=== PATIENT | male | born 1985 | race Caucasian/White ===

== ENCOUNTER 2021-06-19 08:03 | Emergency (ER) | payer OTHER, SELFPAY ==
--- NOTE | ~2021-06-19 | CT_ITS ---
EXAMINATION: CT abdomen pelvis w con EXAM DATE: 06/19/2021 09:27 INDICATION: Diffuse abdominal pain, rigid abdomen nausea vomiting for 3 days. TECHNIQUE: Spiral CT of the abdomen and pelvis was performed following intravenous injection of 100 m L Omnipaque 350. Axial, coronal and sagittal images of the abdomen and pelvis were reviewed. The do se-length product (DLP) for this examination was 386.71 mGy-cm. The exposure was tailored according to patient size (auto mA exposure control), and iterative reconstruction (ASIR) was used as additiona l dose reduction technique. There is no prior study for comparison. FINDINGS: The liver, spleen, adrenal glands and pancreas are unremarkable. Gallbladder is unremarkab le. No biliary obstruction. Punctate bilateral nephrolithiasis. Portal and splenic veins are patent. Kidneys enhance symmetrically. There is no hydronephrosis. The prostate is unremarkable. Calcifi ed vasa deferentia which is often seen with diabetes. The bladder is unremarkable. There is no retr operitoneal or pelvic lymphadenopathy. The appendix is normal. The stomach and small bowel are unremarkable. There is moderate amount of c olonic stool. No free intraperitoneal gas. The heart is normal in size. There are no pericardial or pleural effusions. The lung bases are unremarkable. There are no osteoblastic or osteolytic les ions identified. IMPRESSION: 1. No acute intra-abdominal findings. 2. Calcified vasa deferentia. Diabetic? Consider correlating with fasting glucose, hemoglobin A1c if no known diagnosis. 3. Punctate bilateral nephrolithiasis. Reviewed, dictated and finalized at location B. IMPRESSION: 1. No acute intra-abdominal findings. 2. Calcified vasa deferentia. Diabetic? Consider correlating with fasting gluc ose, hemoglobin A1c if no known diagnosis. 3. Punctate bilateral nephrolithiasis.
[2021-06-19 08:03] VITALS: BP 185/108; PULSE 99; RESP 16; TEMP 36.4; O2SAT 99
[2021-06-19] MEDS: ONDANSETRON INJ 4 MG/2 ML VIAL IV PUSH (08:11)
[2021-06-19 08:25] LABS: Glucose Point of Care 233 mg/dl (65-105)
--- NOTE | 2021-06-19 08:29 | ED.GENADULT ---
HPI - General Adult General Chief complaint: Nausea/Vomiting/Diarrhea Stated complaint: VOMITTING Source: patient Mode of arrival: ambulatory Limitations: no limitations History of Present Illness HPI narrative: Mr. Ramirez is a 36M with a PMH of tobacco abuse, DMI that presented to the ED with abdominal pain, nausea, and vomiting. He woke up 2 days ago with diffuse abdominal pain nausea and vomiting. He has had several episodes of non-bloody vomit today and diffuse abdominal pain. He denies diarrhea, melena, CP, SOB fevers and chills. Related Data Home Medications Medication Instructions Recorded Confirmed insulin glargine [Lantus U-100 40 unit SUBCUT DAILY 06/19/21 06/19/21 Insulin] insulin lispro [Admelog U-100 See Protocol SUBCUT PRN 06/19/21 06/19/21 Insulin lispro] insulin syringe-needle U-100 [BD 06/19/21 06/19/21 Insulin Syringe Ultra-Fine] Allergies Allergy/AdvReac Type Severity Reaction Status Date / Time No Known Allergies Allergy Verified 06/19/21 08:29 Review of Systems Constitutional: Constitutional: Reports no additional constitutional complaints Eyes: Eyes: Reports no additional eye complaints ENT: Reports system reviewed and no additional complaints, except as documented Cardiovascular: Cardiovascular: Reports no additional cardiovascular complaints Respiratory: Respiratory: Reports no additional respiratory complaints Gastrointestinal: Gastrointestinal: Reports as per HPI Genitourinary: Genitourinary: Reports no additional male genitourinary complaints Musculoskeletal: Musculoskeletal: Reports no additional musculoskeletal complaints Integumentary/Breasts: Skin/Breast: Reports system reviewed and no additional complaints, except as docu Neurologic: Reports system reviewed and no additional complaints, except as documented Psychiatric: Psychiatric: Reports no additional psychiatric complaints Endocrine: Endocrine: Reports no additional endocrine complaints Hematologic/Lymphatic: Hematologic/Lymphatic: Reports no additional hematologic/lymphatic complaints Allergic/Immunologic: Allergic/Immunologic: Reports no additional allergic/immunologic complaints [facility] Social History Social History Substance use type: marijuana and other Exam Const: General: alert Orientation/consciousness: patient oriented x3 Limitations: No altered mental status Other: In mild to moderate distress holding his abdoman HENMT: Head: normal to inspection Other: atraumatic Eyes: Conjunctivae: conjunctivae normal Pupils: Equal, round and reactive pupils present Neck: Neck: normal visual inspection Chest: Chest palpation & inspection: normal inspection of the chest Resp: Effort & Inspection: normal respiratory effort Auscultation: clear to auscultation bilaterally Cardio: Rate: regular rate Rhythm: regular rhythm GI: GI Palp: Yes Guarding due to palpation present (GI) and Yes Rebound tenderness present Other: Diffusely tender abdomen, unable to deeply palpate given pain : General: Yes no CVA tenderness Skin: General skin exam: normal color Rashes: no rashes Neuro: General: patient oriented x3 and moves all extremities Extrem: General: normal to inspection Psych: Appearance: grossly normal Mental Status: mental status grossly normal Course Course Emergency Course: Isaac was evaluated. He was given fluids, morphine and zofran. Labs and CT ordered. He felt a little better with the morphing but really felt better after the GI cocktail but continued to feel week. He did not take his insulin and is worried that he will not be able to get to his home insulin so he would like it given here. Medical Decision Making Lab Data Labs: Lab Results 06/19/21 Range/Units 08:17 POC Capillary Glucose 233 H (65-105) mg/dl Discharge Plan Discharge Clinical Impression: Gastritis Patient Disposition: Home, Se
[2021-06-19] MEDS: LACTATED RINGERS 1,000 ML 999 ML IV CONT (08:30)
[2021-06-19 08:43] LABS: Basophils Absolute Auto 0.02 K/mm3 (0.00-0.10); Basophils Percent Auto 0.2 % (0.0-1.0); Eosinophils Absolute Auto 0.02 K/mm3 (0.02-0.50); Eosinophils Percent Auto 0.2 % (1.0-6.0); Hematocrit 49.2 % (40.0-54.0); Hemoglobin 17.6 g/dL (14.0-18.0); Immature Granulocyte Absolute 0.03 K/mm3 (0.00-0.00); Immature Granulocyte Percent A 0.3 % (0.0-0.0); Lymphocytes Absolute Auto 1.17 K/mm3 (1.10-4.50); Lymphocytes Percent Auto 12.3 % (18.0-42.0); Mean Corpuscular HGB Conc 35.8 g/dL (32.0-36.0); Mean Corpuscular Hemoglobin 31.7 pg (27.0-31.0); Mean Corpuscular Volume 88.5 fL (78.0-102.0); Mean Platelet Volume 11.8 fl (8.7-11.0); Monocytes Absolute Auto 0.65 K/mm3 (0.10-0.90); Monocytes Percent Auto 6.8 % (2.0-11.0); Neutrophils Absolute Auto 7.6 K/mm3 (1.7-7.2); Neutrophils Percent Auto 80.2 % (50.0-70.0); Platelet Count Result 185 K/mm3 (150-420); Red Blood Count 5.56 M/mm3 (4.70-6.10); Red Cell Distribution Width 12.4 % (11.6-14.4); White Blood Count 9.5 K/mm3 (4.8-10.8)
[2021-06-19 08:55] LABS: INR 1.1; Prothrombin Time 11.2 Seconds (9.50-12.10)
[2021-06-19] MEDS: MORPHINE SULFATE (*CRX) 4 MG/ML INJ IV PUSH (08:56)
[2021-06-19 09:00] LABS: Alanine Aminotransferase 18 U/L (16-63); Albumin Level 4.6 g/dL (3.4-5.0); Alkaline Phosphatase 76 U/L (46-116); Anion Gap 16 mmol/L (8-16); Aspartate Amino Transferase 10 U/L (15-37); Bilirubin,Total 1.2 mg/dL (0.00-1.00); Blood Urea Nitrogen 31 mg/dL (7-18); Calcium 9.6 mg/dL (8.5-10.1); Carbon Dioxide 26 mmol/L (21-32); Chloride 97 mmol/L (98-108); Estimated CRCL calculation 118 ml/min; Estimated Glomerular Filt Rate > 60; Glucose 242 mg/dL (70-99); Lipase 14 U/L (73-393); Osmolality Calculated 302 mOsm/kg (285-295); Sodium 139 mmol/L (136-145); Total Protein 7.6 g/dL (6.4-8.2)
[2021-06-19 09:02] LABS: Ethanol < 3 mg/dL (0-6)
[2021-06-19 09:09] LABS: CRP < 0.5 mg/dL (0.0-0.9)
[2021-06-19] MEDS: MAG HYDROX/ALUMINUM HYD/SIMETH 30 ML, PHENobarb/HYOSCY/ATROPINE/SCOP 32.4 MG, LIDOCAINE... PO (10:23)
[2021-06-19 11:13] VITALS: BP 160/97; PULSE 86; RESP 15; O2SAT 97
[2021-06-19] MEDS: INSULIN GLARGINE (*BKC) 100 UNITS/ML 40 UNITS SUB-Q (11:13)
== END 2021-06-19 11:15 | disposition home or self-care (01) ==
PROVIDERS: Emergency Provider Family Medicine
DX: K29.70 Gastritis, unspecified, without bleeding (principal)
CPT/HCPCS: 36415; 74177; 80053; 80307; 82948; 83605; 83690; 85025; 85610; 86140; 96361; 96374; 96375; 99283; 99284; A9270; J1815; J2270; J2405; J7120; Q9967

== ENCOUNTER 2022-04-12 13:29 | Emergency (ER) | payer OTHER, SELFPAY ==
[2022-04-12 13:40] VITALS: BP 169/83; PULSE 92; RESP 20; TEMP 36.3; O2SAT 98
--- NOTE | 2022-04-12 13:48 | ED.NAVMDI ---
HPI - Nausea/Vomiting/Diarrhea General Chief complaint: Nausea/Vomiting/Diarrhea Stated complaint: vomiting, abd pain, diarrhea, headache Time Seen by Provider: 04/12/22 13:48 Source: patient History of Present Illness HPI Narrative: 37-year-old male, smoker, marijuana user with diabetes mellitus presented to the ER with a 12 hour history of -- nausea with multiple episodes of vomiting -- diffuse abdominal pain. No radiation of the pain. No exacerbating or relieving factors. No fever. -- Multiple episodes of diarrhea. No blood or mucus. -- Headache which is generalized. Started insidiously. Patient had alcohol with cinnamon yesterday. no hematemesis/melena MD elicited complaint: nausea, vomiting, diarrhea and abdominal pain Pertinent past history: anorexia Onset (ago): hour(s) ( Started 12 hours ago) Description of vomiting: bilious Description of diarrhea: watery Associated nausea: Yes Associated abdominal pain: Yes Location of pain: diffuse Radiation: does not radiate Pain consistency: intermittent Severity: moderate Quality: cramping Exacerbating factors: none Relieving factors: none Related Data Home Medications Medication Instructions Recorded Confirmed insulin glargine [Lantus U-100 42 unit SUBCUT DAILY 06/19/21 04/12/22 Insulin] insulin lispro [Admelog U-100 See Protocol SUBCUT PRN 06/19/21 04/12/22 Insulin lispro] insulin syringe-needle U-100 [BD 06/19/21 04/12/22 Insulin Syringe Ultra-Fine] Allergies Allergy/AdvReac Type Severity Reaction Status Date / Time No Known Allergies Allergy Verified 06/19/21 08:29 Review of Systems Review of Systems: All systems reviewed & are unremarkable except as noted in HPI and below Constitutional: Constitutional: Reports as per HPI and Reports no additional constitutional complaints Eyes: Eyes: Reports as per HPI and Reports no additional eye complaints ENT: Reports system reviewed and no additional complaints, except as documented Cardiovascular: Cardiovascular: Reports as per HPI and Reports no additional cardiovascular complaints Respiratory: Respiratory: Reports as per HPI and Reports no additional respiratory complaints Gastrointestinal: Gastrointestinal: Reports as per HPI, Reports no additional gastrointestinal complaints, Reports abdominal pain, Reports change in bowel habits, Reports change in stool character, Reports diarrhea, Reports loose stools, Reports nausea and Reports vomiting Genitourinary: Genitourinary: Reports no additional male genitourinary complaints and Reports as per HPI Musculoskeletal: Musculoskeletal: Reports no additional musculoskeletal complaints and Reports as per HPI Integumentary/Breasts: Skin/Breast: Reports system reviewed and no additional complaints, except as docu and Reports as per HPI Neurologic: Reports system reviewed and no additional complaints, except as documented and Reports as per HPI Psychiatric: Psychiatric: Reports no additional psychiatric complaints and Reports as per HPI Endocrine: Endocrine: Reports no additional endocrine complaints and Reports as per HPI Hematologic/Lymphatic: Hematologic/Lymphatic: Reports no additional hematologic/lymphatic complaints and Reports as per HPI Allergic/Immunologic: Allergic/Immunologic: Reports no additional allergic/immunologic complaints and Reports as per HPI PMFSH Past Medical History Medical History (Updated 04/12/22 @ 15:23 by Roberth Alva MD) Gastritis Social History Social History (Updated 04/12/22 @ 14:07 by Roberth Alva MD) Social History: smoker, uses marijuana Substance use type: marijuana and other Exam Const: General: cooperative, healthy appearing, comfortable and no acute distress HENMT: Head: normal to inspection Ears: hearing grossly normal bilaterally General nose exam: Normal external nose present Face and sinus: normal facial exam Mouth: Yes Normal oral and palatal mucosa present Throat: sales research analyst
[2022-04-12] MEDS: LACTATED RINGERS 1,000 ML 999 ML IV CONT ×2 (14:08→15:24)
[2022-04-12] MEDS: PANTOPRAZOLE SODIUM IV 40 MG VIAL IV PUSH (14:09)
[2022-04-12] MEDS: PROCHLORPERAZINE EDISYLATE 10 MG/2 ML VIAL IV PUSH (14:10)
[2022-04-12 14:50] LABS: Basophils Absolute Auto 0.03 K/mm3 (0.00-0.10); Basophils Percent Auto 0.3 % (0.0-1.0); Eosinophils Absolute Auto 0.02 K/mm3 (0.02-0.50); Eosinophils Percent Auto 0.2 % (1.0-6.0); Hematocrit 43.3 % (40.0-54.0); Hemoglobin 15.4 g/dL (14.0-18.0); Immature Granulocyte Absolute 0.04 K/mm3 (0.00-0.00); Immature Granulocyte Percent A 0.4 % (0.0-0.0); Lymphocytes Absolute Auto 0.79 K/mm3 (1.10-4.50); Lymphocytes Percent Auto 7.3 % (18.0-42.0); Mean Corpuscular HGB Conc 35.6 g/dL (32.0-36.0); Mean Corpuscular Volume 89.8 fL (78.0-102.0); Mean Platelet Volume 11.7 fl (8.7-11.0); Monocytes Absolute Auto 0.44 K/mm3 (0.10-0.90); Monocytes Percent Auto 4.1 % (2.0-11.0); Neutrophils Absolute Auto 9.5 K/mm3 (1.7-7.2); Neutrophils Percent Auto 87.7 % (50.0-70.0); Platelet Count Result 151 K/mm3 (150-420); Red Blood Count 4.82 M/mm3 (4.70-6.10); White Blood Count 10.8 K/mm3 (4.8-10.8)
[2022-04-12 15:06] LABS: Lactic Acid Reflex 1.7 mmol/L (0.4-2.0)
[2022-04-12 15:08] LABS: Alanine Aminotransferase 24 U/L (16-63); Albumin Level 4.1 g/dL (3.4-5.0); Alkaline Phosphatase 62 U/L (46-116); Anion Gap 8 mmol/L (8-16); Aspartate Amino Transferase 16 U/L (15-37); Bilirubin,Total 0.7 mg/dL (0.00-1.00); Blood Urea Nitrogen 18 mg/dL (7-18); Calcium 8.9 mg/dL (8.5-10.1); Carbon Dioxide 29 mmol/L (21-32); Chloride 103 mmol/L (98-108); Estimated CRCL calculation 103 ml/min; Estimated Glomerular Filt Rate > 60; Glucose 116 mg/dL (70-99); Lipase 125 U/L (73-393); Osmolality Calculated 292 mOsm/kg (285-295); Sodium 140 mmol/L (136-145); Total Protein 6.9 g/dL (6.4-8.2); Troponin I 6.3 ng/L (0.00-60.4)
[2022-04-12 16:08] VITALS: BP 164/76; PULSE 94; RESP 20; TEMP 36.9; O2SAT 97
== END 2022-04-12 16:18 | disposition home or self-care (01) ==
PROVIDERS: Emergency Provider Internal Medicine Critical Care Medicine
DX: K52.9 Noninfective gastroenteritis and colitis, unspecified (principal); K29.20 Alcoholic gastritis without bleeding; E11.9 Type 2 diabetes mellitus without complications; F12.90 Cannabis use, unspecified, uncomplicated
CPT/HCPCS: 36415; 80053; 83605; 83690; 84484; 85025; 96361; 96374; 96375; 99284; C9113; J0780; J7120

== ENCOUNTER 2022-06-21 08:23 | Emergency (ER) | payer OTHER, SELFPAY ==
[2022-06-21 08:30] VITALS: BP 179/90; PULSE 74; RESP 18; TEMP 36.2; O2SAT 100
--- NOTE | 2022-06-21 08:32 | ED.UPPEXIN ---
HPI - Extremity Injury (Upper) General Stated Complaint: can not stop vomiting Time Seen by Provider: 06/21/22 08:32 Source: patient and RN notes reviewed Mode of arrival: ambulatory Limitations: no limitations History of Present Illness Onset (ago): day(s) Related Data Home Medications Medication Instructions Recorded Confirmed insulin glargine 100 unit/mL 42 unit subcut DAILY 06/19/21 04/12/22 subcutaneous solution (Lantus U-100 Insulin) insulin lispro 100 unit/mL See Protocol subcut PRN 06/19/21 04/12/22 subcutaneous solution (Admelog U-100 Insulin lispro) insulin syringe-needle U-100 1 mL 06/19/21 04/12/22 31 gauge x 5/16 (BD Insulin Syringe Ultra-Fine) Allergies Allergy/AdvReac Type Severity Reaction Status Date / Time No Known Allergies Allergy Verified 06/19/21 08:29 [facility] Past Medical History Medical History (Updated 04/13/22 @ 00:00 by Georges Mcfadden) Gastritis Social History Social History (Updated 04/12/22 @ 14:07 by Roberth Alva MD) Social History: smoker, uses marijuana Substance use type: marijuana and other Discharge Plan Discharge Prescriptions: No Action Lantus U-100 Insulin 100 unit/mL solution 42 unit SUBCUT DAILY (DME) insulin syringe-needle U-100 [BD Insulin Syringe Ultra-Fine] 1 mL 31 gauge x 5/16 syringe MISCELLANEOUS insulin lispro [Admelog U-100 Insulin lispro] 100 unit/mL solution See Protocol subcut PRN Protocol: Insulin Corrective Low-Dose Condition: glucose < 70 mg/dl Dose/Route: Follow Hypoglycemia Order Condition: glucose 70-200 mg/dl Dose/Route: No additional insulin Condition: glucose 201-250 mg/dl Dose/Route: 2 units sub-Q Condition: glucose 251-300 mg/dl Dose/Route: 3 units sub-Q Condition: glucose 301-350 mg/dl Dose/Route: 4 units sub-Q Condition: glucose 351-400 mg/dl Dose/Route: 5 units sub-Q Condition: glucose > 400 mg/dl Dose/Route: Call Protocol Text: *No Correction Dose at Bedtime* pantoprazole [Protonix] 40 mg tablet,delayed release (DR/EC) 40 mg PO HS Qty: 14 0RF pantoprazole [Protonix] [address] for susp in packet 40 mg PO DAILY Qty: 15 0RF ondansetron 4 mg tablet,disintegrating 4 mg PO Q6H PRN (Reason: nausea and vomiting) Qty: 10 0RF Follow-up/Referrals: UNKNOWN,DOCTOR [Primary Care Provider] -
--- NOTE | 2022-06-21 08:45 | ED.NAVMDI ---
HPI - Nausea/Vomiting/Diarrhea General Chief complaint: Nausea/Vomiting/Diarrhea Stated complaint: can not stop vomiting Time Seen by Provider: 06/21/22 08:32 Source: patient and RN notes reviewed Mode of arrival: ambulatory Limitations: no limitations History of Present Illness MD elicited complaint: nausea, vomiting and diarrhea Onset (ago): day(s) (3) Description of vomiting: bilious Description of diarrhea: lose Associated nausea: Yes Associated abdominal pain: Yes Location of pain: diffuse Pain consistency: intermittent ( feels sore from vomiting) Severity: moderate Exacerbating factors: eating Relieving factors: none Associated symptoms: myalgias Related Data Home Medications Medication Instructions Recorded Confirmed insulin glargine 100 unit/mL 40 unit subcut DAILY 06/19/21 06/21/22 subcutaneous solution (Lantus U-100 Insulin) insulin lispro 100 unit/mL See Protocol subcut PRN 06/19/21 06/21/22 subcutaneous solution (Admelog U-100 Insulin lispro) insulin syringe-needle U-100 1 mL 06/19/21 04/12/22 31 gauge x 5/16 (BD Insulin Syringe Ultra-Fine) lorazepam 0.5 mg tablet 0.5 mg PO DAILY 06/21/22 06/21/22 metoclopramide HCl 10 mg tablet 10 mg PO DAILY 06/21/22 06/21/22 olanzapine 5 mg tablet 5 mg PO DAILY 06/21/22 06/21/22 Allergies Allergy/AdvReac Type Severity Reaction Status Date / Time No Known Allergies Allergy Verified 06/21/22 08:46 Review of Systems Review of Systems: All systems reviewed & are unremarkable except as noted in HPI and below Constitutional: Constitutional: Reports chills and Reports weakness ENT: Denies sore throat Respiratory: Respiratory: Denies cough Genitourinary: Genitourinary: Denies dysuria PMFSH Past Medical History Medical History (Updated 06/21/22 @ 10:30 by Juan Ramon Ling MD) Bipolar 1 disorder Diabetes mellitus Gastritis Social History Social History Social History: smoker, uses marijuana Substance use type: marijuana and other Exam Const: General: no acute distress, alert and ill appearing acutely Nutritional Appearance: well nourished Orientation/consciousness: patient oriented x3 Limitations: no limitations HENMT: Head: normal to inspection Ears: external ears normal Eyes: Conjunctivae: conjunctivae normal Pupils: Equal, round and reactive pupils present EOM: EOMs intact bilaterally Neck: Neck: normal visual inspection Resp: Effort & Inspection: normal respiratory effort Auscultation: clear to auscultation bilaterally Cardio: Rate: regular rate Rhythm: regular rhythm GI: GI Palp: Yes Soft to palpation, Yes Tenderness to palpation present (GI) ( moderate diffusely), Yes Guarding due to palpation present (GI) and No Rebound tenderness present Auscultation: normal bowel sounds Back/Spine/Pelvis: Cervical Spine: cervical ROM normal Thoracic/Lumbar Spine: thoraco-lumbar ROM normal Skin: General skin exam: normal color Rashes: no rashes Neuro: General: patient oriented x3, moves all extremities, no focal motor deficits and CN's II-XI intact bilaterally Speech: normal speech Gait exam (Neuro): Normal gait present Extrem: General: normal to inspection Psych: Mental Status: mental status grossly normal Affect: normal affect Attitude: cooperative Course Vital Signs Vital signs: Vital Signs Temperature 36.2 C L 06/21/22 08:30 Pulse Rate 74 06/21/22 08:30 Respiratory Rate 18 06/21/22 08:30 Blood Pressure 179/90 H 06/21/22 08:30 Pulse Oximetry 100 06/21/22 08:30 Oxygen Delivery Room Air 06/21/22 08:30 Temperature 36.9 C 06/21/22 10:20 Pulse Rate 65 06/21/22 10:20 Respiratory Rate 16 06/21/22 10:20 Blood Pressure 152/84 H 06/21/22 10:20 Pulse Oximetry 99 06/21/22 10:20 Oxygen Delivery Room Air 06/21/22 10:20 MDM - Nausea/Vomiting/Diarrhea Lab Data Result diagrams: 06/21/22 09:00 06/21/22 09:
[2022-06-21 09:07] LABS: Basophils Absolute Auto 0.01 K/mm3 (0.00-0.10); Basophils Percent Auto 0.1 % (0.0-1.0); Eosinophils Absolute Auto 0.02 K/mm3 (0.02-0.50); Eosinophils Percent Auto 0.2 % (1.0-6.0); Hematocrit 48.4 % (40.0-54.0); Hemoglobin 17.6 g/dL (14.0-18.0); Immature Granulocyte Absolute 0.03 K/mm3 (0.00-0.00); Immature Granulocyte Percent A 0.3 % (0.0-0.0); Lymphocytes Absolute Auto 1.25 K/mm3 (1.10-4.50); Lymphocytes Percent Auto 11.5 % (18.0-42.0); Mean Corpuscular HGB Conc 36.4 g/dL (32.0-36.0); Mean Corpuscular Hemoglobin 31.8 pg (27.0-31.0); Mean Corpuscular Volume 87.4 fL (78.0-102.0); Mean Platelet Volume 12.2 fl (8.7-11.0); Monocytes Absolute Auto 0.81 K/mm3 (0.10-0.90); Monocytes Percent Auto 7.5 % (2.0-11.0); Neutrophils Absolute Auto 8.7 K/mm3 (1.7-7.2); Neutrophils Percent Auto 80.4 % (50.0-70.0); Platelet Count Result 185 K/mm3 (150-420); Red Blood Count 5.54 M/mm3 (4.70-6.10); White Blood Count 10.9 K/mm3 (4.8-10.8)
[2022-06-21 09:19] LABS: Influenza A QL RT-PCR Negative (Negative); Influenza B QL RT-PCR Negative (Negative); SARS-CoV-2 RNA PCR Positive (Negative)
[2022-06-21] MEDS: SODIUM CHLORIDE 0.9% IV 1,000 ML 999 ML IV CONT (09:20)
[2022-06-21 09:22] LABS: Alanine Aminotransferase 25 U/L (16-63); Albumin Level 4.5 g/dL (3.4-5.0); Alkaline Phosphatase 81 U/L (46-116); Anion Gap 14 mmol/L (8-16); Aspartate Amino Transferase 18 U/L (15-37); Bilirubin,Total 1.3 mg/dL (0.00-1.00); Blood Urea Nitrogen 29 mg/dL (7-18); Calcium 9.3 mg/dL (8.5-10.1); Carbon Dioxide 28 mmol/L (21-32); Chloride 96 mmol/L (98-108); Estimated CRCL calculation 104 ml/min; Estimated Glomerular Filt Rate > 60; Glucose 259 mg/dL (70-99); Magnesium 1.9 mg/dL (1.8-2.4); Osmolality Calculated 300 mOsm/kg (285-295); Potassium 3.8 mmol/L (3.5-5.1); Sodium 138 mmol/L (136-145)
[2022-06-21 09:23] LABS: CRP < 0.2 mg/dL (0.0-0.9)
[2022-06-21 09:25] LABS: Lactic Acid Reflex 1.7 mmol/L (0.4-2.0)
[2022-06-21] MEDS: ONDANSETRON INJ 4 MG/2 ML VIAL IV PUSH (10:17)
[2022-06-21 10:20] VITALS: BP 152/84; PULSE 65; RESP 16; TEMP 36.9; O2SAT 99
== END 2022-06-21 10:44 | disposition home or self-care (01) ==
PROVIDERS: Emergency Provider Emergency Medicine
DX: U07.1 COVID-19 (principal)
CPT/HCPCS: 80053; 83605; 83735; 85025; 86140; 87502; 96361; 96365; 96375; 99284; C9803; J0131; J2405; J7030; U0003; U0005

== ENCOUNTER 2022-08-22 14:06 | Emergency (ER) | payer OTHER, SELFPAY ==
[2022-08-22 14:10] VITALS: BP 180/86; PULSE 91; RESP 18; TEMP 36.6; O2SAT 96
[2022-08-22 14:19] LABS: Glucose Point of Care 257 mg/dl (65-105)
--- NOTE | 2022-08-22 14:27 | ECG_ITS ---
Measurements Intervals [place] Rate: 79 P: 62 CT: 110 QRS: 65 QRSD: 94 T: 54 QT: 378 QTc: 433 Interpretive Statements SINUS RHYTHM WITH SHORT CT INTERVAL BORDERLINE ECG NO PREVIOUS ECG AVAILABLE FOR COMPARISON Electronically Signed On 08-22-2022 16:48:47 CDT by Randy Haas D.O.
--- NOTE | 2022-08-22 14:29 | ED.GENADULT ---
HPI - General Adult General Chief complaint: Nausea/Vomiting/Diarrhea Stated complaint: vomiting, abd pain, bcak pain Time Seen by Provider: 08/22/22 14:15 History of Present Illness HPI narrative: Isaac is a 37M with a PMH of DMI, gastroparesis, Bipolar 1 and gastritis that presented to the ED with abdominal pain nausea and vomiting. He woke up yesterday with diffuse abdominal pain, nausea and started vomiting. He has had countless episodes of non-bloody vomiting and 6 episodes of non-bloody vomiting. He has not been able to keep anything down. He denies drinking any alcohol recently and has not smoked MJ for 2 days but smoked regularly before this. He denies CP, SOB but is a little light headed. Related Data Home Medications Medication Instructions Recorded Confirmed insulin glargine 100 unit/mL 40 unit subcut DAILY 06/19/21 08/22/22 subcutaneous solution (Lantus U-100 Insulin) insulin syringe-needle U-100 1 mL 06/19/21 08/22/22 31 gauge x 5/16 (BD Insulin Syringe Ultra-Fine) lorazepam 0.5 mg tablet 0.5 mg PO DAILY 06/21/22 08/22/22 metoclopramide HCl 10 mg tablet 10 mg PO DAILY 06/21/22 08/22/22 olanzapine 5 mg tablet 5 mg PO DAILY 06/21/22 08/22/22 Allergies Allergy/AdvReac Type Severity Reaction Status Date / Time No Known Allergies Allergy Verified 06/21/22 08:46 Review of Systems Review of Systems: All systems reviewed & are unremarkable except as noted in HPI and below [facility] Past Medical History Medical History (Updated 08/22/22 @ 15:35 by Bill Sorensen DO) Bipolar 1 disorder Diabetes mellitus Gastritis Social History Social History Social History: smoker, uses marijuana Substance use type: marijuana and other Exam Const: General: alert and ill appearing acutely HENMT: Head: normal to inspection Ears: external ears normal General nose exam: Normal external nose present Eyes: Conjunctivae: conjunctivae normal Pupils: Equal, round and reactive pupils present EOM: EOMs intact bilaterally Neck: Neck: normal visual inspection Chest: Chest palpation & inspection: normal inspection of the chest Resp: Effort & Inspection: normal respiratory effort Auscultation: clear to auscultation bilaterally Cardio: Rate: regular rate Rhythm: regular rhythm Heart sounds: no murmurs GI: Other: Diffusely TTP, No rebound tenderness or guarding. BS normal : Other: +CVA tenderness bilaterally Skin: General skin exam: normal color Rashes: no rashes Neuro: General: patient oriented x3 and moves all extremities Extrem: General: normal to inspection Psych: Mental Status: mental status grossly normal Course Course Emergency Course: Ordered labs, fluids, UA, zofran and morphine EKG showed NSR with a rate of 79, normal axis and no ST elevation or depression Labs were largely unremarkable After fluids he was feeling much better. We discussed return precautions and he was discharged. Vital Signs Vital signs: Vital Signs Temperature 97.9 F 08/22/22 14:10 Pulse Rate 91 08/22/22 14:10 Respiratory Rate 18 08/22/22 14:10 Blood Pressure 180/86 H 08/22/22 14:10 Pulse Oximetry 96 08/22/22 14:10 Oxygen Delivery Room Air 08/22/22 14:10 Temperature 97.8 F 08/22/22 16:30 Pulse Rate 86 08/22/22 16:30 Respiratory Rate 20 08/22/22 16:30 Blood Pressure 188/93 H 08/22/22 16:30 Pulse Oximetry 98 08/22/22 16:30 Oxygen Delivery Room Air 08/22/22 16:30 Medical Decision Making Vital Signs Vital Signs: Vital Signs Temperature 97.9 F 08/22/22 14:10 Pulse Rate 91 08/22/22 14:10 Respiratory Rate 18 08/22/22 14:10 Blood Pressure 180/86 H 08/22/22 14:10 Pulse Oximetry 96 08/22/22 14:10 Oxygen Delivery Room Air 08/22/22 14:10 Temperature 97.8 F 08/22/22 16:30 Pulse Rate 86 08/22/22 16:30 Respiratory Rate 20 08/22/22 16:30 Blood Pressure 188/93
[2022-08-22] MEDS: SODIUM CHLORIDE 0.9% IV 1,000 ML 999 ML IV CONT (14:51)
[2022-08-22] MEDS: MORPHINE SULFATE (*CRX) 4 MG/ML INJ IV PUSH (14:52)
[2022-08-22] MEDS: ONDANSETRON INJ 4 MG/2 ML VIAL IV PUSH (14:52)
[2022-08-22 14:56] LABS: Basophils Absolute Auto 0.01 K/mm3 (0.00-0.10); Basophils Percent Auto 0.1 % (0.0-1.0); Hematocrit 46.5 % (40.0-54.0); Hemoglobin 16.4 g/dL (14.0-18.0); Immature Granulocyte Absolute 0.03 K/mm3 (0.00-0.00); Immature Granulocyte Percent A 0.3 % (0.0-0.0); Lymphocytes Percent Auto 12.1 % (18.0-42.0); Mean Corpuscular HGB Conc 35.3 g/dL (32.0-36.0); Mean Corpuscular Hemoglobin 31.2 pg (27.0-31.0); Mean Corpuscular Volume 88.6 fL (78.0-102.0); Mean Platelet Volume 12.1 fl (8.7-11.0); Monocytes Absolute Auto 0.51 K/mm3 (0.10-0.90); Monocytes Percent Auto 5.6 % (2.0-11.0); Neutrophils Absolute Auto 7.5 K/mm3 (1.7-7.2); Neutrophils Percent Auto 81.9 % (50.0-70.0); Platelet Count Result 167 K/mm3 (150-420); Red Blood Count 5.25 M/mm3 (4.70-6.10); Red Cell Distribution Width 12.3 % (11.6-14.4); White Blood Count 9.1 K/mm3 (4.8-10.8)
[2022-08-22 15:11] LABS: INR 1.1; Prothrombin Time 11.8 Seconds (9.50-12.10)
[2022-08-22 15:15] LABS: Alanine Aminotransferase 23 U/L (16-63); Albumin Level 4.8 g/dL (3.4-5.0); Alkaline Phosphatase 69 U/L (46-116); Anion Gap 11 mmol/L (8-16); Aspartate Amino Transferase 13 U/L (15-37); Bilirubin,Total 1.2 mg/dL (0.00-1.00); Blood Urea Nitrogen 30 mg/dL (7-18); Calcium 9.2 mg/dL (8.5-10.1); Carbon Dioxide 28 mmol/L (21-32); Chloride 100 mmol/L (98-108); Estimated CRCL calculation 94 ml/min; Estimated Glomerular Filt Rate > 60; Glucose 265 mg/dL (70-99); Lipase 30 U/L (73-393); Magnesium 1.9 mg/dL (1.8-2.4); Osmolality Calculated 303 mOsm/kg (285-295); Potassium 4.1 mmol/L (3.5-5.1); Sodium 139 mmol/L (136-145)
[2022-08-22 15:18] LABS: CRP < 0.2 mg/dL (0.0-0.9); Ethanol < 3 mg/dL (0-6)
[2022-08-22 15:31] LABS: Troponin I 7.7 ng/L (0.00-60.4)
[2022-08-22 16:24] LABS: Appearance Urine Clear (Clear); Bilirubin Urine Negative (Negative); Blood Urine 2+ (Negative); Glucose Urine UA 3+ (Negative); Ketones Urine 3+ (Negative); Leukocyte Esterase Ur Negative (Negative); Nitrate Urine Negative (Negative); Protein Urine 2+ (Negative); Specific Grav Ur >= 1.030 (1.010-1.020); Urobilinogen Urine 0.2 mg/dL (0.2-1.0)
[2022-08-22 16:30] VITALS: BP 188/93; PULSE 86; RESP 20; TEMP 36.6; O2SAT 98
[2022-08-22 16:36] LABS: Add Urine Microscopic? YES; Bacteria Urine None seen /hpf; Color Urine Light Yellow (Yellow); WBC Urine None seen /hpf (0-3)
[2022-08-22 16:37] LABS: Amphetamine Screen Urine Negative (Negative); Barbiturate Screen Urine Negative (Negative); Benzodiazepines Screen Urine Negative (Negative); Cannabinoid Screen Urine Positive (Negative); Cocaine Screen Urine Negative (Negative); Methadone Screen Urine Negative (Negative); Opiate Screen Urine Positive (Negative); Phencyclidine Screen Urine Negative (Negative)
== END 2022-08-22 16:40 | disposition home or self-care (01) ==
PROVIDERS: Emergency Provider Family Medicine; PCP Family Medicine
DX: K52.9 Noninfective gastroenteritis and colitis, unspecified (principal); E11.43 Type 2 diabetes mellitus with diabetic autonomic (poly)neuropathy; K31.84 Gastroparesis
CPT/HCPCS: 36415; 36600; 80053; 80307; 81001; 82948; 83605; 83690; 83735; 84484; 85025; 85610; 86140; 93005; 96361; 96374; 96375; 99284; J2270; J2405; J7030

== ENCOUNTER 2022-11-25 14:17 | Observation (INO) | payer OTHER, SELFPAY ==
[2022-11-25 14:20] VITALS: BP 175/90; BP 176/83; PULSE 102; PULSE 112; RESP 16; TEMP 36.3; O2SAT 97
--- NOTE | 2022-11-25 14:30 | ED.NAVMDI ---
HPI - Nausea/Vomiting/Diarrhea General Chief complaint: Nausea/Vomiting/Diarrhea Stated complaint: vomiting since thursday Time Seen by Provider: 11/25/22 14:27 Source: patient and RN notes reviewed Mode of arrival: ambulatory Limitations: no limitations History of Present Illness HPI Narrative: patient states that on he drank a lot of alcohol including beer, hard liquor and moonshine. Then Thursday morning woke up having vomiting. He has a history of type 1 diabetes and has frequent episodes alcoholic gastritis. He also has a history of diabetic gastroparesis. He says now his vomit is just bile. He denies any diarrhea. He is having difficulty keeping anything down at this time. MD elicited complaint: vomiting Pertinent past history: alcohol abuse Onset (ago): day(s) (2) Description of vomiting: bilious Associated abdominal pain: Yes (sore from vomiting) Location of pain: epigastric Severity: mild Exacerbating factors: vomiting Relieving factors: none Context: alcohol abuse Associated symptoms: fatigue and other (low back pain) Related Data Home Medications Medication Instructions Recorded Confirmed insulin glargine 100 unit/mL 40 unit subcut DAILY 06/19/21 11/25/22 subcutaneous solution (Lantus U-100 Insulin) insulin syringe-needle U-100 1 mL 06/19/21 08/22/22 31 gauge x 5/16 (BD Insulin Syringe Ultra-Fine) metoclopramide HCl 10 mg tablet 10 mg PO DAILY 06/21/22 11/25/22 olanzapine 5 mg tablet 5 mg PO DAILY 06/21/22 11/25/22 omeprazole 20 mg capsule,delayed 20 mg PO BID 11/25/22 11/25/22 release Allergies Allergy/AdvReac Type Severity Reaction Status Date / Time No Known Allergies Allergy Verified 11/25/22 14:36 Review of Systems Review of Systems: All systems reviewed & are unremarkable except as noted in HPI and below Constitutional: Constitutional: Reports fever(s) ( 100.6) Respiratory: Respiratory: Denies cough and Denies dyspnea Gastrointestinal: Gastrointestinal: Denies constipation and Denies diarrhea Genitourinary: Genitourinary: Denies dysuria PMFSH Past Medical History Medical History Bipolar 1 disorder Diabetes mellitus Gastritis Social History Social History Social History: smoker, uses marijuana Substance use type: marijuana and other Exam Const: General: no acute distress, alert and ill appearing acutely Nutritional Appearance: well nourished Orientation/consciousness: patient oriented x3 Limitations: no limitations HENMT: Head: normal to inspection Ears: external ears normal Face and sinus: normal facial exam Mouth: Yes dry mucous membranes Eyes: Conjunctivae: conjunctivae normal Cornea: corneas normal Pupils: Equal, round and reactive pupils present EOM: EOMs intact bilaterally Neck: Neck: normal visual inspection Resp: Effort & Inspection: normal respiratory effort Auscultation: clear to auscultation bilaterally Cardio: Rate: tachycardic Rhythm: regular rhythm Heart sounds: no murmurs GI: GI Palp: Yes Soft to palpation, No Tenderness to palpation present (GI) and No Guarding due to palpation present (GI) Auscultation: normal bowel sounds Back/Spine/Pelvis: Back: no CVA tenderness Cervical Spine: cervical ROM normal Thoracic/Lumbar Spine: thoraco-lumbar ROM normal Skin: General skin exam: normal color Rashes: no rashes Neuro: General: patient oriented x3, moves all extremities, no focal motor deficits and CN's II-XI intact bilaterally Speech: normal speech Gait exam (Neuro): Normal gait present Extrem: General: normal to inspection and no clubbing, cyanosis or edema Psych: Mental Status: mental status grossly normal Affect: normal affect Attitude: cooperative Course Course Emergency Course: patient is given 1 L LR, 10 units regular insulin subQ. I discussed the case with Wilmar Alexander APN who agreed with ob
[2022-11-25 14:31] LABS: Glucose Point of Care 215 mg/dl (65-105)
[2022-11-25 14:50] LABS: Base Excess ABG -9.8 mmol/L (0-2); Oxygen Content ABG 22.8 %vol (16.0-22.0); Oxygen Saturation ABG 97.4 % (95-97); Oxyhemoglobin 95.6 % (94-100); PCO2 ABG 30.8 mmHg (35-45); PO2 ABG 104.4 mmHg (80-90); Total Hemoglobin 16.9 g/dL (12.0-18.0); pH ABG 7.31 (7.35-7.45)
[2022-11-25 14:54] LABS: Device ROOM AIR; Modified Allen's Test Pass; Site Drawn LEFT RADIAL
[2022-11-25 14:57] LABS: Basophils Absolute Auto 0.01 K/mm3 (0.00-0.10); Basophils Percent Auto 0.1 % (0.0-1.0); Eosinophils Absolute Auto 0.01 K/mm3 (0.02-0.50); Eosinophils Percent Auto 0.1 % (1.0-6.0); Hematocrit 45.1 % (40.0-54.0); Hemoglobin 16.1 g/dL (14.0-18.0); Immature Granulocyte Absolute 0.03 K/mm3 (0.00-0.00); Immature Granulocyte Percent A 0.3 % (0.0-0.0); Lymphocytes Absolute Auto 1.17 K/mm3 (1.10-4.50); Lymphocytes Percent Auto 13.2 % (18.0-42.0); Mean Corpuscular HGB Conc 35.7 g/dL (32.0-36.0); Mean Corpuscular Hemoglobin 31.9 pg (27.0-31.0); Mean Corpuscular Volume 89.5 fL (78.0-102.0); Mean Platelet Volume 11.1 fl (8.7-11.0); Monocytes Absolute Auto 0.66 K/mm3 (0.10-0.90); Monocytes Percent Auto 7.5 % (2.0-11.0); Neutrophils Percent Auto 78.8 % (50.0-70.0); Platelet Count Result 230 K/mm3 (150-420); Red Blood Count 5.04 M/mm3 (4.70-6.10); Red Cell Distribution Width 12.3 % (11.6-14.4); White Blood Count 8.9 K/mm3 (4.8-10.8)
[2022-11-25 15:13] LABS: Alanine Aminotransferase 28 U/L (16-63); Albumin Level 4.3 g/dL (3.4-5.0); Alkaline Phosphatase 70 U/L (46-116); Anion Gap 19 mmol/L (8-16); Aspartate Amino Transferase 11 U/L (15-37); Bilirubin,Total 1.6 mg/dL (0.00-1.00); Blood Urea Nitrogen 27 mg/dL (7-18); Calcium 8.6 mg/dL (8.5-10.1); Carbon Dioxide 17 mmol/L (21-32); Chloride 91 mmol/L (98-108); Estimated CRCL calculation 100 ml/min; Estimated Glomerular Filt Rate > 60; Glucose 263 mg/dL (70-99); Magnesium 1.5 mg/dL (1.8-2.4); Osmolality Calculated 278 mOsm/kg (285-295); Sodium 127 mmol/L (136-145); Total Protein 7.4 g/dL (6.4-8.2)
[2022-11-25 15:21] LABS: Lactic Acid Reflex 2.3 mmol/L (0.4-2.0)
[2022-11-25 15:22] LABS: CRP < 0.5 mg/dL (0.0-0.9)
[2022-11-25 15:34] LABS: Influenza A QL RT-PCR Negative (Negative); Influenza B QL RT-PCR Negative (Negative); SARS-CoV-2 RNA PCR Negative (Negative)
[2022-11-25] MEDS: LACTATED RINGERS 1,000 ML 999 ML IV CONT (15:49)
[2022-11-25 16:01] VITALS: BP 162/79; PULSE 89; RESP 16; TEMP 36.6; O2SAT 97
[2022-11-25 16:14] LABS: Appearance Urine Clear (Clear); Bilirubin Urine Negative (Negative); Color Urine Light Yellow (Yellow); Glucose Urine UA 2+ (Negative); Ketones Urine 3+ (Negative); Leukocyte Esterase Ur Negative LEU/UL (Negative); Nitrate Urine Negative (Negative); Protein Urine Negative (Negative); Specific Grav Ur >= 1.030 (1.010-1.020); Urobilinogen Urine 0.2 mg/dL (0.2-1.0); pH Urine 5.5 (5.0-8.0)
[2022-11-25 16:25] LABS: Amphetamine Screen Urine Negative (Negative); Barbiturate Screen Urine Negative (Negative); Benzodiazepines Screen Urine Negative (Negative); Cannabinoid Screen Urine Positive (Negative); Cocaine Screen Urine Negative (Negative); Methadone Screen Urine Negative (Negative); Opiate Screen Urine Negative (Negative); Phencyclidine Screen Urine Negative (Negative)
[2022-11-25 16:35] LABS: Add Urine Microscopic? YES; Bacteria Urine Trace /hpf; Blood Urine Trace-lysed (Negative); RBC Urine 0-2 /hpf (0-2); Squamous Epithelial Cell Urine Rare /hpf (Few); WBC Urine 0-3 /hpf (0-3)
[2022-11-25 16:36] LABS: Ethanol < 3 mg/dL (0-6)
[2022-11-25 17:00] VITALS: BP 159/88; PULSE 87; RESP 18; TEMP 36.3; O2SAT 98
[2022-11-25] MEDS: INSULIN HUMAN REGULAR (*BKC) 100 UNITS/ML 10 UNITS SUB-Q (17:05)
[2022-11-25 17:53] LABS: Reflex Lactic Acid Yes or No Add Lactic
[2022-11-25] MEDS: PANTOPRAZOLE SODIUM IV 40 MG VIAL IV PUSH (18:01)
[2022-11-25] MEDS: METOCLOPRAMIDE HCL INJ 10 MG/2 ML VIAL IV PUSH (18:02)
[2022-11-25] MEDS: SODIUM CHLORIDE 0.9% IV 1,000 ML 999 ML IV CONT (18:02)
[2022-11-25 18:09] VITALS: BMI 23.1
[2022-11-25] MEDS: MAGNESIUM SULF 2 GM/WATER 50ML 2 GM/50 ML BAG IVPB (18:19)
[2022-11-25 18:27] LABS: Lactic Acid 2.3 mmol/L (0.4-2.0)
--- NOTE | 2022-11-25 18:29 | ADMGEN ---
This patient, Isaac Ramirez, was admitted to 2nd Floor Room 205-2. Patient/family oriented to hospital policies and general routines including ID bracelet, bed and alarms, visiting hours, pain management, procedures, bathroom and other care routines, personal items, smoking policy, room service/diet, and visiting hours. Pt is aware he is on cc diet Information on how to activate the Rapid Response Team has been discussed. Patient/Family are encouraged to report perceived risks to care and to ask questions if they do not understand what they are told or what they should do.
[2022-11-25 18:36] LABS: Glucose Point of Care 184 mg/dl (65-105)
[2022-11-25] MEDS: SODIUM CHLORIDE 0.9% IV 1,000 ML 150 ML IV CONT (19:13)
[2022-11-25] MEDS: traZODone HCL 50 MG TABLET PO (20:42)
[2022-11-25 21:51] LABS: Glucose Point of Care 232 mg/dl (65-105)
[2022-11-25 22:39] LABS: Alanine Aminotransferase 20 U/L (16-63); Albumin Level 3.6 g/dL (3.4-5.0); Alkaline Phosphatase 56 U/L (46-116); Anion Gap 7 mmol/L (8-16); Aspartate Amino Transferase < 10 U/L (15-37); Bilirubin,Total 1.2 mg/dL (0.00-1.00); Blood Urea Nitrogen 21 mg/dL (7-18); Calcium 7.7 mg/dL (8.5-10.1); Carbon Dioxide 24 mmol/L (21-32); Chloride 97 mmol/L (98-108); Estimated CRCL calculation 104 ml/min; Estimated Glomerular Filt Rate > 60; Glucose 269 mg/dL (70-99); Osmolality Calculated 278 mOsm/kg (285-295); Potassium 3.8 mmol/L (3.5-5.1); Sodium 128 mmol/L (136-145); Total Protein 6.1 g/dL (6.4-8.2)
[2022-11-26] VITALS: BP 137/80; PULSE 89; RESP 16; TEMP 36.6; O2SAT 97
[2022-11-26 00:22] LABS: Glucose Point of Care 297 mg/dl (65-105)
[2022-11-26 05:22] LABS: Hematocrit 36.8 % (40.0-54.0); Hemoglobin 13.6 g/dL (14.0-18.0); Mean Corpuscular Hemoglobin 32.6 pg (27.0-31.0); Mean Corpuscular Volume 88.2 fL (78.0-102.0); Mean Platelet Volume 11.1 fl (8.7-11.0); Platelet Count Result 178 K/mm3 (150-420); Red Blood Count 4.17 M/mm3 (4.70-6.10); Red Cell Distribution Width 12.3 % (11.6-14.4); White Blood Count 6.4 K/mm3 (4.8-10.8)
[2022-11-26 05:52] LABS: Alanine Aminotransferase 17 U/L (16-63); Albumin Level 3.2 g/dL (3.4-5.0); Alkaline Phosphatase 52 U/L (46-116); Anion Gap 9 mmol/L (8-16); Aspartate Amino Transferase < 10 U/L (15-37); Bilirubin,Total 1.3 mg/dL (0.00-1.00); Blood Urea Nitrogen 19 mg/dL (7-18); Calcium 7.4 mg/dL (8.5-10.1); Carbon Dioxide 23 mmol/L (21-32); Chloride 99 mmol/L (98-108); Estimated CRCL calculation 138 ml/min; Estimated Glomerular Filt Rate > 60; Glucose 156 mg/dL (70-99); Magnesium 1.6 mg/dL (1.8-2.4); Osmolality Calculated 277 mOsm/kg (285-295); Potassium 3.6 mmol/L (3.5-5.1); Sodium 131 mmol/L (136-145); Total Protein 5.5 g/dL (6.4-8.2)
[2022-11-26] MEDS: INSULIN GLARGINE (*BKC) 100 UNITS/ML 40 UNITS SUB-Q (07:52)
[2022-11-26 07:54] LABS: Glucose Point of Care 153 mg/dl (65-105)
[2022-11-26 08:00] VITALS: BP 136/86; PULSE 90; RESP 20; TEMP 36.9; O2SAT 95
--- NOTE | 2022-11-26 08:37 | PM.SD2 ---
Same Day Admit/Disch: HPI History of Present Illness Chief complaint: DKA MILD Narrative: Isaac Ramirez is a 37 year old male Chief complaint: Nausea/Vomiting/Diarrhea Stated complaint: vomiting since thursday Time Seen by Provider: 11/25/22 14:27 Source: patient and RN notes reviewed Mode of arrival: ambulatory Limitations: no limitations History of Present Illness HPI Narrative: ?patient states that on he drank a lot of alcohol including beer, hard liquor and moonshine.? Then Thursday morning woke up having vomiting.? He has a history of type 1 diabetes and has frequent episodes alcoholic gastritis.? He also has a history of diabetic gastroparesis.? He says now his vomit is just bile.? He denies any diarrhea.? He is having difficulty keeping anything down at this time. MD elicited complaint: vomiting Pertinent past history: alcohol abuse Onset (ago): day(s) (2) Description of vomiting: bilious Associated abdominal pain: Yes (sore from vomiting) Location of pain: epigastric Severity: mild Exacerbating factors: vomiting Relieving factors: none Context: alcohol abuse Associated symptoms: fatigue and other (low back pain) [facility] Past Medical History Medical History (Updated 11/26/22 @ 08:41 by Mandie Vo NP) Bipolar 1 disorder Bipolar 1 disorder Diabetes mellitus Gastritis Nausea and vomiting in adult Social History Social History Social History: smoker, uses marijuana Smoking status: Current every day smoker Tobacco type: cigarettes Second hand tobacco smoke exposure: Yes Alcohol intake: current Drinks per week: 5 Substance use type: marijuana Lack of Transportation: No Lack of Food: Never True Current Housing: I Have Housing Concerned About Future Housing: No Difficulty Paying Gas/Electric Bills: Decline to Answer Difficulty Paying for Meds: Decline to Answer Currently Unemployed: Decline to Answer Education: High School Diploma/GED Difficulty w/ Childcare or Family Care: No Spiritual care concerns: No Comments At time as signature, I have reviewed and agree with nursing past medical, social, surgical and family history. Please see nursing chart for further information. There is no relevant family history pertinent to the presenting complaint. Same Day Admit/Disch: Med Pre-admit Medications Home Medications Medication Instructions Recorded Confirmed Type insulin glargine 100 unit/mL 40 unit subcut DAILY 06/19/21 11/25/22 History subcutaneous solution (Lantus U-100 Insulin) insulin syringe-needle U-100 1 mL 06/19/21 08/22/22 History 31 gauge x 5/16 (BD Insulin Syringe Ultra-Fine) metoclopramide HCl 10 mg tablet 10 mg PO DAILY 06/21/22 11/25/22 History olanzapine 5 mg tablet 5 mg PO DAILY 06/21/22 11/25/22 History omeprazole 20 mg capsule,delayed 20 mg PO BID 11/25/22 11/25/22 History release ondansetron 4 mg disintegrating 4 mg PO Q8H PRN nausea and 11/26/22 Rx tablet vomiting #20 tabs Exam Narrative: GENERAL:Well-appearing, well-nourished, and in no acute distress. HEAD:Normocephalic, atraumatic. EYES: PERRLA and EOMI. ENT: Nares clear, no rhinorrhea or epistaxis. Mucous membranes moist. NECK: Supple. CHEST: Clear to auscultation. No respiratory distress. HEART: Regular rate and rhythm. No murmur heard. Normal peripheral pulses. ABDOMEN: Soft, nontender, nondistended, normal active bowel sounds. EXTREMITIES: Normal range of motion. No edema. SKIN: Warm, dry, no rash. NEURO: No focal deficits. Alert and oriented x3. DS: Data Data Completed and Pending Labs on day of discharge: Labs from last 24 hours 11/26/22 11/26/22 11/26/22 07:48 05:01 05:01 WBC 6.4 RBC 4.17 L Hgb 13.6 L Hct 36.8 L MCV 88.2 MCH 32.6 H MCHC 37.0 H RDW 12.3 Plt Count 178 MPV 11.1 H Immature Gran % (Auto) Neut % (Auto) Lymph % (Auto) [place] %
[2022-11-26] MEDS: MAGNESIUM OXIDE 400 MG TABLET PO (08:48)
[2022-11-26] MEDS: PANTOPRAZOLE SODIUM IV 40 MG VIAL IV PUSH (08:49)
[2022-11-26] MEDS: METOCLOPRAMIDE HCL 10 MG TABLET PO (08:49)
[2022-11-26] MEDS: OLANZapine 5 MG TABLET PO (08:49)
--- NOTE | 2022-11-26 09:55 | PC.NURSE ---
saline lock removed from RAC, tolerated well, reviewed signs and symptoms to watch for regarding infection, reviewed discharge packet, no questions or concerns, very knowledgeable regarding diabetes, alert and oriented x4, ambulatory with personal items to discharge to home, agreable to plan of care
--- NOTE | 2022-11-27 11:42 | PC.NURSE ---
Pt states he received and understood his discharge instructions. Pt also states you guys did great .
== END 2022-11-26 09:55 | disposition home or self-care (01) ==
LOC: CHSED 17:13 → CHS2ND 17:41
PROVIDERS: Nurse Practitioner; Admitting Provider Internal Medicine; Emergency Provider Emergency Medicine; PCP Family Medicine; Visit Provider Internal Medicine
DX: E10.43 Type 1 diabetes mellitus with diabetic autonomic (poly)neuropathy (principal); K31.84 Gastroparesis; K29.20 Alcoholic gastritis without bleeding; E87.1 Hypo-osmolality and hyponatremia; F31.9 Bipolar disorder, unspecified; F12.90 Cannabis use, unspecified, uncomplicated; F17.210 Nicotine dependence, cigarettes, uncomplicated; Z79.4 Long term (current) use of insulin; Z20.822 Contact with and (suspected) exposure to COVID-19; Z79.899 Other long term (current) drug therapy
CPT/HCPCS: 36415; 36600; 80053; 80307; 81001; 82805; 82948; 83605; 83735; 85025; 85027; 86140; 87636; 96360; 96361; 96365; 96374; 99285; A9270; C9113; G0378; G0379; J1815; J2765; J3475; J7030; J7120

== ENCOUNTER 2023-02-01 10:56 | Emergency (ER) | payer OTHER, SELFPAY ==
[2023-02-01 10:56] VITALS: BP 183/107; PULSE 110; RESP 16; TEMP 36.6; O2SAT 97
--- NOTE | 2023-02-01 11:02 | ED.NAVMDI ---
HPI - Nausea/Vomiting/Diarrhea General Chief complaint: Nausea/Vomiting/Diarrhea Stated complaint: vomiting Time Seen by Provider: 02/01/23 11:02 Source: patient and RN notes reviewed Mode of arrival: ambulatory Limitations: no limitations History of Present Illness MD elicited complaint: nausea and vomiting Onset (ago): day(s) (4) Description of vomiting: food contents and bilious Associated nausea: Yes Associated abdominal pain: No Location of pain: diffuse Quality: cramping Exacerbating factors: eating Relieving factors: none Associated symptoms: myalgias Related Data Home Medications Medication Instructions Recorded Confirmed insulin glargine 100 unit/mL 40 unit subcut DAILY 06/19/21 02/01/23 subcutaneous solution (Lantus U-100 Insulin) insulin syringe-needle U-100 1 mL 06/19/21 08/22/22 31 gauge x 5/16 (BD Insulin Syringe Ultra-Fine) omeprazole 20 mg capsule,delayed 20 mg PO BID 11/25/22 02/01/23 release olanzapine 10 mg tablet 10 mg PO DAILY 02/01/23 02/01/23 Allergies Allergy/AdvReac Type Severity Reaction Status Date / Time No Known Allergies Allergy Verified 02/01/23 11:05 Review of Systems Review of Systems: All systems reviewed & are unremarkable except as noted in HPI and below Constitutional: Constitutional: Denies chills and Denies fever(s) PMFSH Past Medical History Medical History Bipolar 1 disorder Bipolar 1 disorder Diabetes mellitus Gastritis Nausea and vomiting in adult Social History Social History Social History: smoker, uses marijuana Smoking status: Current every day smoker Tobacco type: cigarettes Second hand tobacco smoke exposure: Yes Alcohol intake: current Drinks per week: 5 Substance use type: marijuana Lack of Transportation: No Lack of Food: Never True Current Housing: I Have Housing Concerned About Future Housing: No Difficulty Paying Gas/Electric Bills: Decline to Answer Difficulty Paying for Meds: Decline to Answer Currently Unemployed: Decline to Answer Education: High School Diploma/GED Difficulty w/ Childcare or Family Care: No Spiritual care concerns: No Exam Const: General: no acute distress, alert and ill appearing acutely Nutritional Appearance: well nourished Orientation/consciousness: patient oriented x3 HENMT: Head: normal to inspection Ears: external ears normal Face/Nose/Sinus: Normal external nose present Face and sinus: normal facial exam Mouth: Yes moist mucous membranes Eyes: Conjunctivae: conjunctivae normal Cornea: corneas normal Pupils: Equal, round and reactive pupils present EOM: EOMs intact bilaterally Neck: Neck: normal visual inspection Resp: Effort & Inspection: normal respiratory effort Auscultation: clear to auscultation bilaterally Cardio: Rate: tachycardic Rhythm: regular rhythm GI: GI Palp: Yes Soft to palpation, Yes Tenderness to palpation present (GI) ( Moderate generalized), No Guarding due to palpation present (GI) and No Rebound tenderness present Auscultation: normal bowel sounds Back/Spine/Pelvis: Cervical Spine: cervical ROM normal Thoracic/Lumbar Spine: thoraco-lumbar ROM normal Skin: General skin exam: normal color Rashes: no rashes Neuro: General: patient oriented x3, moves all extremities, no focal motor deficits and CN's II-XI intact bilaterally Speech: normal speech Gait exam (Neuro): Normal gait present Extrem: General: normal to inspection and no clubbing, cyanosis or edema Psych: Mental Status: mental status grossly normal Affect: normal affect Attitude: cooperative Course Vital Signs Vital signs: Vital Signs Temperature 36.6 C 02/01/23 10:56 Pulse Rate 110 H 02/01/23 10:56 Respiratory Rate 16 02/01/23 10:56 Blood Pressure 183/107 H 02/01/23 10:56 Pulse Oximetry 97 02/01/23 10:56 Oxygen Delivery Room Air 02/01/23
[2023-02-01 11:06] LABS: Glucose Point of Care 240 mg/dl (65-105)
[2023-02-01 11:07] VITALS: BP 183/107; PULSE 110; RESP 16; TEMP 36.6; O2SAT 97
[2023-02-01] MEDS: LACTATED RINGERS 1,000 ML 999 ML IV CONT ×2 (11:24→13:19)
[2023-02-01 12:02] LABS: Basophils Absolute Auto 0.01 K/mm3 (0.00-0.10); Basophils Percent Auto 0.1 % (0.0-1.0); Eosinophils Absolute Auto 0.01 K/mm3 (0.02-0.50); Eosinophils Percent Auto 0.1 % (1.0-6.0); Hematocrit 48.2 % (40.0-54.0); Hemoglobin 17.4 g/dL (14.0-18.0); Immature Granulocyte Absolute 0.06 K/mm3 (0.00-0.00); Immature Granulocyte Percent A 0.6 % (0.0-0.0); Lymphocytes Percent Auto 12.1 % (18.0-42.0); Mean Corpuscular HGB Conc 36.1 g/dL (32.0-36.0); Mean Corpuscular Hemoglobin 31.4 pg (27.0-31.0); Mean Corpuscular Volume 86.8 fL (78.0-102.0); Mean Platelet Volume 11.7 fl (8.7-11.0); Monocytes Absolute Auto 0.85 K/mm3 (0.10-0.90); Monocytes Percent Auto 7.9 % (2.0-11.0); Neutrophils Absolute Auto 8.5 K/mm3 (1.7-7.2); Neutrophils Percent Auto 79.2 % (50.0-70.0); Platelet Count Result 207 K/mm3 (150-420); Red Blood Count 5.55 M/mm3 (4.70-6.10); Red Cell Distribution Width 11.5 % (11.6-14.4); White Blood Count 10.7 K/mm3 (4.8-10.8)
[2023-02-01 12:16] LABS: Alanine Aminotransferase 29 U/L (16-63); Albumin Level 4.4 g/dL (3.4-5.0); Alkaline Phosphatase 86 U/L (46-116); Anion Gap 18 mmol/L (8-16); Aspartate Amino Transferase 15 U/L (15-37); Bilirubin,Total 1.8 mg/dL (0.00-1.00); Blood Urea Nitrogen 40 mg/dL (7-18); Calcium 9.1 mg/dL (8.5-10.1); Carbon Dioxide 21 mmol/L (21-32); Chloride 96 mmol/L (98-108); Estimated CRCL calculation 103 ml/min; Estimated Glomerular Filt Rate > 60; Glucose 273 mg/dL (70-99); Osmolality Calculated 299 mOsm/kg (285-295); Potassium 3.9 mmol/L (3.5-5.1); Sodium 135 mmol/L (136-145); Total Protein 7.7 g/dL (6.4-8.2)
[2023-02-01 12:18] LABS: CRP < 0.5 mg/dL (0.0-0.9)
[2023-02-01 12:19] LABS: Lactic Acid Reflex 1.9 mmol/L (0.4-2.0)
[2023-02-01 12:37] LABS: Base Excess ABG -7.6 mmol/L (0-2); HCO3 ABG 16.6 mmol/L (23-29); Oxygen Content ABG 23.8 %vol (16.0-22.0); Oxygen Saturation ABG 96.5 % (95-97); Oxyhemoglobin 94.9 % (94-100); PCO2 ABG 31.3 mmHg (35-45); PO2 ABG 87.7 mmHg (80-90); Total Hemoglobin 17.8 g/dL (12.0-18.0); pH ABG 7.34 (7.35-7.45)
[2023-02-01 12:41] LABS: Device ROOM AIR; Modified Allen's Test Pass; Site Drawn LEFT RADIAL
[2023-02-01 12:49] LABS: Appearance Urine Clear (Clear); Bilirubin Urine 1+ (Negative); Blood Urine Trace-Intact (Negative); Color Urine Light Yellow (Yellow); Glucose Urine UA 2+ (Negative); Ketones Urine 3+ (Negative); Leukocyte Esterase Ur Negative LEU/UL (Negative); Nitrate Urine Negative (Negative); Protein Urine 1+ (Negative); Specific Grav Ur >= 1.030 (1.010-1.020); Urobilinogen Urine 0.2 mg/dL (0.2-1.0)
[2023-02-01 13:00] LABS: Add Urine Microscopic? YES
[2023-02-01 13:01] LABS: Mucus Urine Few /lpf; RBC Urine Noted /hpf (0-2)
[2023-02-01 13:09] VITALS: BP 167/96; PULSE 109; RESP 16; O2SAT 98
[2023-02-01] MEDS: KETOROLAC 30 MG/ML VIAL (*BKC) IM (13:19)
[2023-02-01 14:14] VITALS: BP 152/88; PULSE 71; RESP 16; TEMP 36.7; O2SAT 99
--- NOTE | 2023-02-07 13:39 | PC.NURSE ---
FINAL BLOOD CULTURE: no growth after 5 days, No further action needed.
== END 2023-02-01 14:29 | disposition home or self-care (01) ==
PROVIDERS: Emergency Provider Emergency Medicine; PCP Family Medicine
DX: K52.9 Noninfective gastroenteritis and colitis, unspecified (principal); E11.9 Type 2 diabetes mellitus without complications; Z79.4 Long term (current) use of insulin
CPT/HCPCS: 36415; 36600; 80053; 81001; 82805; 82948; 83605; 83735; 85025; 86140; 87040; 96360; 96361; 96372; 99284; J1885; J7120

== ENCOUNTER 2023-02-18 13:58 | Emergency (ER) | payer OTHER, SELFPAY ==
[2023-02-18] VITALS (17 sets, daily range): BP systolic 136–193; BP diastolic 82–96; PULSE 76–103; RESP 9–16; TEMP 37; O2SAT 97–100
--- NOTE | 2023-02-18 14:08 | ED.NAVMDI ---
HPI - Nausea/Vomiting/Diarrhea General Chief complaint: Nausea/Vomiting/Diarrhea Stated complaint: vomiting Time Seen by Provider: 02/18/23 14:07 Source: patient Mode of arrival: ambulatory Limitations: no limitations History of Present Illness HPI Narrative: 37-year-old male, Smoker, marijuana user with a history of bipolar 1 diabetes mellitus, gastritis, gastroparesis presents to the ER with a 1 day history of -- multiple episodes of vomiting since yesterday. Today he has had 20 episodes of vomiting. Vomitus is clear. No blood noted. He denied abdominal pain or diarrhea. -- Low back pain which is chronic. His blood sugar was noted to be around 150. MD elicited complaint: nausea and vomiting Onset (ago): day(s) ( Symptoms started yesterday.) Description of vomiting: watery Associated nausea: Yes Associated abdominal pain: No Location of pain: none Exacerbating factors: none Relieving factors: none Related Data Home Medications Medication Instructions Recorded Confirmed insulin glargine 100 unit/mL 40 unit subcut DAILY 06/19/21 02/18/23 subcutaneous solution (Lantus U-100 Insulin) insulin syringe-needle U-100 1 mL 06/19/21 02/18/23 31 gauge x 5/16 (BD Insulin Syringe Ultra-Fine) omeprazole 20 mg capsule,delayed 20 mg PO BID 11/25/22 02/18/23 release olanzapine 10 mg tablet 10 mg PO DAILY 02/01/23 02/18/23 metoclopramide HCl 10 mg tablet 10 mg PO HS 02/18/23 02/18/23 Allergies Allergy/AdvReac Type Severity Reaction Status Date / Time No Known Allergies Allergy Verified 02/18/23 14:21 [facility] Past Medical History Medical History Bipolar 1 disorder Bipolar 1 disorder Diabetes mellitus Gastritis Nausea and vomiting in adult Social History Social History Social History: smoker, uses marijuana Smoking status: Current every day smoker Tobacco type: cigarettes Second hand tobacco smoke exposure: Yes Alcohol intake: current Drinks per week: 5 Substance use type: marijuana Lack of Transportation: No Lack of Food: Never True Current Housing: I Have Housing Concerned About Future Housing: No Difficulty Paying Gas/Electric Bills: Decline to Answer Difficulty Paying for Meds: Decline to Answer Currently Unemployed: Decline to Answer Education: High School Diploma/GED Difficulty w/ Childcare or Family Care: No Spiritual care concerns: No Exam Narrative: initial blood pressure was noted to be 193/96. Const: General: cooperative and no acute distress Nutritional Appearance: average body habitus Limitations: no limitations HENMT: Head: normal to inspection, normocephalic and atraumatic Ears: hearing grossly normal bilaterally and external ears normal Face/Nose/Sinus: Normal external nose present and Normal nares present Face and sinus: normal facial exam Mouth: Yes Normal oral and palatal mucosa present, Yes lip normal, Yes tongue normal and Yes moist mucous membranes Throat: posterior oropharynx normal Eyes: General: appearance normal, both eyes and all related structures Alignment and Position: alignment normal Conjunctivae: conjunctivae normal Sclera: sclerae normal Cornea: corneas normal Pupils: Equal, round and reactive pupils present Neck: Neck: normal visual inspection, full ROM, no lymphadenopathy and no meningeal signs Chest: Chest palpation & inspection: normal inspection of the chest Resp: Effort & Inspection: normal respiratory effort Auscultation: clear to auscultation bilaterally Cardio: Rate: regular rate Rhythm: regular rhythm Heart sounds: S1 normal heart sound present and S2 normal heart sound present GI: Inspection: normal to inspection Auscultation: normal bowel sounds Other: No tenderness/ rigidity /rebound. : General: Yes no CVA tenderness Back/Spine/Pelvis: Back: no CVA tenderness Skin: General skin
[2023-02-18 14:09] LABS: Glucose Point of Care 161 mg/dl (65-105)
[2023-02-18] MEDS: LACTATED RINGERS 1,000 ML 999 ML IV CONT (14:32)
[2023-02-18] MEDS: ONDANSETRON INJ 4 MG/2 ML VIAL IV PUSH (14:33)
[2023-02-18 14:38] LABS: Hematocrit 43.3 % (40.0-54.0); Hemoglobin 15.5 g/dL (14.0-18.0); Immature Granulocyte Absolute 0.01 K/mm3 (0.00-0.00); Immature Granulocyte Percent A 0.2 % (0.0-0.0); Lymphocytes Absolute Auto 0.75 K/mm3 (1.10-4.50); Lymphocytes Percent Auto 12.3 % (18.0-42.0); Mean Corpuscular HGB Conc 35.8 g/dL (32.0-36.0); Mean Corpuscular Hemoglobin 31.4 pg (27.0-31.0); Mean Corpuscular Volume 87.8 fL (78.0-102.0); Monocytes Absolute Auto 0.27 K/mm3 (0.10-0.90); Monocytes Percent Auto 4.4 % (2.0-11.0); Neutrophils Absolute Auto 5.1 K/mm3 (1.7-7.2); Neutrophils Percent Auto 83.1 % (50.0-70.0); Platelet Count Result 168 K/mm3 (150-420); Red Blood Count 4.93 M/mm3 (4.70-6.10); Red Cell Distribution Width 11.9 % (11.6-14.4); White Blood Count 6.1 K/mm3 (4.8-10.8)
[2023-02-18 15:09] LABS: Alanine Aminotransferase 30 U/L (16-63); Albumin Level 4.1 g/dL (3.4-5.0); Alkaline Phosphatase 70 U/L (46-116); Anion Gap 12 mmol/L (8-16); Aspartate Amino Transferase 16 U/L (15-37); Bilirubin,Total 1.1 mg/dL (0.00-1.00); Blood Urea Nitrogen 23 mg/dL (7-18); Calcium 9.1 mg/dL (8.5-10.1); Carbon Dioxide 28 mmol/L (21-32); Chloride 100 mmol/L (98-108); Estimated CRCL calculation 129 ml/min; Estimated Glomerular Filt Rate > 60; Glucose 192 mg/dL (70-99); Magnesium 1.6 mg/dL (1.8-2.4); Osmolality Calculated 298 mOsm/kg (285-295); Potassium 3.9 mmol/L (3.5-5.1); Sodium 140 mmol/L (136-145); Total Protein 7.3 g/dL (6.4-8.2); Troponin I 6.5 ng/L (0.00-60.4)
[2023-02-18] MEDS: MAGNESIUM SULF 2 GM/WATER 50ML 2 GM/50 ML BAG IVPB (15:18)
--- NOTE | 2023-02-18 15:21 | PC.NURSE ---
PT IS RESTING ON STRETCHER WITHOUT DISTRESS, HOWEVER WHEN STAFF ENTERS HE BEGINS TO MOAN AND CRY. PT HAS IV MEDICATIONS INFUSING WITHOUT DIFFICULTY, NAD NOTED. WILL CONTINUE TO MONITOR.
--- NOTE | 2023-02-18 15:55 | PC.NURSE ---
NO EMESIS NOTED THROUGHOUT ED VISIT. PT DECLINES ERP OFFER FOR SUPPOSITORY ANTI-NAUSEA MEDICATION.
== END 2023-02-18 16:05 | disposition home or self-care (01) ==
PROVIDERS: Emergency Provider Internal Medicine Critical Care Medicine; PCP Family Medicine
DX: R11.2 Nausea with vomiting, unspecified (principal); E11.65 Type 2 diabetes mellitus with hyperglycemia; F31.9 Bipolar disorder, unspecified; E11.43 Type 2 diabetes mellitus with diabetic autonomic (poly)neuropathy; K31.84 Gastroparesis; Z79.4 Long term (current) use of insulin; F12.90 Cannabis use, unspecified, uncomplicated; F17.210 Nicotine dependence, cigarettes, uncomplicated
CPT/HCPCS: 36415; 80053; 82948; 83605; 83735; 84484; 85025; 85610; 96361; 96365; 96375; 99284; J2405; J3475; J7120

== ENCOUNTER 2023-03-08 13:33 | Emergency (ER) | payer OTHER, SELFPAY ==
[2023-03-08] VITALS (10 sets, daily range): BP systolic 138–185; BP diastolic 74–109; PULSE 111; RESP 17; TEMP 36.4–36.9; O2SAT 95–100
[2023-03-08 13:40] LABS: Glucose Point of Care 118 mg/dl (65-105)
--- NOTE | 2023-03-08 13:44 | ED.GENADULT ---
HPI - General Adult General Chief complaint: Nausea/Vomiting/Diarrhea Stated complaint: nausea Time Seen by Provider: 03/08/23 13:35 History of Present Illness HPI narrative: Isaac is a 37M with a PMH of bipolar 1 disorder, DMI, gastritis, and regular tobacco and cannabis use that presented with abdominal pain and vomiting. He drank 5-6 beers last night and smoked tobacco and MJ. He woke up at 0400 this morning with abdominal pain, severe nausea and 6 episodes of non-bloody vomiting. There is no diarrhea, CP or dyspnea. Related Data Home Medications Medication Instructions Recorded Confirmed insulin glargine 100 unit/mL 40 unit subcut DAILY 06/19/21 03/08/23 subcutaneous solution (Lantus U-100 Insulin) insulin syringe-needle U-100 1 mL 06/19/21 03/08/23 31 gauge x 5/16 (BD Insulin Syringe Ultra-Fine) omeprazole 20 mg capsule,delayed 20 mg PO BID 11/25/22 03/08/23 release olanzapine 10 mg tablet 10 mg PO DAILY 02/01/23 03/08/23 metoclopramide HCl 10 mg tablet 10 mg PO HS 02/18/23 03/08/23 Allergies Allergy/AdvReac Type Severity Reaction Status Date / Time No Known Allergies Allergy Verified 03/08/23 13:43 Review of Systems Review of Systems: All systems reviewed & are unremarkable except as noted in HPI and below PMFSH Past Medical History Medical History Bipolar 1 disorder Bipolar 1 disorder Diabetes mellitus Gastritis Nausea and vomiting in adult Social History Social History Social History: smoker, uses marijuana Smoking status: Current every day smoker Tobacco type: cigarettes Second hand tobacco smoke exposure: Yes Alcohol intake: current Drinks per week: 5 Substance use type: marijuana Lack of Transportation: No Lack of Food: Never True Current Housing: I Have Housing Concerned About Future Housing: No Difficulty Paying Gas/Electric Bills: Decline to Answer Difficulty Paying for Meds: Decline to Answer Currently Unemployed: Decline to Answer Education: High School Diploma/GED Difficulty w/ Childcare or Family Care: No Spiritual care concerns: No Exam Const: General: healthy appearing and no acute distress Nutritional Appearance: well nourished Orientation/consciousness: patient oriented x3 HENMT: Head: normal to inspection Ears: external ears normal Eyes: Conjunctivae: conjunctivae normal Pupils: Equal, round and reactive pupils present EOM: EOMs intact bilaterally Neck: Neck: normal visual inspection Chest: Chest palpation & inspection: normal inspection of the chest Resp: Effort & Inspection: normal respiratory effort Auscultation: clear to auscultation bilaterally Cardio: Rate: regular rate Rhythm: regular rhythm GI: Inspection: non-distended GI Palp: Yes Soft to palpation, Yes Tenderness to palpation present (GI) (diffusely mildly TTP), No Guarding due to palpation present (GI), No Rigid due to palpation and No Rebound tenderness present : General: Yes no CVA tenderness Skin: General skin exam: normal color Neuro: General: patient oriented x3 and moves all extremities Extrem: General: normal to inspection Psych: Mental Status: mental status grossly normal Course Course Emergency Course: Ordered fluids, zofran, labs and EKG EKG showed NSR with a rate of 87, normal axis, no ST elevation/depression, no ectopy, borderline QTC at 435 There was little relief with just zofran so Haldol and ativan were given. Mg was low so it was replaced and another liter given. After this he was able to tolerate PO without difficulty. We discussed the importance of quitting cannabis and etoh Vital Signs Vital signs: Vital Signs Blood Pressure 185/92 H 03/08/23 13:47 Pulse Oximetry 96 03/08/23 13:47 Temperature 97.6 F 03/08/23 13:52 Pulse Rate 111 H 03/08/23 13:52 Respiratory Rate 17 03/08/23 1
[2023-03-08] MEDS: SODIUM CHLORIDE 0.9% IV 1,000 ML 999 ML IV CONT ×2 (13:48→15:39)
[2023-03-08] MEDS: ONDANSETRON INJ 4 MG/2 ML VIAL IV PUSH (13:49)
--- NOTE | 2023-03-08 14:11 | ECG_ITS ---
Measurements Intervals [place] Rate: 87 P: 66 SD: 126 QRS: 63 QRSD: 93 T: 27 QT: 390 QTc: 472 Interpretive Statements SINUS RHYTHM NONSPECIFIC T-WAVE ABNORMALITY COMPARED TO ECG 08/22/2022 14:41:15 NO SIGNIFICANT CHANGE Electronically Signed On 03-09-2023 10:47:51 CDT by Janes Medina M.D.
[2023-03-08] MEDS: LORazepam INJ (*CRX) 2 MG/ML VIAL 1 MG IV PUSH (14:53)
[2023-03-08] MEDS: HALOPERIDOL LACTATE 5 MG/ML VIAL IV PUSH (14:54)
[2023-03-08 14:58] LABS: Hematocrit 40.5 % (40.0-54.0); Hemoglobin 13.8 g/dL (14.0-18.0); Immature Granulocyte Absolute 0.02 K/mm3 (0.00-0.00); Immature Granulocyte Percent A 0.3 % (0.0-0.0); Lymphocytes Absolute Auto 0.86 K/mm3 (1.10-4.50); Lymphocytes Percent Auto 11.2 % (18.0-42.0); Mean Corpuscular HGB Conc 34.1 g/dL (32.0-36.0); Mean Corpuscular Hemoglobin 30.2 pg (27.0-31.0); Mean Corpuscular Volume 88.6 fL (78.0-102.0); Mean Platelet Volume 11.5 fl (8.7-11.0); Monocytes Absolute Auto 0.29 K/mm3 (0.10-0.90); Monocytes Percent Auto 3.8 % (2.0-11.0); Neutrophils Absolute Auto 6.5 K/mm3 (1.7-7.2); Neutrophils Percent Auto 84.7 % (50.0-70.0); Platelet Count Result 149 K/mm3 (150-420); Red Blood Count 4.57 M/mm3 (4.70-6.10); Red Cell Distribution Width 12.6 % (11.6-14.4); White Blood Count 7.7 K/mm3 (4.8-10.8)
[2023-03-08 15:11] LABS: Lactic Acid Reflex 0.7 mmol/L (0.4-2.0)
[2023-03-08 15:18] LABS: Alanine Aminotransferase 23 U/L (16-63); Albumin Level 3.8 g/dL (3.4-5.0); Alkaline Phosphatase 61 U/L (46-116); Anion Gap 10 mmol/L (8-16); Aspartate Amino Transferase 19 U/L (15-37); Bilirubin,Total 0.5 mg/dL (0.00-1.00); Blood Urea Nitrogen 14 mg/dL (7-18); Calcium 8.2 mg/dL (8.5-10.1); Carbon Dioxide 28 mmol/L (21-32); Chloride 105 mmol/L (98-108); Estimated Glomerular Filt Rate > 60; Glucose 112 mg/dL (70-99); Lipase 13 U/L (16-77); Magnesium 1.3 mg/dL (1.8-2.4); Osmolality Calculated 297 mOsm/kg (285-295); Potassium 3.6 mmol/L (3.5-5.1); Sodium 143 mmol/L (136-145); Total Protein 6.6 g/dL (6.4-8.2)
[2023-03-08 15:22] LABS: CRP < 0.5 mg/dL (0.0-0.9); Ethanol < 3 mg/dL (0-6)
[2023-03-08] MEDS: MAGNESIUM SULF 4 GM/WATER100ML 4 GM/100 ML BAG IVPB (15:39)
[2023-03-08 15:54] LABS: Influenza A QL RT-PCR Negative (Negative); Influenza B QL RT-PCR Negative (Negative); RSV RNA, RT-PCR Negative (Negative); SARS-CoV-2 RNA PCR Negative (Negative)
== END 2023-03-08 17:25 | disposition home or self-care (01) ==
PROVIDERS: Emergency Provider Family Medicine; PCP Family Medicine
DX: R11.2 Nausea with vomiting, unspecified (principal); F12.90 Cannabis use, unspecified, uncomplicated; E10.9 Type 1 diabetes mellitus without complications; F17.210 Nicotine dependence, cigarettes, uncomplicated; Z79.4 Long term (current) use of insulin; Z20.822 Contact with and (suspected) exposure to COVID-19
CPT/HCPCS: 36415; 80053; 80307; 82948; 83605; 83690; 83735; 85025; 86140; 87637; 93005; 96361; 96365; 96375; 99284; J1630; J2060; J2405; J3475; J7030

== ENCOUNTER 2023-03-13 12:25 | Emergency (ER) | payer OTHER, SELFPAY ==
[2023-03-13] VITALS (16 sets, daily range): BP systolic 131–180; BP diastolic 75–96; PULSE 80–110; RESP 16–18; TEMP 36.4–36.6; O2SAT 96–99
--- NOTE | 2023-03-13 12:47 | ED.GENADULT ---
HPI - General Adult General Chief complaint: Nausea/Vomiting/Diarrhea Stated complaint: vomiting Time Seen by Provider: 03/13/23 12:30 History of Present Illness HPI narrative: The patient is a 37-year-old male with history of insulin-dependent diabetes, DKA, marijuana hyperemesis syndrome, alcoholic gastritis, and bipolar affective disorder. He does smoke cigarettes and uses marijuana most recently yesterday. He has not used alcohol today or yesterday. He was seen here 03/08/2023, 5 days ago, for hyperemesis associated with marijuana use. He was treated with intravenous hydration. His magnesium was supplemented. He was discharged home on Zofran and Reglan. The patient had been doing well yesterday. Today, at 4:00 a.m., the patient had recurrent emesis, with 7 bouts of emesis since that time, feels weak and tired and dehydrated. No diarrhea. Normal bowel movement yesterday but none today. Still nauseated. Has mild diffuse abdominal pain and low back pain. Decreased oral intake due to emesis. Not feeling well. No other complaints. Related Data Home Medications Medication Instructions Recorded Confirmed insulin glargine 100 unit/mL 40 unit subcut DAILY 06/19/21 03/13/23 subcutaneous solution (Lantus U-100 Insulin) insulin syringe-needle U-100 1 mL 06/19/21 03/13/23 31 gauge x 5/16 (BD Insulin Syringe Ultra-Fine) omeprazole 20 mg capsule,delayed 20 mg PO BID 11/25/22 03/13/23 release olanzapine 10 mg tablet 10 mg PO DAILY 02/01/23 03/13/23 metoclopramide HCl 10 mg tablet 10 mg PO HS 02/18/23 03/13/23 Allergies Allergy/AdvReac Type Severity Reaction Status Date / Time No Known Allergies Allergy Verified 03/13/23 12:30 Review of Systems Review of Systems: All systems reviewed & are unremarkable except as noted in HPI and below Constitutional: Constitutional: Reports as per HPI, Reports no additional constitutional complaints, Denies chills, Denies excessive sweating, Reports fatigue, Denies fever(s), Denies headache(s) and Reports weakness ( Generalized) Eyes: Eyes: Reports as per HPI, Reports no additional eye complaints, Denies change in vision and Denies photophobia ENT: Reports system reviewed and no additional complaints, except as documented, Reports as per HPI, Denies dysphagia, Denies vertigo, Denies dizziness, Denies headache(s), Denies lip swelling, Denies nasal congestion, Denies sore throat, Denies throat swelling and Denies tongue swelling Cardiovascular: Cardiovascular: Reports as per HPI, Reports no additional cardiovascular complaints, Denies chest pain, Denies syncope and Denies dyspnea Respiratory: Respiratory: Reports as per HPI, Reports no additional respiratory complaints, Denies chest congestion, Denies cough, Denies dyspnea and Denies wheezing Gastrointestinal: Gastrointestinal: Reports as per HPI, Reports no additional gastrointestinal complaints, Reports abdominal pain, Denies constipation, Denies dysphagia, Denies diarrhea, Reports nausea and Reports vomiting Genitourinary: Genitourinary: Reports as per HPI, Denies hematuria, Denies oliguria, Denies dysuria, Denies urinary frequency, Denies urinary incontinence and Denies urinary urgency Musculoskeletal: Musculoskeletal: Reports no additional musculoskeletal complaints, Reports back pain, Denies myalgias, Denies arthralgias, Denies joint swelling and Denies numbness Integumentary/Breasts: Skin/Breast: Reports system reviewed and no additional complaints, except as docu, Denies pruritus, Denies erythema, Denies rash and Denies skin ulcer Neurologic: Reports system reviewed and no additional complaints, except as documented, Reports as per HPI, Denies confusion, Denies vertigo, Denies dizziness, Denies syncope, Denies headache(s), Denies focal weakness, Denies numbness and Reports weakness ( generalized) Psychiatric: Psychiatric: Reports as per HPI, Denies anxiety, Denies confusion, Denies depression, Denies homicidal ideation
[2023-03-13 13:02] LABS: Hematocrit 42.3 % (40.0-54.0); Hemoglobin 14.9 g/dL (14.0-18.0); Immature Granulocyte Absolute 0.02 K/mm3 (0.00-0.00); Immature Granulocyte Percent A 0.3 % (0.0-0.0); Lymphocytes Absolute Auto 1.06 K/mm3 (1.10-4.50); Lymphocytes Percent Auto 17.1 % (18.0-42.0); Mean Corpuscular HGB Conc 35.2 g/dL (32.0-36.0); Mean Corpuscular Hemoglobin 31.1 pg (27.0-31.0); Mean Corpuscular Volume 88.3 fL (78.0-102.0); Mean Platelet Volume 11.1 fl (8.7-11.0); Monocytes Absolute Auto 0.39 K/mm3 (0.10-0.90); Monocytes Percent Auto 6.3 % (2.0-11.0); Neutrophils Absolute Auto 4.7 K/mm3 (1.7-7.2); Neutrophils Percent Auto 76.3 % (50.0-70.0); Platelet Count Result 163 K/mm3 (150-420); Red Blood Count 4.79 M/mm3 (4.70-6.10); Red Cell Distribution Width 12.7 % (11.6-14.4); White Blood Count 6.2 K/mm3 (4.8-10.8)
[2023-03-13 13:04] LABS: Glucose Point of Care 174 mg/dl (65-105)
[2023-03-13 13:17] LABS: Alanine Aminotransferase 20 U/L (16-63); Alkaline Phosphatase 61 U/L (46-116); Amylase 65 U/L (25-115); Anion Gap 7 mmol/L (8-16); Aspartate Amino Transferase 10 U/L (15-37); Bilirubin,Total 0.5 mg/dL (0.00-1.00); Blood Urea Nitrogen 20 mg/dL (7-18); Carbon Dioxide 31 mmol/L (21-32); Chloride 104 mmol/L (98-108); Estimated Glomerular Filt Rate > 60; Glucose 179 mg/dL (70-99); Osmolality Calculated 300 mOsm/kg (285-295); Potassium 3.7 mmol/L (3.5-5.1); Sodium 142 mmol/L (136-145); Total Protein 7.1 g/dL (6.4-8.2)
[2023-03-13 13:19] LABS: Ethanol < 3 mg/dL (0-6)
[2023-03-13 13:19] LABS: Lipase 26 U/L (16-77); Magnesium 1.5 mg/dL (1.8-2.4)
[2023-03-13] MEDS: SODIUM CHLORIDE 0.9% IV 1,000 ML 999 ML IV CONT ×2 (13:20)
[2023-03-13] MEDS: METOCLOPRAMIDE HCL INJ 10 MG/2 ML VIAL IV PUSH (13:20)
[2023-03-13] MEDS: ONDANSETRON INJ 4 MG/2 ML VIAL IV PUSH (13:20)
[2023-03-13 13:30] LABS: Acetone Negative (Negative)
[2023-03-13 14:13] LABS: Appearance Urine Clear (Clear); Bilirubin Urine Negative (Negative); Blood Urine Negative (Negative); Color Urine Yellow (Yellow); Glucose Urine UA 2+ (Negative); Ketones Urine Negative (Negative); Leukocyte Esterase Ur Negative LEU/UL (Negative); Nitrate Urine Negative (Negative); Protein Urine Negative (Negative); Specific Grav Ur 1.015 (1.010-1.020); Urobilinogen Urine 0.2 mg/dL (0.2-1.0)
[2023-03-13 14:23] LABS: Amphetamine Screen Urine Negative (Negative); Barbiturate Screen Urine Negative (Negative); Benzodiazepines Screen Urine Negative (Negative); Cannabinoid Screen Urine Positive (Negative); Cocaine Screen Urine Negative (Negative); Methadone Screen Urine Negative (Negative); Opiate Screen Urine Negative (Negative); Phencyclidine Screen Urine Negative (Negative)
[2023-03-13 14:35] LABS: Add Urine Microscopic? YES; Bacteria Urine 2+ /hpf; RBC Urine None seen /hpf (0-2); WBC Urine None seen /hpf (0-3)
[2023-03-13] MEDS: MAGNESIUM SULF 4 GM/WATER100ML 4 GM/100 ML BAG IVPB (15:13)
--- NOTE | 2023-03-13 15:16 | PC.NURSE ---
PT HAS BEEN RESTING ON STRETCHER IN EXAM ROOM WITHOUT DISTRESS. PT WAS ABLE TO USE BEDSIDE URINAL WITHOUT DIFFICULTY. NO EMESIS NOTED THUS FAR IN ED VISIT. NAD NOTED. LIGHTS ARE OFF AND WARM BLANKETS HAVE BEEN PROVIDED. NAD NOTED. REPORT TO DIONNA LAW.
== END 2023-03-13 15:48 | disposition home or self-care (01) ==
PROVIDERS: Emergency Provider Emergency Medicine; PCP Family Medicine
DX: R11.2 Nausea with vomiting, unspecified (principal); F12.920 Cannabis use, unspecified with intoxication, uncomplicated; E83.42 Hypomagnesemia; E11.9 Type 2 diabetes mellitus without complications; F17.210 Nicotine dependence, cigarettes, uncomplicated; Z79.4 Long term (current) use of insulin
CPT/HCPCS: 36415; 80053; 80307; 81001; 82010; 82150; 82948; 83690; 83735; 85025; 96361; 96365; 96375; 99284; J2405; J2765; J3475; J7030

== ENCOUNTER 2023-03-27 12:55 | Emergency (ER) | payer OTHER, SELFPAY ==
[2023-03-27 12:55] VITALS: BP 175/98; PULSE 124; RESP 20; O2SAT 97
[2023-03-27 13:01] LABS: Glucose Point of Care 214 mg/dl (65-105)
[2023-03-27 13:07] VITALS: TEMP 35.3
--- NOTE | 2023-03-27 13:08 | ED.NAVMDI ---
HPI - Nausea/Vomiting/Diarrhea General Chief complaint: Nausea/Vomiting/Diarrhea Stated complaint: vomiting Time Seen by Provider: 03/27/23 13:00 History of Present Illness HPI Narrative: This is a 37-year-old male with past history of diabetes history of cannabis hyperemesis who presents emergency department with nonbloody vomiting for the past several hours. He believes he is thrown up 7 times and has felt general malaise with sharp abdominal pain. He denies fevers or chills. He states he ate spicy chicken yesterday but denies any known sick contacts or recent travel. He also states he does not regularly check his blood glucose. Related Data Home Medications Medication Instructions Recorded Confirmed insulin glargine 100 unit/mL 40 unit subcut DAILY 06/19/21 03/27/23 subcutaneous solution (Lantus U-100 Insulin) insulin syringe-needle U-100 1 mL 06/19/21 03/27/23 31 gauge x 5/16 (BD Insulin Syringe Ultra-Fine) omeprazole 20 mg capsule,delayed 20 mg PO BID 11/25/22 03/27/23 release olanzapine 10 mg tablet 10 mg PO DAILY 02/01/23 03/27/23 metoclopramide HCl 10 mg tablet 10 mg PO HS 02/18/23 03/27/23 Allergies Allergy/AdvReac Type Severity Reaction Status Date / Time No Known Allergies Allergy Verified 03/27/23 13:13 Review of Systems Review of Systems: CONSTITUTIONAL: Denies fever, chills, or sweats. CARDIOVASCULAR: Denies chest pain, palpitations, or edema. RESPIRATORY: Denies cough or dyspnea. GASTROINTESTINAL: Diffuse abdominal pain, nausea and vomiting. Able to pass gas. Denies or diarrhea. GENITOURINARY: Denies dysuria or hematuria. SKIN: Denies rash or itching. MUSCULOSKELETAL: Denies back pain, joint pain, or myalgia. NEUROLOGIC: Denies headache, numbness, dizziness, or weakness. PSYCHIATRIC: Denies anxiety or depression. [facility] Past Medical History Medical History Bipolar 1 disorder Bipolar 1 disorder Diabetes mellitus Gastritis Nausea and vomiting in adult Social History Social History Social History: smoker, uses marijuana Smoking status: Current every day smoker Tobacco type: cigarettes Second hand tobacco smoke exposure: Yes Alcohol intake: current Drinks per week: 5 Substance use type: marijuana Lack of Transportation: No Lack of Food: Never True Current Housing: I Have Housing Concerned About Future Housing: No Difficulty Paying Gas/Electric Bills: Decline to Answer Difficulty Paying for Meds: Decline to Answer Currently Unemployed: Decline to Answer Education: High School Diploma/GED Difficulty w/ Childcare or Family Care: No Spiritual care concerns: No Exam Narrative: GENERAL: Well-developed, well-nourished, appears uncomfortable HEAD: Normocephalic, atraumatic. EYES: PERRLA and EOMI. ENT: Nares clear, no rhinorrhea or epistaxis. Mucous membranes moist. Oropharynx without tonsillar hypertrophy exudate or other lesions. CHEST: Clear to auscultation. No respiratory distress. No wheezes rales or rhonchi HEART: Tachycardic with regular rhythm. No murmur heard. Normal peripheral pulses. ABDOMEN: Soft, diffuse mild tenderness to palpation without rebound or guarding, nondistended, normal active bowel sounds. EXTREMITIES: Normal range of motion. No edema. SKIN: Warm, dry, no rash. NEURO: No focal deficits. Alert and oriented x3. PSYCH: Normal mood and affect. Course Course Emergency Course: 14:33 -CBC unremarkable. Chemistries demonstrate hyperglycemia of 223 and hypomagnesemia of 1.5 but are otherwise unremarkable, including a low anion gap of 10. I do not suspect DKA. The patient states he has continued to use marijuana with the last dose 2 days ago. I suspect a repeat episode of cannabinoid hyperemesis. He continues to vomit despite IV Reglan. Will add Zofran and Diphenhydramine. 16:30 - Heart rate improved wi
[2023-03-27 13:12] VITALS: PULSE 105; RESP 14; O2SAT 96
[2023-03-27] MEDS: METOCLOPRAMIDE HCL INJ 10 MG/2 ML VIAL IV PUSH (13:29)
[2023-03-27] MEDS: SODIUM CHLORIDE 0.9% IV 2,000 ML 999 ML IV CONT (13:33)
[2023-03-27 13:34] LABS: Basophils Absolute Auto 0.01 K/mm3 (0.00-0.10); Basophils Percent Auto 0.1 % (0.0-1.0); Eosinophils Absolute Auto 0.01 K/mm3 (0.02-0.50); Eosinophils Percent Auto 0.1 % (1.0-6.0); Hematocrit 44.3 % (40.0-54.0); Hemoglobin 15.8 g/dL (14.0-18.0); Immature Granulocyte Absolute 0.01 K/mm3 (0.00-0.00); Immature Granulocyte Percent A 0.1 % (0.0-0.0); Lymphocytes Absolute Auto 1.09 K/mm3 (1.10-4.50); Lymphocytes Percent Auto 14.2 % (18.0-42.0); Mean Corpuscular HGB Conc 35.7 g/dL (32.0-36.0); Mean Corpuscular Hemoglobin 31.3 pg (27.0-31.0); Mean Corpuscular Volume 87.9 fL (78.0-102.0); Mean Platelet Volume 11.9 fl (8.7-11.0); Monocytes Absolute Auto 0.44 K/mm3 (0.10-0.90); Monocytes Percent Auto 5.7 % (2.0-11.0); Neutrophils Absolute Auto 6.1 K/mm3 (1.7-7.2); Neutrophils Percent Auto 79.8 % (50.0-70.0); Platelet Count Result 163 K/mm3 (150-420); Red Blood Count 5.04 M/mm3 (4.70-6.10); Red Cell Distribution Width 12.7 % (11.6-14.4); White Blood Count 7.7 K/mm3 (4.8-10.8)
[2023-03-27 13:48] LABS: Alanine Aminotransferase 23 U/L (16-63); Albumin Level 4.2 g/dL (3.4-5.0); Alkaline Phosphatase 65 U/L (46-116); Anion Gap 10 mmol/L (8-16); Aspartate Amino Transferase 19 U/L (15-37); Bilirubin,Total 0.7 mg/dL (0.00-1.00); Blood Urea Nitrogen 22 mg/dL (7-18); Calcium 8.8 mg/dL (8.5-10.1); Carbon Dioxide 28 mmol/L (21-32); Chloride 100 mmol/L (98-108); Estimated CRCL calculation 138 ml/min; Estimated Glomerular Filt Rate > 60; Glucose 223 mg/dL (70-99); Osmolality Calculated 296 mOsm/kg (285-295); Potassium 3.9 mmol/L (3.5-5.1); Sodium 138 mmol/L (136-145); Total Protein 7.2 g/dL (6.4-8.2)
[2023-03-27 13:49] LABS: Magnesium 1.5 mg/dL (1.8-2.4)
[2023-03-27 14:23] VITALS: BP 162/93; PULSE 83; RESP 10; TEMP 36; O2SAT 97
[2023-03-27] MEDS: ONDANSETRON HCL ODT 4 MG TABLET PO (14:40)
[2023-03-27] MEDS: diphenhydrAMINE HCl INJ 50 MG/ML VIAL IV PUSH (14:49)
[2023-03-27 15:21] VITALS: BP 121/77; PULSE 85; RESP 16; O2SAT 99
[2023-03-27 16:54] VITALS: BP 141/88; PULSE 109; RESP 17; TEMP 36.9; O2SAT 98
== END 2023-03-27 16:55 | disposition home or self-care (01) ==
PROVIDERS: Emergency Provider Preventive Medicine Aerospace Medicine; PCP Family Medicine
DX: R11.2 Nausea with vomiting, unspecified (principal); F12.90 Cannabis use, unspecified, uncomplicated; E11.9 Type 2 diabetes mellitus without complications; F17.210 Nicotine dependence, cigarettes, uncomplicated; Z79.4 Long term (current) use of insulin
CPT/HCPCS: 36415; 80053; 82948; 83735; 85025; 96361; 96374; 96375; 99284; A9270; J1200; J2765; J7030

== ENCOUNTER 2023-03-28 10:00 | Observation (INO) | payer OTHER, SELFPAY ==
[2023-03-28] VITALS (25 sets, daily range): BP systolic 138–194; BP diastolic 73–96; PULSE 70–111; RESP 16–18; TEMP 35.8–37; O2SAT 96–100; BMI 24.8
--- NOTE | ~2023-03-28 | CT_ITS ---
EXAMINATION: CT abdomen pelvis wo con DATE: 03/28/2023 14:23 INDICATION: Nausea and vomiting. TECHNIQUE: Computed tomography (CT) of the abdomen and pelvis was performed without intravenous contr ast. Automated exposure control and iterative reconstruction technique were employed. The dose-length product was 367.01 mGy-cm. COMPARISON: CT abdomen and pelvis 06/19/2021 FINDINGS: The visualized portions of the lung bases demonstrate a calcified right lung nodule, consis tent with old granulomatous disease. The heart size is normal. No pericardial effusion. There is wall thickening of the distal esophagus. The liver, gallbladder, spleen, pancreas, adrenal glands, and ki dneys are normal. There is no urolithiasis. There are no dilated loops of bowel. The appendix is norm al. There are no pathologically enlarged lymph nodes. There is no free intraperitoneal fluid. There i s mild chronic anterior wedging of multiple lower thoracic vertebral bodies. IMPRESSION: 1. Wall thickening of the distal esophagus, consistent with esophagitis. Reviewed, dictated and finalized at location A.
[2023-03-28 10:20] LABS: Glucose Point of Care 227 mg/dl (65-105)
--- NOTE | 2023-03-28 10:25 | ED.GENADULT ---
HPI - General Adult General Chief complaint: Nausea/Vomiting/Diarrhea Stated complaint: abdominal pain/ vomiting Time Seen by Provider: 03/28/23 10:17 History of Present Illness HPI narrative: This is a 37-year-old male with multiple ER visits for abdominal pain and daily marijuana use presenting with nausea vomiting abdominal pain. Patient says that the pain started 2 days ago after he had a spicy chip at work. The patient describes his pain as a stabbing/ achy pain that is all over his abdomen. His 10 out 10 intensity constant. He has had this several times per month for a long time. Her no alleviating or exacerbating symptoms. He denies fever chills, diarrhea chest pain or difficulty breathing urinary symptoms. Patient was seen in our emergency department yesterday for the same complaint. Related Data Home Medications Medication Instructions Recorded Confirmed insulin glargine 100 unit/mL 40 unit subcut DAILY 06/19/21 03/28/23 subcutaneous solution (Lantus U-100 Insulin) insulin syringe-needle U-100 1 mL 06/19/21 03/27/23 31 gauge x 5/16 (BD Insulin Syringe Ultra-Fine) omeprazole 20 mg capsule,delayed 20 mg PO BID 11/25/22 03/28/23 release olanzapine 10 mg tablet 10 mg PO DAILY 02/01/23 03/28/23 Allergies Allergy/AdvReac Type Severity Reaction Status Date / Time No Known Allergies Allergy Verified 03/28/23 10:16 [facility] Past Medical History Medical History Bipolar 1 disorder Bipolar 1 disorder Diabetes mellitus Gastritis Nausea and vomiting in adult Social History Social History Social History: smoker, uses marijuana Smoking status: Current every day smoker Tobacco type: cigarettes Second hand tobacco smoke exposure: Yes Alcohol intake: current Drinks per week: 5 Substance use type: marijuana Lack of Transportation: No Lack of Food: Never True Current Housing: I Have Housing Concerned About Future Housing: No Difficulty Paying Gas/Electric Bills: Decline to Answer Difficulty Paying for Meds: Decline to Answer Currently Unemployed: Decline to Answer Education: High School Diploma/GED Difficulty w/ Childcare or Family Care: No Spiritual care concerns: No Exam Narrative: APPEARANCE: No apparent distress. patient is tearful and retching loudly into a pitcher that he brought from home Head: atraumatic. EYES: EOMI, NOSE: Atraumatic NECK: Trachea midline RESPIRATORY: No increased rate of breathing clear to auscultation CARDIOVASCULAR: RRR, ABDOMINAL: Non-distended, mild tenderness palpation in the epigastric area. Soft no guarding rebound MUSCULOSKELETAl: No obvious deformities NEURO: Alert. Moving 4/4 extremities SKIN:: Warm, dry. Normal color PSYCHIATRIC: Normal affect Course Vital Signs Vital signs: Vital Signs Temperature 96.5 F L 03/28/23 10:05 Pulse Rate 103 H 03/28/23 10:05 Respiratory Rate 18 03/28/23 10:05 Blood Pressure 179/87 H 03/28/23 10:05 Pulse Oximetry 99 03/28/23 10:05 Oxygen Delivery Room Air 03/28/23 10:05 Temperature 97.7 F 03/28/23 10:55 Pulse Rate 75 03/28/23 11:35 Respiratory Rate 16 03/28/23 11:35 Blood Pressure 154/79 H 03/28/23 11:30 Pulse Oximetry 99 03/28/23 11:35 Oxygen Delivery Room Air 03/28/23 10:21 Medical Decision Making MDM Narrative Medical decision making narrative: -Presentation: 37-year-old male with daily marijuana use presenting ED with acute on chronic nausea and vomiting. -DDX includes but is not limited to: cannabinoid hyperemesis, DKA, gastritis, gastroparesis -Co-morbidities complicating care: daily marijuana use, bipolar disorder, diabetes -Social determinants of health: patient works at [employer] and lives with his niece -External Chart Review: previous ER visits -Hx from independent Sources: none -Discussion of Manag
[2023-03-28 10:37] LABS: Basophils Absolute Auto 0.01 K/mm3 (0.00-0.10); Basophils Percent Auto 0.1 % (0.0-1.0); Hematocrit 43.3 % (40.0-54.0); Hemoglobin 15.7 g/dL (14.0-18.0); Immature Granulocyte Absolute 0.04 K/mm3 (0.00-0.00); Immature Granulocyte Percent A 0.4 % (0.0-0.0); Lymphocytes Absolute Auto 0.97 K/mm3 (1.10-4.50); Lymphocytes Percent Auto 9.4 % (18.0-42.0); Mean Corpuscular HGB Conc 36.3 g/dL (32.0-36.0); Mean Corpuscular Hemoglobin 31.5 pg (27.0-31.0); Mean Corpuscular Volume 86.9 fL (78.0-102.0); Mean Platelet Volume 11.4 fl (8.7-11.0); Monocytes Absolute Auto 0.54 K/mm3 (0.10-0.90); Monocytes Percent Auto 5.2 % (2.0-11.0); Neutrophils Absolute Auto 8.8 K/mm3 (1.7-7.2); Neutrophils Percent Auto 84.9 % (50.0-70.0); Platelet Count Result 177 K/mm3 (150-420); Red Blood Count 4.98 M/mm3 (4.70-6.10); Red Cell Distribution Width 12.6 % (11.6-14.4); White Blood Count 10.3 K/mm3 (4.8-10.8)
[2023-03-28] MEDS: SODIUM CHLORIDE 0.9% IV 2,000 ML 999 ML IV CONT (10:50)
[2023-03-28 10:51] LABS: Alanine Aminotransferase 24 U/L (16-63); Albumin Level 4.7 g/dL (3.4-5.0); Alkaline Phosphatase 74 U/L (46-116); Anion Gap 20 mmol/L (8-16); Aspartate Amino Transferase 17 U/L (15-37); Bilirubin,Total 1.3 mg/dL (0.00-1.00); Blood Urea Nitrogen 24 mg/dL (7-18); Calcium 9.1 mg/dL (8.5-10.1); Carbon Dioxide 20 mmol/L (21-32); Chloride 95 mmol/L (98-108); Estimated CRCL calculation 117 ml/min; Estimated Glomerular Filt Rate > 60; Glucose 269 mg/dL (70-99); Lipase 12 U/L (16-77); Osmolality Calculated 293 mOsm/kg (285-295); Sodium 135 mmol/L (136-145); Total Protein 7.7 g/dL (6.4-8.2)
[2023-03-28] MEDS: ONDANSETRON INJ 4 MG/2 ML VIAL IV PUSH (10:51)
[2023-03-28] MEDS: HALOPERIDOL LACTATE 5 MG/ML VIAL IV PUSH (10:53)
[2023-03-28] MEDS: FAMOTIDINE 20 MG/2 ML VIAL IV PUSH (10:54)
[2023-03-28 11:59] LABS: Appearance Urine Clear (Clear); Bilirubin Urine Negative (Negative); Blood Urine Trace-Intact (Negative); Color Urine Light Yellow (Yellow); Glucose Urine UA 2+ (Negative); Ketones Urine 3+ (Negative); Leukocyte Esterase Ur Negative LEU/UL (Negative); Nitrate Urine Negative (Negative); Protein Urine 1+ (Negative); Specific Grav Ur >= 1.030 (1.010-1.020); Urobilinogen Urine 0.2 mg/dL (0.2-1.0)
[2023-03-28 12:02] LABS: Add Urine Microscopic? YES; Bacteria Urine Trace /hpf; Mucus Urine Few /lpf; RBC Urine 0-2 /hpf (0-2); Squamous Epithelial Cell Urine Rare /hpf (Few); WBC Urine None seen /hpf (0-3)
[2023-03-28] MEDS: SODIUM CHLORIDE 0.9% IV 1,000 ML 999 ML IV CONT (12:43)
[2023-03-28] MEDS: diphenhydrAMINE HCl INJ 50 MG/ML VIAL 25 MG IV PUSH (12:44)
[2023-03-28] MEDS: PROCHLORPERAZINE EDISYLATE 10 MG/2 ML VIAL IV PUSH (12:45)
[2023-03-28 13:41] LABS: Anion Gap 15 mmol/L (8-16); Blood Urea Nitrogen 21 mg/dL (7-18); Calcium 7.9 mg/dL (8.5-10.1); Carbon Dioxide 20 mmol/L (21-32); Chloride 102 mmol/L (98-108); Estimated CRCL calculation 142 ml/min; Estimated Glomerular Filt Rate > 60; Glucose 200 mg/dL (70-99); Osmolality Calculated 293 mOsm/kg (285-295); Potassium 4.1 mmol/L (3.5-5.1); Sodium 137 mmol/L (136-145)
[2023-03-28] MEDS: METOCLOPRAMIDE HCL INJ 10 MG/2 ML VIAL IV PUSH (14:26)
--- NOTE | 2023-03-28 16:00 | ADMGEN ---
This patient, Isaac Ramirez, was admitted to 2nd Floor Room 210-2. Patient/family oriented to hospital policies and general routines including ID bracelet, bed and alarms, visiting hours, pain management, procedures, bathroom and other care routines, personal items, smoking policy, room service/diet, and visiting hours. Information on how to activate the Rapid Response Team has been discussed. Patient/Family are encouraged to report perceived risks to care and to ask questions if they do not understand what they are told or what they should do.
[2023-03-28 17:14] LABS: Glucose Point of Care 189 mg/dl (65-105)
--- NOTE | 2023-03-28 17:52 | PC.NURSE ---
Jung Alexander, RADAR TECHNICIAN/Hospitalist, notified of patient having 1000ml p.o.with no nausea, emisis, pain. New order to d/c IV fluids.
[2023-03-28] MEDS: PANTOPRAZOLE SODIUM IV 40 MG VIAL IV PUSH (20:22)
[2023-03-28 20:26] LABS: Glucose Point of Care 192 mg/dl (65-105)
[2023-03-29 05:46] LABS: Hematocrit 40.5 % (40.0-54.0); Hemoglobin 14.6 g/dL (14.0-18.0); Mean Corpuscular Hemoglobin 31.5 pg (27.0-31.0); Mean Corpuscular Volume 87.5 fL (78.0-102.0); Mean Platelet Volume 11.7 fl (8.7-11.0); Platelet Count Result 165 K/mm3 (150-420); Red Blood Count 4.63 M/mm3 (4.70-6.10); Red Cell Distribution Width 12.5 % (11.6-14.4); White Blood Count 7.9 K/mm3 (4.8-10.8)
[2023-03-29 06:04] LABS: Alanine Aminotransferase 21 U/L (16-63); Albumin Level 3.8 g/dL (3.4-5.0); Alkaline Phosphatase 60 U/L (46-116); Anion Gap 8 mmol/L (8-16); Aspartate Amino Transferase 14 U/L (15-37); Bilirubin,Total 1.2 mg/dL (0.00-1.00); Blood Urea Nitrogen 19 mg/dL (7-18); Calcium 8.1 mg/dL (8.5-10.1); Carbon Dioxide 27 mmol/L (21-32); Chloride 102 mmol/L (98-108); Estimated CRCL calculation 124 ml/min; Estimated Glomerular Filt Rate > 60; Glucose 147 mg/dL (70-99); Osmolality Calculated 289 mOsm/kg (285-295); Potassium 3.6 mmol/L (3.5-5.1); Sodium 137 mmol/L (136-145); Total Protein 6.3 g/dL (6.4-8.2)
--- NOTE | 2023-03-29 07:55 | PM.SD2 ---
Same Day Admit/Disch: HPI History of Present Illness Chief complaint: abdominal pain/ vomiting Narrative: Isaac Ramirez is a 37 year old male that presented to emergency department with complaints abdominal pain nausea and vomiting. Patient has a past medical history of diabetes bipolar gastritis , chronicnausea and vomiting . patient does use marijuana has been to our emergency department multiple times for the treatment of CHS. Once again patient has been educated on CHS. He has been prescribed by his primary care physician multiple medications to prevent nausea and vomiting such as Reglan and Zofran along with omeprazole. Today he will discharge home with Flovent HFA due to gastritis. Patient is a diuretic will avoid p.o. steroid use. Patient does not have any relevant abnormal labs. His nausea vomiting and abdominal pain has resolved today he is able to tolerate his meals and has agreed to discharge. The patient denies SOB, CP, palpitation, extremity numbness, lightheadedness, dizziness, constipation, diarrhea, chills, or fever. [facility] Past Medical History Medical History (Updated 03/29/23 @ 08:09 by LEÓN Livingston) Bipolar 1 disorder Bipolar 1 disorder Diabetes mellitus Gastritis Nausea and vomiting in adult Family History Family History Other Unknown family medical history Social History Social History Social History: smoker, uses marijuana Smoking status: Heavy tobacco smoker Tobacco type: cigarettes Second hand tobacco smoke exposure: Yes Alcohol intake: current Drinks per week: 5 Substance use: current Substance use type: marijuana Lack of Transportation: No Lack of Food: Never True Current Housing: I Do Not Have Housing Concerned About Future Housing: No Difficulty Paying Gas/Electric Bills: No Difficulty Paying for Meds: No Currently Unemployed: No Education: Decline to Answer Difficulty w/ Childcare or Family Care: No Spiritual care concerns: No Same Day Admit/Disch: Med Pre-admit Medications Home Medications Medication Instructions Recorded Confirmed Type insulin glargine 100 unit/mL 40 unit subcut DAILY 06/19/21 03/28/23 History subcutaneous solution (Lantus U-100 Insulin) insulin syringe-needle U-100 1 mL 06/19/21 03/27/23 History 31 gauge x 5/16 (BD Insulin Syringe Ultra-Fine) omeprazole 20 mg capsule,delayed 20 mg PO BID 11/25/22 03/28/23 History release olanzapine 10 mg tablet 10 mg PO DAILY 02/01/23 03/28/23 History metoclopramide HCl 10 mg tablet 10 mg PO Q6H PRN nausea and 03/27/23 03/28/23 Rx (Reglan) vomiting #7 tabs ondansetron 8 mg disintegrating 8 mg PO Q8H PRN nausea and 03/27/23 03/28/23 Rx tablet vomiting #10 tabs capsaicin 0.033 % topical cream 1 applic topical Q6H PRN Nausea 03/29/23 Rx (Zostrix) And Vomiting 10 days #56.6 grams fluticasone propionate 220 2 puff inhalation Q12HRT 10 days 03/29/23 Rx mcg/actuation HFA aerosol inhaler #12 grams (Flovent HFA) Exam Narrative: GENERAL: This is a well-nourished, well-developed patient, in no apparent distress. HEAD: normocephalic, atraumatic. EYES: PERRL. Sclera clear/white. Vision is grossly intact. EARS: External ears normal, auditory canals clear and without drainage, TMs normal without perforation. Hearing grossly intact. NOSE: External nose normal with no obvious nasal discharge, nares without redness, no rhinorrhea. THROAT: Mucous membranes moist, posterior pharynx clear. NECK: Neck supple, non-tender without lymphadenopathy, masses or thyromegaly. CARDIOVASCULAR: Regular rate and rhythm without murmurs, gallops, or rubs. RESPIRATORY: Clear to auscultation. Breath sounds equal bilaterally. No wheezes, rales, or rhonchi. GASTROINTESTINAL: Abdomen soft, non-tender, nondistended. Bowel sounds are active. No hepato-splenomegaly, o
[2023-03-29 08:00] VITALS: BP 134/70; PULSE 92; RESP 17; TEMP 36.6; O2SAT 97
[2023-03-29] MEDS: OLANZapine 5 MG TABLET 10 MG PO (08:46)
[2023-03-29] MEDS: METOCLOPRAMIDE HCL INJ 10 MG/2 ML VIAL IV PUSH (08:46)
[2023-03-29] MEDS: PANTOPRAZOLE SODIUM IV 40 MG VIAL IV PUSH (08:46)
[2023-03-29] MEDS: INSULIN GLARGINE (*BKC) 1,000 UNITS/10 ML VIAL 20 UNITS SUB-Q (08:50)
--- NOTE | 2023-03-29 09:35 | PC.NURSE ---
Discharge packet reviewed with patient. All questions answered. Pt ambulated self downstairs to front lobby.
--- NOTE | 2023-03-30 11:52 | PC.NURSE ---
Pt states he received and understood the discharge instructions. Pt also states everything was good .
== END 2023-03-29 09:35 | disposition home or self-care (01) ==
LOC: CHSED 10:36 → CHS2ND 15:19
PROVIDERS: Nurse Practitioner; Admitting Provider Internal Medicine; Emergency Provider Emergency Medicine; PCP Family Medicine; Visit Provider Internal Medicine
DX: R11.2 Nausea with vomiting, unspecified (principal); F12.90 Cannabis use, unspecified, uncomplicated; K20.90 Esophagitis, unspecified without bleeding; F31.9 Bipolar disorder, unspecified; E11.9 Type 2 diabetes mellitus without complications; F17.210 Nicotine dependence, cigarettes, uncomplicated
CPT/HCPCS: 36415; 74176; 80048; 80053; 81001; 82948; 83690; 85025; 85027; 96361; 96374; 96375; 99285; A9270; C9113; G0378; G0379; J0780; J1200; J1630; J1815; J2405; J2765; J7030

== ENCOUNTER 2023-04-08 13:28 | Emergency (ER) | payer OTHER, SELFPAY ==
[2023-04-08 13:32] VITALS: BP 168/91; PULSE 86; RESP 20; TEMP 36.6; O2SAT 97
--- NOTE | 2023-04-08 14:00 | ED.NAVMDI ---
HPI - Nausea/Vomiting/Diarrhea General Chief complaint: Nausea/Vomiting/Diarrhea Stated complaint: nausea Source: patient Mode of arrival: ambulatory Limitations: no limitations History of Present Illness HPI Narrative: 37-year-old male smoker with a history of diabetes mellitus, bipolar, gastritis, chronic nausea and vomiting, chronic marijuana use presents to the ER with -- nausea with multiple episodes of vomiting. He has had 5 episodes of vomiting. -- Feels dehydrated and complains of body ache. MD elicited complaint: nausea and vomiting Pertinent past history: anorexia Onset (ago): day(s) ( Since yesterday) Description of vomiting: food contents Associated nausea: Yes Associated abdominal pain: No Exacerbating factors: none Relieving factors: none Associated symptoms: denies other symptoms Related Data Home Medications Medication Instructions Recorded Confirmed insulin glargine 100 unit/mL 40 unit subcut DAILY 06/19/21 04/08/23 subcutaneous solution (Lantus U-100 Insulin) insulin syringe-needle U-100 1 mL 06/19/21 04/08/23 31 gauge x 5/16 (BD Insulin Syringe Ultra-Fine) omeprazole 20 mg capsule,delayed 20 mg PO BID 11/25/22 04/08/23 release olanzapine 10 mg tablet 10 mg PO DAILY 02/01/23 04/08/23 Allergies Allergy/AdvReac Type Severity Reaction Status Date / Time No Known Allergies Allergy Verified 04/08/23 13:47 Review of Systems Review of Systems: All systems reviewed & are unremarkable except as noted in HPI and below Constitutional: Constitutional: Reports as per HPI and Reports no additional constitutional complaints Eyes: Eyes: Reports as per HPI and Reports no additional eye complaints ENT: Reports system reviewed and no additional complaints, except as documented and Reports as per HPI Cardiovascular: Cardiovascular: Reports as per HPI and Reports no additional cardiovascular complaints Respiratory: Respiratory: Reports as per HPI and Reports no additional respiratory complaints Gastrointestinal: Gastrointestinal: Reports as per HPI and Reports no additional gastrointestinal complaints Genitourinary: Genitourinary: Reports no additional male genitourinary complaints Musculoskeletal: Musculoskeletal: Reports no additional musculoskeletal complaints Integumentary/Breasts: Skin/Breast: Reports system reviewed and no additional complaints, except as docu and Reports as per HPI Neurologic: Reports system reviewed and no additional complaints, except as documented and Reports as per HPI Psychiatric: Psychiatric: Reports no additional psychiatric complaints and Reports as per HPI Endocrine: Endocrine: Reports no additional endocrine complaints and Reports as per HPI Hematologic/Lymphatic: Hematologic/Lymphatic: Reports no additional hematologic/lymphatic complaints and Reports as per HPI Allergic/Immunologic: Allergic/Immunologic: Reports no additional allergic/immunologic complaints and Reports as per HPI [facility] Past Medical History Medical History Bipolar 1 disorder Bipolar 1 disorder Diabetes mellitus Gastritis Nausea and vomiting in adult Family History Family History Other Unknown family medical history Social History Social History Social History: smoker, uses marijuana Smoking status: Heavy tobacco smoker Tobacco type: cigarettes Second hand tobacco smoke exposure: Yes Alcohol intake: current Drinks per week: 5 Substance use: current Substance use type: marijuana Lack of Transportation: No Lack of Food: Never True Current Housing: I Do Not Have Housing Concerned About Future Housing: No Difficulty Paying Gas/Electric Bills: No Difficulty Paying for Meds: No Currently Unemployed: No Education: Decline to Answer Difficulty w/ Childcare or Family Care: No Sp
[2023-04-08] MEDS: LACTATED RINGERS 1,000 ML 999 ML IV CONT (14:24)
[2023-04-08] MEDS: ONDANSETRON INJ 4 MG/2 ML VIAL IV PUSH (14:25)
[2023-04-08 14:26] LABS: Hematocrit 42.9 % (40.0-54.0); Hemoglobin 15.2 g/dL (14.0-18.0); Immature Granulocyte Absolute 0.01 K/mm3 (0.00-0.00); Immature Granulocyte Percent A 0.2 % (0.0-0.0); Lymphocytes Absolute Auto 0.64 K/mm3 (1.10-4.50); Lymphocytes Percent Auto 11.1 % (18.0-42.0); Mean Corpuscular HGB Conc 35.4 g/dL (32.0-36.0); Mean Corpuscular Hemoglobin 31.1 pg (27.0-31.0); Mean Corpuscular Volume 87.9 fL (78.0-102.0); Mean Platelet Volume 11.9 fl (8.7-11.0); Monocytes Absolute Auto 0.45 K/mm3 (0.10-0.90); Monocytes Percent Auto 7.8 % (2.0-11.0); Neutrophils Absolute Auto 4.6 K/mm3 (1.7-7.2); Neutrophils Percent Auto 80.9 % (50.0-70.0); Platelet Count Result 150 K/mm3 (150-420); Red Blood Count 4.88 M/mm3 (4.70-6.10); Red Cell Distribution Width 12.8 % (11.6-14.4); White Blood Count 5.7 K/mm3 (4.8-10.8)
[2023-04-08 14:46] LABS: Alanine Aminotransferase 20 U/L (16-63); Albumin Level 3.9 g/dL (3.4-5.0); Alkaline Phosphatase 61 U/L (46-116); Anion Gap 8 mmol/L (8-16); Aspartate Amino Transferase 13 U/L (15-37); Bilirubin,Total 0.5 mg/dL (0.00-1.00); Blood Urea Nitrogen 21 mg/dL (7-18); Calcium 8.8 mg/dL (8.5-10.1); Carbon Dioxide 30 mmol/L (21-32); Chloride 102 mmol/L (98-108); Estimated CRCL calculation 150 ml/min; Estimated Glomerular Filt Rate > 60; Glucose 207 mg/dL (70-99); Lipase 13 U/L (16-77); Osmolality Calculated 299 mOsm/kg (285-295); Potassium 3.7 mmol/L (3.5-5.1); Sodium 140 mmol/L (136-145); Total Protein 6.7 g/dL (6.4-8.2)
[2023-04-08 15:03] LABS: Troponin I 4.8 ng/L (0.00-60.4)
[2023-04-08] MEDS: PROCHLORPERAZINE EDISYLATE 10 MG/2 ML VIAL IV PUSH (16:07)
[2023-04-08 17:00] VITALS: BP 170/88; PULSE 88; RESP 20; TEMP 36.9; O2SAT 98
== END 2023-04-08 17:12 | disposition home or self-care (01) ==
PROVIDERS: Emergency Provider Internal Medicine Critical Care Medicine; PCP Family Medicine
DX: R11.10 Vomiting, unspecified (principal); F12.90 Cannabis use, unspecified, uncomplicated; E11.9 Type 2 diabetes mellitus without complications; F17.210 Nicotine dependence, cigarettes, uncomplicated; Z79.4 Long term (current) use of insulin
CPT/HCPCS: 36415; 80053; 83690; 84484; 85025; 96361; 96374; 96375; 99284; J0780; J2405; J7120

== ENCOUNTER 2023-06-10 13:50 | Emergency (ER) | payer MEDICARE, MEDICAID, SELFPAY ==
[2023-06-10] VITALS (22 sets, daily range): BP systolic 147–195; BP diastolic 79–106; PULSE 89–131; RESP 9–20; TEMP 36.1; O2SAT 96–100
--- NOTE | 2023-06-10 13:59 | ED.NAVMDI ---
HPI - Nausea/Vomiting/Diarrhea General Chief complaint: Nausea/Vomiting/Diarrhea Stated complaint: vomiting since thursday Time Seen by Provider: 06/10/23 13:59 Source: patient Mode of arrival: ambulatory Limitations: no limitations History of Present Illness HPI Narrative: 38-year-old male with a history of marijuana use, hypertension, diabetes mellitus, bipolar, gastritis, cyclic vomiting syndrome presents to the ER with a 1 day history of -- nausea with multiple episodes of vomiting and diarrhea. -- No fever. No abdominal pain. MD elicited complaint: nausea, vomiting and diarrhea Pertinent past history: anorexia Onset (ago): day(s) ( symptoms started yesterday morning) Description of vomiting: watery Description of diarrhea: watery Associated nausea: Yes Associated abdominal pain: No Exacerbating factors: none Relieving factors: none Associated symptoms: denies other symptoms Related Data Home Medications Medication Instructions Recorded Confirmed insulin glargine 100 unit/mL 40 unit subcut DAILY 06/19/21 06/10/23 subcutaneous solution (Lantus U-100 Insulin) insulin syringe-needle U-100 1 mL 06/19/21 06/10/23 31 gauge x 5/16 (BD Insulin Syringe Ultra-Fine) olanzapine 10 mg tablet 10 mg PO DAILY 02/01/23 06/10/23 Allergies Allergy/AdvReac Type Severity Reaction Status Date / Time No Known Allergies Allergy Verified 06/10/23 14:10 Review of Systems Review of Systems: All systems reviewed & are unremarkable except as noted in HPI and below Constitutional: Constitutional: Reports as per HPI and Reports no additional constitutional complaints Eyes: Eyes: Reports as per HPI and Reports no additional eye complaints ENT: Reports system reviewed and no additional complaints, except as documented and Reports as per HPI Cardiovascular: Cardiovascular: Reports as per HPI and Reports no additional cardiovascular complaints Respiratory: Respiratory: Reports as per HPI and Reports no additional respiratory complaints Gastrointestinal: Gastrointestinal: Reports as per HPI, Reports no additional gastrointestinal complaints, Reports diarrhea, Reports nausea and Reports vomiting Genitourinary: Genitourinary: Reports no additional male genitourinary complaints and Reports as per HPI Musculoskeletal: Musculoskeletal: Reports no additional musculoskeletal complaints and Reports as per HPI Integumentary/Breasts: Skin/Breast: Reports system reviewed and no additional complaints, except as docu and Reports as per HPI Neurologic: Reports system reviewed and no additional complaints, except as documented and Reports as per HPI Psychiatric: Psychiatric: Reports no additional psychiatric complaints and Reports as per HPI Endocrine: Endocrine: Reports no additional endocrine complaints and Reports as per HPI Hematologic/Lymphatic: Hematologic/Lymphatic: Reports no additional hematologic/lymphatic complaints and Reports as per HPI Allergic/Immunologic: Allergic/Immunologic: Reports no additional allergic/immunologic complaints and Reports as per HPI [facility] Past Medical History Medical History Bipolar 1 disorder Bipolar 1 disorder Diabetes mellitus Gastritis Nausea and vomiting in adult Family History Family History Other Unknown family medical history Social History Social History Social History: smoker, uses marijuana Smoking status: Heavy tobacco smoker Tobacco type: cigarettes Second hand tobacco smoke exposure: Yes Alcohol intake: current Drinks per week: 5 Substance use: current Substance use type: marijuana Lack of Transportation: No Lack of Food: Never True Current Housing: I Do Not Have Housing Concerned About Future Housing: No Difficulty Paying Gas/Electric Bills: No Difficulty Paying for Meds: No Cur
[2023-06-10 14:21] LABS: Basophils Absolute Auto 0.01 K/mm3 (0.00-0.10); Basophils Percent Auto 0.1 % (0.0-1.0); Hematocrit 45.6 % (40.0-54.0); Hemoglobin 16.3 g/dL (14.0-18.0); Immature Granulocyte Absolute 0.03 K/mm3 (0.00-0.00); Immature Granulocyte Percent A 0.3 % (0.0-0.0); Lymphocytes Absolute Auto 1.21 K/mm3 (1.10-4.50); Lymphocytes Percent Auto 12.4 % (18.0-42.0); Mean Corpuscular HGB Conc 35.7 g/dL (32.0-36.0); Mean Corpuscular Hemoglobin 30.9 pg (27.0-31.0); Mean Corpuscular Volume 86.4 fL (78.0-102.0); Monocytes Absolute Auto 0.64 K/mm3 (0.10-0.90); Monocytes Percent Auto 6.5 % (2.0-11.0); Neutrophils Absolute Auto 7.9 K/mm3 (1.7-7.2); Neutrophils Percent Auto 80.7 % (50.0-70.0); Platelet Count Result 188 K/mm3 (150-420); Red Blood Count 5.28 M/mm3 (4.70-6.10); Red Cell Distribution Width 12.6 % (11.6-14.4); White Blood Count 9.8 K/mm3 (4.8-10.8)
[2023-06-10] MEDS: LACTATED RINGERS 1,000 ML 999 ML IV CONT (14:29)
[2023-06-10] MEDS: PROCHLORPERAZINE EDISYLATE 10 MG/2 ML VIAL IV PUSH (14:31)
[2023-06-10 14:39] LABS: Alanine Aminotransferase 23 U/L (16-63); Albumin Level 4.7 g/dL (3.4-5.0); Alkaline Phosphatase 80 U/L (46-116); Anion Gap 16 mmol/L (8-16); Aspartate Amino Transferase 11 U/L (15-37); Bilirubin,Total 1.1 mg/dL (0.00-1.00); Blood Urea Nitrogen 29 mg/dL (7-18); Calcium 9.5 mg/dL (8.5-10.1); Carbon Dioxide 26 mmol/L (21-32); Chloride 98 mmol/L (98-108); Estimated Glomerular Filt Rate > 60; Glucose 258 mg/dL (70-99); Osmolality Calculated 304 mOsm/kg (285-295); Potassium 3.8 mmol/L (3.5-5.1); Sodium 140 mmol/L (136-145); Troponin I 7.6 ng/L (0.00-60.4)
[2023-06-10 14:42] LABS: Lactic Acid Reflex 1.4 mmol/L (0.4-2.0)
[2023-06-10] MEDS: LACTATED RINGERS 1,000 ML 500 ML IV CONT (15:38)
--- NOTE | 2023-06-10 15:52 | PC.NURSE ---
NO EMESIS NOTED THUS FAR IN ED VISIT. PT IS REQUESTING SOMETHING TO DRINK, ERP DECLINES AT THIS TIME. PT IS AWARE. IVF IS INFUSING ORDERED WITHOUT DIFFICULTY. SEVERAL WARM BLANKETS HAVE BEEN PROVIDED TO PT, LIGHTS HAVE BEEN OFF PER PT REQUEST. WILL CONTINUE TO MONITOR.
--- NOTE | 2023-06-10 16:52 | PC.NURSE ---
PT IS RESTING ON STRETCHER WITHOUT DISTRESS. IVF INFUSING WITHOUT DIFFICULTY. PT HAS NO COMPLAINTS, UNLESS WAKEN. PT THEN REPORTS HE IS NAUSEATED, WANTS SOMETHING TO DRINK, HIS BACK HURTS. ERP IS AWARE. WILL CONTINUE TO MONITOR. NO EMESIS NOTED THUS FAR IN ED VISIT.
== END 2023-06-10 18:05 | disposition home or self-care (01) ==
PROVIDERS: Emergency Provider Internal Medicine Critical Care Medicine; PCP Family Medicine
DX: E86.0 Dehydration (principal); R11.15 Cyclical vomiting syndrome unrelated to migraine; I10 Essential (primary) hypertension; E11.9 Type 2 diabetes mellitus without complications; F17.210 Nicotine dependence, cigarettes, uncomplicated; Z79.4 Long term (current) use of insulin
CPT/HCPCS: 36415; 80053; 83605; 84484; 85025; 96361; 96374; 99284; J0780; J7120

== ENCOUNTER 2023-06-11 16:10 | Emergency (ER) | payer MEDICARE, MEDICAID, SELFPAY ==
--- NOTE | ~2023-06-11 | CT_ITS ---
EXAMINATION: CT abdomen pelvis wo con DATE: 06/11/2023 16:55 INDICATION: VOMITING X 2 HOURS TECHNIQUE: Computed tomography (CT) of the abdomen and pelvis was performed without intravenous contr ast. Automated exposure control and iterative reconstruction technique were employed. The dose-length product was 350.93 mGy-cm. COMPARISON: 03/28/2023. FINDINGS: Lower thorax: Moderate coronary artery calcification. Mild bilateral gynecomastia. Liver: Calcified right lower lobe granuloma/hamartoma. Biliary/Gallbladder: Gallbladder is normal. No bile duct dilation. Pancreas: No mass or duct dilation. Spleen: Normal. Adrenals:No mass. Kidneys: No mass, stone, or hydronephrosis. GI tract: Mild distal esophageal wall thickening. No small or large bowel dilation. Normal appendix. Mesentery/Peritoneum: No ascites, mass, or free air. Minimal mesenteric stranding in the upper abdome n, a nonspecific finding, and stable Retroperitoneum: No mass. Pelvis: Moderate bladder wall thickening in a partially distended urinary bladder. Calcified vas defe rens as can be seen with diabetes. Soft Tissues: Soft tissues and body wall unremarkable. Bones: No acute osseous finding. IMPRESSION: Mild esophagitis. Cystitis versus incomplete urinary bladder distention. No other acute abdominopelvi c process detected. Reviewed, dictated and finalized at location [facility]. IMPRESSION: Mild esophagitis. Cystitis versus incomplete urinary bladder distention. No oth er acute abdominopelvic process detected.
[2023-06-11 16:27] VITALS: BP 165/58; PULSE 45; RESP 14; TEMP 37.1; O2SAT 99
[2023-06-11 16:37] LABS: Glucose Point of Care 93 mg/dl (65-105)
--- NOTE | 2023-06-11 16:38 | PC.NURSE ---
glucose level checked -> 93
--- NOTE | 2023-06-11 16:42 | ED.GENADULT ---
HPI - General Adult General Chief complaint: Nausea/Vomiting/Diarrhea Stated complaint: nausea; vomiting Time Seen by Provider: 06/11/23 16:18 Source: patient Mode of arrival: ambulatory Limitations: no limitations History of Present Illness HPI narrative: Patient presents to the emergency room with nausea of vomiting and abdominal pain. Patient has been to another emergency room already today with blood work only done. Patient has recurrent similar symptoms from time to time and has been in the emergency room at multiple facilities over the past few weeks. He does have type 1 diabetes. Onset (ago): day(s) (3) Location: abdomen Radiation: back Severity: moderate Quality: sharp Pain Consistency: constant Relieving factors: none Exacerbating factors: none Associated symptoms: loss of appetite, malaise and nausea/vomiting Treatments prior to arrival: none Related Data Home Medications Medication Instructions Recorded Confirmed insulin glargine 100 unit/mL 40 unit subcut DAILY 06/19/21 06/11/23 subcutaneous solution (Lantus U-100 Insulin) insulin syringe-needle U-100 1 mL 06/19/21 06/10/23 31 gauge x 5/16 (BD Insulin Syringe Ultra-Fine) olanzapine 10 mg tablet 10 mg PO DAILY 02/01/23 06/11/23 Allergies Allergy/AdvReac Type Severity Reaction Status Date / Time No Known Allergies Allergy Verified 06/11/23 16:20 Review of Systems Review of Systems: All systems reviewed & are unremarkable except as noted in HPI and below Constitutional: Constitutional: Reports as per HPI, Reports no additional constitutional complaints, Reports chills, Reports fatigue and Reports weakness Cardiovascular: Cardiovascular: Reports as per HPI, Reports no additional cardiovascular complaints, Denies chest pain, Denies rapid heart rate and Denies radiating jaw, neck or arm pain Respiratory: Respiratory: Reports as per HPI, Reports no additional respiratory complaints, Denies chest congestion, Denies cough and Denies dyspnea Gastrointestinal: Gastrointestinal: Reports as per HPI, Reports no additional gastrointestinal complaints, Reports abdominal pain, Reports bloating, Reports heartburn, Reports nausea and Reports vomiting Musculoskeletal: Musculoskeletal: Reports no additional musculoskeletal complaints, Reports as per HPI, Reports back pain and Denies myalgias Integumentary/Breasts: Skin/Breast: Reports system reviewed and no additional complaints, except as docu and Reports as per HPI Neurologic: Reports system reviewed and no additional complaints, except as documented and Reports as per HPI Psychiatric: Psychiatric: Reports no additional psychiatric complaints, Reports as per HPI, Reports anxiety and Denies depression Endocrine: Endocrine: Reports no additional endocrine complaints and Reports as per HPI PMFSH Past Medical History Medical History Bipolar 1 disorder Bipolar 1 disorder Diabetes mellitus Gastritis Nausea and vomiting in adult Family History Family History Other Unknown family medical history Social History Social History Social History: smoker, uses marijuana Smoking status: Heavy tobacco smoker Tobacco type: cigarettes Second hand tobacco smoke exposure: Yes Alcohol intake: current Drinks per week: 5 Substance use: current Substance use type: marijuana Lack of Transportation: No Lack of Food: Never True Current Housing: I Do Not Have Housing Concerned About Future Housing: No Difficulty Paying Gas/Electric Bills: No Difficulty Paying for Meds: No Currently Unemployed: No Education: Decline to Answer Difficulty w/ Childcare or Family Care: No Spiritual care concerns: No Exam Const: General: healthy appearing and ill appearing Nutritional Appearance: well nourished Orientation/consciousn
[2023-06-11] MEDS: ONDANSETRON HCL ODT 4 MG TABLET PO (16:59)
[2023-06-11 17:11] LABS: Eosinophils Absolute Auto 0.01 K/mm3 (0.02-0.50); Eosinophils Percent Auto 0.1 % (1.0-6.0); Hematocrit 44.4 % (40.0-54.0); Hemoglobin 15.9 g/dL (14.0-18.0); Immature Granulocyte Absolute 0.02 K/mm3 (0.00-0.00); Immature Granulocyte Percent A 0.3 % (0.0-0.0); Lymphocytes Absolute Auto 1.38 K/mm3 (1.10-4.50); Mean Corpuscular HGB Conc 35.8 g/dL (32.0-36.0); Mean Corpuscular Hemoglobin 30.9 pg (27.0-31.0); Mean Corpuscular Volume 86.4 fL (78.0-102.0); Mean Platelet Volume 11.4 fl (8.7-11.0); Monocytes Absolute Auto 0.74 K/mm3 (0.10-0.90); Monocytes Percent Auto 9.7 % (2.0-11.0); Neutrophils Absolute Auto 5.5 K/mm3 (1.7-7.2); Neutrophils Percent Auto 71.9 % (50.0-70.0); Platelet Count Result 196 K/mm3 (150-420); Red Blood Count 5.14 M/mm3 (4.70-6.10); Red Cell Distribution Width 12.3 % (11.6-14.4); White Blood Count 7.7 K/mm3 (4.8-10.8)
[2023-06-11 17:12] LABS: Appearance Urine Clear (Clear); Bilirubin Urine Negative (Negative); Blood Urine Negative (Negative); Color Urine Yellow (Yellow); Glucose Urine UA Trace (Negative); Ketones Urine 3+ (Negative); Leukocyte Esterase Ur Negative (Negative); Nitrate Urine Negative (Negative); Protein Urine Negative (Negative); pH Urine 6.5 (5.0-8.0)
[2023-06-11 17:16] LABS: Add Urine Microscopic? NO
[2023-06-11 17:26] LABS: Acetone Small (Negative); Alanine Aminotransferase 23 U/L (16-63); Albumin Level 4.2 g/dL (3.4-5.0); Alkaline Phosphatase 72 U/L (46-116); Anion Gap 8 mmol/L (8-16); Aspartate Amino Transferase 14 U/L (15-37); Blood Urea Nitrogen 19 mg/dL (7-18); Carbon Dioxide 32 mmol/L (21-32); Chloride 100 mmol/L (98-108); Estimated Glomerular Filt Rate > 60; Glucose 104 mg/dL (70-99); Osmolality Calculated 292 mOsm/kg (285-295); Potassium 3.9 mmol/L (3.5-5.1); Sodium 140 mmol/L (136-145); Total Protein 7.3 g/dL (6.4-8.2)
[2023-06-11 18:26] VITALS: BP 169/90; PULSE 99; RESP 16; TEMP 36.4; O2SAT 99
== END 2023-06-11 18:27 | disposition home or self-care (01) ==
PROVIDERS: Emergency Provider Emergency Medicine; PCP Family Medicine
DX: K20.90 Esophagitis, unspecified without bleeding (principal); E10.9 Type 1 diabetes mellitus without complications; F17.210 Nicotine dependence, cigarettes, uncomplicated; Z79.4 Long term (current) use of insulin
CPT/HCPCS: 36415; 74176; 80053; 81003; 82010; 82948; 85025; 99284; A9270

== ENCOUNTER 2023-07-26 15:18 | Emergency (ER) | payer MEDICARE, MEDICAID, SELFPAY ==
[2023-07-26 15:18] VITALS: BP 170/86; PULSE 101; RESP 20; TEMP 37; O2SAT 96
--- NOTE | 2023-07-26 15:35 | ED.GENADULT ---
HPI - General Adult General Chief complaint: Unspecified Stated complaint: vomiting Time Seen by Provider: 07/26/23 15:26 Source: patient Mode of arrival: ambulatory Limitations: no limitations History of Present Illness HPI narrative: patient is a 28-year-old male with nausea and vomiting and some loose stools over the past 3-4 days. Patient has known sickle vomiting syndrome secondary to THC use. He claims he used marijuana specifically right when the nausea and vomiting started and correlates the the use and the symptoms together. patient was in another emergency room for IV fluids and workup in the past 24 hours too. Onset (ago): day(s) (3-4) Location: abdomen Radiation: abdomen Severity: mild Severity scale (1-10): 1 Quality: burning Pain Consistency: constant Relieving factors: none Exacerbating factors: other ( marijuana makes this occur) Associated symptoms: malaise and nausea/vomiting Treatments prior to arrival: none Related Data Home Medications Medication Instructions Recorded Confirmed insulin glargine 100 unit/mL 40 unit subcut DAILY 06/19/21 06/11/23 subcutaneous solution (Lantus U-100 Insulin) insulin syringe-needle U-100 1 mL 06/19/21 06/10/23 31 gauge x 5/16 (BD Insulin Syringe Ultra-Fine) olanzapine 10 mg tablet 10 mg PO DAILY 02/01/23 06/11/23 Allergies Allergy/AdvReac Type Severity Reaction Status Date / Time No Known Allergies Allergy Verified 06/11/23 16:20 Review of Systems Review of Systems: All systems reviewed & are unremarkable except as noted in HPI and below Constitutional: Constitutional: Reports no additional constitutional complaints Eyes: Eyes: Reports no additional eye complaints ENT: Reports system reviewed and no additional complaints, except as documented Cardiovascular: Cardiovascular: Reports no additional cardiovascular complaints Respiratory: Respiratory: Reports no additional respiratory complaints Gastrointestinal: Gastrointestinal: Reports no additional gastrointestinal complaints Genitourinary: Genitourinary: Reports no additional male genitourinary complaints Musculoskeletal: Musculoskeletal: Reports no additional musculoskeletal complaints Integumentary/Breasts: Skin/Breast: Reports system reviewed and no additional complaints, except as docu Neurologic: Reports system reviewed and no additional complaints, except as documented Psychiatric: Psychiatric: Reports no additional psychiatric complaints Endocrine: Endocrine: Reports no additional endocrine complaints Hematologic/Lymphatic: Hematologic/Lymphatic: Reports no additional hematologic/lymphatic complaints Allergic/Immunologic: Allergic/Immunologic: Reports no additional allergic/immunologic complaints PMFSH Past Medical History Medical History Bipolar 1 disorder Bipolar 1 disorder Diabetes mellitus Gastritis Nausea and vomiting in adult Family History Family History Other Unknown family medical history Social History Social History Social History: smoker, uses marijuana Smoking status: Heavy tobacco smoker Tobacco type: cigarettes Second hand tobacco smoke exposure: Yes Alcohol intake: current Drinks per week: 5 Substance use: current Substance use type: marijuana Lack of Transportation: No Lack of Food: Never True Current Housing: I Do Not Have Housing Concerned About Future Housing: No Difficulty Paying Gas/Electric Bills: No Difficulty Paying for Meds: No Currently Unemployed: No Education: Decline to Answer Difficulty w/ Childcare or Family Care: No Spiritual care concerns: No Exam Const: General: cooperative, healthy appearing, comfortable and in distress ( Associated with nausea and vomiting) Chest: Chest palpation & inspection: normal inspection of the
[2023-07-26 16:02] LABS: Basophils Absolute Auto 0.01 K/mm3 (0.00-0.10); Basophils Percent Auto 0.1 % (0.0-1.0); Hematocrit 43.4 % (40.0-54.0); Hemoglobin 15.7 g/dL (14.0-18.0); Immature Granulocyte Absolute 0.01 K/mm3 (0.00-0.00); Immature Granulocyte Percent A 0.1 % (0.0-0.0); Lymphocytes Absolute Auto 1.28 K/mm3 (1.10-4.50); Lymphocytes Percent Auto 17.5 % (18.0-42.0); Mean Corpuscular HGB Conc 36.2 g/dL (32.0-36.0); Mean Corpuscular Hemoglobin 31.1 pg (27.0-31.0); Mean Corpuscular Volume 85.9 fL (78.0-102.0); Mean Platelet Volume 11.5 fl (8.7-11.0); Monocytes Absolute Auto 0.52 K/mm3 (0.10-0.90); Monocytes Percent Auto 7.1 % (2.0-11.0); Neutrophils Absolute Auto 5.5 K/mm3 (1.7-7.2); Neutrophils Percent Auto 75.2 % (50.0-70.0); Platelet Count Result 185 K/mm3 (150-420); Red Blood Count 5.05 M/mm3 (4.70-6.10); White Blood Count 7.3 K/mm3 (4.8-10.8)
[2023-07-26 16:18] LABS: Alanine Aminotransferase 17 U/L (16-63); Albumin Level 3.9 g/dL (3.4-5.0); Alkaline Phosphatase 67 U/L (46-116); Anion Gap 7 mmol/L (8-16); Aspartate Amino Transferase 11 U/L (15-37); Bilirubin,Total 1.2 mg/dL (0.00-1.00); Blood Urea Nitrogen 24 mg/dL (7-18); Calcium 8.6 mg/dL (8.5-10.1); Carbon Dioxide 31 mmol/L (21-32); Chloride 99 mmol/L (98-108); Estimated Glomerular Filt Rate > 60; Glucose 130 mg/dL (70-99); Lipase 9 U/L (16-77); Magnesium 1.8 mg/dL (1.8-2.4); Osmolality Calculated 290 mOsm/kg (285-295); Potassium 3.7 mmol/L (3.5-5.1); Sodium 137 mmol/L (136-145); Total Protein 6.7 g/dL (6.4-8.2)
--- NOTE | 2023-07-26 16:30 | PC.NURSE ---
PATIENT ARM BENT, WATCHING tv ON CELL PHONE PLAYING. NO N/V SINCE ARRIVAL.
[2023-07-26 16:31] VITALS: BP 130/65; PULSE 90; RESP 20; TEMP 37.1; O2SAT 96
[2023-07-26 16:35] LABS: Glucose Point of Care 112 mg/dl (65-105)
[2023-07-26 16:42] LABS: Acetone Negative (Negative)
[2023-07-26 16:50] VITALS: BP 128/80; PULSE 80; RESP 18; TEMP 36.8; O2SAT 98
--- NOTE | 2023-07-31 00:23 | PC.NURSE ---
IV was time done was 07/26/2023 by Yesi Alexander at 1515, she added to this account at 1537
--- NOTE | 2023-07-31 00:24 | PC.NURSE ---
07/26/2023 1525 Normal Saline 1Liter was started, 1652 completed fluids
--- NOTE | 2023-07-31 00:26 | PC.NURSE ---
1452 Zofran 4mg IV push done on 07/26/2023
== END 2023-07-26 16:56 | disposition home or self-care (01) ==
PROVIDERS: Emergency Provider Emergency Medicine
DX: R11.15 Cyclical vomiting syndrome unrelated to migraine (principal); F12.90 Cannabis use, unspecified, uncomplicated; E11.9 Type 2 diabetes mellitus without complications; F17.210 Nicotine dependence, cigarettes, uncomplicated
CPT/HCPCS: 36415; 80053; 82010; 82948; 83690; 83735; 85025; 99283

== ENCOUNTER 2023-09-06 11:01 | Emergency (ER) | payer MEDICARE, MEDICAID, SELFPAY ==
[2023-09-06 11:03] VITALS: BP 189/101; PULSE 120; RESP 20; TEMP 36.6; O2SAT 98
--- NOTE | 2023-09-06 11:11 | ED.NAVMDI ---
HPI - Nausea/Vomiting/Diarrhea General Chief complaint: Nausea/Vomiting/Diarrhea Stated complaint: vomiting. Time Seen by Provider: 09/06/23 11:06 Source: patient Mode of arrival: ambulatory Limitations: no limitations History of Present Illness HPI Narrative: Patient is a 38 year old male with a significant MD elicited complaint: nausea, vomiting and abdominal pain Pertinent past history: cyclical vomiting Onset (ago): day(s) Description of vomiting: food contents and watery Associated nausea: Yes Associated abdominal pain: Yes Location of pain: diffuse Quality: cramping Exacerbating factors: none Relieving factors: none Related Data Home Medications Medication Instructions Recorded Confirmed insulin glargine 100 unit/mL 40 unit subcut DAILY 06/19/21 09/06/23 subcutaneous solution (Lantus U-100 Insulin) insulin syringe-needle U-100 1 mL 06/19/21 09/06/23 31 gauge x 5/16 (BD Insulin Syringe Ultra-Fine) olanzapine 10 mg tablet 10 mg PO DAILY 02/01/23 09/06/23 buspirone 5 mg tablet 5 mg PO TID PRN Anxiety 09/06/23 09/06/23 metoclopramide HCl 10 mg tablet 1 mg PO HS 09/06/23 09/06/23 omeprazole 40 mg capsule,delayed 40 mg PO DAILY 09/06/23 09/06/23 release sertraline 100 mg tablet 100 mg PO DAILY 09/06/23 09/06/23 Allergies Allergy/AdvReac Type Severity Reaction Status Date / Time No Known Allergies Allergy Verified 09/06/23 11:05 Review of Systems Review of Systems: All systems reviewed & are unremarkable except as noted in HPI and below Constitutional: Constitutional: Reports no additional constitutional complaints Eyes: Eyes: Reports no additional eye complaints ENT: Reports system reviewed and no additional complaints, except as documented Cardiovascular: Cardiovascular: Reports no additional cardiovascular complaints Respiratory: Respiratory: Reports no additional respiratory complaints Gastrointestinal: Gastrointestinal: Reports abdominal pain, Reports bloating, Reports nausea and Reports vomiting Genitourinary: Genitourinary: Reports no additional male genitourinary complaints Musculoskeletal: Musculoskeletal: Reports no additional musculoskeletal complaints Integumentary/Breasts: Skin/Breast: Reports system reviewed and no additional complaints, except as docu Neurologic: Reports system reviewed and no additional complaints, except as documented Psychiatric: Psychiatric: Reports no additional psychiatric complaints Endocrine: Endocrine: Reports no additional endocrine complaints PMFSH Past Medical History Medical History Bipolar 1 disorder Bipolar 1 disorder Diabetes mellitus Gastritis Nausea and vomiting in adult Family History Family History Other Unknown family medical history Social History Social History Social History: smoker, uses marijuana Smoking status: Heavy tobacco smoker Tobacco type: cigarettes Second hand tobacco smoke exposure: Yes Alcohol intake: current Drinks per week: 5 Substance use: current Substance use type: marijuana Lack of Transportation: No Lack of Food: Never True Current Housing: I Do Not Have Housing Concerned About Future Housing: No Difficulty Paying Gas/Electric Bills: No Difficulty Paying for Meds: No Currently Unemployed: No Education: Decline to Answer Difficulty w/ Childcare or Family Care: No Spiritual care concerns: No Exam Const: General: healthy appearing Orientation/consciousness: patient oriented x3 HENMT: Head: normal to inspection Ears: external ears normal Eyes: Conjunctivae: conjunctivae normal Cornea: corneas normal Pupils: Equal, round and reactive pupils present Neck: Neck: normal visual inspection Chest: Chest palpation & inspection: normal inspection of the chest Resp: Effort & Inspection: norm
[2023-09-06] MEDS: SODIUM CHLORIDE 0.9% IV 1,000 ML 999 ML IV CONT (11:24)
[2023-09-06] MEDS: PANTOPRAZOLE SODIUM IV 40 MG VIAL IV PUSH (11:26)
[2023-09-06] MEDS: METOCLOPRAMIDE HCL INJ 10 MG/2 ML VIAL IV PUSH (11:27)
[2023-09-06] MEDS: ONDANSETRON INJ 4 MG/2 ML VIAL IV PUSH (11:28)
[2023-09-06] MEDS: IBUPROFEN 400 MG TABLET 800 MG PO (11:53)
[2023-09-06 12:01] VITALS: BP 170/86; PULSE 102; RESP 18; O2SAT 98
--- NOTE | 2023-09-06 12:01 | PC.NURSE ---
patient report received from DIONNA Key.
[2023-09-06 13:03] LABS: Basophils Absolute Auto 0.01 K/mm3 (0.00-0.10); Basophils Percent Auto 0.1 % (0.0-1.0); Eosinophils Absolute Auto 0.01 K/mm3 (0.02-0.50); Eosinophils Percent Auto 0.1 % (1.0-6.0); Hematocrit 43.7 % (40.0-54.0); Hemoglobin 15.2 g/dL (14.0-18.0); Immature Granulocyte Absolute 0.03 K/mm3 (0.00-0.00); Immature Granulocyte Percent A 0.4 % (0.0-0.0); Lymphocytes Absolute Auto 0.87 K/mm3 (1.10-4.50); Lymphocytes Percent Auto 12.2 % (18.0-42.0); Mean Corpuscular HGB Conc 34.8 g/dL (32.0-36.0); Mean Corpuscular Hemoglobin 30.6 pg (27.0-31.0); Mean Corpuscular Volume 87.9 fL (78.0-102.0); Mean Platelet Volume 11.9 fl (8.7-11.0); Monocytes Absolute Auto 0.45 K/mm3 (0.10-0.90); Monocytes Percent Auto 6.3 % (2.0-11.0); Neutrophils Absolute Auto 5.8 K/mm3 (1.7-7.2); Neutrophils Percent Auto 80.9 % (50.0-70.0); Platelet Count Result 179 K/mm3 (150-420); Red Blood Count 4.97 M/mm3 (4.70-6.10); Red Cell Distribution Width 12.7 % (11.6-14.4); White Blood Count 7.1 K/mm3 (4.8-10.8)
[2023-09-06 13:09] LABS: Alanine Aminotransferase 22 U/L (16-63); Alkaline Phosphatase 80 U/L (46-116); Anion Gap 15 mmol/L (8-16); Aspartate Amino Transferase 11 U/L (15-37); Bilirubin,Total 0.7 mg/dL (0.00-1.00); Blood Urea Nitrogen 22 mg/dL (7-18); Calcium 8.7 mg/dL (8.5-10.1); Carbon Dioxide 23 mmol/L (21-32); Chloride 99 mmol/L (98-108); Estimated CRCL calculation 119 ml/min; Estimated Glomerular Filt Rate > 60; Glucose 229 mg/dL (70-99); Osmolality Calculated 294 mOsm/kg (285-295); Sodium 137 mmol/L (136-145)
[2023-09-06 13:10] VITALS: BP 175/90; PULSE 98; RESP 16; O2SAT 97
[2023-09-06 13:41] VITALS: BP 144/62; PULSE 99; RESP 18; TEMP 37.2; O2SAT 98
== END 2023-09-06 13:44 | disposition home or self-care (01) ==
PROVIDERS: Emergency Provider Family Medicine
DX: R11.2 Nausea with vomiting, unspecified (principal); R11.15 Cyclical vomiting syndrome unrelated to migraine; F17.210 Nicotine dependence, cigarettes, uncomplicated; Z79.4 Long term (current) use of insulin
CPT/HCPCS: 36415; 80053; 85025; 96361; 96374; 96375; 99284; A9270; C9113; J2405; J2765; J7030

== ENCOUNTER 2023-09-07 09:06 | Emergency (ER) | payer MEDICARE, MEDICAID, SELFPAY ==
[2023-09-07 09:06] VITALS: BP 199/105; PULSE 102; RESP 18; TEMP 36.6; O2SAT 97
--- NOTE | 2023-09-07 09:20 | ED.NAVMDI ---
HPI - Nausea/Vomiting/Diarrhea General Chief complaint: Nausea/Vomiting/Diarrhea Stated complaint: vomiting and abdominal pain Time Seen by Provider: 09/07/23 09:12 History of Present Illness HPI Narrative: Patient is a 38 year old male with history of type 1 diabetes, cyclic vomiting syndrome here with nausea and vomiting. He notes that he was seen here yesterday for the same. He states that this morning he started vomiting again, it is liquid in consistently, no blood. He has vomited several times. He denies fever or chills. He endorses some vague diffuse abdominal pain. He does note that he has been told it is related to his marijuana use in the past. Last smoked marijuana 2-3 days ago. He notes that his nausea gets better with hot showers. He did not attempt any home medications prior to coming in. He has not followed with a GI doctor as they had previously advised. No cough, congestion. Only prior surgery is an eye surgery, no abdominal surgeries in the past. he did not check his blood sugar today or give himself any insulin. Blood sugar was last checked yesterday and was running in the 200's. Related Data Home Medications Medication Instructions Recorded Confirmed insulin glargine 100 unit/mL 40 unit subcut DAILY 06/19/21 09/07/23 subcutaneous solution (Lantus U-100 Insulin) insulin syringe-needle U-100 1 mL 06/19/21 09/07/23 31 gauge x 5/16 (BD Insulin Syringe Ultra-Fine) olanzapine 10 mg tablet 10 mg PO DAILY 02/01/23 09/07/23 buspirone 5 mg tablet 5 mg PO TID PRN Anxiety 09/06/23 09/07/23 metoclopramide HCl 10 mg tablet 1 mg PO HS 09/06/23 09/07/23 omeprazole 40 mg capsule,delayed 40 mg PO DAILY 09/06/23 09/07/23 release sertraline 100 mg tablet 100 mg PO DAILY 09/06/23 09/07/23 Allergies Allergy/AdvReac Type Severity Reaction Status Date / Time No Known Allergies Allergy Verified 09/07/23 09:15 Review of Systems Review of Systems: All systems reviewed & are unremarkable except as noted in HPI and below PMFSH Past Medical History Medical History Bipolar 1 disorder Bipolar 1 disorder Diabetes mellitus Gastritis Nausea and vomiting in adult Family History Family History Other Unknown family medical history Social History Social History Social History: smoker, uses marijuana Smoking status: Heavy tobacco smoker Tobacco type: cigarettes Second hand tobacco smoke exposure: Yes Alcohol intake: current Drinks per week: 5 Substance use: current Substance use type: marijuana Lack of Transportation: No Lack of Food: Never True Current Housing: I Do Not Have Housing Concerned About Future Housing: No Difficulty Paying Gas/Electric Bills: No Difficulty Paying for Meds: No Currently Unemployed: No Education: Decline to Answer Difficulty w/ Childcare or Family Care: No Spiritual care concerns: No Exam Narrative: GENERAL: Well-appearing, well-nourished, and in no acute distress. HEAD: Normocephalic, atraumatic. EYES: PERRLA and EOMI. ENT: Nares clear. Mucous membranes moist. NECK: Supple. CHEST: Clear to auscultation. No respiratory distress. HEART: Tachycardic. Normal peripheral pulses. ABDOMEN: Soft, nontender, nondistended. EXTREMITIES: Normal range of motion. No edema. SKIN: Warm, dry, no rash. NEURO: No focal deficits. Alert and oriented x3. PSYCH: Normal mood and affect. Course Course Emergency Course: Chart review performed, he has many visits to this ED for similar symptoms. Diagnosed with cyclic vomiting typically or esophagitis. Last here yesterday for similar. Triage vitals show HTN, mild tachycardia. Patient seen and evaluated, here for nausea and vomiting, similar to yesterday, no home meds taken. Abdomen is soft, non tender. Will do lab work to evaluate for DKA, abdominal
[2023-09-07 09:26] LABS: Glucose Point of Care 185 mg/dl (65-105)
[2023-09-07 09:30] VITALS: BP 177/76; PULSE 92; RESP 18; O2SAT 98
[2023-09-07 09:39] LABS: Basophils Absolute Auto 0.01 K/mm3 (0.00-0.10); Basophils Percent Auto 0.1 % (0.0-1.0); Hematocrit 44.6 % (40.0-54.0); Hemoglobin 15.6 g/dL (14.0-18.0); Immature Granulocyte Absolute 0.02 K/mm3 (0.00-0.00); Immature Granulocyte Percent A 0.3 % (0.0-0.0); Lymphocytes Absolute Auto 1.08 K/mm3 (1.10-4.50); Lymphocytes Percent Auto 15.6 % (18.0-42.0); Mean Corpuscular Hemoglobin 30.5 pg (27.0-31.0); Mean Corpuscular Volume 87.1 fL (78.0-102.0); Mean Platelet Volume 11.3 fl (8.7-11.0); Monocytes Absolute Auto 0.53 K/mm3 (0.10-0.90); Monocytes Percent Auto 7.7 % (2.0-11.0); Neutrophils Absolute Auto 5.3 K/mm3 (1.7-7.2); Neutrophils Percent Auto 76.3 % (50.0-70.0); Platelet Count Result 161 K/mm3 (150-420); Red Blood Count 5.12 M/mm3 (4.70-6.10); Red Cell Distribution Width 12.5 % (11.6-14.4); White Blood Count 6.9 K/mm3 (4.8-10.8)
[2023-09-07] MEDS: SODIUM CHLORIDE 0.9% IV 1,000 ML 999 ML IV CONT (09:40)
[2023-09-07] MEDS: PANTOPRAZOLE SODIUM IV 40 MG VIAL IV PUSH (09:41)
[2023-09-07 09:42] LABS: Device ROOM AIR; HCO3 VBG 22.4 mEq/l (24.0-30.0); PCO2 VBG 35.5 mmHg (42.0-48.0); PO2 VBG 101.2 mmHg (35.0-45.0); pH VBG 7.42 (7.33-7.43)
[2023-09-07] MEDS: diphenhydrAMINE HCl INJ 50 MG/ML VIAL 25 MG IV PUSH (09:42)
[2023-09-07] MEDS: HALOPERIDOL LACTATE 5 MG/ML VIAL IM (09:43)
[2023-09-07 09:53] LABS: Alanine Aminotransferase 28 U/L (16-63); Albumin Level 3.9 g/dL (3.4-5.0); Alkaline Phosphatase 76 U/L (46-116); Anion Gap 10 mmol/L (8-16); Aspartate Amino Transferase 17 U/L (15-37); Bilirubin,Total 0.9 mg/dL (0.00-1.00); Blood Urea Nitrogen 20 mg/dL (7-18); Calcium 8.6 mg/dL (8.5-10.1); Carbon Dioxide 27 mmol/L (21-32); Chloride 99 mmol/L (98-108); Estimated CRCL calculation 131 ml/min; Estimated Glomerular Filt Rate > 60; Glucose 208 mg/dL (70-99); Lipase 11 U/L (16-77); Osmolality Calculated 290 mOsm/kg (285-295); Potassium 3.5 mmol/L (3.5-5.1); Sodium 136 mmol/L (136-145); Total Protein 6.8 g/dL (6.4-8.2)
--- NOTE | 2023-09-07 10:11 | PC.NURSE ---
pt is resting on stretcher, another warm blanket provided. water provided, advised pt to attempt PO challenge. ivf infusing without difficulty, will continue to monitor.
[2023-09-07 10:27] VITALS: BP 135/79; PULSE 89; RESP 18; O2SAT 98
== END 2023-09-07 10:40 | disposition home or self-care (01) ==
PROVIDERS: Emergency Provider Student in an Organized Health Care Education/Training Program; PCP Family Medicine
DX: R11.2 Nausea with vomiting, unspecified (principal); E10.9 Type 1 diabetes mellitus without complications; F17.210 Nicotine dependence, cigarettes, uncomplicated; Z79.4 Long term (current) use of insulin; Z79.899 Other long term (current) drug therapy
CPT/HCPCS: 36415; 80053; 82803; 82948; 83690; 85025; 96361; 96372; 96374; 96375; 99284; C9113; J1200; J1630; J7030

== ENCOUNTER 2023-09-10 13:59 | Emergency (ER) | payer MEDICARE, MEDICAID, SELFPAY ==
[2023-09-10 13:59] VITALS: BP 180/100; PULSE 96; RESP 16; TEMP 36.3; O2SAT 95
[2023-09-10 14:39] LABS: Basophils Absolute Auto 0.01 K/mm3 (0.00-0.10); Basophils Percent Auto 0.1 % (0.0-1.0); Hematocrit 43.2 % (40.0-54.0); Hemoglobin 15.9 g/dL (14.0-18.0); Immature Granulocyte Absolute 0.02 K/mm3 (0.00-0.00); Immature Granulocyte Percent A 0.3 % (0.0-0.0); Lymphocytes Absolute Auto 1.08 K/mm3 (1.10-4.50); Lymphocytes Percent Auto 13.8 % (18.0-42.0); Mean Corpuscular HGB Conc 36.8 g/dL (32.0-36.0); Mean Corpuscular Hemoglobin 31.7 pg (27.0-31.0); Mean Corpuscular Volume 86.1 fL (78.0-102.0); Mean Platelet Volume 11.5 fl (8.7-11.0); Monocytes Absolute Auto 0.34 K/mm3 (0.10-0.90); Monocytes Percent Auto 4.4 % (2.0-11.0); Neutrophils Absolute Auto 6.4 K/mm3 (1.7-7.2); Neutrophils Percent Auto 81.4 % (50.0-70.0); Platelet Count Result 155 K/mm3 (150-420); Red Blood Count 5.02 M/mm3 (4.70-6.10); Red Cell Distribution Width 12.4 % (11.6-14.4); White Blood Count 7.8 K/mm3 (4.8-10.8)
[2023-09-10 14:59] LABS: Alanine Aminotransferase 20 U/L (16-63); Albumin Level 3.9 g/dL (3.4-5.0); Alkaline Phosphatase 70 U/L (46-116); Anion Gap 11 mmol/L (8-16); Aspartate Amino Transferase < 10 U/L (15-37); Bilirubin,Total 0.7 mg/dL (0.00-1.00); Blood Urea Nitrogen 10 mg/dL (7-18); Calcium 8.8 mg/dL (8.5-10.1); Carbon Dioxide 28 mmol/L (21-32); Chloride 99 mmol/L (98-108); Estimated CRCL calculation 149 ml/min; Estimated Glomerular Filt Rate > 60; Glucose 226 mg/dL (70-99); Osmolality Calculated 292 mOsm/kg (285-295); Potassium 3.7 mmol/L (3.5-5.1); Sodium 138 mmol/L (136-145); Total Protein 6.7 g/dL (6.4-8.2)
[2023-09-10 15:05] LABS: Lactic Acid Reflex 0.7 mmol/L (0.4-2.0)
[2023-09-10] MEDS: ONDANSETRON INJ 4 MG/2 ML VIAL IV PUSH (15:11)
[2023-09-10] MEDS: SODIUM CHLORIDE 0.9% IV 500 ML 999 ML IV CONT (15:11)
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
[2023-09-10 15:45] VITALS: BP 141/79; PULSE 82; RESP 18; TEMP 36.7; O2SAT 98
--- NOTE | 2023-09-10 17:36 | PC.NURSE ---
On 09/10/23, the student, [MARY KATE MOCTEZUMA ], provided care and completed [facility] documentation on this patient. I have reviewed the student's documentation and agree with the findings.
== END 2023-09-10 15:45 | disposition home or self-care (01) ==
PROVIDERS: Emergency Provider Emergency Medicine; PCP Family Medicine
DX: R11.10 Vomiting, unspecified (principal); F12.90 Cannabis use, unspecified, uncomplicated; E11.9 Type 2 diabetes mellitus without complications; F17.210 Nicotine dependence, cigarettes, uncomplicated; Z79.4 Long term (current) use of insulin
CPT/HCPCS: 36415; 80053; 83605; 85025; 96374; 99284; J2405; J7040

== ENCOUNTER 2023-09-20 08:12 | Emergency (ER) | payer MEDICARE, MEDICAID, SELFPAY ==
[2023-09-20 08:17] VITALS: BP 194/103; PULSE 86; RESP 20; TEMP 36.8; O2SAT 95
--- NOTE | 2023-09-20 08:22 | ED.NAVMDI ---
HPI - Nausea/Vomiting/Diarrhea General Chief complaint: Nausea/Vomiting/Diarrhea Stated complaint: nausea Time Seen by Provider: 09/20/23 08:13 Source: patient Mode of arrival: ambulatory Limitations: no limitations History of Present Illness HPI Narrative: Patient is a 38-year-old male with nausea and vomiting starting this morning. No associated diarrhea or abdominal pain. Patient is diabetic 1. Blood sugar in the ER was 177. MD elicited complaint: nausea and vomiting Pertinent past history: anorexia and cyclical vomiting Onset (ago): hour(s) (3) Description of vomiting: watery and continuous Associated nausea: Yes Associated abdominal pain: No Location of pain: none Exacerbating factors: eating and vomiting Relieving factors: none Context: possible food poisoning Associated symptoms: denies other symptoms Related Data Home Medications Medication Instructions Recorded Confirmed insulin glargine 100 unit/mL 40 unit subcut DAILY 06/19/21 09/07/23 subcutaneous solution (Lantus U-100 Insulin) insulin syringe-needle U-100 1 mL 06/19/21 09/07/23 31 gauge x 5/16 (BD Insulin Syringe Ultra-Fine) olanzapine 10 mg tablet 10 mg PO DAILY 02/01/23 09/07/23 buspirone 5 mg tablet 5 mg PO TID PRN Anxiety 09/06/23 09/07/23 metoclopramide HCl 10 mg tablet 1 mg PO HS 09/06/23 09/07/23 omeprazole 40 mg capsule,delayed 40 mg PO DAILY 09/06/23 09/07/23 release sertraline 100 mg tablet 100 mg PO DAILY 09/06/23 09/07/23 Allergies Allergy/AdvReac Type Severity Reaction Status Date / Time No Known Allergies Allergy Verified 09/07/23 09:15 Review of Systems Review of Systems: All systems reviewed & are unremarkable except as noted in HPI and below Constitutional: Constitutional: Reports no additional constitutional complaints Eyes: Eyes: Reports no additional eye complaints ENT: Reports system reviewed and no additional complaints, except as documented Cardiovascular: Cardiovascular: Reports no additional cardiovascular complaints Respiratory: Respiratory: Reports no additional respiratory complaints Gastrointestinal: Gastrointestinal: Reports no additional gastrointestinal complaints Genitourinary: Genitourinary: Reports no additional male genitourinary complaints Musculoskeletal: Musculoskeletal: Reports no additional musculoskeletal complaints Integumentary/Breasts: Skin/Breast: Reports system reviewed and no additional complaints, except as docu Neurologic: Reports system reviewed and no additional complaints, except as documented Psychiatric: Psychiatric: Reports no additional psychiatric complaints Endocrine: Endocrine: Reports no additional endocrine complaints Hematologic/Lymphatic: Hematologic/Lymphatic: Reports no additional hematologic/lymphatic complaints Allergic/Immunologic: Allergic/Immunologic: Reports no additional allergic/immunologic complaints PMFSH Past Medical History Medical History Bipolar 1 disorder Bipolar 1 disorder Diabetes mellitus Gastritis Nausea and vomiting in adult Family History Family History Other Unknown family medical history Social History Social History Social History: smoker, uses marijuana Smoking status: Heavy tobacco smoker Tobacco type: cigarettes Second hand tobacco smoke exposure: Yes Alcohol intake: current Drinks per week: 5 Substance use: current Substance use type: marijuana Lack of Transportation: No Lack of Food: Never True Current Housing: I Do Not Have Housing Concerned About Future Housing: No Difficulty Paying Gas/Electric Bills: No Difficulty Paying for Meds: No Currently Unemployed: No Education: Decline to Answer Difficulty w/ Childcare or Family Care: No Spiritual care concerns: No Exam Const: General: healthy appearing, w
[2023-09-20] MEDS: ONDANSETRON HCL ODT 4 MG TABLET PO (08:23)
[2023-09-20 09:09] LABS: Basophils Absolute Auto 0.01 K/mm3 (0.00-0.10); Basophils Percent Auto 0.1 % (0.0-1.0); Eosinophils Absolute Auto 0.01 K/mm3 (0.02-0.50); Eosinophils Percent Auto 0.1 % (1.0-6.0); Hematocrit 46.3 % (40.0-54.0); Hemoglobin 16.5 g/dL (14.0-18.0); Immature Granulocyte Absolute 0.02 K/mm3 (0.00-0.00); Immature Granulocyte Percent A 0.3 % (0.0-0.0); Lymphocytes Absolute Auto 1.16 K/mm3 (1.10-4.50); Lymphocytes Percent Auto 16.8 % (18.0-42.0); Mean Corpuscular HGB Conc 35.6 g/dL (32.0-36.0); Mean Corpuscular Hemoglobin 31.2 pg (27.0-31.0); Mean Corpuscular Volume 87.5 fL (78.0-102.0); Mean Platelet Volume 11.4 fl (8.7-11.0); Monocytes Absolute Auto 0.41 K/mm3 (0.10-0.90); Monocytes Percent Auto 5.9 % (2.0-11.0); Neutrophils Absolute Auto 5.3 K/mm3 (1.7-7.2); Neutrophils Percent Auto 76.8 % (50.0-70.0); Platelet Count Result 166 K/mm3 (150-420); Red Blood Count 5.29 M/mm3 (4.70-6.10); Red Cell Distribution Width 12.4 % (11.6-14.4); White Blood Count 6.9 K/mm3 (4.8-10.8)
[2023-09-20 09:16] VITALS: BP 186/97; RESP 20; O2SAT 76
[2023-09-20 09:16] LABS: Acetone Negative (Negative)
--- NOTE | 2023-09-20 09:18 | PC.NURSE ---
Pt resting, call jane in reach
[2023-09-20 09:19] LABS: Alanine Aminotransferase 22 U/L (16-63); Albumin Level 4.1 g/dL (3.4-5.0); Alkaline Phosphatase 73 U/L (46-116); Anion Gap 12 mmol/L (8-16); Aspartate Amino Transferase < 10 U/L (15-37); Bilirubin,Total 0.6 mg/dL (0.00-1.00); Blood Urea Nitrogen 17 mg/dL (7-18); Calcium 9.5 mg/dL (8.5-10.1); Carbon Dioxide 28 mmol/L (21-32); Chloride 99 mmol/L (98-108); Estimated CRCL calculation 113 ml/min; Estimated Glomerular Filt Rate > 60; Glucose 203 mg/dL (70-99); Osmolality Calculated 295 mOsm/kg (285-295); Potassium 3.9 mmol/L (3.5-5.1); Sodium 139 mmol/L (136-145); Total Protein 7.1 g/dL (6.4-8.2)
[2023-09-20 09:34] VITALS: PULSE 78; RESP 20; TEMP 37.1; O2SAT 97
[2023-09-20 09:40] VITALS: BP 128/73; PULSE 78; RESP 20; O2SAT 97
--- NOTE | 2023-09-20 14:01 | ED.NAVMDI ---
HPI - Nausea/Vomiting/Diarrhea General Chief complaint: Nausea/Vomiting/Diarrhea Stated complaint: nausea Time Seen by Provider: 09/20/23 08:13 Source: patient Mode of arrival: ambulatory Limitations: no limitations History of Present Illness Description of vomiting: watery and continuous Exacerbating factors: eating and vomiting Relieving factors: none Context: possible food poisoning Associated symptoms: denies other symptoms Related Data Home Medications Medication Instructions Recorded Confirmed insulin glargine 100 unit/mL 40 unit subcut DAILY 06/19/21 09/07/23 subcutaneous solution (Lantus U-100 Insulin) insulin syringe-needle U-100 1 mL 06/19/21 09/07/23 31 gauge x 5/16 (BD Insulin Syringe Ultra-Fine) olanzapine 10 mg tablet 10 mg PO DAILY 02/01/23 09/07/23 buspirone 5 mg tablet 5 mg PO TID PRN Anxiety 09/06/23 09/07/23 metoclopramide HCl 10 mg tablet 1 mg PO HS 09/06/23 09/07/23 omeprazole 40 mg capsule,delayed 40 mg PO DAILY 09/06/23 09/07/23 release sertraline 100 mg tablet 100 mg PO DAILY 09/06/23 09/07/23 Allergies Allergy/AdvReac Type Severity Reaction Status Date / Time No Known Allergies Allergy Verified 09/07/23 09:15 [facility] Past Medical History Medical History Bipolar 1 disorder Bipolar 1 disorder Diabetes mellitus Gastritis Nausea and vomiting in adult Family History Family History Other Unknown family medical history Social History Social History Social History: smoker, uses marijuana Smoking status: Heavy tobacco smoker Tobacco type: cigarettes Second hand tobacco smoke exposure: Yes Alcohol intake: current Drinks per week: 5 Substance use: current Substance use type: marijuana Lack of Transportation: No Lack of Food: Never True Current Housing: I Do Not Have Housing Concerned About Future Housing: No Difficulty Paying Gas/Electric Bills: No Difficulty Paying for Meds: No Currently Unemployed: No Education: Decline to Answer Difficulty w/ Childcare or Family Care: No Spiritual care concerns: No Course Vital Signs Vital signs: Vital Signs Temperature 36.8 C 09/20/23 08:17 Pulse Rate 86 09/20/23 08:17 Respiratory Rate 20 09/20/23 08:17 Blood Pressure 194/103 H 09/20/23 08:17 Pulse Oximetry 95 09/20/23 08:17 Oxygen Delivery Room Air 09/20/23 08:17 Temperature 37.1 C 09/20/23 09:34 Pulse Rate 78 09/20/23 09:40 Respiratory Rate 20 09/20/23 09:40 Blood Pressure 128/73 09/20/23 09:40 Pulse Oximetry 97 09/20/23 09:40 Oxygen Delivery Room Air 09/20/23 09:40 MDM - Nausea/Vomiting/Diarrhea Lab Data 09/20/23 08:57 09/20/23 08:57 Labs: Lab Results 09/20/23 Range/Units 08:57 WBC 6.9 (4.8-10.8) K/mm3 RBC 5.29 (4.70-6.10) M/mm3 Hgb 16.5 (14.0-18.0) g/dL Hct 46.3 (40.0-54.0) % MCV 87.5 (78.0-102.0) fL MCH 31.2 H (27.0-31.0) pg MCHC 35.6 (32.0-36.0) g/dL RDW 12.4 (11.6-14.4) % Plt Count 166 (150-420) K/mm3 MPV 11.4 H (8.7-11.0) fl Immature Gran % (Auto) 0.3 H (0.0-0.0) % Neut % (Auto) 76.8 H (50.0-70.0) % Lymph % (Auto) 16.8 L (18.0-42.0) % [place] % (Auto) 5.9 (2.0-11.0) % Eos % (Auto) 0.1 L (1.0-6.0) % Baso % (Auto) 0.1 (0.0-1.0) % Lymph # (Auto) 1.16 (1.10-4.50) K/mm3 [place] # (Auto) 0.41 (0.10-0.90) K/mm3 Eos # (Auto) 0.01 L (0.02-0.50) K/mm3 Baso # (Auto) 0.01 (0.00-0.10) K/mm3 Abs Immat Gran (auto) 0.02 H (0.00-0.00) K/mm3 Absolute Neuts (auto) 5.3 (1.7-7.2) K/mm3 Absolute Nucleated RBC 0.00 (0.00-0.00) K/mm3 Nucleated RBC % 0.0 (0-0.0) % Sodium 139 (136-145) mmol/L Potassium 3.9 (3.5-5.1) mmol/L Chloride 99 (98-108) mmol/L Carbon Dioxide 28 (21-32) mmol/L Anion Gap 12 (8-16) mmol/L BUN 17
--- NOTE | 2023-09-20 14:01 | ED.GENADULT ---
HPI - General Adult General Chief complaint: Nausea/Vomiting/Diarrhea Stated complaint: nausea Time Seen by Provider: 09/20/23 08:13 Source: patient Mode of arrival: ambulatory Limitations: no limitations History of Present Illness HPI narrative: Patient is a 38-year-old male with continued onset of nausea and vomiting since earlier visit. Patient has been to the emergency room many times for the same complaints over the past year. Patient did not get his prescription for Zofran. Prior history per charts shows moderate alcohol and THC use which causes his recurrent nausea vomiting events. No new complaints from this morning. He does have some abdominal pain at this time which is recurrent in nature. Related Data Home Medications Medication Instructions Recorded Confirmed insulin glargine 100 unit/mL 40 unit subcut DAILY 06/19/21 09/07/23 subcutaneous solution (Lantus U-100 Insulin) insulin syringe-needle U-100 1 mL 06/19/21 09/07/23 31 gauge x 5/16 (BD Insulin Syringe Ultra-Fine) olanzapine 10 mg tablet 10 mg PO DAILY 02/01/23 09/07/23 buspirone 5 mg tablet 5 mg PO TID PRN Anxiety 09/06/23 09/07/23 metoclopramide HCl 10 mg tablet 1 mg PO HS 09/06/23 09/07/23 omeprazole 40 mg capsule,delayed 40 mg PO DAILY 09/06/23 09/07/23 release sertraline 100 mg tablet 100 mg PO DAILY 09/06/23 09/07/23 Allergies Allergy/AdvReac Type Severity Reaction Status Date / Time No Known Allergies Allergy Verified 09/07/23 09:15 Review of Systems Review of Systems: All systems reviewed & are unremarkable except as noted in HPI and below Constitutional: Constitutional: Reports no additional constitutional complaints Eyes: Eyes: Reports no additional eye complaints ENT: Reports system reviewed and no additional complaints, except as documented Cardiovascular: Cardiovascular: Reports no additional cardiovascular complaints Respiratory: Respiratory: Reports no additional respiratory complaints Gastrointestinal: Gastrointestinal: Reports no additional gastrointestinal complaints Genitourinary: Genitourinary: Reports no additional male genitourinary complaints Musculoskeletal: Musculoskeletal: Reports no additional musculoskeletal complaints Integumentary/Breasts: Skin/Breast: Reports system reviewed and no additional complaints, except as docu Neurologic: Reports system reviewed and no additional complaints, except as documented Psychiatric: Psychiatric: Reports no additional psychiatric complaints Endocrine: Endocrine: Reports no additional endocrine complaints Hematologic/Lymphatic: Hematologic/Lymphatic: Reports no additional hematologic/lymphatic complaints Allergic/Immunologic: Allergic/Immunologic: Reports no additional allergic/immunologic complaints PMFSH Past Medical History Medical History Bipolar 1 disorder Bipolar 1 disorder Diabetes mellitus Gastritis Nausea and vomiting in adult Family History Family History Other Unknown family medical history Social History Social History Social History: smoker, uses marijuana Smoking status: Heavy tobacco smoker Tobacco type: cigarettes Second hand tobacco smoke exposure: Yes Alcohol intake: current Drinks per week: 5 Substance use: current Substance use type: marijuana Lack of Transportation: No Lack of Food: Never True Current Housing: I Do Not Have Housing Concerned About Future Housing: No Difficulty Paying Gas/Electric Bills: No Difficulty Paying for Meds: No Currently Unemployed: No Education: Decline to Answer Difficulty w/ Childcare or Family Care: No Spiritual care concerns: No Exam Const: General: healthy appearing, no acute distress and alert Nutritional Appearance: well nourished Orientation/consciousness: patient oriented x3
[2023-09-20 15:43] LABS: Glucose Point of Care 177 mg/dl (65-105)
== END 2023-09-20 09:42 | disposition home or self-care (01) ==
PROVIDERS: Emergency Provider Emergency Medicine
DX: K52.9 Noninfective gastroenteritis and colitis, unspecified (principal); E11.9 Type 2 diabetes mellitus without complications; F17.210 Nicotine dependence, cigarettes, uncomplicated; Z79.4 Long term (current) use of insulin
CPT/HCPCS: 36415; 80053; 82010; 82948; 85025; 99283; A9270

== ENCOUNTER 2023-09-20 13:50 | Emergency (ER) | payer MEDICARE, MEDICAID, SELFPAY ==
--- NOTE | ~2023-09-20 | CT_ITS ---
EXAMINATION: CT abdomen pelvis wo con DATE: 09/20/2023 15:07 INDICATION: Generalized abdominal pain, severe nausea w/ vomiting today TECHNIQUE: Computed tomography (CT) of the abdomen and pelvis was performed without intravenous contr ast. Automated exposure control and iterative reconstruction technique were employed. The dose-length product was 399.02 mGy-cm. COMPARISON: 06/11/2023. FINDINGS: Lower thorax: Coronary artery calcification. Calcified right lower lobe granuloma/hamartoma. Liver: Normal. Biliary/Gallbladder: Gallbladder is normal. No bile duct dilation. Pancreas: No mass or duct dilation. Spleen: Normal. Adrenals:No mass. Kidneys: No suspicious mass, obstructing stone, or hydronephrosis. GI tract: Mild distal esophageal wall thickening. No small or large bowel dilation. Normal appendix. Mesentery/Peritoneum: No ascites, mass, or free air. Mild stable upper mesenteric stranding, a nonspe cific finding. Retroperitoneum: No mass. Atherosclerotic abdominal aortic and/or arterial calcifications. Pelvis: Partially distended urinary bladder, with stable wall thickening. Calcified vas deferens whic h can be seen with diabetes. Pelvic organs are otherwise within normal limits. Soft Tissues: Soft tissues and body wall unremarkable. Bones: No acute osseous finding. IMPRESSION: Mild esophagitis. Cystitis versus incomplete urinary bladder distention. Otherwise, no acute abdomino pelvic process detected. Reviewed, dictated and finalized at location K. IMPRESSION: Mild esophagitis. Cystitis versus incomplete urinary bladder distention. Otherw ise, no acute abdominopelvic process detected.
[2023-09-20 14:00] VITALS: BP 195/98; PULSE 84; RESP 20; TEMP 37; O2SAT 98
--- NOTE | 2023-09-20 14:27 | PC.NURSE ---
pt brings in trash can with clear liquid in the bottom.
--- NOTE | 2023-09-20 14:38 | ED.NAVMDI ---
HPI - Nausea/Vomiting/Diarrhea General Chief complaint: Nausea/Vomiting/Diarrhea Stated complaint: nausea Time Seen by Provider: 09/20/23 13:57 Source: patient Mode of arrival: ambulatory Limitations: no limitations History of Present Illness HPI Narrative: Patient is a 38-year-old male with nausea vomiting and some abdominal pain. Patient was here earlier today with a negative evaluation and was discharged home. Patient has a history of alcohol intoxication issues and THC use. He is diabetic type 1. He was not in DKA or earlier today. We will monitor for DKA again today. MD elicited complaint: nausea, vomiting and abdominal pain Pertinent past history: cyclical vomiting Onset (ago): hour(s) (24) Description of vomiting: watery Associated nausea: Yes Associated abdominal pain: Yes Location of pain: diffuse Radiation: epigastric Pain consistency: intermittent Severity: moderate Pain scale (0-10): 6 Quality: cramping and sharp Exacerbating factors: none Relieving factors: none Context: possible food poisoning Associated symptoms: denies other symptoms Related Data Home Medications Medication Instructions Recorded Confirmed insulin glargine 100 unit/mL 40 unit subcut DAILY 06/19/21 09/07/23 subcutaneous solution (Lantus U-100 Insulin) insulin syringe-needle U-100 1 mL 06/19/21 09/07/23 31 gauge x 5/16 (BD Insulin Syringe Ultra-Fine) olanzapine 10 mg tablet 10 mg PO DAILY 02/01/23 09/07/23 buspirone 5 mg tablet 5 mg PO TID PRN Anxiety 09/06/23 09/07/23 metoclopramide HCl 10 mg tablet 1 mg PO HS 09/06/23 09/07/23 omeprazole 40 mg capsule,delayed 40 mg PO DAILY 09/06/23 09/07/23 release sertraline 100 mg tablet 100 mg PO DAILY 09/06/23 09/07/23 Allergies Allergy/AdvReac Type Severity Reaction Status Date / Time No Known Allergies Allergy Verified 09/07/23 09:15 Review of Systems Review of Systems: All systems reviewed & are unremarkable except as noted in HPI and below Constitutional: Constitutional: Reports no additional constitutional complaints Eyes: Eyes: Reports no additional eye complaints ENT: Reports system reviewed and no additional complaints, except as documented Cardiovascular: Cardiovascular: Reports no additional cardiovascular complaints Respiratory: Respiratory: Reports no additional respiratory complaints Gastrointestinal: Gastrointestinal: Reports no additional gastrointestinal complaints Genitourinary: Genitourinary: Reports no additional male genitourinary complaints Musculoskeletal: Musculoskeletal: Reports no additional musculoskeletal complaints Integumentary/Breasts: Skin/Breast: Reports system reviewed and no additional complaints, except as docu Neurologic: Reports system reviewed and no additional complaints, except as documented Psychiatric: Psychiatric: Reports no additional psychiatric complaints Endocrine: Endocrine: Reports no additional endocrine complaints Hematologic/Lymphatic: Hematologic/Lymphatic: Reports no additional hematologic/lymphatic complaints Allergic/Immunologic: Allergic/Immunologic: Reports no additional allergic/immunologic complaints PMFSH Past Medical History Medical History Bipolar 1 disorder Bipolar 1 disorder Diabetes mellitus Gastritis Nausea and vomiting in adult Family History Family History Other Unknown family medical history Social History Social History Social History: smoker, uses marijuana Smoking status: Heavy tobacco smoker Tobacco type: cigarettes Second hand tobacco smoke exposure: Yes Alcohol intake: current Drinks per week: 5 Substance use: current Substance use type: marijuana Lack of Transportation: No Lack of Food: Never True Current Housing: I Do Not Have Housing Concerned About Future Housing: No Difficul
[2023-09-20] MEDS: ONDANSETRON INJ 4 MG/2 ML VIAL IV PUSH (14:41)
[2023-09-20] MEDS: SODIUM CHLORIDE 0.9% IV 1,000 ML 999 ML IV CONT (14:42)
[2023-09-20 14:44] LABS: Acetone Negative (Negative)
[2023-09-20 14:44] LABS: Anion Gap 16 mmol/L (8-16); Blood Urea Nitrogen 19 mg/dL (7-18); Carbon Dioxide 25 mmol/L (21-32); Chloride 95 mmol/L (98-108); Potassium 4.1 mmol/L (3.5-5.1); Sodium 136 mmol/L (136-145)
[2023-09-20 14:45] LABS: Calcium 9.8 mg/dL (8.5-10.1); Estimated Glomerular Filt Rate > 60; Glucose 286 mg/dL (70-99); Osmolality Calculated 294 mOsm/kg (285-295)
[2023-09-20 14:52] LABS: Lipase 12 U/L (16-77)
--- NOTE | 2023-09-20 15:18 | PC.NURSE ---
pt resting per cot, call jane in reach. no vomiting noted
[2023-09-20] MEDS: METOCLOPRAMIDE HCL INJ 10 MG/2 ML VIAL 5 MG IV PUSH (15:37)
[2023-09-20] MEDS: PANTOPRAZOLE SODIUM IV 40 MG VIAL IV PUSH (15:41)
[2023-09-20 15:43] LABS: Glucose Point of Care 252 mg/dl (65-105)
[2023-09-20 16:04] VITALS: BP 128/75; PULSE 74; RESP 20; TEMP 37.1; O2SAT 95
--- NOTE | 2023-09-20 16:12 | PC.NURSE ---
pt states voiced understanding to discharge instructions
== END 2023-09-20 16:07 | disposition home or self-care (01) ==
PROVIDERS: Emergency Provider Emergency Medicine
DX: K20.90 Esophagitis, unspecified without bleeding (principal); E11.9 Type 2 diabetes mellitus without complications; F17.210 Nicotine dependence, cigarettes, uncomplicated
CPT/HCPCS: 36415; 74176; 80048; 80053; 82010; 82948; 83690; 85025; 96361; 96374; 96375; 99284; A9270; C9113; J2405; J2765; J7030

== ENCOUNTER 2023-09-21 03:49 | Observation (INO) | payer MEDICARE, MEDICAID, SELFPAY ==
[2023-09-21 03:50] VITALS: BP 213/100; PULSE 118; RESP 20; TEMP 36.8; O2SAT 99
[2023-09-21] MEDS: METOCLOPRAMIDE HCL INJ 10 MG/2 ML VIAL 5 MG IM (04:17)
[2023-09-21] MEDS: ONDANSETRON INJ 4 MG/2 ML VIAL IM (04:17)
--- NOTE | 2023-09-21 04:45 | ED.NAVMDI ---
HPI - Nausea/Vomiting/Diarrhea General Chief complaint: Nausea/Vomiting/Diarrhea Stated complaint: vomiting Source: patient Mode of arrival: ambulatory Limitations: no limitations History of Present Illness HPI Narrative: patient is a 38-year-old male with intractable nausea and vomiting due to esophagitis and gastritis. He has been to the ER now on a 3rd occasion at this time and we will admit for the intractable nausea vomiting. Patient is diabetic type 1 and has a concern for formulating DKA in the near future if not caught up on IV fluids. He has possibly a gastroenteritis verses his cyclical vomiting syndrome secondary to THC use and alcohol. He claims no use of THC or alcohol for 4 days. after further discussion with this patient it appears he is noncompliant with any of his medications to include is insulin. MD elicited complaint: nausea, vomiting and abdominal pain Pertinent past history: cyclical vomiting Onset (ago): hour(s) Description of vomiting: watery Associated nausea: Yes Associated abdominal pain: Yes Location of pain: diffuse and epigastric Radiation: diffuse Pain consistency: intermittent Severity: moderate Pain scale (0-10): 6 Quality: cramping and sharp Exacerbating factors: none Relieving factors: none Context: possible food poisoning Associated symptoms: nausea/vomiting Related Data Home Medications Medication Instructions Recorded Confirmed insulin glargine 100 unit/mL 40 unit subcut DAILY 06/19/21 09/21/23 subcutaneous solution (Lantus U-100 Insulin) insulin syringe-needle U-100 1 mL 06/19/21 09/21/23 31 gauge x 5/16 (BD Insulin Syringe Ultra-Fine) olanzapine 10 mg tablet 10 mg PO DAILY 02/01/23 09/21/23 buspirone 5 mg tablet 5 mg PO TID PRN Anxiety 09/06/23 09/21/23 metoclopramide HCl 10 mg tablet 1 mg PO HS 09/06/23 09/21/23 omeprazole 40 mg capsule,delayed 40 mg PO DAILY 09/06/23 09/21/23 release sertraline 100 mg tablet 100 mg PO DAILY 09/06/23 09/21/23 Allergies Allergy/AdvReac Type Severity Reaction Status Date / Time No Known Allergies Allergy Verified 09/07/23 09:15 Review of Systems Review of Systems: All systems reviewed & are unremarkable except as noted in HPI and below Constitutional: Constitutional: Reports no additional constitutional complaints Eyes: Eyes: Reports no additional eye complaints ENT: Reports system reviewed and no additional complaints, except as documented Cardiovascular: Cardiovascular: Reports no additional cardiovascular complaints Respiratory: Respiratory: Reports no additional respiratory complaints Gastrointestinal: Gastrointestinal: Reports no additional gastrointestinal complaints Genitourinary: Genitourinary: Reports no additional male genitourinary complaints Musculoskeletal: Musculoskeletal: Reports no additional musculoskeletal complaints Integumentary/Breasts: Skin/Breast: Reports system reviewed and no additional complaints, except as docu Neurologic: Reports system reviewed and no additional complaints, except as documented Psychiatric: Psychiatric: Reports no additional psychiatric complaints Endocrine: Endocrine: Reports no additional endocrine complaints Hematologic/Lymphatic: Hematologic/Lymphatic: Reports no additional hematologic/lymphatic complaints Allergic/Immunologic: Allergic/Immunologic: Reports no additional allergic/immunologic complaints PMFSH Past Medical History Medical History Bipolar 1 disorder Bipolar 1 disorder Diabetes mellitus Gastritis Nausea and vomiting in adult Family History Family History Other Unknown family medical history Social History Social History Social History: smoker, uses marijuana Smoking status: Heavy tobacco smoker Tobacco type: cigarettes Second hand tobacco smoke exposure: Yes Alcoho
[2023-09-21 05:17] LABS: Glucose Point of Care 304 mg/dl (65-105)
--- NOTE | 2023-09-21 05:19 | ECG_ITS ---
Measurements Intervals [place] Rate: 107 P: 64 SC: 84 QRS: 72 QRSD: 76 T: 20 QT: 322 QTc: 430 Interpretive Statements SINUS TACHYCARDIA WITH SHORT SC INTERVAL NONSPECIFIC ST & T-WAVE ABNORMALITY LEFT VENTRICULAR HYPERTROPHY ABNORMAL RHYTHM ECG COMPARED TO ECG 03/08/2023 14:22:32 SINUS TACHYCARDIA NOW PRESENT Electronically Signed On 09-21-2023 8:53:17 CDT by Bryson Ryan M.D.
[2023-09-21 05:33] LABS: Basophils Absolute Auto 0.01 K/mm3 (0.00-0.10); Basophils Percent Auto 0.1 % (0.0-1.0); Hemoglobin 16.4 g/dL (14.0-18.0); Immature Granulocyte Absolute 0.02 K/mm3 (0.00-0.00); Immature Granulocyte Percent A 0.2 % (0.0-0.0); Lymphocytes Absolute Auto 0.91 K/mm3 (1.10-4.50); Lymphocytes Percent Auto 9.9 % (18.0-42.0); Mean Corpuscular HGB Conc 35.7 g/dL (32.0-36.0); Mean Platelet Volume 11.4 fl (8.7-11.0); Monocytes Absolute Auto 0.52 K/mm3 (0.10-0.90); Monocytes Percent Auto 5.7 % (2.0-11.0); Neutrophils Absolute Auto 7.7 K/mm3 (1.7-7.2); Neutrophils Percent Auto 84.1 % (50.0-70.0); Platelet Count Result 205 K/mm3 (150-420); Red Blood Count 5.29 M/mm3 (4.70-6.10); Red Cell Distribution Width 12.6 % (11.6-14.4); White Blood Count 9.2 K/mm3 (4.8-10.8)
[2023-09-21] MEDS: SODIUM CHLORIDE 0.9% IV 1,000 ML 999 ML IV CONT (05:40)
[2023-09-21] MEDS: PANTOPRAZOLE SODIUM IV 40 MG VIAL IV PUSH ×2 (05:43→20:54)
[2023-09-21] MEDS: MAG HYDROX/ALUMINUM HYD/SIMETH 30 ML, PHENobarb/HYOSCY/ATROPINE/SCOP 32.4 MG, LIDOCAINE... PO (05:45)
[2023-09-21 05:48] LABS: Acetone Small (Negative)
[2023-09-21 05:52] LABS: Alanine Aminotransferase 14 U/L (16-63); Albumin Level 4.6 g/dL (3.4-5.0); Alkaline Phosphatase 86 U/L (46-116); Anion Gap 19 mmol/L (8-16); Aspartate Amino Transferase 12 U/L (15-37); Bilirubin,Total 1.2 mg/dL (0.00-1.00); Blood Urea Nitrogen 26 mg/dL (7-18); Calcium 9.8 mg/dL (8.5-10.1); Carbon Dioxide 21 mmol/L (21-32); Chloride 95 mmol/L (98-108); Estimated CRCL calculation 100 ml/min; Estimated Glomerular Filt Rate > 60; Glucose 324 mg/dL (70-99); Lipase 11 U/L (16-77); Magnesium 1.7 mg/dL (1.8-2.4); Osmolality Calculated 297 mOsm/kg (285-295); Sodium 135 mmol/L (136-145); Total Protein 7.8 g/dL (6.4-8.2)
[2023-09-21 05:55] LABS: Troponin I 8.7 ng/L (0.00-60.4)
[2023-09-21] MEDS: INSULIN HUMAN REGULAR (*BKC) 1,000 UNITS/10 ML VIAL 8 UNITS SUB-Q (06:07)
[2023-09-21 06:15] VITALS: BP 176/78; PULSE 97; RESP 18; TEMP 36.9; O2SAT 98
[2023-09-21 06:23] LABS: Glucose Point of Care 291 mg/dl (65-105)
--- NOTE | 2023-09-21 07:18 | PM.IMHP ---
H&P: HPI History of Present Illness Date/Time: 09/21/23 07:18 Chief Complaint: intractable nausea and vomiting, hyperglycemia Narrative: This is a 38-year-old male patient with past history of bipolar 1 disorder and cyclic vomiting associated with cannabis use as well as insulin dependent diabetes and concern for diabetic gastroparesis who presented to the emergency department overnight with continued nausea vomiting. Patient has been to the emergency department 4 times in the past 2 weeks including twice in the last 2 days. On chemistry panel patient has slight elevation of anion gap to 19 with small amount of acetone in the blood. Patient given IV fluids and started on IV fluid he infusion by the emergency department provider. Patient admitted for treatment of nausea vomiting with antiemetics, fluids and restarting his Lantus. Patient has decided not to take his Lantus because he has been sick for a few weeks and not eating as much as usual. Patient reports frequent marijuana use, last use 4 days ago. Patient states that he usually responds well to IV antiemetics and rest. Patient reports that he smokes but he declined nicotine patch. Review of Systems Review of Systems: All systems reviewed & are unremarkable except as noted in HPI and below PMFSH Past Medical History Medical History Bipolar 1 disorder Bipolar 1 disorder Diabetes mellitus Gastritis Nausea and vomiting in adult Family History Family History Other Unknown family medical history Social History Social History Social History: smoker, uses marijuana Smoking status: Heavy tobacco smoker Tobacco type: cigarettes Second hand tobacco smoke exposure: Yes Alcohol intake: never Drinks per week: 5 Substance use: current Substance use type: marijuana Last use: 09/18/23 Lack of Transportation: YES Lack of Food: Never True Current Housing: I Have Housing Concerned About Future Housing: No Difficulty Paying Gas/Electric Bills: No Difficulty Paying for Meds: No Currently Unemployed: No Education: High School Diploma/GED Difficulty w/ Childcare or Family Care: No Spiritual care concerns: No Meds Home Medications and Allergies Home Medications Medication Instructions Recorded Confirmed Type insulin glargine 100 unit/mL 40 unit subcut DAILY 06/19/21 09/21/23 History subcutaneous solution (Lantus U-100 Insulin) insulin syringe-needle U-100 1 mL 06/19/21 09/21/23 History 31 gauge x 5/16 (BD Insulin Syringe Ultra-Fine) olanzapine 10 mg tablet 10 mg PO DAILY 02/01/23 09/21/23 History fluticasone propionate 220 2 puff inhalation Q12HRT 10 days 03/29/23 09/21/23 Rx mcg/actuation HFA aerosol inhaler #12 grams (Flovent HFA) pantoprazole 40 mg tablet,delayed 40 mg PO DAILY 4 weeks #30 tabs 06/10/23 09/21/23 Rx release (Protonix) buspirone 5 mg tablet 5 mg PO TID PRN Anxiety 09/06/23 09/21/23 History metoclopramide HCl 10 mg tablet 1 mg PO HS 09/06/23 09/21/23 History omeprazole 40 mg capsule,delayed 40 mg PO DAILY 09/06/23 09/21/23 History release sertraline 100 mg tablet 100 mg PO DAILY 09/06/23 09/21/23 History ondansetron 4 mg disintegrating 4 mg PO Q6H PRN nausea and 09/10/23 09/21/23 Rx tablet vomiting #20 tabs ondansetron 4 mg disintegrating 4 mg PO Q6H PRN nausea and 09/20/23 09/21/23 Rx tablet vomiting #20 tabs pantoprazole 40 mg tablet,delayed 40 mg PO DAILY #30 tabs 09/20/23 09/21/23 Rx release (Protonix) Allergies Allergy/AdvReac Type Severity Reaction Status Date / Time No Known Allergies Allergy Verified 09/07/23 09:15 Vital Signs Vital Signs - 24 hr 09/21/23 03:50 09/21/23 06:15 Temperature 36.8 C 36.9 C Pulse Rate 118 H 97 Respiratory Rate 20 18 Blood Pressure 213/100 H 176/78 H P
[2023-09-21 07:52] LABS: Glucose Point of Care 270 mg/dl (65-105)
[2023-09-21 08:00] VITALS: BP 198/88; PULSE 98; RESP 18; TEMP 36.1; O2SAT 97
[2023-09-21] MEDS: INSULIN GLARGINE (*BKC) 1,000 UNITS/10 ML VIAL 40 UNITS SUB-Q (08:11)
[2023-09-21] MEDS: INSULIN HUMAN LISPRO (*BKC) 1,000 UNITS/10 ML VIAL 4 UNITS SUB-Q ×2 (08:13→12:15)
[2023-09-21] MEDS: CAPSAICIN 0.025% CREAM 60 GM TUBE 1 APPLIC TOPICAL ×2 (08:28→12:15)
[2023-09-21] MEDS: SODIUM CHLORIDE 0.9% IV 1,000 ML 125 ML IV CONT (08:30)
[2023-09-21] MEDS: LACTATED RINGERS 1,000 ML 125 ML IV CONT (08:38)
[2023-09-21] MEDS: diphenhydrAMINE HCl INJ 50 MG/ML VIAL 25 MG IV PUSH (08:45)
[2023-09-21] MEDS: METOCLOPRAMIDE HCL INJ 10 MG/2 ML VIAL 5 MG IV PUSH (08:47)
--- NOTE | 2023-09-21 10:51 | ADMGEN ---
0663 This patient, Isaac Ramirez, was admitted to 2nd Floor Room 204-2 for vomitting. Patient/family oriented to hospital policies and general routines including ID bracelet, bed and alarms, visiting hours, pain management, procedures, bathroom and other care routines, personal items, smoking policy, room service/diet, and visiting hours. Information on how to activate the Rapid Response Team has been discussed. Patient/Family are encouraged to report perceived risks to care and to ask questions if they do not understand what they are told or what they should do.
--- NOTE | 2023-09-21 10:52 | PC.NURSE ---
0800 patient wants apple juice, ice chips, water, soda. encouraged sm sips.he was given 120ml of juice and emesis immediately of approx 200ml yellow. keeps downing ice chips and water, almost guzzling and c/o feeling sick to stomach. keep encouraging to slow down. the rest of fluids taken off his table at this time. 0830 after patient calmed and would listen. meds given patient did listen and takes sm sips of clear liquids. not coming up at this time and falls a sleep. [address] on tele of 100-110's. [address] on tele. no c/o n/v. none in his bucket either at bedside.
[2023-09-21 12:00] VITALS: BP 150/94; PULSE 100; RESP 18; TEMP 36.1; O2SAT 97
[2023-09-21 12:11] LABS: Glucose Point of Care 150 mg/dl (65-105)
--- NOTE | 2023-09-21 12:50 | PC.NURSE ---
patient all of clear liquid tray. guzzled it all down. at this time is tolerating and no nausea voiced. still encouraged to slow down.
[2023-09-21 14:56] LABS: Acetone Small (Negative)
[2023-09-21 14:58] LABS: Albumin Level 3.7 g/dL (3.4-5.0); Anion Gap 10 mmol/L (8-16); Blood Urea Nitrogen 18 mg/dL (7-18); Calcium 8.9 mg/dL (8.5-10.1); Carbon Dioxide 28 mmol/L (21-32); Chloride 96 mmol/L (98-108); Estimated CRCL calculation 103 ml/min; Estimated Glomerular Filt Rate > 60; Glucose 138 mg/dL (70-99); Osmolality Calculated 281 mOsm/kg (285-295); Phosphorus 2.3 mg/dL (2.6-4.7); Potassium 4.3 mmol/L (3.5-5.1); Sodium 134 mmol/L (136-145)
[2023-09-21 15:23] VITALS: PULSE 95
--- NOTE | 2023-09-21 15:30 | PC.NURSE ---
Pt up in bed and walked s difficulty to BR and gave urine for UA. He reports no pain, states he is hungry and thirsty. Pt is able to tolerate all fluids well and hasn't had any n/v for past several hrs. Order obtained to d/c fluids (LR) and increase diet. Pt sitting bedside watching TV c call jane at side.
[2023-09-21 15:32] VITALS: BP 127/70; PULSE 97; RESP 18; TEMP 36.4; O2SAT 100
[2023-09-21 15:54] LABS: Appearance Urine Clear (Clear); Bilirubin Urine Negative (Negative); Blood Urine Negative (Negative); Color Urine Light Yellow (Yellow); Glucose Urine UA Trace (Negative); Ketones Urine Trace (Negative); Leukocyte Esterase Ur Negative LEU/UL (Negative); Nitrate Urine Negative (Negative); Protein Urine Negative (Negative); Specific Grav Ur <= 1.005 (1.010-1.020); Urobilinogen Urine 0.2 mg/dL (0.2-1.0)
[2023-09-21 15:58] LABS: Add Urine Microscopic? YES; Bacteria Urine None seen /hpf; RBC Urine None seen /hpf (0-2); Squamous Epithelial Cell Urine Rare /hpf (Few); WBC Urine None seen /hpf (0-3)
[2023-09-21 16:41] LABS: Glucose Point of Care 69 mg/dl (65-105)
--- NOTE | 2023-09-21 17:00 | PC.NURSE ---
Pt noted BS at 1645 of 69, pt denies any c/o and requests food and drink. Charge notified, protocol followed pt given dinner tray and apple juice to drink, continuing to monitor.
--- NOTE | 2023-09-21 17:21 | PC.NURSE ---
Jorge Keyes, [employer] C[employer] DRILL OPERATOR/Hospitalist, notified of pateint's glucose at supper was 69. Juice given and supper meal tray served.
[2023-09-21 17:36] LABS: Glucose Point of Care 84 mg/dl (65-105)
--- NOTE | 2023-09-21 17:39 | PC.NURSE ---
Pt ate almost 100% of his dinner tray and drank apple juice, noted BS now at 84, pt watching TV, has no c/o and wanting cup of coffee, coffee ordered from dietary.
--- NOTE | 2023-09-21 18:21 | PC.NURSE ---
Pt in bed watching TV, tele d/c'd per order
[2023-09-21 20:58] LABS: Glucose Point of Care 182 mg/dl (65-105)
[2023-09-22] VITALS: BP 158/100; PULSE 89; RESP 16; TEMP 36.9; O2SAT 98
[2023-09-22] MEDS: cloNIDine HCL 0.1 MG TABLET PO (00:37)
[2023-09-22 05:41] LABS: Hematocrit 44.3 % (40.0-54.0); Hemoglobin 15.5 g/dL (14.0-18.0); Mean Corpuscular Hemoglobin 30.8 pg (27.0-31.0); Mean Corpuscular Volume 87.9 fL (78.0-102.0); Mean Platelet Volume 10.8 fl (8.7-11.0); Platelet Count Result 168 K/mm3 (150-420); Red Blood Count 5.04 M/mm3 (4.70-6.10); Red Cell Distribution Width 12.3 % (11.6-14.4); White Blood Count 9.1 K/mm3 (4.8-10.8)
[2023-09-22 05:55] LABS: Albumin Level 3.5 g/dL (3.4-5.0); Anion Gap 8 mmol/L (8-16); Blood Urea Nitrogen 12 mg/dL (7-18); Calcium 8.9 mg/dL (8.5-10.1); Carbon Dioxide 29 mmol/L (21-32); Chloride 100 mmol/L (98-108); Estimated CRCL calculation 134 ml/min; Estimated Glomerular Filt Rate > 60; Glucose 135 mg/dL (70-99); Osmolality Calculated 285 mOsm/kg (285-295); Phosphorus 2.4 mg/dL (2.6-4.7); Sodium 137 mmol/L (136-145)
--- NOTE | 2023-09-22 06:41 | PC.NURSE ---
Patient slept well from 0100 to 0600. Patient was given clonidine HCL 0.1 mg PO for high blood pressure of 158/100 after midnight vitals. Patient was able to sleep after that, and BP was rechecked after he woke up. At that time, BP was 145/99. Patient did not have any nausea during the night, and reported no pain. Patient was able to drink more than 3 cans of diet pepsi during the night. His output was 150 mL more than his intake.
[2023-09-22] MEDS: INSULIN HUMAN LISPRO (*BKC) 1,000 UNITS/10 ML VIAL 4 UNITS SUB-Q (07:48)
[2023-09-22 07:50] LABS: Glucose Point of Care 139 mg/dl (65-105)
[2023-09-22 08:00] VITALS: BP 154/96; PULSE 84; RESP 18; TEMP 36.5; O2SAT 97
[2023-09-22] MEDS: PANTOPRAZOLE SODIUM IV 40 MG VIAL IV PUSH (08:54)
--- NOTE | 2023-09-22 08:54 | PM.DS ---
DS: Admitting Diagnosis Discharge Date 09/22/2023 Admitting Diagnosis Acute hyperglycemia, diabetes mellitus, intractable vomiting with nausea, cannabinoid hyperemesis syndrome, bipolar 1 disorder DS: Discharge Diagnosis Discharge Diagnosis (1) Acute hyperglycemia: Code(s): R73.9 - Hyperglycemia, unspecified Status: Acute (2) Diabetes mellitus: Qualifiers: Diabetes mellitus complication status: with other specified complication Diabetes mellitus type: type 1 Qualified Code(s): E10.69 - Type 1 diabetes mellitus with other specified complication Code(s): E11.9 - Type 2 diabetes mellitus without complications Status: Acute (3) Intractable vomiting with nausea: Code(s): R11.2 - Nausea with vomiting, unspecified Status: Acute (4) Cannabinoid hyperemesis syndrome: Code(s): R11.2 - Nausea with vomiting, unspecified; F12.90 - Cannabis use, unspecified, uncomplicated Status: Acute (5) Bipolar 1 disorder: Code(s): F31.9 - Bipolar disorder, unspecified Status: Acute DS: Summary Hospital Course Reason for hospitalization: Intractable nausea and vomiting Hospital Course: This is a 38-year-old male patient insulin-dependent diabetic who has been having trouble with nausea and vomiting for the last couple of weeks. He has had for your visits for such. On this visit he was mildly acidotic with an anion gap of 19 and small amount of ketones in the blood. Patient had not been taking his Lantus because he not been eating urine drained is much. We restarted Lantus and was able to advanced diet yesterday evening. Since eating a regular diet patient reports that his symptoms are completely resolved. He is no longer having nausea has not vomited since yesterday afternoon. Patient requested discharge so he could participate in following activities tonight (passing out candy.) Status at Discharge Cognitive/behavioral status at discharge: Awake alert oriented Functional status at discharge: independent ambulation Overall status at discharge: patient is back to baseline Time Spent with Patient Time attestation: Total time spent providing and/or coordinating discharge services: 35 minutes Time spent: Greater than 30 minutes Exam Narrative: GENERAL: Generally well appearing, alert and oriented, moderate nausea distress. HEENT: Pupils are equally round and briskly reactive to light. Extraocular muscles are intact. Moist mucous membranes. NECK: The patient has no noted JVD. No adenopathy is appreciated. CHEST/LUNGS: Lungs are clear bilaterally without rhonchi, rales, or wheezes. There is no subcutaneous air appreciated. HEART: The patient has a regular rate and rhythm. No murmurs, rubs, or gallops are appreciated. Distal pulses are 2+. ABDOMEN: The patient?s abdomen is soft, nontender, and nondistended. Bowel sounds are positive. No peritoneal signs EXTREMITIES: The patient has no peripheral edema. There is no focal long bone tenderness or deformity. SKIN: The patient?s skin is warm and dry, without rashes or lesions. Pale appearing PSYCHIATRIC: The patient has normal mental status with sharp affect. NEUROLOGIC: There are no gross deficits to the cranial nerves. Patient ambulates with steady gait. DS: Data Data Completed and Pending Labs on day of discharge: Labs from last 24 hours 09/22/23 09/22/23 09/21/23 07:46 05:32 20:53 WBC 9.1 RBC 5.04 Hgb 15.5 Hct 44.3 MCV 87.9 MCH 30.8 MCHC 35.0 RDW 12.3 Plt Count 168 MPV 10.8 Sodium 137 Potassium 4.0 Chloride 100 Carbon Dioxide 29 Anion Gap 8 BUN 12 Creatinine 0.66 L Estim Creat Clear Calc 134 Estimated GFR > 60 Glucose 135 H POC Capillary Glucose 139 H 182 H Calculated Osmolality 285 Calcium 8.9 Phosphorus 2.4 L Albumin 3.5 Urine Color Urine Appearance Urine pH Ur Specific [place] Urine Protein Urine Glucose
[2023-09-22] MEDS: INSULIN GLARGINE (*BKC) 1,000 UNITS/10 ML VIAL 40 UNITS SUB-Q (08:57)
--- NOTE | 2023-09-22 09:47 | PC.NURSE ---
Patient discharged to home, discharge packet reviewed, medications reviewed, voices understanding, will call to make follow up appointment per self, vital signs stable, is alert and oriented x4, ambulates independently, accompanied patient to the front entrance, patient states that he understands all instructions and has a ride home.
--- NOTE | 2023-09-24 12:55 | PC.NURSE ---
DISCHARGE CALL BACK COMPLETED, DOING WELL, FEELS BETTER, CARE WAS GOOD, NO QUESTIONS ON DC INSTRUCTIONS
== END 2023-09-22 09:45 | disposition home or self-care (01) ==
LOC: CHSED 05:25 → CHS2ND 06:32
PROVIDERS: Nurse Practitioner; Admitting Provider Internal Medicine; Emergency Provider Emergency Medicine; Visit Provider Internal Medicine
DX: E10.65 Type 1 diabetes mellitus with hyperglycemia (principal); R11.2 Nausea with vomiting, unspecified; F12.90 Cannabis use, unspecified, uncomplicated; F31.9 Bipolar disorder, unspecified; F17.210 Nicotine dependence, cigarettes, uncomplicated; Z79.4 Long term (current) use of insulin; Z91.148 Patient's other noncompliance with medication regimen for other reason; F12.99 Cannabis use, unspecified with unspecified cannabis-induced disorder
CPT/HCPCS: 36415; 80053; 80069; 81001; 82010; 82948; 83690; 83735; 84484; 85025; 85027; 93005; 96361; 96372; 96374; 96375; 96376; 99285; A9270; C9113; G0378; J1200; J1815; J2405; J2765; J7030; J7120

== ENCOUNTER 2023-10-15 10:46 | Emergency (ER) | payer MEDICARE, MEDICAID, SELFPAY ==
[2023-10-15] VITALS (14 sets, daily range): BP systolic 125–194; BP diastolic 65–99; PULSE 83–101; RESP 15–22; TEMP 35.7–36.2; O2SAT 91–99
--- NOTE | ~2023-10-15 | CT_ITS ---
EXAMINATION: CT abdomen pelvis w con INDICATION: Abdominal pain TECHNIQUE: Computed tomographic images of the abdomen and pelvis were obtained after the administrati on of 100 cc of Omnipaque 350 intravenous contrast. The dose-length product (DLP) was 352.69 mGy-cm. Automated exposure control and iterative reconstruction technique were employed. COMPARISON: 09/20/2023 FINDINGS: Minimal dependent atelectasis is present in the lung bases. The heart size is normal. There is mild circumferential wall thickening of the distal esophagus. The liver, spleen, pancreas, gallbl adder, and adrenal glands are normal. The kidneys are unremarkable. No pathologically enlarged abdomi nal or pelvic lymph nodes are identified. No free intraperitoneal gas or evidence of bowel obstructio n. A moderate volume of colonic stool is present. The appendix is normal. IMPRESSION: 1. Chronic mild wall thickening of the distal esophagus, consistent with esophagitis. Reviewed, dictated and finalized at location [facility] IMPRESSION: 1. Chronic mild wall thickening of the distal esophagus, consistent with esopha gitis.
--- NOTE | 2023-10-15 10:53 | ECG_ITS ---
Measurements Intervals [place] Rate: 88 P: 60 [place]: 113 QRS: 58 QRSD: 89 T: 3 QT: 392 QTc: 476 Interpretive Statements SINUS RHYTHM WITH SHORT [place] INTERVAL MINIMAL Q WAVES- INF/LAT LEADS NONSPECIFIC T-WAVE ABNORMALITY- INFERIOR LEADS BORDERLINE ECG COMPARED TO ECG 09/21/2023 05:39:26 SINUS RHYTHM NOW PRESENT Electronically Signed On 10-15-2023 12:03:16 EVENT STAFF MEMBER by Randy Haas D.O.
--- NOTE | 2023-10-15 10:59 | ED.GENADULT ---
HPI - General Adult General Chief complaint: Nausea/Vomiting/Diarrhea Stated complaint: abdominal pain, vomiting Time Seen by Provider: 10/15/23 10:53 History of Present Illness HPI narrative: Isaac is a 38M with a PMH of DMI, gastroparesis, bipolar and cannabis hyperemesis syndrome that presented to the ED with abdominal pain, nausea and vomiting. It started this morning. It is diffuse abdominal pain and he has vomited 8 times without blood. He is now dry heaving. Last BM was yesterday. No fevers, chills, diarrhea, hematuria, dysuria, CP or dyspnea. Related Data Home Medications Medication Instructions Recorded Confirmed insulin lispro 100 unit/mL See Rx Instructions .Route .COMPLEX 10/16/23 10/16/23 subcutaneous solution (Admelog U-100 Insulin lispro) Allergies Allergy/AdvReac Type Severity Reaction Status Date / Time No Known Allergies Allergy Verified 09/07/23 09:15 Review of Systems Review of Systems: All systems reviewed & are unremarkable except as noted in HPI and below PMFSH Past Medical History Medical History Bipolar 1 disorder Cannabinoid hyperemesis syndrome Diabetes mellitus Diabetic gastroparesis Gastritis Nausea and vomiting in adult Family History Family History Other Unknown family medical history Social History Social History Social History: smoker, uses marijuana Smoking status: Current every day smoker Tobacco type: cigarettes Second hand tobacco smoke exposure: Yes Alcohol intake: never Drinks per week: 5 Substance use: current Substance use type: marijuana Last use: 10/13/23 Lack of Transportation: No Lack of Food: Never True Current Housing: I Have Housing Concerned About Future Housing: No Difficulty Paying Gas/Electric Bills: No Difficulty Paying for Meds: No Currently Unemployed: No Education: Decline to Answer Difficulty w/ Childcare or Family Care: No Spiritual care concerns: No Exam Const: General: cooperative, healthy appearing, well developed, alert, awake and Physically active Orientation/consciousness: oriented to person, oriented to place and oriented to time Other: Was dry heaving, bent over holding his abdomen HENMT: Head: normal to inspection, normocephalic and atraumatic Ears: hearing grossly normal bilaterally and external ears normal Face/Nose/Sinus: Normal external nose present Eyes: General: appearance normal, both eyes and all related structures Periorbital: periorbital findings normal Sclera: sclerae normal Pupils: Equal, round and reactive pupils present Neck: Neck: normal visual inspection Chest: Chest palpation & inspection: normal inspection of the chest Resp: Effort & Inspection: normal respiratory effort, able to speak in complete sentences and no respiratory distress Auscultation: clear to auscultation bilaterally Cardio: Jugular venous distension: no JVD Rate: regular rate Rhythm: regular rhythm GI: Inspection: normal to inspection GI Palp: Yes Soft to palpation Other: diffusely tender to palpation, No rebound tenderness or guarding Skin: General skin exam: normal color and no rashes or lesions noted Neuro: General: oriented to person, oriented to place and oriented to time Cranial nerves: Yes Equal, round and reactive pupils present Extrem: General: normal to inspection Course Course Emergency Course: Ordered labs, CT abdomen w/ contrast, morphine, zofran and capsaicin cream as well as fluids EKG showed NSR with a rate of 88, normal axis, no ST elevation/depression and QTc of 438 EXAMINATION: CT abdomen pelvis w con INDICATION: Abdominal pain TECHNIQUE: Computed tomographic images of the abdomen and pelvis were obtained after the administration of 100 cc of Omnipaque 350 intravenous contrast
[2023-10-15 11:00] LABS: Glucose Point of Care 206 mg/dl (65-105)
[2023-10-15] MEDS: SODIUM CHLORIDE 0.9% IV 1,000 ML 999 ML IV CONT (11:07)
[2023-10-15 11:10] LABS: Basophils Absolute Auto 0.01 K/mm3 (0.00-0.10); Basophils Percent Auto 0.1 % (0.0-1.0); Hematocrit 43.3 % (40.0-54.0); Hemoglobin 15.5 g/dL (14.0-18.0); Immature Granulocyte Absolute 0.02 K/mm3 (0.00-0.00); Immature Granulocyte Percent A 0.2 % (0.0-0.0); Lymphocytes Absolute Auto 0.91 K/mm3 (1.10-4.50); Lymphocytes Percent Auto 10.3 % (18.0-42.0); Mean Corpuscular HGB Conc 35.8 g/dL (32.0-36.0); Mean Corpuscular Hemoglobin 30.9 pg (27.0-31.0); Mean Corpuscular Volume 86.3 fL (78.0-102.0); Mean Platelet Volume 11.2 fl (8.7-11.0); Monocytes Absolute Auto 0.32 K/mm3 (0.10-0.90); Monocytes Percent Auto 3.6 % (2.0-11.0); Neutrophils Absolute Auto 7.6 K/mm3 (1.7-7.2); Neutrophils Percent Auto 85.8 % (50.0-70.0); Platelet Count Result 174 K/mm3 (150-420); Red Blood Count 5.02 M/mm3 (4.70-6.10); Red Cell Distribution Width 13.1 % (11.6-14.4); White Blood Count 8.8 K/mm3 (4.8-10.8)
[2023-10-15] MEDS: ONDANSETRON INJ 4 MG/2 ML VIAL IV PUSH (11:10)
[2023-10-15] MEDS: MORPHINE SULFATE (*CRX) 4 MG/ML INJ IV PUSH (11:10)
[2023-10-15] MEDS: LORazepam INJ (*CRX) 2 MG/ML VIAL 1 MG IV PUSH (11:22)
[2023-10-15] MEDS: HALOPERIDOL LACTATE 5 MG/ML VIAL IV PUSH (11:22)
[2023-10-15 11:29] LABS: Alanine Aminotransferase 23 U/L (16-63); Albumin Level 3.9 g/dL (3.4-5.0); Alkaline Phosphatase 74 U/L (46-116); Anion Gap 10 mmol/L (8-16); Aspartate Amino Transferase 14 U/L (15-37); Bilirubin,Total 0.4 mg/dL (0.00-1.00); Blood Urea Nitrogen 11 mg/dL (7-18); Carbon Dioxide 29 mmol/L (21-32); Chloride 100 mmol/L (98-108); Estimated Glomerular Filt Rate > 60; Glucose 218 mg/dL (70-99); Lipase 12 U/L (16-77); Magnesium 1.7 mg/dL (1.8-2.4); Osmolality Calculated 294 mOsm/kg (285-295); Potassium 3.6 mmol/L (3.5-5.1); Sodium 139 mmol/L (136-145)
[2023-10-15 11:31] LABS: CRP < 0.1 mg/dL (0.0-0.9)
[2023-10-15 11:32] LABS: Lactic Acid Reflex 1.1 mmol/L (0.4-2.0)
[2023-10-15 11:46] LABS: Influenza A QL RT-PCR Negative (Negative); Influenza B QL RT-PCR Negative (Negative); RSV RNA, RT-PCR Negative (Negative); SARS-CoV-2 RNA PCR Negative (Negative)
--- NOTE | 2023-10-15 13:03 | PC.NURSE ---
pt walked out of facility after discharge and got in his car and drove off campus. he did not wait for his family to arrive to take him home. pt was instructed not to drive at time of discharge due to medications given. pt voiced understanding.
== END 2023-10-15 12:50 | disposition home or self-care (01) ==
PROVIDERS: Emergency Provider Family Medicine; PCP Family Medicine
DX: K20.90 Esophagitis, unspecified without bleeding (principal); K29.70 Gastritis, unspecified, without bleeding; E10.9 Type 1 diabetes mellitus without complications; F17.210 Nicotine dependence, cigarettes, uncomplicated; Z20.822 Contact with and (suspected) exposure to COVID-19
CPT/HCPCS: 36415; 74177; 80053; 82948; 83605; 83690; 83735; 85025; 86140; 87637; 93005; 96361; 96374; 96375; 99284; A9270; J1630; J2060; J2270; J2405; J7030; Q9967

== ENCOUNTER 2023-10-16 07:22 | Observation (INO) | payer MEDICARE, MEDICAID, SELFPAY ==
[2023-10-16] VITALS (13 sets, daily range): BP systolic 143–185; BP diastolic 73–95; PULSE 85–108; RESP 16–20; TEMP 36.6–37.2; O2SAT 95–99; BMI 23.6
--- NOTE | 2023-10-16 07:30 | ED.NAVMDI ---
HPI - Nausea/Vomiting/Diarrhea General Chief complaint: Nausea/Vomiting/Diarrhea Stated complaint: nausea; vomiting Time Seen by Provider: 10/16/23 07:28 Source: patient and family Mode of arrival: ambulatory Limitations: no limitations History of Present Illness HPI Narrative: Isaac is a 38M who returns for 2nd day with nausea vomiting that is uncontrollable. He has a past history of type 1 diabetes, gastroparesis, bipolar and cannabis hyperemesis syndrome. It is diffuse abdominal pain and has not been able to keep anything down. He said he is not taking any of his insulin in 2 days. He is now dry heaving. No fevers, chills, diarrhea, hematuria, dysuria, CP or dyspnea. Yesterday he was given fluids Zofran and was finally able to keep Jell-O down so he was discharged home. MD elicited complaint: nausea and vomiting Pertinent past history: cyclical vomiting Onset (ago): day(s) (2) Description of vomiting: bilious Associated nausea: Yes Associated abdominal pain: Yes Location of pain: diffuse Pain consistency: constant Severity: mild Quality: cramping, aching and dull Exacerbating factors: eating Relieving factors: none Associated symptoms: denies other symptoms Related Data Home Medications Medication Instructions Recorded Confirmed insulin lispro 100 unit/mL See Rx Instructions .Route .COMPLEX 10/16/23 10/16/23 subcutaneous solution (Admelog U-100 Insulin lispro) sertraline 100 mg tablet 100 mg PO DAILY 10/16/23 10/16/23 Allergies Allergy/AdvReac Type Severity Reaction Status Date / Time No Known Allergies Allergy Verified 09/07/23 09:15 Review of Systems Review of Systems: All systems reviewed & are unremarkable except as noted in HPI and below PMFSH Past Medical History Medical History Bipolar 1 disorder Cannabinoid hyperemesis syndrome Diabetes mellitus Diabetic gastroparesis Gastritis Nausea and vomiting in adult Family History Family History Other Unknown family medical history Social History Social History Social History: smoker, uses marijuana Smoking status: Current every day smoker Tobacco type: cigarettes Second hand tobacco smoke exposure: Yes Alcohol intake: never Drinks per week: 5 Substance use: current Substance use type: marijuana Last use: 10/13/23 Lack of Transportation: No Lack of Food: Never True Current Housing: I Have Housing Concerned About Future Housing: No Difficulty Paying Gas/Electric Bills: No Difficulty Paying for Meds: No Currently Unemployed: No Education: Decline to Answer Difficulty w/ Childcare or Family Care: No Spiritual care concerns: No Exam Const: General: no acute distress, alert and ill appearing acutely Nutritional Appearance: well nourished Orientation/consciousness: patient oriented x3 Limitations: no limitations HENMT: Head: normal to inspection Ears: external ears normal Face/Nose/Sinus: Normal external nose present Face and sinus: normal facial exam Mouth: Yes dry mucous membranes Eyes: Conjunctivae: conjunctivae normal Cornea: corneas normal Pupils: Equal, round and reactive pupils present EOM: EOMs intact bilaterally Neck: Neck: normal visual inspection Resp: Effort & Inspection: normal respiratory effort Auscultation: clear to auscultation bilaterally Cardio: Rate: tachycardic Rhythm: regular rhythm GI: GI Palp: Yes Soft to palpation and No Tenderness to palpation present (GI) Auscultation: normal bowel sounds Back/Spine/Pelvis: Cervical Spine: cervical ROM normal Thoracic/Lumbar Spine: thoraco-lumbar ROM normal Skin: General skin exam: normal color Rashes: no rashes Neuro: General: patient oriented x3, moves all extremities, no focal motor deficits and CN's II-XI intact bilaterally Speech: normal spe
[2023-10-16 07:43] LABS: Glucose Point of Care 282 mg/dl (65-105)
[2023-10-16 07:56] LABS: Basophils Absolute Auto 0.01 K/mm3 (0.00-0.10); Basophils Percent Auto 0.1 % (0.0-1.0); Hematocrit 43.1 % (40.0-54.0); Hemoglobin 15.2 g/dL (14.0-18.0); Immature Granulocyte Absolute 0.03 K/mm3 (0.00-0.00); Immature Granulocyte Percent A 0.4 % (0.0-0.0); Lymphocytes Percent Auto 10.8 % (18.0-42.0); Mean Corpuscular HGB Conc 35.3 g/dL (32.0-36.0); Mean Corpuscular Hemoglobin 30.7 pg (27.0-31.0); Mean Corpuscular Volume 87.1 fL (78.0-102.0); Mean Platelet Volume 11.5 fl (8.7-11.0); Monocytes Absolute Auto 0.29 K/mm3 (0.10-0.90); Monocytes Percent Auto 3.9 % (2.0-11.0); Neutrophils Absolute Auto 6.3 K/mm3 (1.7-7.2); Neutrophils Percent Auto 84.8 % (50.0-70.0); Platelet Count Result 178 K/mm3 (150-420); Red Blood Count 4.95 M/mm3 (4.70-6.10); Red Cell Distribution Width 13.2 % (11.6-14.4); White Blood Count 7.4 K/mm3 (4.8-10.8)
[2023-10-16 08:08] LABS: Appearance Urine Clear (Clear); Bilirubin Urine Negative (Negative); Blood Urine Trace-Intact (Negative); Color Urine Light Yellow (Yellow); Glucose Urine UA 3+ (Negative); Ketones Urine 3+ (Negative); Leukocyte Esterase Ur Negative LEU/UL (Negative); Nitrate Urine Negative (Negative); Protein Urine Trace (Negative); Specific Grav Ur 1.025 (1.010-1.020); Urobilinogen Urine 0.2 mg/dL (0.2-1.0); pH Urine 5.5 (5.0-8.0)
[2023-10-16 08:10] LABS: Alanine Aminotransferase 24 U/L (16-63); Albumin Level 4.1 g/dL (3.4-5.0); Alkaline Phosphatase 79 U/L (46-116); Anion Gap 14 mmol/L (8-16); Aspartate Amino Transferase 14 U/L (15-37); Bilirubin,Total 0.8 mg/dL (0.00-1.00); Blood Urea Nitrogen 17 mg/dL (7-18); Calcium 9.3 mg/dL (8.5-10.1); Carbon Dioxide 27 mmol/L (21-32); Chloride 95 mmol/L (98-108); Estimated CRCL calculation 120 ml/min; Estimated Glomerular Filt Rate > 60; Glucose 286 mg/dL (70-99); Osmolality Calculated 293 mOsm/kg (285-295); Potassium 3.8 mmol/L (3.5-5.1); Sodium 136 mmol/L (136-145); Total Protein 7.3 g/dL (6.4-8.2)
[2023-10-16 08:12] LABS: Add Urine Microscopic? YES; Bacteria Urine Trace /hpf; RBC Urine 0-2 /hpf (0-2); Squamous Epithelial Cell Urine Rare /hpf (Few); WBC Urine None seen /hpf (0-3)
[2023-10-16] MEDS: METOCLOPRAMIDE HCL INJ 10 MG/2 ML VIAL IV PUSH (08:12)
[2023-10-16] MEDS: SODIUM CHLORIDE 0.9% IV 1,000 ML 999 ML IV CONT ×2 (08:12→10:03)
[2023-10-16 08:15] LABS: Lactic Acid Reflex 1.2 mmol/L (0.4-2.0)
--- NOTE | 2023-10-16 09:00 | PC.NURSE ---
pt director of compensation light, crying my stomach hurts . instructed to keep wrist straight so fluids can infuse. dr vora notified of same.
[2023-10-16] MEDS: KETOROLAC 30 MG/ML VIAL (*BKC) IV PUSH (09:11)
--- NOTE | 2023-10-16 10:09 | PC.NURSE ---
pt requesting admission for pain control and vomiting. dr diony turcios.
--- NOTE | 2023-10-16 10:30 | ADMGEN ---
This patient, Isaac Ramirez, was admitted to 2nd Floor Room 204-2. Patient/family oriented to hospital policies and general routines including ID bracelet, bed and alarms, visiting hours, pain management, procedures, bathroom and other care routines, personal items, smoking policy, room service/diet, and visiting hours. Information on how to activate the Rapid Response Team has been discussed. Patient/Family are encouraged to report perceived risks to care and to ask questions if they do not understand what they are told or what they should do.
[2023-10-16 11:26] LABS: Magnesium 1.5 mg/dL (1.8-2.4)
[2023-10-16] MEDS: LACTATED RINGERS 1,000 ML 100 ML IV CONT ×2 (11:53→23:13)
[2023-10-16] MEDS: ONDANSETRON INJ 4 MG/2 ML VIAL IV PUSH (11:54)
[2023-10-16] MEDS: MORPHINE SULFATE (*CRX) 2 MG/ML INJ IV PUSH (11:54)
[2023-10-16 12:02] LABS: Glucose Point of Care 232 mg/dl (65-105)
--- NOTE | 2023-10-16 14:13 | PC.NURSE ---
Pt given ice chips and told to slowly eat a few at a time. Pt promptly ate entire cup of ice chips. Pt was rechecked in about 15 minutes at which time he stated he had thrown up a little bit. Pt currently has ice chips at bedside and was again told that a few at a time is recommended.
--- NOTE | 2023-10-16 16:55 | PM.IMHP ---
H&P: HPI History of Present Illness Date/Time: 10/16/23 16:55 Chief Complaint: nausea and vomiting Narrative: This is a 38-year-old male patient insulin-dependent diabetic with a history of esophagitis, gastroparesis, medication non compliance, bipolar disorder and cannabinoid hyperemesis syndrome who is admitted to the hospital due to returning to ER for continued symptoms. Patient reports symptom onset 0200 on 10/15, woke him from sleep. Patient came to ER that morning but felt better after IV fluids and Zofran. Patient did not take insulin on 10/15. Today symptoms returned and patient reports he was too ill to get out of bed and take his insulin. He returned to ER with diffuse abdominal pain, vomiting, nausea and inability to hold down fluids. In ER patient received metoclopramide and ketorolac as well as 2 liters of IV fluids. Hgb A1c 10. Anion gap 14 and blood sugar under 300. Patient admitted for nausea medications, IV fluids, glucose control and advance diet as tolerated. He has ketones in urine but does not have full DKA at this time. Patient does not report this but likely he has run out of home insulin. He reports he does not know his sliding scale dosing. His last admission was roughly a month ago for same problem. He reports he is already feeling better, currently denies any pain or nausea and has tolerated clear liquid evening meal tray. Review of Systems Review of Systems: All systems reviewed & are unremarkable except as noted in HPI and below PMFSH Past Medical History Medical History Bipolar 1 disorder Cannabinoid hyperemesis syndrome Diabetes mellitus Diabetic gastroparesis Gastritis Nausea and vomiting in adult Family History Family History Other Unknown family medical history Social History Social History Social History: smoker, uses marijuana Smoking status: Current every day smoker Tobacco type: cigarettes Second hand tobacco smoke exposure: Yes Alcohol intake: never Drinks per week: 5 Substance use: current Substance use type: marijuana Last use: 10/13/23 Lack of Transportation: No Lack of Food: Never True Current Housing: I Have Housing Concerned About Future Housing: No Difficulty Paying Gas/Electric Bills: No Difficulty Paying for Meds: No Currently Unemployed: No Education: Decline to Answer Difficulty w/ Childcare or Family Care: No Spiritual care concerns: No Meds Home Medications and Allergies Home Medications Medication Instructions Recorded Confirmed Type fluticasone propionate 220 2 puff inhalation Q12HRT 10 days 03/29/23 10/16/23 Rx mcg/actuation HFA aerosol inhaler #12 grams (Flovent HFA) buspirone 5 mg tablet 5 mg PO TID PRN Anxiety #30 tabs 09/21/23 10/16/23 Rx insulin glargine 100 unit/mL 40 unit (0.4 mL) subcut DAILY #10 09/21/23 10/16/23 Rx subcutaneous solution (Lantus mL U-100 Insulin) insulin syringe-needle U-100 1 mL #30 ea 09/21/23 10/16/23 Rx 31 gauge x 5/16 (BD Insulin Syringe Ultra-Fine) metoclopramide HCl 10 mg tablet 10 mg PO TID PRN Nausea/Vomiting 09/21/23 10/16/23 Rx #30 tabs ondansetron 4 mg disintegrating 4 mg PO Q6H PRN nausea and 09/21/23 10/16/23 Rx tablet vomiting #20 tabs pantoprazole 40 mg tablet,delayed 40 mg PO BID #60 tabs 09/21/23 10/16/23 Rx release (Protonix) insulin lispro 100 unit/mL See Rx Instructions .Route .COMPLEX 10/16/23 10/16/23 History subcutaneous solution (Admelog U-100 Insulin lispro) sertraline 100 mg tablet 100 mg PO DAILY 10/16/23 10/16/23 History Allergies Allergy/AdvReac Type Severity Reaction Status Date / Time No Known Allergies Allergy Verified 09/07/23 09:15 Vital Signs Vital Signs - 24 hr 10/16/23 07:22 10/16/23 08:31 10/16/23 08:32 Temperature
[2023-10-16 16:59] LABS: Glucose Point of Care 179 mg/dl (65-105)
[2023-10-16] MEDS: PANTOPRAZOLE SODIUM IV 40 MG VIAL IV PUSH (17:21)
[2023-10-16 19:36] LABS: Glucose Point of Care 266 mg/dl (65-105)
[2023-10-17 05:23] LABS: Basophils Absolute Auto 0.01 K/mm3 (0.00-0.10); Basophils Percent Auto 0.2 % (0.0-1.0); Eosinophils Absolute Auto 0.01 K/mm3 (0.02-0.50); Eosinophils Percent Auto 0.2 % (1.0-6.0); Hematocrit 40.9 % (40.0-54.0); Hemoglobin 14.4 g/dL (14.0-18.0); Immature Granulocyte Absolute 0.02 K/mm3 (0.00-0.00); Immature Granulocyte Percent A 0.3 % (0.0-0.0); Lymphocytes Absolute Auto 1.39 K/mm3 (1.10-4.50); Lymphocytes Percent Auto 22.6 % (18.0-42.0); Mean Corpuscular HGB Conc 35.2 g/dL (32.0-36.0); Mean Corpuscular Hemoglobin 30.7 pg (27.0-31.0); Mean Corpuscular Volume 87.2 fL (78.0-102.0); Mean Platelet Volume 11.5 fl (8.7-11.0); Monocytes Absolute Auto 0.59 K/mm3 (0.10-0.90); Monocytes Percent Auto 9.6 % (2.0-11.0); Neutrophils Absolute Auto 4.1 K/mm3 (1.7-7.2); Neutrophils Percent Auto 67.1 % (50.0-70.0); Platelet Count Result 157 K/mm3 (150-420); Red Blood Count 4.69 M/mm3 (4.70-6.10); White Blood Count 6.1 K/mm3 (4.8-10.8)
[2023-10-17 05:40] LABS: Alanine Aminotransferase 21 U/L (16-63); Albumin Level 3.4 g/dL (3.4-5.0); Alkaline Phosphatase 64 U/L (46-116); Aspartate Amino Transferase 13 U/L (15-37); Bilirubin,Total 0.8 mg/dL (0.00-1.00); Blood Urea Nitrogen 14 mg/dL (7-18); Calcium 8.2 mg/dL (8.5-10.1); Chloride 99 mmol/L (98-108); Estimated CRCL calculation 124 ml/min; Estimated Glomerular Filt Rate > 60; Glucose 196 mg/dL (70-99); Osmolality Calculated 289 mOsm/kg (285-295); Potassium 3.8 mmol/L (3.5-5.1); Sodium 137 mmol/L (136-145); Total Protein 6.2 g/dL (6.4-8.2)
[2023-10-17 05:49] LABS: Anion Gap 9 mmol/L (8-16); Carbon Dioxide 29 mmol/L (21-32)
--- NOTE | 2023-10-17 05:54 | PC.NURSE ---
On 10/17/23, the FRUIT CULLER, [Janki Lyons ], provided care and [facility]. I have reviewed the FRUIT CULLER's documentation and agree with the findings.
[2023-10-17 08:00] VITALS: BP 134/86; PULSE 88; RESP 20; TEMP 36.6; O2SAT 97
[2023-10-17 08:17] LABS: Glucose Point of Care 201 mg/dl (65-105)
[2023-10-17] MEDS: PANTOPRAZOLE SODIUM IV 40 MG VIAL IV PUSH (08:32)
[2023-10-17] MEDS: INSULIN GLARGINE (*BKC) 1,000 UNITS/10 ML VIAL 40 UNITS SUB-Q (08:33)
[2023-10-17] MEDS: SERTRALINE HCL 50 MG TABLET 100 MG PO (08:33)
[2023-10-17] MEDS: INSULIN HUMAN LISPRO (*BKC) 1,000 UNITS/10 ML VIAL SUB-Q (08:34)
--- NOTE | 2023-10-17 10:21 | PM.DS ---
DS: Admitting Diagnosis Discharge Date 10/17/2023 Admitting Diagnosis Type 1 diabetes mellitus, intractable vomiting with nausea, diabetic gastroparesis, esophagitis with gastritis DS: Discharge Diagnosis Discharge Diagnosis (1) Diabetes mellitus: Qualifiers: Diabetes mellitus complication status: with other specified complication Diabetes mellitus type: type 1 Qualified Code(s): E10.69 - Type 1 diabetes mellitus with other specified complication Code(s): E11.9 - Type 2 diabetes mellitus without complications Status: Acute (2) Intractable vomiting with nausea: Code(s): R11.2 - Nausea with vomiting, unspecified Status: Acute (3) Diabetic gastroparesis: Code(s): E11.43 - Type 2 diabetes mellitus with diabetic autonomic (poly)neuropathy; K31.84 - Gastroparesis Status: Acute (4) Esophagitis with gastritis: Code(s): K29.70 - Gastritis, unspecified, without bleeding; K20.90 - Esophagitis, unspecified without bleeding Status: Chronic DS: Summary Hospital Course Reason for hospitalization: Patient admitted for intractable nausea and vomiting, borderline DKA Hospital Course: 10/16: This is a 38-year-old male patient insulin-dependent diabetic with a history of esophagitis, gastroparesis, medication non compliance, bipolar disorder and cannabinoid hyperemesis syndrome who is admitted to the hospital due to returning to ER for continued symptoms.? Patient reports symptom onset 0200 on 10/15, woke him from sleep.? Patient came to ER that morning but felt better after IV fluids and Zofran.? Patient did not take insulin on 10/15.? Today symptoms returned and patient reports he was too ill to get out of bed and take his insulin.? He returned to ER with diffuse abdominal pain, vomiting, nausea and inability to hold down fluids.? In ER patient received metoclopramide and ketorolac as well as 2 liters of IV fluids.? Hgb A1c 10.? Anion gap 14 and blood sugar under 300.? Patient admitted for nausea medications, IV fluids, glucose control and advance diet as tolerated.? He has ketones in urine but does not have full DKA at this time.? Patient does not report this but likely he has run out of home insulin.? He reports he does not know his sliding scale dosing.? His last admission was roughly a month ago for same problem.? He reports he is already feeling better, currently denies any pain or nausea and has tolerated clear liquid evening meal tray. 10/17: Patient had no return of nausea and vomiting overnight. He tolerated food this morning and was demanding discharge. Refills of all prescription medications except short-acting insulin because patient does follow his sliding scale like is supposed to. Attempted to provide education the patient was quite dismissive. Status at Discharge Cognitive/behavioral status at discharge: Awake alert oriented Functional status at discharge: independent ambulation Overall status at discharge: patient is back to baseline Time Spent with Patient Time attestation: Total time spent providing and/or coordinating discharge services: 40 minutes Time spent: Greater than 30 minutes Specific discharge activities: Attempted education Exam Narrative: GENERAL:? Generally well appearing, alert and oriented, no acute distress HEENT: Pupils are equally round and briskly reactive to light. Extraocular muscles are intact. Moist mucous membranes. NECK: The patient has no noted JVD. No adenopathy is appreciated. CHEST/LUNGS: Lungs are clear bilaterally without rhonchi, rales, or wheezes. There is no subcutaneous air appreciated. HEART: The patient has a regular rate and rhythm. No murmurs, rubs, or gallops are appreciated. Distal pulses are 2+. ABDOMEN: The patient?s abdomen is soft, nontender, and nondistended. Bowel sounds are positive. No peritoneal signs EXTREMITIES: The patient has no peripheral edema. There is no focal long bone tenderness or deformity. SKIN: The patient?s sk
--- NOTE | 2023-10-17 11:27 | PC.NURSE ---
1115 dc to home on his own accord. denies riding down in . has his own personal auto in parking lot. dc instructions went over. vocalize and understanding. tolerating nausea.
--- NOTE | 2023-10-19 08:36 | PC.NURSE ---
discharge call back completed, no questions or concerns regarding discharge instructions, understood them, doing fine
== END 2023-10-17 11:15 | disposition home or self-care (01) ==
LOC: CHSED 08:14 → CHS2ND 10:15
PROVIDERS: Nurse Practitioner; Admitting Provider Internal Medicine; Emergency Provider Emergency Medicine; Visit Provider Internal Medicine
DX: E10.43 Type 1 diabetes mellitus with diabetic autonomic (poly)neuropathy (principal); K31.84 Gastroparesis; E10.69 Type 1 diabetes mellitus with other specified complication; K29.70 Gastritis, unspecified, without bleeding; F31.9 Bipolar disorder, unspecified; F12.188 Cannabis abuse with other cannabis-induced disorder; F17.210 Nicotine dependence, cigarettes, uncomplicated; Z79.4 Long term (current) use of insulin; Z79.51 Long term (current) use of inhaled steroids
CPT/HCPCS: 36415; 80053; 81001; 82948; 83036; 83605; 83735; 85025; 96361; 96374; 96375; 96376; 99285; A9270; C9113; G0378; J1815; J1885; J2270; J2405; J2765; J7030; J7120

== ENCOUNTER 2025-01-13 17:49 | Emergency (ER) | payer MEDICARE, MEDICAID, SELFPAY ==
[2025-01-13 17:49] VITALS: BP 150/97; PULSE 120; RESP 20; TEMP 36.5; O2SAT 98
--- OUTSIDE RECORDS SUMMARY | 2025-01-13 17:52 | XMS_ITS | Referral Summary ---
Author Organization [facility] [employer] Address [address] [place] [address] Care Team Providers Care Gastroenterology Professor Name Role Phone Mitchel Broussard MD Primary Care Provider [phone] Source Comments [facility] [employer],non-owned Affiliates and Associated Physician Practices is amultiple site organization consisting of ambulatory clinics and hospital sitesin [place], [place], [place] and [place]. This disclosure is being madepursuant to the Care Everywhere program and may not contain all information available regarding this patient. Last updated 18.[facility] [employer] Allergies No known active allergies Medications * Be aware that medications may not be up to date on this document. Alwaysverify current medications with the patient. Medication Sig Dispensed Refills Start Date End Date Status insulin glargine (LANTUS) pen Inject 40 Units subcutaneously once daily Active latanoprost (XALATAN) 0.005 % ophthalmic solution Instill 1 drop into right eye at bedtime Active metoclopramide (REGLAN) 10 MG tablet Take 10 mg by mouth at bedtime Active pantoprazole EC (PROTONIX) 40 MG tablet Take 40 mg by mouth once daily Active insulin lispro (ADMELOG) 100 UNIT/ML vial Inject subcutaneously 4 times daily Per sliding scale. Maximum 60 units per day. 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 Resolved Problems Problem Noted Date Diagnosed Date Resolved Date Gastroenteritis 05/23/2021 06/06/2021 Social History Tobacco Use Types Packs/Day Years Used Date Smoking Tobacco: Every Day Cigarettes Smokeless Tobacco: Never Alcohol Use Standard Drinks/Week Comments Yes 0 (1 standard drink = 0.6 oz pur e alcohol) Sex and Gender Information Value Date Recorded Sex Assigned at Not on file Gender Identity Not on file Sexual Orientation Not on file Last Filed Vital Signs Vital Sign Reading Time Taken Comments Blood Pressure 148/73 05/24/2021 5:36 PM CDT Pulse 131 05/24/2021 5:36 PM CDT Temperature 37.1 C (98.7 F) 05/24/2021 11:30 AM CDT Respiratory Rate 16 05/24/2021 11:30 AM CDT Oxygen Saturation 97% 05/24/2021 5:36 PM CDT Inhaled Oxygen Concentration - - Weight 81.6 kg (180 lb) 05/24/2021 5:13 AM CDT Height 180.3 cm (5' 11 ) 05/24/2021 5:13 AM CDT Body Mass Index 25.1 05/24/2021 5:13 AM CDT Functional Status Functional Status Response Date of Assess ment Is person deaf or have serious hearing difficult y? No 05/24/2021 Is person blind or have serious difficulty seein g? No 05/24/2021 Does person have serious dif ficulty walking/climbing stairs? No 05/24/2021 Does person have difficulty dressing/bathing? No 05/24/2021 Does person have difficulty doing errands alone? No 05/24/2021 Cognitive Status Response Date of Assessm ent Does person have difficulty concentrating/remembering/making decisions? No 05/24/2021 Plan of Treatment Not on file Procedures Procedure Name Priority Date/Time Associated Diagnosis Comments COMPREHENSIVE METABOLIC PANEL STAT 05/24/2021 5:30 AM CDT from Last 3 Months or Most Recently Relevant to Health Maintenance Results * (ABNORMAL) COMPREHENSIVE METABOLIC PANEL (05/24/2021 5:30 AM CDT) [facility] Glucose 243(H) 70 - 125 mg/dL 05/24/2021 6:05 AM CDT [facility] Sodium 138 136 - 145 mmol/L 05/24/2021 6:05 AM CDT [facility] Potassium 4.0 3.4 - 4.5 mmol/L 05/24/2021 6:05 AM CDT [facility] Chloride 102 98 - 107 mmol/L 05/24/2021 6:05 AM [facility] CO2 22 22 - 29 mmol/L 05/24/2021 6:05 AM [facility] Calcium 9.6 8.4 - 10.2 mg/dL 05/24/2021 6:05 AM [facility] Anion Gap 18 10 - 20 mmol/L 05/24/2021 6:05 AM [facility] BUN 16.6 8.4 - 25.7 mg/dL 05/24/2021 6:05 AM [facility] Creatinine 0.88 0.72 - 1.25 mg/dL 05/24/2021 6:05 AM [facility] eGFR by MDRD >60 >60 mL/min/1.7 3m2 05/24/2021 6:05 AM [facility] eGFR by MDRD >60 >60 mL/min/1.7 3m2 05/24/2021 6:05 AM [facility] Alkaline Phosphatase 64 40 - 150 U/L 05/24/2021 6:05 AM [facility] ALT 15 5 - 55 U/L 05/24/2021 6:05 AM [facility] AST 13 5 - 34 U/L 05/24/2021 6:05 AM [facility] Protein Total 7.3 6.4 - 8.3 gm/dL 05/24/2021 6:05 AM [facility] Albumin 4.5 3.5 - 5.0 gm/dL 05/24/2021 6:05 AM [facility] Globulin Total 2.8 2.6 - 4.0 gm/dL 05/24/2021 6:05 AM [facility] Albumin/Globulin Ratio 1.6 0.9 - 1.6 05/24/2021 6:05 AM [facility] Bilirubin Total 0.9 0.2 - 1.2 mg/dL 05/24/2021 6:05 AM [facility] Blood BLOOD SPECIMEN / Unknown Venipuncture / Unknown 05/24/2021 5:30 AM CDT 05/24/2021 5:46 AM T Mars Huber MD LAB - CHEMISTRY RAJI NIELSON [facility] Organization Address City/State/[facility] Co de Phone Number [facility] [address] [place] [address], [facility] from Last 3 Months or Most Recently Relevant to Health Maintenance Advance Directives * Full Code (Latest Code Status on File) Date Activated Date Inactivated Comments 05/24/2021 9:38 AM 05/24/2021 9:39 PM Care Teams Gastroenterology Professor Relationship Specialty Start Date End Date Mitchel Broussard MD [address] [place] [id number] PCP - General Family Medicine 05/23/21
--- OUTSIDE RECORDS SUMMARY | 2025-01-13 17:52 | XMS_ITS | Clinical Summary ---
Author Organization [facility] [employer] Address [address] [place] [address] Care Team Providers Care Pack Out Operator Name Role Phone Mitchel Broussard MD Primary Care Provider [phone] Source Comments [facility] [employer],non-owned Affiliates and Associated Physician Practices is amultiple site organization consisting of ambulatory clinics and hospital sitesin [place], [place], [place] and [place]. This disclosure is being madepursuant to the Care Everywhere program and may not contain all information available regarding this patient. Last updated 18.[facility] [employer] Allergies No known active allergies Medications * [...] Mass Index 25.1 05/24/2021 5:13 AM CDT Plan of Treatment Health Maintenance Due Date Last Done Comments HIV SCREENING 2000 HEPATITIS C SCREENING 04/05/2003 DTAP/TDAP/TD VACCINES (1 - Tdap) 2004 HEPATITIS B VACCINE (1 of 3 - 19+ 3-dose series) 2004 PNEUMOCOCCAL VACCINE (1 of 2 - PCV) 2004 DIABETES RETINOPATHY SCREENING 05/24/2021 DIABETES-FOOT EXAM WITH MONOFILAMENT 05/24/2021 DIABETES-HGB A1C 05/24/2021 11/07/2018 DIABETES-SERUM CREATININE 05/24/20222020, 05/23/2021, 11/11/2020, Additional history exists COVID-19 VACCINE ( - 2023- season) 2024 INFLUENZA VACCINE (#1) 2024 DEPRESSION SCREENING 11/23/2024 DIABETES - URINE PROTEIN SCREENING 11/23/2024 ZOSTER VACCINE (1 of 2) 2035 HIB VACCINE Aged Out No longer eligi ble based on patient's age to complete this topic HPV VACCINE Aged Out No longer eligi ble based on patient's age to complete this topic MENINGOCOCCAL (Group B) VACCINE Aged Out No longer eligible based on patient's age to complete this topic MENINGOCOCCAL VACCINE Aged Out No carlo estefani eligible based on patient's age to complete this topic Procedures Procedure Name Priority Date/Time Associated Diagnosis Comments COMPREHENSIVE METABOLIC PANEL STAT 05/24/2021 5:30 AM CDT from Last 3 Months or Most Recently Relevant to Health Maintenance Results * (ABNORMAL) COMPREHENSIVE METABOLIC PANEL (05/24/2021 5:30 AM CDT) Glucose 243(H) 70 - 125 mg/dL 05/24/2021 6:05 AM [facility] Sodium 138 136 - 145 mmol/L 05/24/2021 6:05 AM [facility] Potassium 4.0 3.4 - 4.5 mmol/L 05/24/2021 6:05 AM [facility] Chloride 102 98 - 107 mmol/L 05/24/2021 6:05 AM [facility] CO2 22 22 - 29 mmol/L 05/24/2021 6:05 AM [facility] Calcium 9.6 8.4 - 10.2 mg/dL 05/24/2021 6:05 AM [facility] Anion Gap 18 10 - 20 mmol/L 05/24/2021 6:05 AM [facility] BUN 16.6 8.4 - 25.7 mg/dL 05/24/2021 6:05 AM [facility] Creatinine 0.88 0.72 - 1.25 mg/dL 05/24/2021 6:05 AM [facility] eGFR by MDRD >60 >60 mL/min/1.7 3m2 05/24/2021 6:05 AM [facility] eGFR by MDRD >60 >60 mL/min/1.7 3m2 05/24/2021 6:05 AM [facility] Alkaline Phosphatase 64 40 - 150 U/L 05/24/2021 6:05 AM [facility] ALT 15 5 - 55 U/L 05/24/2021 6:05 AM [facility] AST 13 5 - 34 U/L 05/24/2021 6:05 AM [facility] Protein Total 7.3 6.4 - 8.3 gm/dL 05/24/2021 6:05 AM [facility] Albumin 4.5 3.5 - 5.0 gm/dL 05/24/2021 6:05 AM [facility] Globulin Total 2.8 2.6 - 4.0 gm/dL 05/24/2021 6:05 AM CDT [facility] Albumin/Globulin Ratio 1.6 0.9 - 1.6 05/24/2021 6:05 AM CDT [facility] Bilirubin Total 0.9 0.2 - 1.2 mg/dL 05/24/2021 6:05 AM CDT [facility] Blood BLOOD SPECIMEN / Unknown Venipuncture / Unknown 05/24/2021 5:30 AM CDT 05/24/2021 5:46 AM CDT Mars Huber MD LAB - CHEMISTRY RAJI NIELSON [facility] Organization Address City/State/[facility] Co de Phone Number [facility] [address] from Last 3 Months or Most Recently Relevant to Health Maintenance Advance Directives * Full Code (Latest Code Status on File) Date Activated Date Inactivated Comments 05/24/2021 9:38 AM 05/24/2021 9:39 PM Care Teams Pack Out Operator Relationship Specialty Start Date End Date Mitchel Broussard MD [facility] [address] PCP - General Family Medicine 05/23/21
--- OUTSIDE RECORDS SUMMARY | 2025-01-13 17:52 | XMS_ITS | Patient Health Summary ---
Author Organization [facility] [employer] Address [address] [place] [address] Care Team Providers Care Moisture Tester Name Role Phone Mitchel Broussard MD Primary Care Provider [phone] Note from [facility] [employer] [facility],non-owned Affiliates and Associated Physician Practices is amultiple site organization consisting of ambulatory clinics and hospital sitesin [place], [place], [place] and [place]. This disclosure is being madepursuant to the Care Everywhere program and may not contain all information available regarding this patient. Last updated 18.[facility] [employer] Allergies No known active allergies Medications * Be aware that medications may not be up to date on this document. Alwaysverify current medications with the patient. * insulin glargine (LANTUS) pen Inject 40 Units subcutaneously once daily * latanoprost (XALATAN) 0.005 % ophthalmic solution Instill 1 drop into right eye at bedtime * metoclopramide (REGLAN) 10 MG tablet Take 10 mg by mouth at bedtime * pantoprazole EC (PROTONIX) 40 MG tablet Take 40 mg by mouth once daily * insulin lispro (ADMELOG) 100 UNIT/ML vial Inject subcutaneously 4 times daily Per sliding scale. Maximum 60 units per day. Active Problems Problem Noted Date Diagnosed Date [...] Mass Index 25.1 05/24/2021 5:13 AM CDT Procedures * CARDIAC RHYTHM STRIP ORDER(Performed 05/29/2021) * GLUCOSE - POINT OF CARE(Performed 05/24/2021) * GLUCOSE(Performed 05/24/2021) * GLUCOSE - POINT OF CARE(Performed 05/24/2021) * GLUCOSE - POINT OF CARE(Performed 05/24/2021) * GLUCOSE - POINT OF CARE(Performed 05/24/2021) * GLUCOSE - POINT OF CARE(Performed 05/24/2021) * HYDROXYBUTYRATE BETA(Performed 05/24/2021) * BLOOD GASES MIGEL(Performed 05/24/2021) * URINE MICROSCOPIC ONLY REFLEX TO CULTURE(Performed 05/24/2021) * DRUG ABUSE URINE SCREEN 10(Performed 05/24/2021) * URINALYSIS REFLEX MICROSCOPIC REFLEX CULTURE(Performed 05/24/2021) * CULTURE BLOOD(Performed 05/24/2021) * SALICYLATE LEVEL BLOOD(Performed 05/24/2021) * ACETAMINOPHEN LEVEL(Performed 05/24/2021) * ALCOHOL ETHYL BLOOD(Performed 05/24/2021) * LIPASE BLOOD(Performed 05/24/2021) * COMPREHENSIVE METABOLIC PANEL(Performed 05/24/2021) * CBC W AUTO DIFFERENTIAL(Performed 05/24/2021) * URINALYSIS REFLEX MICROSCOPIC REFLEX CULTURE(Performed 05/23/2021) * CT ABDOMEN PELVIS W CONTRAST(Performed 05/23/2021) Performed for Abdominal pain, generalized, Nausea and vomiting, intractability of vomiting not specified, unspecified vomiting type * AMYLASE BLOOD(Performed 05/23/2021) * LIPASE BLOOD(Performed 05/23/2021) * COMPREHENSIVE METABOLIC PANEL(Performed 05/23/2021) * CBC W AUTO DIFFERENTIAL(Performed 05/23/2021) * GLUCOSE ACCUCHECK(Performed 10/29/2017) * CULTURE FUNGUS OTHER+FUNGUS SMEAR(Performed 10/29/2017) * PATHOLOGY TISSUE(Performed 10/29/2017) * GLUCOSE ACCUCHECK(Performed 10/29/2017) * CULTURE FUNGUS OTHER+FUNGUS SMEAR(Performed 10/18/2017) * CULTURE AEROBIC(Performed 10/18/2017) Results * CARDIAC RHYTHM STRIP ORDER (05/29/2021 6:39 AM CDT) Narrative 05/29/2021 6:39 AM CDT Ordered by an unspecified provider. Scanned Document CARDIAC SERVICES ORD ERABLES * GLUCOSE - POINT OF CARE (05/24/2021 6:09 PM CDT) Only the most recent of5 resultswithin the time period is included. Glucose WB/POC 88 70 - 125 mg/dL 05/24/2021 6:11 PM CDT [facility] Specimen Type Cap Fingerstick 2020 6:11 PM CDT [facility] Blood BLOOD SPECIMEN / Unknown 05/24/2021 6:09 PM CDT 05/24/2021 6:11 PM CDT Santino Reyes MD LAB - POINT OF CARE ORDERABLES [facility] [address] * GLUCOSE (05/24/2021 6:08 PM CDT) Glucose 101 70 - 125 mg/dL 05/24/2021 6:25 PM CDT [facility] Blood BLOOD SPECIMEN / Unknown Lab Venipuncture / Unknown 05/24/2021 6:08 PM CDT 05/24/2021 6:11 PM CDT Santino Reyes MD LAB - CHEMISTRY ORDERABLES [facility] [address] * (ABNORMAL) HYDROXYBUTYRATE BETA (05/24/2021 8:57 AM CDT) Beta-Hydroxybuty rate 30.4(H) 0.0 - 3.0 mg/dL 05/26/2021 4:53 PM CDT [facility] ([facility]) Comment: Performed By: [employer] [address] [place] [address] Operations Vocational Instructor: Anuja West MD Blood BLOOD SPECIMEN / Unknown Venipuncture / Unknown 05/24/2021 8:57 AM CDT 05/24/2021 9:01 AM CDT Kendra Hutchison MD LAB - CHEMISTRY MARIPOSAE NISREEN Performing Organization Address [facility]/ZIP Co de Phone Number [email or web address] ([facility]) [address] * (ABNORMAL) BLOOD GASES MIGEL (05/24/2021 8:57 AM CDT) Pathologist [facility] pH Venous 7.40 7.32 - 7.42 pH 05/24/2021 9:07 AM CDT [facility] pCO2 Venous 39(L) 41 - 51 mm hg 05/24/2021 9:07 AM T [facility] pO2 Venous 157(H) 25 - 40 mm hg 05/24/2021 9:07 AM T [facility] HCO3 Venous 23(L) 24 - 28 mmol/L 05/24/2021 9:07 AM T [facility] BE Venous -1.2 -2.0 - 2.0 mmol/L 05/24/2021 9:07 AM T [facility] O2 Saturation Venous 99(H) 60 - 85 % 05/24/2021 9:07 AM T [facility] TCO2 Venous 25 25 - 29 mmol/L 05/24/2021 9:07 AM T [facility] Oxyhemoglobin Venous 97 % 12/2020 9:07 AM T [facility] Hemoglobin Venous 16.6 12.0 - 18.0 gm/dL 05/24/2021 9:07 AM CDT [facility] Carboxyhemoglobin Venous 1.7(H) 0.5 - 1.5 % 05/24/2021 9:07 AM CDT [facility] Methemoglobin Venous 0.4 0 - 1.5 % 05/24/2021 9:07 AM CDT [facility] Sample Type Arterial 05/24/2021 9:07 AM CDT [facility] Blood BLOOD SPECIMEN / Unknown Venipuncture / Unknown 05/24/2021 8:57 AM CDT 05/24/2021 9:01 AM CDT Kendra Hutchison MD LAB - BLOOD GASES OR DERABLES Performing Organization Address [facility]/[place] Co de Phone Number [facility] [address] * (ABNORMAL) DRUG ABUSE URINE SCREEN 10 (05/24/2021 7:02 AM CDT) [facility] Amphetamines Screen Urine Negative Negative 05/24/2021 7:22 AM CDT [facility] Barbiturates Screen Urine Negative Negative 05/24/2021 7:22 AM CDT [facility] Benzodiazepines Screen Urine Negative Negative 05/24/2021 7:22 AM CDT [facility] Cannabinoids Screen Urine Positive(A) Negative 05/24/2021 7:22 AM CDT [facility] Cocaine Screen Urine Negative Negative 05/24/2021 7:22 AM CDT [facility] Methadone Screen Urine Negative Negative 05/24/2021 7:22 AM CDT [facility] Opiate Screen Urine Negative Negative 05/24/2021 7:22 AM CDT [facility] Phencyclidine Screen Urine Negative Negative 05/24/2021 7:22 AM CDT [facility] Tricyclics Screen Urine Negative Negative 05/24/2021 7:22 AM CDT [facility] Methamphetamine Screen Urine Negative Negative 05/24/2021 7:22 AM CDT [facility] Buprenorphine Screen Urine Negative Negative 05/24/2021 7:22 AM CDT [facility] Oxycodone Screen Urine Negative Negative 05/24/2021 7:22 AM CDT [facility] Propoxyphene Screen Urine Negative Negative 05/24/2021 7:22 AM CDT [facility] Urine URINE / Unknown Collection / Unknown 05/24/2021 7:02 AM CDT 05/24/2021 7:08 AM CDT Narrative [facility] - 05/24/2021 7:22 AM CDT This is a presumptive/unconfirmed test for medical treatment purposes only. Clinical consideration and professional judgment should be applied when using presumptive results. If confirmatory testing, such as gas chromatography-mass spectrometry (GC/MS), of any positive results of this test is required, please notify the laboratory within 7 days of collection. This test is intended only for monitoring or management of patients. It is not intended for use in job-related and/or legal-related purposes. The cutoff value for each analyte is: Barbiturates.....200 ng/mL Benzodiazepines......150 ng/mL Cocaine..........150 ng/mL Opiates..............100 ng/mL Phencyclidine.....25 ng/mL Tricyclics...........300 ng/mL Cannabinoid.......50 ng/mL Amphetamines.........500 ng/mL Methadone........200 ng/mL Methamphetamines.....500 ng/mL Buprenorphine.....10 ng/mL Oxycodone............100 ng/mL Propoxyphene.....300 ng/mL Mars Huber MD LAB - URINE CHEMISTR Y ORDERABLES Performing Organization Address City/State/[place] Co de Phone Number [facility] [address] * URINE MICROSCOPIC ONLY REFLEX TO CULTURE (05/24/2021 7:02 AM CDT) Pathologist [facility] Reflex Status Culture not indicated 05/24/2021 7:18 AM CDT [facility] RBC UA 3-5 None Seen, 0-2, 3-5 # /hpf 05/24/2021 7:18 AM CDT [facility] WBC UA 0-5 None Seen, 0-5 # /hpf 05/24/2021 7:18 AM CDT [facility] Bacteria UA None Seen None Seen 05/24/2021 7:18 AM CDT [facility] Squamous Epithelial Cells None Seen None Seen, 0-2, 3-5 /hpf 05/24/2021 7:18 AM CDT [facility] Mucus UA 1+ /LPF 05/24/2021 7:18 AM CDT [facility] Urine URINE SPECIMEN OBTAINED BY CLEAN CATCH PROCEDURE / Unknown Collection / Unknown 05/24/2021 7:02 AM CDT 05/24/2021 7:08 AM CDT Narrative [facility] - 05/24/2021 7:18 AM CDT Mars Huber MD LAB - URINALYSIS ORD ERABLES Performing Organization Address City/State/[place] Co de Phone Number [facility] [address] * (ABNORMAL) URINALYSIS REFLEX MICROSCOPIC REFLEX CULTURE (05/24/2021 7:02 AM CDT) Only the most recent of2 resultswithin the time period is included. Color UA Yellow Straw, Yellow 05/24/2021 7:17 AM CDT [facility] Clarity UA Clear Clear 05/24/2021 7:17 AM T [facility] Glucose UA 3+(A) Negative 05/24/2021 7:17 AM T [facility] Bilirubin UA Negative Negative 05/24/2021 7:17 AM T [facility] Ketone UA 2+(A) Negative 05/24/2021 7:17 AM T [facility] Specific [place] UA 1.027 1.005 - 1.030 05/24/2021 7:17 AM T [facility] Blood UA Negative Negative 05/24/2021 7:17 AM CDT [facility] pH UA 5.0 5.0 - 8.0 pH 05/24/2021 7:17 AM T [facility] Protein UA 1+(A) Negative 05/24/2021 7:17 AM T [facility] Urobilinogen UA Negative Negative mg/dL 05/24/2021 7:17 AM T [facility] Nitrite UA Negative Negative 05/24/2021 7:17 AM CDT [facility] Leukocyte UA Negative Negative 05/24/2021 7:17 AM T [facility] Urine Microscopy Urine microscopy to follow 05/24/2021 7:17 AM CDT [facility] Urine URINE SPECIMEN OBTAINED BY CLEAN CATCH PROCEDURE / Unknown Collection / Unknown 05/24/2021 7:02 AM CDT 05/24/2021 7:08 AM CDT Narrative [facility] - 05/24/2021 7:17 AM CDT Ascorbic Acid can cause false negative urine strip tests for blood, glucose, nitrite, and bilirubin. Mars Huber MD LAB - URINALYSIS ORD ERABLES Performing Organization Address [facility]/ZIP Co de Phone Number [facility] [address] * CULTURE BLOOD (05/24/2021 5:46 AM CDT) [facility] Culture No growth day 5 AHSAN 05/29/2021 11:59 AM CDT [facility] Blood PERIPHERAL BLOOD / Unknown Venipuncture / Unknown 05/24/2021 5:46 AM CDT 05/24/2021 5:52 AM CDT Mars Huber MD LAB - MICROBIOLOGY O RDERABLES Performing Organization Address [facility]/[place] Co de Phone Number [facility] [address] [place] [address] * (ABNORMAL) CBC W AUTO DIFFERENTIAL (05/24/2021 5:30 AM CDT) Only the most recent of2 resultswithin the time period is included. [facility] WBC 9.2 4.0 - 10.0 x10E9/L 05/24/2021 5:50 AM CDT [facility] RBC 5.04 4.40 - 6.10 x10E12/L 05/24/2021 5:50 AM CDT [facility] Hemoglobin 15.9 13.7 - 17.5 gm/dL 05/24/2021 5:50 AM CDT [facility] Hematocrit 45.4 40.1 - 51.0 % 05/24/2021 5:50 AM CDT [facility] MCV 90.1 78.0 - 100.0 fl 05/24/2021 5:50 AM CDT [facility] MCH 31.5 25.6 - 34.0 pg 05/24/2021 5:50 AM CDT [facility] MCHC 35.0 32.3 - 36.5 gm/dL 05/24/2021 5:50 AM CDT [facility] RDW 13.6 11.6 - 14.4 % 05/24/2021 5:50 AM CDT [facility] MPV 12.4 9.4 - 12.4 fl 05/24/2021 5:50 AM CDT [facility] Platelet Count 156(L) 163 - 369 x10E9/L 05/24/2021 5:50 AM CDT [facility] Neutrophils % 85.3(H) 40.0 - 75.0 % 05/24/2021 5:50 AM CDT [facility] Lymphocytes % 9.9(L) 19.3 - 53.1 % 05/24/2021 5:50 AM T [facility] Monocytes % 4.7 4.7 - 12.5 % 05/24/2021 5:50 AM T [facility] Eosinophils % 0.0(L) 0.7 - 7.0 % 05/24/2021 5:50 AM T [facility] Basophils % 0.1 0.1 - 1.2 % 05/24/2021 5:50 AM CDT [facility] Neutrophil Absolute 7.88(H) 1.56 - 6.13 x10E9/L 05/24/2021 5:50 AM CDT [facility] Lymphocytes Absolute 0.91(L) 1.18 - 3.74 x10E9/L 05/24/2021 5:50 AM T [facility] Monocytes Absolute 0.43 0.24 - 0.86 x10E9/L 05/24/2021 5:50 AM T [facility] Eosinophils Absolute 0.00(L) 0.04 - 0.54 x10E9/L 05/24/2021 5:50 AM T [facility] Basophils Absolute 0.01 0.01 - 0.08 x10E9/L 05/24/2021 5:50 AM T [facility] Blood BLOOD SPECIMEN / Unknown Venipuncture / Unknown 05/24/2021 5:30 AM CDT 05/24/2021 5:46 AM CDT Mars Huber MD LAB - HEMATOLOGY ORD ERABLES [facility] [address] * (ABNORMAL) COMPREHENSIVE METABOLIC PANEL (05/24/2021 5:30 AM [facility]) Only the most recent of2 resultswithin the time period is included. Glucose 243(H) 70 - 125 mg/dL 05/24/2021 6:05 AM [facility] Sodium 138 136 - 145 mmol/L 05/24/2021 6:05 AM [facility] Potassium 4.0 3.4 - 4.5 mmol/L 05/24/2021 6:05 AM [facility] Chloride 102 98 - 107 mmol/L 05/24/2021 6:05 AM [facility] CO2 22 22 - 29 mmol/L 05/24/2021 6:05 AM [facility] Calcium 9.6 8.4 - 10.2 mg/dL 05/24/2021 6:05 AM [facility] Anion Gap 18 10 - 20 mmol/L 05/24/2021 6:05 AM [facility] BUN 16.6 8.4 - 25.7 mg/dL 05/24/2021 6:05 AM [facility] Creatinine 0.88 0.72 - 1.25 mg/dL 05/24/2021 6:05 AM [facility] eGFR by MDRD >60 >60 mL/min/1.7 3m2 05/24/2021 6:05 AM [facility] eGFR by MDRD >60 >60 mL/min/1.7 3m2 05/24/2021 6:05 AM [facility] Alkaline Phosphatase 64 40 - 150 U/L 05/24/2021 6:05 AM [facility] ALT 15 5 - 55 U/L 05/24/2021 6:05 AM [facility] AST 13 5 - 34 U/L 05/24/2021 6:05 AM [facility] Protein Total 7.3 6.4 - 8.3 gm/dL 05/24/2021 6:05 AM [facility] Albumin 4.5 3.5 - 5.0 gm/dL 05/24/2021 6:05 AM [facility] Globulin Total 2.8 2.6 - 4.0 gm/dL 05/24/2021 6:05 AM CDT [facility] Albumin/Globulin Ratio 1.6 0.9 - 1.6 05/24/2021 6:05 AM CDT [facility] Bilirubin Total 0.9 0.2 - 1.2 mg/dL 05/24/2021 6:05 AM CDT [facility] Blood BLOOD SPECIMEN / Unknown Venipuncture / Unknown 05/24/2021 5:30 AM CDT 05/24/2021 5:46 AM CDT Mars Huber MD LAB - CHEMISTRY RAJI NIELSON Performing Organization Address [facility]/[place] Co de Phone Number [facility] [address] [place] [address] * (ABNORMAL) LIPASE BLOOD (05/24/2021 5:30 AM CDT) Only the most recent of2 resultswithin the time period is included. Lipase 6(L) 8 - 78 U/L 05/24/2021 6:19 AM CDT [facility] Blood BLOOD SPECIMEN / Unknown Venipuncture / Unknown 05/24/2021 5:30 AM CDT 05/24/2021 5:46 AM CDT Mars Huber MD LAB - CHEMISTRY RAJI NIELSON Performing Organization Address [facility]/[place] Co de Phone Number [facility] [address] [place] [address] * ALCOHOL ETHYL BLOOD (05/24/2021 5:30 AM CDT) Ethanol <10.0 <10 mg/dL 05/24/2021 6:0 6 AM CDT [facility] Blood BLOOD SPECIMEN / Unknown Venipuncture / Unknown 05/24/2021 5:30 AM CDT 05/24/2021 5:46 AM CDT Narrative [facility] - 05/24/2021 6:06 AM CDT For Medical Use Only Mars Huber MD LAB - CHEMISTRY RAJI NIELSON Performing Organization Address City/[facility]/[place] Co de Phone Number [facility] [address] [place] [address] * (ABNORMAL) SALICYLATE LEVEL BLOOD (05/24/2021 5:30 AM CDT) Salicylate <5.0(L) 15.0 - 30.0 mg/dL 05/24/2021 6:06 AM CDT [facility] Blood BLOOD SPECIMEN / Unknown Venipuncture / Unknown 05/24/2021 5:30 AM CDT 05/24/2021 5:46 AM CDT Mars Huber MD LAB - CHEMISTRY RAJI NIELSON Performing Organization Address [facility]/[place] Co de Phone Number [facility] [address] [place] [address] * (ABNORMAL) ACETAMINOPHEN LEVEL (05/24/2021 5:30 AM CDT) Acetaminophen <0.6(L) 10.0 - 30.0 ug/mL 05/24/2021 6:06 AM CDT [facility] Blood BLOOD SPECIMEN / Unknown Venipuncture / Unknown 05/24/2021 5:30 AM CDT 05/24/2021 5:46 AM CDT Narrative [facility] - 05/24/2021 6:06 AM CDT Significantly reduced Acetaminophen recovery has been demonstrated in situations where testing has been performed immediately after introduction of N- acetylcysteine (NAC). Mars Huber MD LAB - CHEMISTRY RAJI NIELSON Performing Organization Address [facility]/[place] Co de Phone Number [facility] [address] [place] [address] * CT ABDOMEN AND PELVIS WITH IV CONTRAST - Acute Abdomen (05/23/2021 12:38 PM CDT) Anatomical Region Laterality Modality Abdomen, Pelvis Computed Tomogra phy 05/23/2021 1:02 PM CDT Impressions 05/23/2021 1:11 PM CDT 1. Possible wall thickening involving the small bowel which could be associated with inflammatory or infectious enteritis. 2. A 5.3 mm probable granuloma right lung base. Attenuation is not definitively calcified and a follow-up [address] recommended to confirm radiographic benignity. 3. Duplicated right renal artery. *Reading Radiologist: Agusto Ruelas on 05/23/2021 at 1:11 PM Narrative 05/23/2021 1:11 PM CDT IMAGING STUDIES: CT ABDOMEN PELVIS W CONTRAST DATE: 05/23/2021 12:42 PM HISTORY: Generalized abdominal pain since this morning, on PACS note COMPARISON: No comparisons CONTRAST: 95 cc Isovue-300 IV contrast only Radiation dose reduction technique was utilized. FINDINGS: Evaluation of intestinal wall pattern somewhat limited absent enteric contrast. The bowel gas pattern is nonobstructive with no free air, free fluid or pneumatosis. There appears to be at least mild wall thickening in the small bowel within the left hemiabdomen best seen on series 3. The appendix appears normal in size. Moderate amount of stool present extending to the cecum. Aorta is also normal in size with mild atherosclerotic changes. No hydronephrosis or hydroureter. Duplicated right-sided renal arteries. Adrenal glands kidneys spleen and pancreas otherwise within normal limits. The gallbladder is borderline distended. No biliary ductal dilatation or radiopaque gallstones seen. 5.3 mm nodule in the right lung base image 13 series 6 has attenuation of approximately 300 Hounsfield units likely representing small granuloma. The lung bases are otherwise clear. Bones are intact. Procedure Note Agusto Ruelas MD - 05/23/2021 IMAGING STUDIES: CT ABDOMEN PELVIS W CONTRAST DATE: 05/23/2021 12:42 PM HISTORY: Generalized abdominal pain since this morning, on PACS note COMPARISON: No comparisons CONTRAST: 95 cc Isovue-300 IV contrast only Radiation dose reduction technique was utilized. FINDINGS: Evaluation of intestinal wall pattern somewhat limited absent enteric contrast. The bowel gas pattern is nonobstructive with no free air, free fluid or pneumatosis. There appears to be at least mild wall thickening in the small bowel within the left hemiabdomen best seen on series 3. The appendix appears normal in size. Moderate amount of stool present extending to the cecum. Aorta is also normal in size with mild atherosclerotic changes. No hydronephrosis or hydroureter. Duplicated right-sided renal arteries. Adrenal glands kidneys spleen and pancreas otherwise within normal limits. The gallbladder is borderline distended. No biliary ductal dilatation or radiopaque gallstones seen. 5.3 mm nodule in the right lung base image 13 series 6 has attenuation of approximately 300 Hounsfield units likely representing small granuloma. The lung bases are otherwise clear. Bones are intact. IMPRESSION 1. Possible wall thickening involving the small bowel which could be associated with inflammatory or infectious enteritis. 2. A 5.3 mm probable granuloma right lung base. Attenuation is not definitively calcified and a follow-up [address] recommended to confirm radiographic benignity. 3. Duplicated right renal artery. *Reading Radiologist: Agusto Ruelas on 05/23/2021 at 1:11 PM Alexandrea Herron [facility] ORDERABLES * AMYLASE BLOOD (05/23/2021 11:52 AM CDT) [facility] Amylase 62 25 - 125 U/L 05/23/2021 12:24 PM CDT [facility] Blood BLOOD SPECIMEN / Unknown Venipuncture / Unknown 05/23/2021 11:52 AM CDT 05/23/2021 11:56 AM CDT Alexandreachelsie Herron [facility] - CHEMISTRY ORDERABLES [address] * (ABNORMAL) GLUCOSE ACCUCHECK (10/29/2017 2:46 PM LONG TERM CARE PHLEBOTOMIST) Only the most recent of2 resultswithin the time period is included. [facility] Glucose, Fingerstick 201(H) 70-115mg/d L mg/dL [facility] ([place] Comment:Community Recreation Programmer: MONIQUEGAYLE RUIZ 10/29/2017 2:46 PM LONG TERM CARE PHLEBOTOMIST Eamon Weir MD LAB - CHEMISTRY RAJI NIELSON [facility] ([facility]) * CULTURE FUNGUS OTHER+FUNGUS SMEAR (10/29/2017 1:56 PM LONG TERM CARE PHLEBOTOMIST) Only the most recent of2 resultswithin the time period is included. [facility] Culture Fungus-Other No Growth Fungi. [facility] Cornea CORNEAL PART / Unknown 10/29/2017 1:56 PM LONG TERM CARE PHLEBOTOMIST 10/29/2017 6:27 PM LONG TERM CARE PHLEBOTOMIST Narrative [facility] - 11/24/2017 5:53 AM LONG TERM CARE PHLEBOTOMIST DONOR RING Specimen Type->Cornea Resulting Lab: [facility] [address] [place] [address] PH: [phone] Resulting Lab: [facility] [address] [place] [address] PH: [phone] Resulting Lab: [facility] [address] [place] [address] PH: [phone] Resulting Lab: [facility] [address] [place] [address] PH: [phone] Resulting Lab: [facility] [address] [place] [address] PH: [phone] Resulting Lab: [facility] [address] [place] [place] [address] PH: [phone] Eamon Weir MD LAB - MICROBIOLOGY O RDERABLES [address] [phone] * PATHOLOGY TISSUE (10/29/2017 1:51 PM LONG TERM CARE PHLEBOTOMIST) Surgical Pathology Tissue ACCESSION No: [id number] CLINICAL HISTORY: Marginal corneal ulcer. 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 PAS stain (performed with appropriate control) highlights the branching hyphae. There is also acute inflammation and ulceration. Results called to Dr. Weir's resident on 11/02/2017. MH/mh GROSS DESCRIPTION: The specimen is received fixed in formalin in one container labeled with the patient's name, Isaac Ramirez, and right cornea , and consists of a dome-shaped portion of tissue measuring 0.9 cm in diameter with a tissue thickness of 0.1 cm. There is an attached portion of yellow-white soft tissue measuring 0.3 x 0.2 x 0.1 cm. From the top of the dome to the base is 0.3 cm. The tissue is firm but flexible. The specimen is bisected, wrapped in tissue paper, and submitted entirely in cassette A1. EMS/edk The performance characteristics of all immunohistochemical and indirect immunofluorescence stains (if any) cited in this report were determined by the Histopathology Laboratory of [facility]. Some of these tests were developed by our own laboratory and have not been cleared or approved by the US Food and Drug Administration. The FDA does not require this test to go through premarket FDA review. These tests are used for clinical purposes. They should not be regarded as investigational or for research. This laboratory is certified under the Clinical Laboratory Improvement Amendments (CLIA) as qualified to perform high complexity clinical laboratory testing. This case has been personally reviewed and interpreted by the attending (teaching) pathologist. Final Diagnosis performed by Mi Reyez M.D. Electronically signed 11/02/2017 [facility] ([facility]) Resection without Tumor CORNEAL PART / Unknown 10/29/2017 1:51 PM LONG TERM CARE PHLEBOTOMIST 10/30/2017 8:31 AM LONG TERM CARE PHLEBOTOMIST Narrative [facility] ([facility]) - 11/03/2017 4:18 AM LONG TERM CARE PHLEBOTOMIST Pre-op diagnosis: MARGINAL CORNEAL ULCER Eamon Weir MD LAB - PATHOLOGY/CYTO LOGY ORDERABLES Performing Organization Address [facility] de Phone Number [facility] ([facility]) [address] [phone] * (ABNORMAL) CULTURE AEROBIC (10/18/2017 1:45 PM LONG TERM CARE PHLEBOTOMIST) Culture Aerobic ASPERGILLUS SPECIES(A) [facility] Comment:Moderate Growth Aspe rgillus Species Gram Stain No Organism Seen [facility] Lesion 10/18/2017 1:45 PM LONG TERM CARE PHLEBOTOMIST 10/18/2017 2:36 PM LONG TERM CARE PHLEBOTOMIST Narrative [facility] - 10/20/2017 9:32 AM LONG TERM CARE PHLEBOTOMIST Right cornea Specimen Type->Lesion Resulting Lab: [facility] [address] [place] [address] PH: [phone] Ivy Joseph MD LAB - [place] [address], [facility] [phone] Care Teams Moisture Tester Relationship Specialty Start Date End Date Mitchel Broussard MD [facility] [place] [address] PCP - General Family Medicine 05/23/21
--- NOTE | 2025-01-13 17:55 | ED.MALEGU ---
HPI - Male Genitourinary General Chief complaint: Urogenital-Male Stated complaint: groin pain Time Seen by Provider: 01/13/25 17:55 Related Data Home Medications ?Medication ?Instructions ?Recorded ?Confirmed ?Last Taken ?Type insulin lispro 100 unit/mL See Rx Instructions .Route .COMPLEX 10/16/23 10/16/23 Unknown History subcutaneous solution (Admelog U-100 Insulin lispro) Allergies Allergy/AdvReac Type Severity Reaction Status Date / Time No Known Allergies Allergy Verified 01/13/25 17:54 [facility] Past Medical History Medical History Bipolar 1 disorder Cannabinoid hyperemesis syndrome Diabetes mellitus Diabetic gastroparesis Gastritis Nausea and vomiting in adult Family History Family History Other Unknown family medical history Social History Social History Social History: smoker, uses marijuana Smoking status: Current every day smoker Tobacco type: cigarettes Second hand tobacco smoke exposure: Yes Alcohol intake: never Drinks per week: 5 Substance use: current Substance use type: marijuana Last use: 10/13/23 Lack of Transportation: No Lack of Food: Never True Current Housing: I Have Housing Concerned About Future Housing: No Difficulty Paying Gas/Electric Bills: No Difficulty Paying for Meds: No Currently Unemployed: No Education: Decline to Answer Difficulty w/ Childcare or Family Care: No Spiritual care concerns: No Course Vital Signs Vital signs: Vital Signs Temperature 36.5 C 01/13/25 17:49 Pulse Rate 120 H 01/13/25 17:49 Respiratory Rate 01/13/25 17:49 Blood Pressure 150/97 H 01/13/25 17:49 Pulse Oximetry 98 01/13/25 17:49 Oxygen Delivery Room Air 01/13/25 17:49 Temperature 36.5 C 01/13/25 17:49 Pulse Rate 120 H 01/13/25 17:49 Respiratory Rate 01/13/25 17:49 Blood Pressure 150/97 H 01/13/25 17:49 Pulse Oximetry 98 01/13/25 17:49 Oxygen Delivery Room Air 01/13/25 17:49 Discharge Plan Discharge Patient Language: Rwandan Prescriptions: No Action insulin lispro [Admelog U-100 Insulin lispro] 100 unit/mL solution See Rx Instructions .ROUTE .COMPLEX Rx Instructions: pt unaware of his sliding scale protocol buspirone 5 mg tablet 5 mg PO TID PRN (Reason: Anxiety) Qty: 30 0RF insulin glargine [Lantus U-100 Insulin] 100 unit/mL solution 40 unit SUBCUT DAILY Qty: 10 0RF sertraline 100 mg tablet 100 mg PO DAILY Qty: 30 0RF pantoprazole [Protonix] 40 mg tablet,delayed release (DR/EC) 40 mg PO BID Qty: 60 0RF (DME) insulin syringe-needle U-100 [BD Insulin Syringe Ultra-Fine] 1 mL 31 gauge x 5/16 syringe MISCELLANEOUS Qty: 60 0RF Rx Instructions: As Directed ondansetron 4 mg tablet,disintegrating 4 mg PO Q6H PRN (Reason: nausea and vomiting) Qty: 20 0RF metoclopramide HCl 10 mg tablet 10 mg PO TID PRN (Reason: Nausea/Vomiting) Qty: 30 0RF Follow-up/Referrals: UNKNOWN,DOCTOR [Primary Care Provider] -
--- NOTE | 2025-01-13 17:56 | ED.MALEGU ---
HPI - Male Genitourinary General Chief complaint: Urogenital-Male Stated complaint: groin pain Time Seen by Provider: 01/13/25 17:55 Source: patient Mode of arrival: ambulatory Limitations: no limitations History of Present Illness HPI Narrative: Patient is a 39-year-old male with 2 complaints today. First complaint is bilateral groin pains after taking a small fall this afternoon. The 2nd complaint is a skin infection on the base of the penis. Patient shaves around this area. Further the patient has been squeezing the area to get pus. Recent STD testing was negative and has not had intercourse since STD testing. This is per patient. patient is insulin using diabetic. MD Complaint: other ( Bilateral groin pain and penis skin infection) Onset (ago): day(s) (3) Duration: constant Location: penis Radiation: penis Severity: moderate Severity scale (1-10): 5 Quality: burning and sharp Relieving factors: other ( patient claims the area has decreased in size over the last 24 hours as he open the area on his own) Exacerbating factors: palpation Context: other ( patient shaves this area of his penis shaft and has gotten a skin infection) Associated symptoms: Reports denies other symptoms Related Data Sexually active: Yes Home Medications ?Medication ?Instructions ?Recorded ?Confirmed ?Last Taken ?Type insulin lispro 100 unit/mL See Rx Instructions .Route .COMPLEX 10/16/23 10/16/23 Unknown History subcutaneous solution (Admelog U-100 Insulin lispro) Allergies Allergy/AdvReac Type Severity Reaction Status Date / Time No Known Allergies Allergy Verified 01/13/25 17:54 Review of Systems Review of Systems: All systems reviewed & are unremarkable except as noted in HPI and below Constitutional: Constitutional: Reports no additional constitutional complaints Eyes: Eyes: Reports no additional eye complaints ENT: Reports system reviewed and no additional complaints, except as documented Cardiovascular: Cardiovascular: Reports no additional cardiovascular complaints Respiratory: Respiratory: Reports no additional respiratory complaints Gastrointestinal: Gastrointestinal: Reports no additional gastrointestinal complaints Genitourinary: Genitourinary: Reports no additional male genitourinary complaints Musculoskeletal: Musculoskeletal: Reports no additional musculoskeletal complaints Integumentary/Breasts: Skin/Breast: Reports system reviewed and no additional complaints, except as docu Neurologic: Reports system reviewed and no additional complaints, except as documented Psychiatric: Psychiatric: Reports no additional psychiatric complaints Endocrine: Endocrine: Reports no additional endocrine complaints Hematologic/Lymphatic: Hematologic/Lymphatic: Reports no additional hematologic/lymphatic complaints Allergic/Immunologic: Allergic/Immunologic: Reports no additional allergic/immunologic complaints [facility] Past Medical History Medical History Diabetic gastroparesis Cannabinoid hyperemesis syndrome Bipolar 1 disorder Nausea and vomiting in adult Gastritis Diabetes mellitus Family History Family History Other Unknown family medical history Social History Social History Social History: smoker, uses marijuana Smoking status: Current every day smoker Tobacco type: cigarettes Second hand tobacco smoke exposure: Yes Alcohol intake: never Drinks per week: 5 Substance use: current Substance use type: marijuana Last use: 10/13/23 Lack of Transportation: No Lack of Food: Never True Current Housing: I Have Housing Concerned About Future Housing: No Difficulty Paying Gas/Electric Bills: No Difficulty Paying for Meds: No Currently Unemployed: No Education: Decline to Answer Difficulty w/ Childcare or Family Care: No Spiritual care concerns: No Exam Const: General: healthy appearing Nutritional Appearance: well nourished Limitations: no limitations Other: Anxious HENMT: Head: normal to inspection Ears: TM's normal bilaterally Face/Nose/Sinus: Normal external nose present Eyes: Conjunctivae: conjunctivae normal Pupils: Equal, round and reactive pupils present EOM: EOMs intact bilaterally Neck: Neck: normal visual inspection Chest: Chest palpation & inspection: normal inspection of the chest Resp: Effort & Inspection: normal respiratory effort and not labored Auscultation: clear to auscultation bilaterally and no crackles Cardio: Rate: regular rate Rhythm: regular rhythm Heart sounds: no murmurs GI: Inspection: non-distended GI Palp: Yes Soft to palpation and No Tenderness to palpation present (GI) Auscultation: normal bowel sounds : General: Yes bladder normal to palpation Back/Spine/Pelvis: Back: no CVA tenderness Skin: General skin exam: normal color Rashes: no rashes Wounds: wound noted Other: base of the penis on the ventral side directly overlying the urethra has a 0.5 cm round red furuncle due to ingrown hair from shaving without cellulitis; the area is draining pus and the hole in the center has been made already by the patient Neuro: General: patient oriented x3 Cranial nerves: Yes CN's II-XII intact bilaterally Speech: normal speech Extrem: General: normal to inspection Other: range of motion causes groin irritation bilaterally with right greater than left Psych: Mental Status: mental status grossly normal Affect: Anxious affect present Attitude: cooperative Course Vital Signs Vital signs: Vital Signs Temperature 36.5 C 01/13/25 17:49 Pulse Rate 120 H 01/13/25 17:49 Respiratory Rate 20 01/13/25 17:49 Blood Pressure 150/97 H 01/13/25 17:49 Pulse Oximetry 98 01/13/25 17:49 Oxygen Delivery Room Air 01/13/25 17:49 Temperature 36.5 C 01/13/25 17:49 Pulse Rate 120 H 01/13/25 17:49 Respiratory Rate 20 01/13/25 17:49 Blood Pressure 150/97 H 01/13/25 17:49 Pulse Oximetry 98 01/13/25 17:49 Oxygen Delivery Room Air 01/13/25 17:49 MDM - Male Genitourinary MDM Narrative Medical decision making narrative: patient is a 39-year-old male with bilateral groin strain and penile furuncle. We will do clindamycin and [place]. Patient will need to see a urologist if continued furuncle. No incision and drainage was done today due to the fact that this is directly over the urethra and the area is already draining at this time and open to drainage. Discharge Plan Discharge Clinical Impression: Furuncle of penis Groin strain Qualifiers: Encounter type: initial encounter Laterality: unspecified laterality Qualified Code(s): S76.219A - Strain of adductor muscle, fascia and tendon of unspecified thigh, initial encounter Patient Disposition: Home, Self-Care Condition: Stable Instructions: Antibiotic Form, Furunculosis and Carbunculosis (ED), Groin Strain (ED) Additional Instructions: please follow-up with the primary doctor in the next week. Come back to the emergency room if the skin area gets worse. Specifically a urologist as needed to cut into this area as it is a very sensitive/ specialized area. Patient Language: Belarusian Prescriptions: New clindamycin HCl 300 mg capsule 300 mg PO TID 10 Days Qty: 30 0RF hydrocodone-acetaminophen 5-325 mg tablet 1 tablet PO Q8H PRN (Reason: pain) Qty: 20 0RF No Action insulin lispro [Admelog U-100 Insulin lispro] 100 unit/mL solution See Rx Instructions .ROUTE .COMPLEX Rx Instructions: pt unaware of his sliding scale protocol buspirone 5 mg tablet 5 mg PO TID PRN (Reason: Anxiety) Qty: 30 0RF insulin glargine [Lantus U-100 Insulin] 100 unit/mL solution 40 unit SUBCUT DAILY Qty: 10 0RF sertraline 100 mg tablet 100 mg PO DAILY Qty: 30 0RF pantoprazole [Protonix] 40 mg tablet,delayed release (DR/EC) 40 mg PO BID Qty: 60 0RF (DME) insulin syringe-needle U-100 [BD Insulin Syringe Ultra-Fine] 1 mL 31 gauge x 5/16 syringe MISCELLANEOUS Qty: 60 0RF Rx Instructions: As Directed ondansetron 4 mg tablet,disintegrating 4 mg PO Q6H PRN (Reason: nausea and vomiting) Qty: 20 0RF metoclopramide HCl 10 mg tablet 10 mg PO TID PRN (Reason: Nausea/Vomiting) Qty: 30 0RF Follow-up/Referrals: UNKNOWN,DOCTOR [Primary Care Provider] - Time of Disposition: 18:20
[2025-01-13] MEDS: HYDROcodone/acetaminophen (*CRX) 5-325 MG TABLET 1 TAB PO (18:10)
[2025-01-13] MEDS: CLINDAMYCIN HCL 150 MG CAP 300 MG PO (18:11)
[2025-01-13 18:25] VITALS: BP 142/82; PULSE 85; RESP 16; TEMP 36.6; O2SAT 99
--- OUTSIDE RECORDS SUMMARY | 2025-01-13 18:27 | XMS_ITS | Clinical Summary ---
Author Organization [facility] Address [address] [place] [address] Care Team Providers Care Medical Device Sales Consultant Name Role Phone Mitchel Broussard MD Primary Care Provider [phone] Source Comments [facility],non-owned Affiliates and Associated Physician Practices is amultiple site organization consisting of ambulatory clinics and hospital sitesin [place], [place], [place] and [place]. This disclosure is being madepursuant to the Care Everywhere program and may not contain all information available regarding this patient. Last updated 18.[facility] Allergies No known active allergies Medications * [...] 70 - 125 mg/dL 05/24/2021 6:05 AM [facility] Sodium 138 136 - 145 mmol/L 05/24/2021 6:05 AM [facility] Potassium 4.0 3.4 - 4.5 mmol/L 05/24/2021 6:05 AM [facility] Chloride 102 98 - 107 mmol/L 05/24/2021 6:05 AM [facility] CO2 22 22 - 29 mmol/L 05/24/2021 6:05 AM [facility] Calcium 9.6 8.4 - 10.2 mg/dL 05/24/2021 6:05 AM [facility] Anion Gap 18 10 - 20 mmol/L 05/24/2021 6:05 AM [facility] BUN 16.6 8.4 - 25.7 mg/dL 05/24/2021 6:05 AM [facility] Creatinine 0.88 0.72 - 1.25 mg/dL 05/24/2021 6:05 AM [facility] eGFR by MDRD >60 >60 mL/min/1.7 3m2 05/24/2021 6:05 AM [facility] eGFR by MDRD >60 >60 mL/min/1.7 3m2 05/24/2021 6:05 AM [facility] Alkaline Phosphatase 64 40 - 150 U/L 05/24/2021 6:05 AM [facility] ALT 15 5 - 55 U/L 05/24/2021 6:05 AM [facility] AST 13 5 - 34 U/L 05/24/2021 6:05 AM [facility] Protein Total 7.3 6.4 - 8.3 gm/dL 05/24/2021 6:05 AM [facility] Albumin 4.5 3.5 - 5.0 gm/dL 05/24/2021 6:05 AM [facility] Globulin Total 2.8 2.6 - 4.0 gm/dL 05/24/2021 6:05 AM CDT [facility] Albumin/Globulin Ratio 1.6 0.9 - 1.6 05/24/2021 6:05 AM CDT [facility] Bilirubin Total 0.9 0.2 - 1.2 mg/dL 05/24/2021 6:05 AM CDT [facility] Blood BLOOD SPECIMEN / Unknown Venipuncture / Unknown 05/24/2021 5:30 AM CDT 05/24/2021 5:46 AM CDT Mars Huber MD LAB - CHEMISTRY RAJI NIELSON [facility] Organization Address City/State/[facility] Co de Phone Number [facility] [address] from Last 3 Months or Most Recently Relevant to Health Maintenance Advance Directives * Full Code (Latest Code Status on File) Date Activated Date Inactivated Comments 05/24/2021 9:38 AM 05/24/2021 9:39 PM Care Teams Medical Device Sales Consultant Relationship Specialty Start Date End Date Mitchel Broussard MD [facility] [address] PCP - General Family Medicine 05/23/21
--- OUTSIDE RECORDS SUMMARY | 2025-01-13 18:27 | XMS_ITS | Clinical Summary ---
Author Organization [facility] Address [address] [place] [address] Care Team Providers Care [employer] Name Role Phone Mitchel Broussard MD Primary Care Provider [phone] Allergies Active Allergy Reactions Criticality Noted Date Comments [place] Vomiting High 11/11/2020 Medications insulin glargine 100 UNIT/ML injection (PEN) Inject 42 Units into the skin every morning. Active ADMELOG 100 UNIT/ML injection (VIAL) USE PER SLIDING SCALE 4 TIMES A DAY MAX 60 UNITS DAILY 03/19/2021 Active metoclopramide 10 MG tablet Take 1 tablet (10 mg total) by mouth daily. Active sertraline (ZOLOFT) 100 MG tablet Take 1 tablet (100 mg total) by mouth daily. Active omeprazole (PRILOSEC) 40 MG capsule Take 1 capsule (40 mg total) by mouth daily. Active OLANZapine (ZYPREXA) 10 MG tablet Take 2 tablets (20 mg total) by mouth nightly at bedtime. Active Active Problems Problem Noted Date Diagnosed Date Hyperglycemia due to diabetes mellitus ([facility]) 08/24/2023 Nausea and vomiting 08/23/2023 Family History Medical History Relation Comments No Known Problems Father Cancer Mother Diabetes Mother Hypertension Mother Relation Status Comments Father Mother Social History Tobacco Use Types Packs/Day Years Used Date Smoking Tobacco: Every Day Cigarettes Smokeless Tobacco: Never Tobacco Cessation:Ready to Q uit: Not Asked; Counseling Given: Not Answered Alcohol Use Standard Drinks/Week Comments Yes 0 (1 standard drink = 0.6 oz pur e alcohol) Humiliation, Afraid, Rape, and Kick questionnair e Answer Date Recorded Within the last year, have y ou been afraid of your partner or ex-partner? No 08/23/2023 Within the last year, have y ou been humiliated or emotionally abused in other ways by your partner or ex-partner? No Within the last year, have y ou been kicked, hit, slapped, or otherwise physically hurt by your partner or ex-partner? No 08/23/2023 Within the last year, have y ou been raped or forced to have any kind of sexual activity by your partner or ex-partner? No 08/23/2023 Overall Financial Resource Strain (CARDIA) Answe r Date Recorded How hard is it for you to pa y for the very basics like food, housing, medical care, and heating? Not hard at all 08/23/2023 Hunger Vital Sign Answer Date Recorded Within the past 12 months, y ou worried that your food would run out before you got the money to buy more. Never true 08/23/20 23 Within the past 12 months, t he food you bought just didn't last and you didn't have money to get more. Never true 08/23/2023 PRAPARE - Transportation Answer Date Re corded In the past 12 months, has l ack of transportation kept you from medical appointments or from getting medications? No 11/2022 In the past 12 months, has l ack of transportation kept you from meetings, work, or from getting things needed for daily living? No 08/23/2023 Housing Stability Vital Sign Answer Jalil e Recorded In the last 12 months, was t here a time when you were not able to pay the mortgage or rent on time? No 08/23/2023 In the last 12 months, how many places have you lived? 1 08/23/2023 In the last 12 months, was t here a time when you did not have a steady place to sleep or slept in a penitentiary (including now)? No 08/23/2023 Sex and Gender Information Value Date Recorded Sex Assigned at Not on file Legal Sex Male 12:34 PM [employer] Gender Identity Not on file Sexual Orientation Not on file Last Filed Vital Signs Vital Sign Reading Time Taken Comments Blood Pressure 126/86 12/26/2023 4:05 PM [employer] Pulse 107 12/26/2023 4:05 PM [employer] Temperature 36.2 C (97.1 F) 12/26/2023 1:57 PM [employer] Respiratory Rate 18 12/26/2023 4:05 PM [employer] Oxygen Saturation 98% 12/26/2023 4:05 PM [employer] Inhaled Oxygen Concentration - - Weight 77.1 kg (170 lb) 12/26/2023 1:57 PM [employer] Height 177.8 cm (5' 10 ) 12/26/2023 1:57 PM [employer] Body Mass Index 24.39 12/26/2023 1:57 PM [employer] Plan of Treatment Health Maintenance Due Date Last Done Comments Kidney Health Evaluation 1985 Annual Physical 1988 Pneumococcal Vaccine: Pediatrics (0 to 5 Years) and At-Risk Patients (6 to 64 Years) (1 of 2 - PCV) 1991 Diabetes: Retinopathy Eye Exam 2003 DTaP, Tdap and Td Vaccines (1 - Tdap) 2004 Hepatitis B Vaccines (1 of 3 - 19+ 3-dose series) 2004 Hemoglobin A1C 11/24/2023 08/24/2023, 0811/2019, 11/30/2019, Additional history exists COVID-19 Vaccine ( season) 2024 2021, 03/12/2021 Influenza Adult (#1) 2024 08/11/2020, 09/10/20 18 Lipid Panel 08/25/2024 08/25/2023, 07/23/2020 Hepatitis C Completed 12/29/2017 HPV Vaccines Aged Out No longer eligi ble based on patient's age to complete this topic Meningococcal B Vaccine Aged Out No l onger eligible based on patient's age to complete this topic Meningococcal Vaccine Aged Out No carlo estefani eligible based on patient's age to complete this topic RSV Immunizations Under 20 Months Aged Out No longer eligible based on patient's age to complete this topic Procedures Procedure Name Priority Date/Time Associated Diagnosis Comments LIPID PANEL Routine 08/25/2023 5:01 AM CDT HEMOGLOBIN, GLYCOSYLATED Routine 08/24/2023 5:00 AM CDT HEPATITIS PANEL,ACUTE TIMED 12/29/2017 6:15 AM MANAGER [employer] from Last 3 Months or Most Recently Relevant to Health Maintenance Results * (ABNORMAL) LIPID PANEL (08/25/2023 5:01 AM CDT) CHOLESTEROL 196 <200 MG/DL 08/25/2023 6:05 AM CDT [facility] Comment: THE NATIONAL LIPID ASSOCIATION AND THE NATIONAL CHOLESTEROL EDUCATION PROGRAM (NCEP) HAVE SET THE FOLLOWING GUIDELINES FOR TOTAL CHOLESTEROL IN ADULTS AGES 18 AND UP. DESIRABLE: <200 BORDERLINE HIGH: 200-239 HIGH: > OR = 240 TRIGLYCERIDES 113 <150 MG/DL 08/25/2023 6:05 AM CDT [facility] Comment: THE NATIONAL LIPID ASSOCIATION AND THE NATIONAL CHOLESTEROL EDUCATION PROGAM (NCEP) HAVE SET THE FOLLOWING GUIDELINES FOR TRIGLYCERIDES IN ADULTS AGES 18 AND UP. NORMAL: <150 BORDERLINE HIGH: 150 TO 199 HIGH: 200 TO 499 VERY HIGH: >499 HDL 36(L) >39 MG/DL 08/25/2023 6:05 AM CDT [facility] Comment: THE NATIONAL LIPID ASSOCIATION AND THE NATIONAL CHOLESTEROL EDUCATION PROGAM (NCEP) HAVE SET THE FOLLOWING GUIDELINES FOR HDL CHOLESTEROL IN ADULTS AGES 18 AND UP. MALES: >39 FEMALES: >49 LDL-C 137(H) <100 MG/DL 08/25/2023 6:05 AM T [facility] Comment: THE NATIONAL LIPID ASSOCIATION AND THE NATIONAL CHOLESTEROL EDUCATION PROGAM (NCEP) HAVE SET THE FOLLOWING GUIDELINES FOR LDL CHOLESTEROL IN ADULTS AGES 18 AND UP. DESIRABLE: <100 ABOVE DESIRABLE: 100 TO 129 BORDERLINE HIGH: 130 TO 159 HIGH: 160 TO 189 VERY HIGH: >189 VLDL CALCULATION 23 MG/DL 08/25/20 23 6:05 AM CDT [facility] Comment:REFERENCE RANGE NOT ESTABLISHED CHOL/HDL RATIO 5.4 08/25/2023 6:05 AM T [facility] Comment:REFERENCE RANGE NOT ESTABLISHED LDL/HDL 3.8 08/25/2023 6:05 AM T [facility] Comment:REFERENCE RANGE NOT ESTABLISHED NON HDL CHOLESTEROL 160 MG/DL 08/25/2023 6:05 AM T [facility] Comment:REFERENCE RANGE NOT ESTABLISHED 08/25/2023 5:01 AM CDT Janki Pruitt NP LABORATORY Final Result Performing Organization Address [facility]/ZIP Co de Phone Number [facility] [address] [place] [phone], * (ABNORMAL) HEMOGLOBIN, GLYCOSYLATED (08/24/2023 5:00 AM CDT) HGB A1C 10.3(H) <5.7 % 08/24/2023 5:32 AM CDT [facility] Comment: 5.7 TO 6.4% INCREASED RISK OF DIABETES > OR = 6.5% CONSISTENT WITH DIABETES PER ADA GUIDELINES ESTIMATED AVG GLUCOSE 249(H) 70 - 140 MG/DL 08/24/2023 5:32 AM CDT [facility] 08/24/2023 5:00 AM CDT Juan Luis Bonilla MD LABORATORY Final Result Performing Organization Address [facility] Co de Phone Number [facility] [address] [place] [phone], * HEPATITIS PANEL,ACUTE (12/29/2017 6:15 AM MANAGER INTER[employer]) HAV IGM NON-REACTI VE NON-REACTI VE 12/30/2017 5:18 PM MANAGER INTERNET [facility] Comment: TESTING PERFORMED [address] [address] HEPATITIS B SURFACE AG NON-REACTI VE NON-REACTI VE 12/30/2017 5:18 PM MANAGER INTERNET [facility] Comment: TESTING PERFORMED [address] [address] HEP B CORE IGM NON-REACTI VE NON-REACTI VE 12/30/2017 5:18 PM MANAGER INTERNET [facility] Comment: TESTING PERFORMED [address] [address] HEPATITIS C AB NON-REACTI VE NON-REACTI VE 12/30/2017 5:18 PM MANAGER INTERNET [facility] Comment: TESTING PERFORMED [facility] [place] [address] 12/29/2017 6:15 AM MANAGER INTERNET 12/29/2017 6:26 PM MANAGER INTERNET us Generic Conversion Md [facility] Final R esult [facility] [address] [place] [address], [place] [phone] from Last 3 Months or Most Recently Relevant to Health Maintenance Insurance MEDICAID MEDICARE MEDICAID Advance Directives Documents on File Type Date Recorded Patient Door To Door Lead Generation Expl anation Advance Directives and Living Will 03/09/2018 12:00 AM ADVANCED DIRECTIVES Advance Directives and Living Will 03/04/2015 12:00 AM ADVANCED DIRECTIVES Advance Directives and Living Will 03/04/2015 12:00 AM ADVANCED DIRECTIVES Advance Directives and Living Will 03/04/2015 12:00 AM ADVANCED DIRECTIVES Advance Directives and Living Will 01/25/2015 12:00 AM ADVANCED DIRECTIVES Advance Directives and Living Will 01/25/2015 12:00 AM ADVANCED DIRECTIVES Advance Directives and Living Will 01/25/2015 12:00 AM ADVANCED DIRECTIVES Advance Directives and Living Will 01/23/2015 12:00 AM ADVANCED DIRECTIVES Advance Directives and Living Will 01/23/2015 12:00 AM ADVANCED DIRECTIVES Advance Directives and Living Will 01/23/2015 12:00 AM ADVANCED DIRECTIVES Advance Directives and Living Will 01/22/2015 12:00 AM ADVANCED DIRECTIVES Advance Directives and Living Will 01/22/2015 12:00 AM ADVANCED DIRECTIVES Advance Directives and Living Will 01/22/2015 12:00 AM ADVANCED DIRECTIVES Advance Directives and Living Will 07/31/2014 12:00 AM ADVANCED DIRECTIVES Advance Directives and Living Will 07/31/2014 12:00 AM ADVANCED DIRECTIVES Advance Directives and Living Will 07/31/2014 12:00 AM ADVANCED DIRECTIVES Advance Directives and Living Will 05/03/2014 12:00 AM ADVANCED DIRECTIVES Advance Directives and Living Will 05/03/2014 12:00 AM ADVANCED DIRECTIVES Advance Directives and Living Will 05/03/2014 12:00 AM ADVANCED DIRECTIVES Advance Directives and Living Will 04/04/2014 12:00 AM ADVANCED DIRECTIVES Advance Directives and Living Will 04/04/2014 12:00 AM ADVANCED DIRECTIVES Advance Directives and Living Will 04/04/2014 12:00 AM ADVANCED DIRECTIVES Advance Directives and Living Will 01/05/2014 12:00 AM ADVANCED DIRECTIVES Advance Directives and Living Will 01/05/2014 12:00 AM ADVANCED DIRECTIVES Advance Directives and Living Will 01/05/2014 12:00 AM ADVANCED DIRECTIVES Advance Directives and Living Will 01/05/2014 12:00 AM ADVANCED DIRECTIVES Advance Directives and Living Will 01/05/2014 12:00 AM ADVANCED DIRECTIVES Advance Directives and Living Will 01/05/2014 12:00 AM ADVANCED DIRECTIVES Advance Directives and Living Will 01/05/2014 12:00 AM ADVANCED DIRECTIVES Advance Directives and Living Will 01/03/2014 12:00 AM ADVANCED DIRECTIVES Advance Directives and Living Will 05/15/2013 12:00 AM ADVANCED DIRECTIVES Advance Directives and Living Will 05/15/2013 12:00 AM ADVANCED DIRECTIVES Advance Directives and Living Will 05/14/2013 12:00 AM ADVANCED DIRECTIVES Advance Directives and Living Will 09/17/2012 12:00 AM ADVANCED DIRECTIVES Advance Directives and Living Will 09/15/2012 12:00 AM ADVANCED DIRECTIVES Advance Directives and Living Will 08/22/2012 12:00 AM ADVANCED DIRECTIVES Advance Directives and Living Will 08/21/2012 12:00 AM ADVANCED DIRECTIVES Advance Directives and Living Will 08/20/2012 12:00 AM ADVANCED DIRECTIVES Advance Directives and Living Will 08/20/2012 12:00 AM ADVANCED DIRECTIVES Advance Directives and Living Will 07/25/2012 12:00 AM ADVANCED DIRECTIVES * Full Code (Latest Code Status on File) Date Activated Date Inactivated Comments 08/23/2023 5:41 PM 08/25/2023 12:58 PM Care Teams [employer] Relationship Specialty Start Date End Date Mitchel Broussard MD [facility] [place] [address] PCP - General FAMILY PRACTICE 05/25/21
--- OUTSIDE RECORDS SUMMARY | 2025-01-13 18:27 | XMS_ITS | Patient Health Summary ---
Author Organization [facility] Address [address] [facility] [place] [address] Care Team Providers Care Supply Chain Logistics Manager Name Role Phone Mitchel Broussard MD Primary Care Provider [phone] Note from [facility],non-owned Affiliates and Associated Physician Practices is amultiple site organization consisting of ambulatory clinics and hospital sitesin [place], [place], [place] and [place]. This disclosure is being madepursuant to the Care Everywhere program and may not contain all information available regarding this patient. Last updated 18.[facility] Allergies No known active allergies Medications * [...] - 125 mg/dL 05/24/2021 6:11 PM CDT [facility] Specimen Type Cap Fingerstick 2020 6:11 PM CDT [facility] Blood BLOOD SPECIMEN / Unknown 05/24/2021 6:09 PM CDT 05/24/2021 6:11 PM CDT Santino Reyes MD LAB - POINT OF CARE ORDERABLES [facility] [address] * GLUCOSE (05/24/2021 6:08 PM CDT) Glucose 101 70 - 125 mg/dL 05/24/2021 6:25 PM CDT [facility] Blood BLOOD SPECIMEN / Unknown Lab Venipuncture / Unknown 05/24/2021 6:08 PM CDT 05/24/2021 6:11 PM CDT Santino Reyes MD LAB - CHEMISTRY ORDERABLES [facility] [address] * (ABNORMAL) HYDROXYBUTYRATE BETA (05/24/2021 8:57 AM CDT) Beta-Hydroxybuty rate 30.4(H) 0.0 - 3.0 mg/dL 05/26/2021 4:53 PM CDT [facility] ([facility]) Comment: Performed By: [employer] [address] [place] [address] Sack Lifter: Anuja West MD Blood BLOOD SPECIMEN / Unknown Venipuncture / Unknown 05/24/2021 8:57 AM CDT 05/24/2021 9:01 AM CDT Kendra Hutchison MD LAB - CHEMISTRY MARIPOSAE NISREEN Performing Organization Address [facility]/ZIP Co de Phone Number [facility] ([facility]) [address] * (ABNORMAL) BLOOD GASES MIGEL (05/24/2021 8:57 AM CDT) Pathologist [facility] pH Venous 7.40 7.32 - 7.42 pH 05/24/2021 9:07 AM CDT [facility] pCO2 Venous 39(L) 41 - 51 mm hg 05/24/2021 9:07 AM T [facility] pO2 Venous 157(H) 25 - 40 mm hg 05/24/2021 9:07 AM T [facility] HCO3 Venous 23(L) 24 - 28 mmol/L 05/24/2021 9:07 AM T [facility] BE Venous -1.2 -2.0 - 2.0 mmol/L 05/24/2021 9:07 AM T [facility] O2 Saturation Venous 99(H) 60 - 85 % 05/24/2021 9:07 AM T [facility] TCO2 Venous 25 25 - 29 mmol/L 05/24/2021 9:07 AM T [facility] Oxyhemoglobin Venous 97 % 12/2020 9:07 AM T [facility] Hemoglobin Venous 16.6 12.0 - 18.0 gm/dL 05/24/2021 9:07 AM CDT [facility] Carboxyhemoglobin Venous 1.7(H) 0.5 - 1.5 % 05/24/2021 9:07 AM CDT [facility] Methemoglobin Venous 0.4 0 - 1.5 % 05/24/2021 9:07 AM CDT [facility] Sample Type Arterial 05/24/2021 9:07 AM CDT [facility] Blood BLOOD SPECIMEN / Unknown Venipuncture / Unknown 05/24/2021 8:57 AM CDT 05/24/2021 9:01 AM CDT Kendra Hutchison MD LAB - BLOOD GASES OR DERABLES Performing Organization Address [facility] Co de Phone Number [facility] [address] * (ABNORMAL) DRUG ABUSE URINE SCREEN 10 (05/24/2021 7:02 AM CDT) [facility] Amphetamines Screen Urine Negative Negative 05/24/2021 7:22 AM CDT [facility] Barbiturates Screen Urine Negative Negative 05/24/2021 7:22 AM CDT [facility] Benzodiazepines Screen Urine Negative Negative 05/24/2021 7:22 AM CDT [facility] Cannabinoids Screen Urine Positive(A) Negative 05/24/2021 7:22 AM CDT [facility] Cocaine Screen Urine Negative Negative 05/24/2021 7:22 AM CDT [facility] Methadone Screen Urine Negative Negative 05/24/2021 7:22 AM CDT [facility] Opiate Screen Urine Negative Negative 05/24/2021 7:22 AM CDT [facility] Phencyclidine Screen Urine Negative Negative 05/24/2021 7:22 AM CDT [facility] Tricyclics Screen Urine Negative Negative 05/24/2021 7:22 AM CDT [facility] Methamphetamine Screen Urine Negative Negative 05/24/2021 7:22 AM CDT [facility] Buprenorphine Screen Urine Negative Negative 05/24/2021 7:22 AM CDT [facility] Oxycodone Screen Urine Negative Negative 05/24/2021 7:22 AM CDT [facility] Propoxyphene Screen Urine Negative Negative 05/24/2021 7:22 AM CDT [facility] Urine URINE / Unknown Collection / Unknown 05/24/2021 7:02 AM CDT 05/24/2021 7:08 AM CDT Narrative [facility] - 05/24/2021 7:22 AM CDT This [...] URINE CHEMISTR Y ORDERABLES Performing Organization Address City/State/[facility] Co de Phone Number [facility] [address] * URINE MICROSCOPIC ONLY REFLEX TO CULTURE (05/24/2021 7:02 AM CDT) Pathologist [facility] Reflex Status Culture not indicated 05/24/2021 7:18 AM CDT [facility] RBC UA 3-5 None Seen, 0-2, 3-5 # /hpf 05/24/2021 7:18 AM CDT [facility] WBC UA 0-5 None Seen, 0-5 # /hpf 05/24/2021 7:18 AM CDT [facility] Bacteria UA None Seen None Seen 05/24/2021 7:18 AM CDT [facility] Squamous Epithelial Cells None Seen None Seen, 0-2, 3-5 /hpf 05/24/2021 7:18 AM CDT [facility] Mucus UA 1+ /LPF 05/24/2021 7:18 AM CDT [facility] Urine URINE SPECIMEN OBTAINED BY CLEAN CATCH PROCEDURE / Unknown Collection / Unknown 05/24/2021 7:02 AM CDT 05/24/2021 7:08 AM CDT Narrative [facility] - 05/24/2021 7:18 AM CDT Mars Huber MD LAB - URINALYSIS ORD ERABLES Performing Organization Address City/State/[facility] Co de Phone Number [facility] [address] * (ABNORMAL) URINALYSIS REFLEX MICROSCOPIC REFLEX CULTURE (05/24/2021 7:02 AM CDT) Only the most recent of2 resultswithin the time period is included. Color UA Yellow Straw, Yellow 05/24/2021 7:17 AM CDT [facility] Clarity UA Clear Clear 05/24/2021 7:17 AM T [facility] Glucose UA 3+(A) Negative 05/24/2021 7:17 AM T [facility] Bilirubin UA Negative Negative 05/24/2021 7:17 AM T [facility] Ketone UA 2+(A) Negative 05/24/2021 7:17 AM T [facility] Specific Sidney UA 1.027 1.005 - 1.030 05/24/2021 7:17 AM T [facility] Blood UA Negative Negative 05/24/2021 7:17 AM CDT [facility] pH UA 5.0 5.0 - 8.0 pH 05/24/2021 7:17 AM T [facility] Protein UA 1+(A) Negative 05/24/2021 7:17 AM T [facility] Urobilinogen UA Negative Negative mg/dL 05/24/2021 7:17 AM T [facility] Nitrite UA Negative Negative 05/24/2021 7:17 AM CDT [facility] Leukocyte UA Negative Negative 05/24/2021 7:17 AM T [facility] Urine Microscopy Urine microscopy to follow 05/24/2021 7:17 AM CDT [facility] Urine URINE SPECIMEN OBTAINED BY CLEAN CATCH PROCEDURE / Unknown Collection / Unknown 05/24/2021 7:02 AM CDT 05/24/2021 7:08 AM CDT Narrative [facility] - 05/24/2021 7:17 AM CDT Ascorbic Acid can cause false negative urine strip tests for blood, glucose, nitrite, and bilirubin. Mars Huber MD LAB - URINALYSIS ORD ERABLES Performing Organization Address [facility]/ZIP Co de Phone Number [facility] [address] * CULTURE BLOOD (05/24/2021 5:46 AM CDT) [facility] Culture No growth day 5 AHSAN 05/29/2021 11:59 AM CDT [facility] Blood PERIPHERAL BLOOD / Unknown Venipuncture / Unknown 05/24/2021 5:46 AM CDT 05/24/2021 5:52 AM CDT Mars Huber MD LAB - MICROBIOLOGY O RDERABLES Performing Organization Address [facility] Co de Phone Number [facility] [address] [place] [address] * (ABNORMAL) CBC W AUTO DIFFERENTIAL (05/24/2021 5:30 AM CDT) Only the most recent of2 resultswithin the time period is included. [facility] WBC 9.2 4.0 - 10.0 x10E9/L 05/24/2021 5:50 AM CDT [facility] RBC 5.04 4.40 - 6.10 x10E12/L 05/24/2021 5:50 AM CDT [facility] Hemoglobin 15.9 13.7 - 17.5 gm/dL 05/24/2021 5:50 AM CDT [facility] Hematocrit 45.4 40.1 - 51.0 % 05/24/2021 5:50 AM CDT [facility] MCV 90.1 78.0 - 100.0 fl 05/24/2021 5:50 AM CDT [facility] MCH 31.5 25.6 - 34.0 pg 05/24/2021 5:50 AM CDT [facility] MCHC 35.0 32.3 - 36.5 gm/dL 05/24/2021 5:50 AM CDT [facility] RDW 13.6 11.6 - 14.4 % 05/24/2021 5:50 AM CDT [facility] MPV 12.4 9.4 - 12.4 fl 05/24/2021 5:50 AM CDT [facility] Platelet Count 156(L) 163 - 369 x10E9/L 05/24/2021 5:50 AM CDT [facility] Neutrophils % 85.3(H) 40.0 - 75.0 % 05/24/2021 5:50 AM CDT [facility] Lymphocytes % 9.9(L) 19.3 - 53.1 % 05/24/2021 5:50 AM T [facility] Monocytes % 4.7 4.7 - 12.5 % 05/24/2021 5:50 AM T [facility] Eosinophils % 0.0(L) 0.7 - 7.0 % 05/24/2021 5:50 AM T [facility] Basophils % 0.1 0.1 - 1.2 % 05/24/2021 5:50 AM CDT [facility] Neutrophil Absolute 7.88(H) 1.56 - 6.13 x10E9/L 05/24/2021 5:50 AM CDT [facility] Lymphocytes Absolute 0.91(L) 1.18 - 3.74 x10E9/L 05/24/2021 5:50 AM T [facility] Monocytes Absolute 0.43 0.24 - 0.86 x10E9/L 05/24/2021 5:50 AM T [facility] Eosinophils Absolute 0.00(L) 0.04 - 0.54 x10E9/L 05/24/2021 5:50 AM T [facility] Basophils Absolute 0.01 0.01 - 0.08 x10E9/L 05/24/2021 5:50 AM T [facility] Blood BLOOD SPECIMEN / Unknown Venipuncture / Unknown 05/24/2021 5:30 AM CDT 05/24/2021 5:46 AM CDT Mars Huber MD LAB - HEMATOLOGY ORD ERABLES [facility] [address] * (ABNORMAL) COMPREHENSIVE METABOLIC PANEL (05/24/2021 5:30 AM [facility]) Only the most recent of2 resultswithin the time period is included. Glucose 243(H) 70 - 125 mg/dL 05/24/2021 6:05 AM [facility] Sodium 138 136 - 145 mmol/L 05/24/2021 6:05 AM [facility] Potassium 4.0 3.4 - 4.5 mmol/L 05/24/2021 6:05 AM [facility] Chloride 102 98 - 107 mmol/L 05/24/2021 6:05 AM [facility] CO2 22 22 - 29 mmol/L 05/24/2021 6:05 AM [facility] Calcium 9.6 8.4 - 10.2 mg/dL 05/24/2021 6:05 AM [facility] Anion Gap 18 10 - 20 mmol/L 05/24/2021 6:05 AM [facility] BUN 16.6 8.4 - 25.7 mg/dL 05/24/2021 6:05 AM [facility] Creatinine 0.88 0.72 - 1.25 mg/dL 05/24/2021 6:05 AM [facility] eGFR by MDRD >60 >60 mL/min/1.7 3m2 05/24/2021 6:05 AM [facility] eGFR by MDRD >60 >60 mL/min/1.7 3m2 05/24/2021 6:05 AM [facility] Alkaline Phosphatase 64 40 - 150 U/L 05/24/2021 6:05 AM [facility] ALT 15 5 - 55 U/L 05/24/2021 6:05 AM [facility] AST 13 5 - 34 U/L 05/24/2021 6:05 AM [facility] Protein Total 7.3 6.4 - 8.3 gm/dL 05/24/2021 6:05 AM [facility] Albumin 4.5 3.5 - 5.0 gm/dL 05/24/2021 6:05 AM [facility] Globulin Total 2.8 2.6 - 4.0 gm/dL 05/24/2021 6:05 AM CDT [facility] Albumin/Globulin Ratio 1.6 0.9 - 1.6 05/24/2021 6:05 AM CDT [facility] Bilirubin Total 0.9 0.2 - 1.2 mg/dL 05/24/2021 6:05 AM CDT [facility] Blood BLOOD SPECIMEN / Unknown Venipuncture / Unknown 05/24/2021 5:30 AM CDT 05/24/2021 5:46 AM CDT Mars Huber MD LAB - CHEMISTRY RAJI NIELSON Performing Organization Address [facility] Co de Phone Number [facility] [address] [place] [address] * (ABNORMAL) LIPASE BLOOD (05/24/2021 5:30 AM CDT) Only the most recent of2 resultswithin the time period is included. Lipase 6(L) 8 - 78 U/L 05/24/2021 6:19 AM CDT [facility] Blood BLOOD SPECIMEN / Unknown Venipuncture / Unknown 05/24/2021 5:30 AM CDT 05/24/2021 5:46 AM CDT Mars Huber MD LAB - CHEMISTRY RAJI NIELSON Performing Organization Address [facility] Co de Phone Number [facility] [address] [place] [address] * ALCOHOL ETHYL BLOOD (05/24/2021 5:30 AM CDT) Ethanol <10.0 <10 mg/dL 05/24/2021 6:0 6 AM CDT [facility] Blood BLOOD SPECIMEN / Unknown Venipuncture / Unknown 05/24/2021 5:30 AM CDT 05/24/2021 5:46 AM CDT Narrative [facility] - 05/24/2021 6:06 AM CDT For Medical Use Only Mars Huber MD LAB - CHEMISTRY RAJI NIELSON Performing Organization Address City/[facility] Co de Phone Number [facility] [address] [place] [address] * (ABNORMAL) SALICYLATE LEVEL BLOOD (05/24/2021 5:30 AM CDT) Salicylate <5.0(L) 15.0 - 30.0 mg/dL 05/24/2021 6:06 AM CDT [facility] Blood BLOOD SPECIMEN / Unknown Venipuncture / Unknown 05/24/2021 5:30 AM CDT 05/24/2021 5:46 AM CDT Mars Huber MD LAB - CHEMISTRY RAJI NIELSON Performing Organization Address [facility] Co de Phone Number [facility] [address] [place] [address] * (ABNORMAL) ACETAMINOPHEN LEVEL (05/24/2021 5:30 AM CDT) Acetaminophen <0.6(L) 10.0 - 30.0 ug/mL 05/24/2021 6:06 AM CDT [facility] Blood BLOOD SPECIMEN / Unknown Venipuncture / Unknown 05/24/2021 5:30 AM CDT 05/24/2021 5:46 AM CDT Narrative [facility] - 05/24/2021 6:06 AM CDT Significantly reduced Acetaminophen recovery has been demonstrated in situations where testing has been performed immediately after introduction of N- acetylcysteine (NAC). Mars Huber MD LAB - CHEMISTRY RAJI NIELSON Performing Organization Address [facility] Co de Phone Number [facility] [address] [place] [address] * CT ABDOMEN AND PELVIS WITH IV [...] on 05/23/2021 at 1:11 PM Alexandrea Herron [facility] ORDERABLES * AMYLASE BLOOD (05/23/2021 11:52 AM CDT) [facility] Amylase 62 25 - 125 U/L 05/23/2021 12:24 PM CDT [facility] Blood BLOOD SPECIMEN / Unknown Venipuncture / Unknown 05/23/2021 11:52 AM CDT 05/23/2021 11:56 AM CDT Alexandreachelsie Herron [facility] LAB - CHEMISTRY ORDERABLES [address] * (ABNORMAL) GLUCOSE ACCUCHECK (10/29/2017 2:46 PM TILE DITCHER) Only the most recent of2 resultswithin the time period is included. [facility] Glucose, Fingerstick 201(H) 70-115mg/d L mg/dL [facility] ([place]) Comment:Geospatial Imagery Intelligence Analyst: MONIQUEGAYLE RUIZ 10/29/2017 2:46 PM TILE DITCHER Eamon Weir MD LAB - CHEMISTRY RAJI NIELSON [facility] ([facility]) * CULTURE FUNGUS OTHER+FUNGUS SMEAR (10/29/2017 1:56 PM TILE DITCHER) Only the most recent of2 resultswithin the time period is included. [facility] Culture Fungus-Other No Growth Fungi. [facility] Cornea CORNEAL PART / Unknown 10/29/2017 1:56 PM TILE DITCHER 10/29/2017 6:27 PM TILE DITCHER Narrative [facility] - 11/24/2017 5:53 AM TILE DITCHER DONOR RING Specimen Type->Cornea Resulting Lab: [facility] [address] [place] [address] PH: [phone] Resulting Lab: [facility] [address] [place] [address] PH: [phone] Resulting Lab: [facility] [address] [place] [address] PH: [phone] Resulting Lab: [facility] [address] [place] [address] PH: [phone] Resulting Lab: [facility] [address] [place] [address] PH: [phone] Resulting Lab: [facility] [address] [place] [place] [address] PH: [phone] Eamon Weir MD LAB - MICROBIOLOGY O RDERABLES [address] [phone] * PATHOLOGY TISSUE (10/29/2017 1:51 PM TILE DITCHER) Surgical Pathology Tissue ACCESSION No: [id number] CLINICAL HISTORY: Marginal corneal ulcer. FINAL DIAGNOSIS: [...] were determined by the Histopathology Laboratory of [facility]. Some of these tests were developed by [...] by Mi Reyez M.D. Electronically signed 11/02/2017 [facility] ([facility]) Resection without Tumor CORNEAL PART / Unknown 10/29/2017 1:51 PM TILE DITCHER 10/30/2017 8:31 AM TILE DITCHER Narrative [facility] ([facility]) - 11/03/2017 4:18 AM TILE DITCHER Pre-op diagnosis: MARGINAL CORNEAL ULCER Eamon Weir MD LAB - PATHOLOGY/CYTO LOGY ORDERABLES Performing Organization Address [facility] de Phone Number [facility] ([facility]) [address] [phone] * (ABNORMAL) CULTURE AEROBIC (10/18/2017 1:45 PM TILE DITCHER) Culture Aerobic ASPERGILLUS SPECIES(A) [facility] Comment:Moderate Growth Aspe rgillus Species Gram Stain No Organism Seen [facility] Lesion 10/18/2017 1:45 PM TILE DITCHER 10/18/2017 2:36 PM TILE DITCHER Narrative [facility] - 10/20/2017 9:32 AM TILE DITCHER Right cornea Specimen Type->Lesion Resulting Lab: [facility] [address] [place] [address] PH: [phone] Ivy Joseph MD LAB - [place] [address], [facility] [phone] Care Teams Supply Chain Logistics Manager Relationship Specialty Start Date End Date Mitchel Broussard MD [facility] [place] [address] PCP - General Family Medicine 05/23/21
--- OUTSIDE RECORDS SUMMARY | 2025-01-13 18:27 | XMS_ITS | Referral Summary ---
Author Organization [facility] Information Address [address] [facility] [place] [address] Care Team Providers Care Associate Professor Of Criminal Justice Name Role Phone Mitchel Broussard MD Primary Care Provider [phone] Source Comments [facility] Information,non-owned Affiliates and Associated Physician Practices is amultiple site organization consisting of ambulatory clinics and hospital sitesin [place] and [place]. This disclosure is being madepursuant to the Care Everywhere program and may not contain all information available regarding this patient. Last updated 18.[facility] Information Allergies No known active allergies Medications * [...] COMPREHENSIVE METABOLIC PANEL (05/24/2021 5:30 AM CDT) [facility] Glucose 243(H) 70 - 125 mg/dL 05/24/2021 6:05 AM CDT [facility] Sodium 138 136 - 145 mmol/L 05/24/2021 6:05 AM CDT [facility] Potassium 4.0 3.4 - 4.5 mmol/L 05/24/2021 6:05 AM CDT [facility] Chloride 102 98 - 107 mmol/L 05/24/2021 6:05 AM [facility] CO2 22 22 - 29 mmol/L 05/24/2021 6:05 AM [facility] Calcium 9.6 8.4 - 10.2 mg/dL 05/24/2021 6:05 AM [facility] Anion Gap 18 10 - 20 mmol/L 05/24/2021 6:05 AM [facility] BUN 16.6 8.4 - 25.7 mg/dL 05/24/2021 6:05 AM [facility] Creatinine 0.88 0.72 - 1.25 mg/dL 05/24/2021 6:05 AM [facility] eGFR by MDRD >60 >60 mL/min/1.7 3m2 05/24/2021 6:05 AM [facility] eGFR by MDRD >60 >60 mL/min/1.7 3m2 05/24/2021 6:05 AM [facility] Alkaline Phosphatase 64 40 - 150 U/L 05/24/2021 6:05 AM [facility] ALT 15 5 - 55 U/L 05/24/2021 6:05 AM [facility] AST 13 5 - 34 U/L 05/24/2021 6:05 AM [facility] Protein Total 7.3 6.4 - 8.3 gm/dL 05/24/2021 6:05 AM [facility] Albumin 4.5 3.5 - 5.0 gm/dL 05/24/2021 6:05 AM [facility] Globulin Total 2.8 2.6 - 4.0 gm/dL 05/24/2021 6:05 AM [facility] Albumin/Globulin Ratio 1.6 0.9 - 1.6 05/24/2021 6:05 AM [facility] Bilirubin Total 0.9 0.2 - 1.2 mg/dL 05/24/2021 6:05 AM [facility] Blood BLOOD SPECIMEN / Unknown Venipuncture / Unknown 05/24/2021 5:30 AM CDT 05/24/2021 5:46 AM T Mars Huber MD LAB - CHEMISTRY RAJI NIELSON [facility] Organization Address City/State/[facility] Co de Phone Number [facility] [address] [place] [address], [facility] from Last 3 Months or Most Recently Relevant to Health Maintenance Advance Directives * Full Code (Latest Code Status on File) Date Activated Date Inactivated Comments 05/24/2021 9:38 AM 05/24/2021 9:39 PM Care Teams Associate Professor Of Criminal Justice Relationship Specialty Start Date End Date Mitchel Broussard MD [address] [place] [id number] PCP - General Family Medicine 05/23/21
== END 2025-01-13 18:25 | disposition home or self-care (01) ==
LOC: CHSED 18:24
PROVIDERS: Emergency Provider Emergency Medicine
DX: N48.21 Abscess of corpus cavernosum and penis (principal); S76.219A Strain of adductor muscle, fascia and tendon of unspecified thigh, initial encounter; E11.9 Type 2 diabetes mellitus without complications; F17.210 Nicotine dependence, cigarettes, uncomplicated; X58.XXXA Exposure to other specified factors, initial encounter
CPT/HCPCS: 99283; A9270

== ENCOUNTER 2025-04-25 16:33 | Emergency (ER) | payer MEDICARE, MEDICAID, SELFPAY ==
[2025-04-25 16:33] VITALS: BP 148/94; PULSE 99; RESP 18; TEMP 36.4; O2SAT 97
--- OUTSIDE RECORDS SUMMARY | 2025-04-25 16:38 | XMS_ITS | Clinical Summary ---
Author Organization [facility] Address [address] [place] [address] Care Team Providers Care Zipper Cutter Name Role Phone Mitchel Broussard MD Primary Care Provider [phone] Source Comments [facility]non-owned Affiliates and Associated Physician Practices is amultiple site organization consisting of ambulatory clinics and hospital sitesin [place], [place], [place] and [place]. This disclosure is being madepursuant to the Care Everywhere program and may not contain all information available regarding this patient. Last updated 18.[facility] Allergies No known active allergies Medications * Be aware that medications may not be up to date on this document. Alwaysverify current medications with the patient. insulin glargine (LANTUS) pen Inject 40 Units [...] at Not on file Legal Sex Male 6:26 PM [employer]SET [employer] Gender Identity Not on file Sexual Orientation [...] 5:13 AM CDT Height 180.3 cm (5' 11) 05/24/2021 5:13 AM CDT Body Mass Index 25.1 05/24/2021 5:13 AM CDT Plan of Treatment Health Maintenance Due Date Last Done Comments HIV SCREENING 2000 HEPATITIS C SCREENING 04/05/2003 DTAP/TDAP/TD VACCINES (1 - Tdap) 2004 HEPATITIS B VACCINE (1 of 3 - 19+ 3-dose series) 2004 PNEUMOCOCCAL VACCINE (1 of 2 - PCV) 2004 DIABETES-FOOT EXAM WITH MONOFILAMENT 05/24/2021 DIABETES-HGB A1C 05/24/2021 11/07/2018 DIABETES-SERUM CREATININE 05/24/20222020, 05/23/2021, 11/11/2020, Additional history exists COVID-19 VACCINE (1 - 2023- season) 2024 DEPRESSION SCREENING 11/23/2024 DIABETES - URINE PROTEIN SCREENING 11/23/2024 DIABETES-STATIN 2025 INFLUENZA VACCINE (Season Ended) 2025 ZOSTER VACCINE (1 of 2) 2035 HIB VACCINE Aged Out No longer eligi ble based on patient's age to complete this topic HPV VACCINE Aged Out No longer eligi ble based on patient's age to complete this topic MENINGOCOCCAL (Group B) VACCINE SHARED DECISION-MAKING Aged Out No longer eligible based on patient's age to complete this topic MENINGOCOCCAL GROUPS A/C/Y/W VACCINE Aged Out No longer eligible based on patient's age to complete this topic Procedures Procedure Name Priority Date/Time Associated Diagnosis Comments COMPREHENSIVE METABOLIC PANEL STAT 05/24/2021 5:30 AM CDT from Last 3 Months or Most Recently Relevant to Health Maintenance Results * (ABNORMAL) COMPREHENSIVE METABOLIC PANEL (05/24/2021 5:30 AM CDT) Glucose 243(H) 70 - 125 mg/dL 05/24/2021 6:05 AM T [facility] Sodium 138 136 - 145 mmol/L 05/24/2021 6:05 AM [facility] Potassium 4.0 3.4 - 4.5 mmol/L 05/24/2021 6:05 AM [facility] Chloride 102 98 - 107 mmol/L 05/24/2021 6:05 AM [facility] CO2 22 22 - 29 mmol/L 05/24/2021 6:05 AM [facility] Calcium 9.6 8.4 - 10.2 mg/dL 05/24/2021 6:05 AM [facility] Anion Gap 18 10 - 20 mmol/L 05/24/2021 6:05 AM [facility] BUN 16.6 8.4 - 25.7 mg/dL 05/24/2021 6:05 AM [facility] Creatinine 0.88 0.72 - 1.25 mg/dL 05/24/2021 6:05 AM [facility] eGFR by MDRD >60 >60 mL/min/1.7 3m2 05/24/2021 6:05 AM [facility] eGFR by MDRD >60 >60 mL/min/1.7 3m2 05/24/2021 6:05 AM [facility] Alkaline Phosphatase 64 40 - 150 U/L 05/24/2021 6:05 AM [facility] ALT 15 5 - 55 U/L 05/24/2021 6:05 AM [facility] AST 13 5 - 34 U/L 05/24/2021 6:05 AM [facility] Protein Total 7.3 6.4 - 8.3 gm/dL 05/24/2021 6:05 AM [facility] Albumin 4.5 3.5 - 5.0 gm/dL 05/24/2021 6:05 AM CDT [facility] Globulin Total 2.8 2.6 - 4.0 gm/dL 05/24/2021 6:05 AM CDT [facility] Albumin/Globulin Ratio 1.6 0.9 - 1.6 05/24/2021 6:05 AM CDT [facility] Bilirubin Total 0.9 0.2 - 1.2 mg/dL 05/24/2021 6:05 AM CDT [facility] Blood BLOOD SPECIMEN / Unknown Venipuncture / Unknown 05/24/2021 5:30 AM CDT 05/24/2021 5:46 AM CDT Mars Huber MD LAB - CHEMISTRY ORDERABLES Final Result Performing Organization Address City/State/[facility] Co de Phone Number [facility] [address] from Last 3 Months or Most Recently Relevant to Health Maintenance Insurance [facility] Advance Directives * Full Code (Latest Code Status on File) Date Activated Date Inactivated Comments 05/24/2021 9:38 AM 05/24/2021 9:39 PM Care Teams Zipper Cutter Relationship Specialty Start Date End Date Mitchel Broussard MD [facility] [place] [address] PCP - General Family Medicine 05/23/21
--- OUTSIDE RECORDS SUMMARY | 2025-04-25 16:38 | XMS_ITS | Referral Summary ---
Author Organization [facility] Address [address] [place] [id number] Care Team Providers Care Poultry Offal Icer Name Role Phone Tomeka Fair NP Primary Care Provider [phone] Encounters Date Type Department Care Team Description 03/28/2025 10:53 AM CDT - 03/28/2025 1:28 PM CDT Emergency [address] [address] Saroj Pastrana MD Syncope and collapse (Primary Dx); Type 1 diabetes mellitus with hyperglycemia (HCC); Sinus tachycardia Discharge Disposition: Discharge to home or self care 03/14/2025 2:45 PM CDT - 03/14/2025 7:58 PM CDT Emergency [address] [address] Pain of finger of right hand (Primary Dx) Discharge Disposition: Discharge to home or self care from Last 3 Months Allergies No known active allergies Medications No known medications Active Problems Problem Noted Date Diagnosed Date Hyperglycemia due to diabetes mellitus Gastroparesis due to DM 05/24/2021 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 Gender Identity Not on file Sexual Orientation Not on file Last Filed Vital Signs Vital Sign Reading Time Taken Comments Blood Pressure 158/98 03/28/2025 12:57 PM CDT Pulse 115 03/28/2025 12:57 PM CDT Temperature 36.7 C (98.1 F) 03/28/2025 10:56 AM CDT Respiratory Rate 16 03/28/2025 12:57 PM CDT Oxygen Saturation 100% 03/28/2025 12:57 PM CDT Inhaled Oxygen Concentration - - Weight 80 kg (176 lb 5.9 oz) 03/28/2025 11:08 AM CDT Height 180.3 cm (5' 11) 03/14/2025 11:13 AM CDT Body Mass Index 24.6 03/14/2025 11:13 AM CDT Plan of Treatment Not on file Procedures Procedure Name Priority Date/Time Associated Diagnosis Comments POCT GLUCOSE DEVICE Routine 03/28/2025 1 2:55 PM CDT POCT GLUCOSE DEVICE Routine 03/28/2025 1 2:07 PM CDT ECG 12-LEAD STAT 03/28/2025 11:46 AM CDT POC BLOOD GAS AND CHEMISTRIES, VENOUS Routine 03/28/2025 11:38 AM CDT DRUGS OF ABUSE SCREEN, URINE WITHOUT CONFIRMATION STAT 03/28/2025 11:25 AM CDT SEPSIS LACTATE WITH REFLEX STAT 03/28/2025 11:23 AM CDT HEMOGLOBIN A1C STAT 03/28/2025 11:21 AM CDT ETHANOL STAT 03/28/2025 11:21 AM CDT PHOSPHORUS STAT 03/28/2025 11:21 AM CDT MAGNESIUM STAT 03/28/2025 11:21 AM CDT BETA-HYDROXYBUTYRATE STAT 03/28/2025 11:21 AM CDT URINALYSIS AND REFLEX TO MICROSCOPIC AND CULTURE STAT 03/28/2025 11:21 AM CDT EGFR STAT 03/28/2025 11:19 AM CDT COMPREHENSIVE METABOLIC PANEL STAT 03/28/2025 11:19 AM CDT POCT GLUCOSE DEVICE Routine 03/28/2025 1 0:58 AM CDT EGFR STAT 03/14/2025 5:03 PM CDT DIFFERENTIAL AUTO STAT 03/14/2025 5:0 3 PM CDT CRP (ACUTE PHASE) STAT 03/14/2025 5:0 3 PM CDT ERYTHROCYTE SEDIMENTATION RATE STAT 03/14/2025 5:03 PM CDT CBC WITH AUTO DIFFERENTIAL STAT 03/14/2025 5:03 PM CDT COMPREHENSIVE METABOLIC PANEL STAT 03/14/2025 5:03 PM CDT XR HAND RIGHT 3 OR MORE VIEWS ED 03/14/2025 11:41 AM CDT from Last 3 Months Results * (ABNORMAL) POCT glucose (03/28/2025 12:55 PM CDT) Glucose, POC 273(H) 70 - 199 mg/dL Blood 03/28/2025 12:5 5 PM CDT 03/28/2025 12:55 PM CDT us Saroj Pastrana MD LAB POCT ORDERABLES - ROLY CE Final Result MAX [address] [facility] [place] [address] * (ABNORMAL) POCT glucose (03/28/2025 12:07 PM CDT) Glucose, POC 345(H) 70 - 199 mg/dL Glucose comment 1 RN/MD Notified MAX Blood 03/28/2025 12:0 7 PM CDT 03/28/2025 12:07 PM CDT Saroj Pastrana MD LAB POCT ORDERABLES - ROLY CE Final Result Performing Organization Address [facility] Co de Phone Number AMX [address] [facility] Department [place] [address] * ECG 12 lead (03/28/2025 11:46 AM CDT) Ventricular Rate EKG/Min 104 BPM [facility] Atrial Rate 104 BPM [facility] OR-Interval (MSEC) 116 ms [facility] QRS-Interval (MSEC) 80 ms [facility] QT-Interval (MSEC) 346 ms [facility] QTc 454 ms [facility] P [place] 58 degrees [facility] R [place] 44 degrees [facility] T [place] 50 degrees [facility] Diagnosis Sinus tachycardia Septal infarct , age undetermined Abnormal ECG No previous ECGs available Confirmed by ZIA SUN M.D. ([id number]) on 03/28/2025 5:07:12 PM [facility] 03/28/2025 11:4 6 AM CDT 03/28/2025 5:07 PM CDT Saroj Pastrana MD ECG ORDERABLES Final Resu lt Performing Organization Address [facility] de Phone Number [facility] * (ABNORMAL) POC Blood Gas and Chemistries, Venous - (03/28/2025 11:38 AM CDT) pH,nidia POC 7.39 7.32 - 7.43 pCO2, nidia POC 46 40 - 50 mmHg MAX pO2,nidia POC 57 mmHg MAX Comment: Interpretive Data No reference range established. Current interpretive data was last revised 2020. HCO3, nidia (Calc) POC 28 20 - 30 mmol/L MAX Base excess, nidia POC 2 mmol/L MAX Comment: Interpretive Data No reference range established. Current interpretive data was last revised 2020. Oxy Hgb, nidia POC 83.9(L) 90.0 - 95.0 % [facility] Met Hgb, nidia POC 0.7 0.0 - 1.9 % [facility] Carboxy Hgb, nidia POC 3.7(H) 0.0 - 2.9 % [facility] Hemoglobin, nidia POC 14.8 13.0 - 17.5 g/dL [facility] Lactate, nidia POC 1.8 0.7 - 2.0 mmol/L [facility] Blood 03/28/2025 11:3 8 AM CDT 03/28/2025 11:38 AM CDT Saroj Pastrana MD LAB POCT ORDERABLES - ROLY CE Final Result [facility] [address] [facility] Department [place] [address] * Drugs of Abuse Screen, Urine without Confirmation (03/28/2025 11:25 AM CDT) Amphetamine, ur Not Detected CutOff 500ng/mL Comment: Interpretive Data - Amphetamines: Samples containing greater than 500 ng/mL d-methamphetamine or other cross-reacting amphetamine compounds are reported as positive. Amphetamine immunoassays are subject to significant false positive rates due to cross-reactivity of non-amphetamine drugs. Confirmatory testing required for definitive results. Current Interpretive Data was last reviewed 2023. Barbiturates, ur Not Detected CutOff 200ng/mL [facility] Comment: Interpretive Data - Barbiturates: Samples containing greater than 200 ng/mL secobarbital or other cross-reacting barbiturate compounds are reported as positive. False positive and false negative results are possible. Confirmatory testing required for definitive results. Current Interpretive Data was last reviewed 2023. Benzodiazepines, ur Not Detected CutOff 100ng/mL MAX Comment: Interpretive Data - Benzodiazepines: Samples containing greater than 100 ng/mL nordiazepam or other cross-reacting compounds are reported as positive. False positive and false negative results are possible. Confirmatory testing required for definitive results. Current Interpretive Data was last reviewed 2023. Cannabinoids, ur Not Detected CutOff 50 ng/mL [facility] Comment: Interpretive Data - Cannabinoids: Samples containing greater than 50 ng/mL delta-9 THC -COOH or other cross- reacting compounds are reported as positive. False positive and false negative results are possible. Confirmatory testing required for definitive results. Current Interpretive Data was last reviewed 2023. Cocaine, ur Not Detected CutOff 150ng/mL [facility] Comment: Interpretive Data - Cocaine: Samples containing greater than 150 ng/mL benzoylecgonine or other cross- reacting compounds are reported as positive. False positive and false negative results are possible. Confirmatory testing required for definitive results. Current Interpretive Data was last reviewed 2023. Fentanyl, Ur Not Detected CutOff 5 ng/mL [facility] Comment: Interpretive Data - Fentanyl: Samples containing greater than 5 ng/mL norfentanyl, fentanyl, or other cross-reacting fentanyl compounds are reported as positive. False positive and false negative results are possible. Confirmatory testing required for definitive results. Current Interpretive Data was last reviewed 2024. Methadone, ur Not Detected CutOff 300ng/mL [facility] Comment: Interpretive Data - Methadone: Samples containing greater than 300 ng/mL d,l-methadone or other cross-reacting compounds are reported as positive. False positive and false negative results are possible. Confirmatory testing required for definitive results. Current Interpretive Data was last reviewed 2023. Opiates, ur Not Detected CutOff 300ng/mL [facility] Comment: Interpretive Data - Opiates: Samples containing greater than 300 ng/mL morphine or other cross-reacting compounds are reported as positive. False positive and false negative results are possible. Confirmatory testing required for definitive results. Current Interpretive Data was last reviewed 2023. Oxycodone, ur Not Detected CutOff 100ng/mL [facility] Comment: Interpretive Data - Oxycodone: Samples containing greater than 100 ng/mL oxycodone or other cross-reacting compounds are reported as positive. False positive and false negative results are possible. Confirmatory testing required for definitive results. Current Interpretive Data was last reviewed 2023. Phencyclidine, ur Not Detected CutOff 25 ng/mL [facility] Comment: Interpretive Data - Phencyclidine: Samples containing greater than 25 ng/mL phencyclidine or other cross-reacting compounds are reported as positive. False positive and false negative results are possible. Confirmatory testing required for definitive results. Current Interpretive Data was last reviewed 2023. Urine Creatinine 13 mg/dL MAX Comment: Interpretive Data Urine Creatinine: < 10 mg/dL is extremely dilute = or > 10 but < 20 mg/dL is dilute = or > 20 mg/dL is normal Current Interpretive Data was last revised on 2018. Urine 03/28/2025 11:2 5 AM CDT 03/28/2025 11:31 AM CDT Narrative MAX - 03/28/2025 11:59 AM CDT Drug of Abuse screening is performed by immunoassay for medical purposes only. This is not to be used for Pain Management purposes. Saroj Pastrana MD LAB URINE ORDERABLES Final Result Performing Organization Address [facility] Co de Phone Number [address] [place] [place] [address] * Sepsis Lactate w/ Reflex (03/28/2025 11:23 AM CDT) Sepsis Lactate 1.8 0.7 - 2.0 mmol/L Blood 03/28/2025 11:2 3 AM CDT 03/28/2025 11:31 AM CDT Saroj Pastrana MD LAB BLOOD ORDERABLES Final Result Performing Organization Address [facility] Co de Phone Number [address] [place] [address] * Beta-hydroxybutyrate (03/28/2025 11:21 AM CDT) Beta-Hydroxybut yrate 0.1 <=0.5 mmol/L Blood 03/28/2025 11:2 1 AM CDT 03/28/2025 11:31 AM CDT Saroj Pastrana MD LAB BLOOD ORDERABLES Final Result Performing Organization Address [facility] Co de Phone Number [facility] [address] [place] [address] [place] [address] * (ABNORMAL) Urinalysis reflex to microscopic and culture Urine (03/28/2025 11:21 AM CDT) Color, ur Yellow Yellow Clarity, ur Clear Clear [facility] Specific gravity, ur 1.018 1.003 - 1.030 [facility] pH, urine 7.0 [facility] Comment: Interpretive Data U rine pH is affected by diet, medications, systemic acid-base disturbances, and renal tubular function. pH may affect urinary stone formation. For example, urine pH below 6.0 may help reduce the tendency for calcium phosphate stones and pH greater than 6.0 may reduce the tendency for uric acid stone formation. Source: [facility] Current Interpretive Data was last revised on 2017 Protein, ur ql Negative Negative [facility] Glucose, ur ql 4+(A) Negative [facility] Ketones, ur Negative Negative [facility] Bilirubin, ur Negative Negative [facility] Blood, ur Negative Negative [facility] Urobilinogen, ur <2.0 <2.0 mg/dL [facility] Nitrite, ur Negative Negative [facility] Leukocyte esterase, ur Negative Negative [facility] UA reflex comment Reflex conditions for microscopic UA and culture not met. [facility] Urine 03/28/2025 11:2 1 AM CDT 03/28/2025 11:31 AM CDT Saroj Pastrana MD LAB MICROBIOLOGY - GENERAL ORDERABLES Final Result Performing Organization Address City/[facility] Co de Phone Number [address] [address] * Phosphorus (03/28/2025 11:21 AM CDT) Phosphorus, pl 2.9 2.3 - 4.5 mg/dL Blood 03/28/2025 11:2 1 AM CDT 03/28/2025 11:31 AM CDT Saroj Pastrana MD LAB BLOOD ORDERABLES Final Result Performing Organization Address [facility] Co de Phone Number [facility] [address] [place] [address] * Magnesium (03/28/2025 11:21 AM CDT) Magnesium 1.9 1.4 - 2.5 mg/dL Blood 03/28/2025 11:2 1 AM CDT 03/28/2025 11:31 AM CDT Saroj Pastrana MD LAB BLOOD ORDERABLES Final Result Performing Organization Address [facility] Co de Phone Number [address] [address] * (ABNORMAL) Hemoglobin A1c (03/28/2025 11:21 AM CDT) Hgb A1C 12.0(H) 4.0 - 5.6 % Estimated Average Glucose 298 mg/dL [facility] Comment: The ADA recommends reporting an estimated Average Glucose (eAG) with all Hemoglobin A1c results using the equation derived from a study of 507 normal and diabetic adults. Minority populations were underrepresented and children were not included. (Diabetes Care 31:0293-1754, 2008). The eAG is not equivalent to a fasting glucose. Blood 03/28/2025 11:2 1 AM CDT 03/28/2025 11:31 AM CDT Saroj Pastrana MD LAB BLOOD ORDERABLES Final Result Performing Organization Address [facility] Co de Phone Number [address] [address] * Ethanol (03/28/2025 11:21 AM CDT) Ethanol <10 <=10 mg/dL Comment: Interpretive Data Legal limit of intoxication > or = 80 mg/dL Levels > or = 400 mg/dL are potentially TOXIC. Current interpretive data was last revised on 2019. Blood 03/28/2025 11:2 1 AM CDT 03/28/2025 11:31 AM CDT Saroj Pastrana MD LAB BLOOD ORDERABLES Final Result Performing Organization Address [facility] de Phone Number MAX [address] [place] [employer] [address] * eGFR (03/28/2025 11:19 AM CDT) Pathologist [facility] eGFR >90 >=60 mL/min/1. 73 m2 Comment: Interpretive Data Reference Interval Normal >/= 90 mL/min/1.73m2 Mildly decreased* 60 - 89 mL/min/1.73m2 Mildly to moderately decreased 45 - 59 mL/min/1.73m2 Moderately to severely decreased 30 - 44 mL/min/1.73m2 Severely decreased 15 - 29 mL/min/1.73m2 Kidney Failure < 15 mL/min/1.73m2 *Relative to young adult level Estimated glomerular filtration rate is determined by the 2020 CKD-EPI equation recommended by the National Kidney Foundation (A Unifying Approach to GFR Estimation: Recommendations of the NKF-ASK Task Force on Reassessing the Inclusion of Race in Diagnosing Kidney Disease, JASN 2020). The CKD-EPI equation should not be used for patients with unstable renal function and has not been validated in children and those over 70. Current interpretive data was last reviewed 2021. Blood 03/28/2025 11:1 9 AM CDT 03/28/2025 11:31 AM CDT Saroj Pastrana MD LAB BLOOD ORDERABLES Final Result Performing Organization Address [facility] Co de Phone Number MAX [address] [place] [address] * (ABNORMAL) Comprehensive metabolic panel (03/28/2025 11:19 AM CDT) [facility] Sodium 134(L) 135 - 145 mmol/L Potassium, pl 4.6 3.3 - 4.9 mmol/L [facility] Chloride 97 97 - 110 mmol/L [facility] CO2 27 22 - 32 mmol/L [facility] Anion gap 10 2 - 15 mmol/L [facility] BUN 18 6 - 25 mg/dL [facility] Creatinine 0.68(L) 0.80 - 1.30 mg/dL [facility] Glucose 442(H) 70 - 199 mg/dL [facility] Comment: Interpretive Data Fasting glucose >/= 126 mg/dl is diagnostic for diabetes. Fasting is defined as no caloric intake for at least 8 hours. Fasting glucose between 100 mg/dl to 125 mg/dl is diagnostic of prediabetes. In a patient with classic symptoms of hyperglycemia or hyperglycemic crisis, a random glucose >/= 200 mg/dl is diagnostic for diabetes. In the absence of unequivocal hyperglycemia, results should be confirmed by repeat testing. The classification and Diagnosis of Diabetes Diabetes Care 2021; 46: S19-S40. Current interpretive data was last revised 2022. Calcium 9.1 8.5 - 10.3 mg/dL [facility] Bilirubin, total 0.2 0.1 - 1.2 mg/dL [facility] Protein, pl 6.4(L) 6.5 - 8.5 g/dL [facility] Albumin 4.0 3.5 - 5.0 g/dL [facility] Alk phos 91 40 - 130 Units/L [facility] ALT 70(H) 7 - 55 Units/L [facility] AST 32 10 - 50 Units/L [facility] Blood 03/28/2025 11:1 9 AM CDT 03/28/2025 11:31 AM CDT us Saroj Pastrana MD LAB BLOOD ORDERABLES Final Result Performing Organization Address City/State/[facility] Co de Phone Number [facility] [address] [facility] [place] [address] * (ABNORMAL) POCT glucose (03/28/2025 10:58 AM CDT) [facility] Glucose, POC 486(C) 70 - 199 mg/dL Glucose comment 1 Glu2: [facility] Blood 03/28/2025 10:5 8 AM CDT 03/28/2025 10:58 AM CDT us Notinfile Unknown LAB POCT ORDERABLES - DEVICE F inal Result Performing Organization Address [facility] Co de Phone Number MAX [address] [place] [address] * eGFR (03/14/2025 5:03 PM CDT) [facility] eGFR >90 >=60 mL/min/1. 73 m2 Comment: Interpretive Data Reference Interval Normal >/= 90 mL/min/1.73m2 Mildly decreased* 60 - 89 mL/min/1.73m2 Mildly to moderately decreased 45 - 59 mL/min/1.73m2 Moderately to severely decreased 30 - 44 mL/min/1.73m2 Severely decreased 15 - 29 mL/min/1.73m2 Kidney Failure < 15 mL/min/1.73m2 *Relative to young adult level Estimated glomerular filtration rate is determined by the 2020 CKD-EPI equation recommended by the National Kidney Foundation (A Unifying Approach to GFR Estimation: Recommendations of the NKF-ASK Task Force on Reassessing the Inclusion of Race in Diagnosing Kidney Disease, JASN 2020). The CKD-EPI equation should not be used for patients with unstable renal function and has not been validated in children and those over 70. Current interpretive data was last reviewed 2021. Blood 03/14/2025 5:03 PM CDT 03/14/2025 5:17 PM CDT Miguel BARAJAS LAB BLOOD ORDERABL ES Final Result Performing Organization Address [facility] Co de Phone Number MAX [address] [place] [address] * Differential, auto (03/14/2025 5:03 PM CDT) Pathologist [facility] Neutrophil abs 4.63 1.50 - 6.50 K/cumm Imm gran abs 0.02 0.00 - 0.10 K/cumm [facility] Lymphocyte abs 1.99 0.80 - 3.30 K/cumm [facility] Monocyte abs 0.48 0.20 - 0.80 K/cumm [facility] Eosinophil abs 0.42 0.00 - 0.50 K/cumm [facility] Basophil abs 0.02 0.00 - 0.10 K/cumm [facility] Neutrophil pct 61.2 % [facility] Comment: Interpretive Data Percent cell count reference ranges are not reported, since discordance with absolute values may lead to misinterpretation of CBC data. Current Interpretive Data was last revised on 2018. Imm gran pct 0.3 % [facility] Comment: Interpretive Data Percent cell count reference ranges are not reported, since discordance with absolute values may lead to misinterpretation of CBC data. Current Interpretive Data was last revised on 2018. Lymphocyte pct 26.3 % [facility] Comment: Interpretive Data Percent cell count reference ranges are not reported, since discordance with absolute values may lead to misinterpretation of CBC data. Current Interpretive Data was last revised on 2018. Monocyte pct 6.3 % [facility] Comment: Interpretive Data Percent cell count reference ranges are not reported, since discordance with absolute values may lead to misinterpretation of CBC data. Current Interpretive Data was last revised on 2018. Eosinophil pct 5.6 % [facility] Comment: Interpretive Data Percent cell count reference ranges are not reported, since discordance with absolute values may lead to misinterpretation of CBC data. Current Interpretive Data was last revised on 2018. Basophil pct 0.3 % [facility] Comment: Interpretive Data Percent cell count reference ranges are not reported, since discordance with absolute values may lead to misinterpretation of CBC data. Current Interpretive Data was last revised on 2018. Blood 03/14/2025 5:03 PM CDT 03/14/2025 5:17 PM CDT us Miguel BARAJAS LAB BLOOD ORDERABL ES Final Result [facility] [address] [facility] [place] [address] * CBC with auto differential (03/14/2025 5:03 PM CDT) WBC 7.56 3.80 - 9.90 K/cumm Hgb 14.5 13.0 - 17.5 g/dL [facility] Hct 41.0 38.9 - 50.3 % [facility] Plt 181 150 - 400 K/cumm [facility] MPV 11.8 9.1 - 12.3 fL [facility] RBC 4.72 4.30 - 5.80 M/cumm [facility] MCV 86.9 81.3 - 96.4 fL [facility] MCH 30.7 27.1 - 33.3 pg [facility] MCHC 35.4 32.3 - 35.7 g/dL [facility] RDW CV 12.7 11.1 - 14.9 % [facility] RDW SD 40.0 35.7 - 48.1 fL [facility] NRBC abs 0.00 0.00 - 0.01 K/cumm [facility] Blood 03/14/2025 5:03 PM CDT 03/14/2025 5:17 PM CDT Adebowale Tolulade Adesida PA LAB BLOOD ORDERABL ES Final Result Performing Organization Address [facility] Co de Phone Number [address] [place] [address] * Erythrocyte sedimentation rate (03/14/2025 5:03 PM CDT) [facility] Erythrocyte sedimentation rate 4 1 - 15 mm/hr Blood 03/14/2025 5:03 PM CDT 03/14/2025 5:17 PM CDT [facility] Tolulade Adesida PA LAB BLOOD ORDERABL ES Final Result Performing Organization Address [facility] Co de Phone Number [address] [place] [address] * CRP (acute phase) (03/14/2025 5:03 PM CDT) Pathologist [facility] CRP <0.2 <=10.0 mg/L Blood 03/14/2025 5:03 PM CDT 03/14/2025 5:17 PM CDT us Miguel BARAJAS LAB BLOOD ORDERABL ES Final Result [facility] [address] [facility] [place] [address] * (ABNORMAL) Comprehensive metabolic panel (03/14/2025 5:03 PM CDT) Sodium 134(L) 135 - 145 mmol/L Potassium, pl 4.8 3.3 - 4.9 mmol/L [facility] Comment:Hemolyzed; Potassium value may be falsely elevated by as much as 1.0 mmol/L. Suggest redraw and reanalysis. Chloride 98 97 - 110 mmol/L [facility] CO2 26 22 - 32 mmol/L [facility] Anion gap 10 2 - 15 mmol/L [facility] BUN 15 6 - 25 mg/dL [facility] Creatinine 0.71(L) 0.80 - 1.30 mg/dL [facility] Glucose 376(H) 70 - 199 mg/dL [facility] Comment: Interpretive Data Fasting glucose >/= 126 mg/dl is diagnostic for diabetes. Fasting is defined as no caloric intake for at least 8 hours. Fasting glucose between 100 mg/dl to 125 mg/dl is diagnostic of prediabetes. In a patient with classic symptoms of hyperglycemia or hyperglycemic crisis, a random glucose >/= 200 mg/dl is diagnostic for diabetes. In the absence of unequivocal hyperglycemia, results should be confirmed by repeat testing. The classification and Diagnosis of Diabetes Diabetes Care 202; 46: S19-S40. Current interpretive data was last revised 2022. Calcium 9.3 8.5 - 10.3 mg/dL [facility] Bilirubin, total <0.2 0.1 - 1.2 mg/dL [facility] Protein, pl 6.4(L) 6.5 - 8.5 g/dL [facility] Albumin 3.8 3.5 - 5.0 g/dL [facility] Alk phos 80 40 - 130 Units/L [facility] ALT 43 7 - 55 Units/L [facility] AST See Comment 10 - 50 [facility] Comment:Credited; Hemolyzed Specimen Blood 03/14/2025 5:03 PM CDT 03/14/2025 5:17 PM CDT us Miguel BARAJAS LAB BLOOD ORDERABL ES Final Result [facility] [id number] [facility] [place] [address] * XR Hand Right 3 or More Views (03/14/2025 11:41 AM CDT) Anatomical Region Laterality Modality Upper Extremities, Hand Right Computed Radiography 03/14/2025 12:4 8 PM CDT Narrative 03/14/2025 12:50 PM CDT EXAM DESCRIPTION: XR HAND RIGHT 3 OR MORE VIEWS REASON FOR STUDY: Pain, Upper Extremity Injury or Trauma Pt is c/o pain to R hand due to the knuckle just sunk down yesterday. 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 Pt notes getting a steroid injection to R wrist x2 weeks ago. No new injury. Pt was sent from [facility]. Pt a/o x4. NAD. VSS. Pt ambulatory in triage. TECHNIQUE: 3 radiographic view(s) of the right hand . COMPARISON: None FINDINGS: BONES/JOINTS: There is ulnar negative variance. There is no acute fracture or dislocation. No aggressive appearing osseous lesion. Mild narrowing of the radiocarpal joint and the triscaphe. SOFT TISSUES: There is dorsal soft tissue swelling about the level of the metacarpal heads. There is mild soft tissue swelling suggested at the wrist. Atherosclerotic vascular calcifications are noted. IMPRESSION: 1. No acute fracture or dislocation. 2. Soft tissue swelling. 3. Ulnar negative variance If internal derangement is of concern based on clinical exam, MRI can be considered for further evaluation. THIS IS AN ELECTRONICALLY VERIFIED FINAL REPORT 03/14/2025 12:50 PM - Electronically signed by Meri Lee M.D. 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 Pt notes getting asteroid injection to R wrist x2 weeks ago. No new injury. [facility] Pt a/o x4. NAD. VSS. Pt ambulatory in triage. TECHNIQUE: 3 radiographic view(s) of the right hand . COMPARISON: None FINDINGS: BONES/JOINTS: There is ulnar negative variance. There is noacute fracture or dislocation. No aggressive appearing osseous lesion. Mild narrowing of the radiocarpal joint and the triscaphe. SOFT TISSUES: There is dorsal soft tissue swelling about the level of the metacarpal heads. There is mild soft tissue swelling suggested at thewrist. Atherosclerotic vascular calcifications are noted. IMPRESSION: 1. No acute fracture or dislocation. 2. Soft tissue swelling. 3. Ulnar negative variance If internal derangement is of concern based on clinical exam, MRI can be considered for further evaluation. THIS IS AN ELECTRONICALLY VERIFIED FINAL REPORT 03/14/2025 12:50 PM - Electronically signed by Meri Lee M.D. TW T: Report ID: [id number] Reading Location: [place] [address] Lyndsey BARAJAS IMG XR PROCEDURES Final Resul t from Last 3 Months Insurance [facility] MEDICARE ADVANTAGE Care Teams Poultry Offal Icer Relationship Specialty Start Date End Date Tomeka Fair NP [address] [place], [place] [id number] PCP - General Nurse Practitioner 03/14/25
--- OUTSIDE RECORDS SUMMARY | 2025-04-25 16:38 | XMS_ITS | Clinical Summary ---
Author Organization 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 Corneal ulcer 10/30/2017 Encounters Date Type Department Care Team Description 03/28/2025 10:53 AM CDT - 03/28/2025 1:28 PM CDT Emergency [address] [address] Saroj Pastrana MD Syncope and collapse (Primary Dx); Type 1 diabetes mellitus with hyperglycemia (HCC); Sinus tachycardia Discharge Disposition: Discharge to home or self care 03/14/2025 2:45 PM CDT - 03/14/2025 7:58 PM CDT Emergency [address] [address] Pain of finger of right hand (Primary Dx) Discharge Disposition: Discharge to home or self care from Last 3 Months Surgical History Surgery Date Site/Laterality Comments NO PAST SURGERIES Medical History Medical History Date Comments Diabetes mellitus type I (HCC) Tobacco dependence Cannabis use disorder Methamphetamine abuse (HCC) Personal history of traumatic brain injury Social History Tobacco Use Types Packs/Day Years [...] on file Legal Sex Male 9:14 PM [employer] Gender Identity Not on file Sexual Orientation Not on file Obstetrics History Last Filed Vital Signs Vital Sign Reading [...] 03/14/2025 11:13 AM CDT Plan of Treatment Health Maintenance Due Date Last Done Comments Albumin Creatinine Ratio, Urine 1985 Depression Screening 1985 Foot Exam 1985 Hepatitis C Screening 1985 TSH Level 1985 Dilated Eye Exam 1995 DTaP/Tdap/Td Vaccine (1 - Tdap) 1996 Varicella Vaccines (1 of 2 - 13+ 2-dose series) 1998 Hepatitis B Screening 2003 Regular Well Visit/Exam 18-64 2003 Pneumococcal vaccine <65 (1 of 2 - PCV) 2004 Lipid Panel 08/25/2024 08/25/2023 Influenza Vaccine (Season Ended) 2025 Hemoglobin A1C 09/28/2025 03/28/2025, 11/07/2018 eGFR 03/28/2026 03/28/2025, 03/14/2025 HPV Vaccines Aged Out No longer eligi [...] PM CDT CRP (ACUTE PHASE) STAT 03/14/2025 5: 03 PM CDT ERYTHROCYTE SEDIMENTATION RATE STAT 03/14/2025 [...] 5 PM CDT 03/28/2025 12:55 PM CDT Saroj Pastrana MD LAB POCT ORDERABLES - ROLY CE Final Result Performing Organization Address [facility] Co de Phone Number [address] [place] [address] * (ABNORMAL) POCT glucose (03/28/2025 12:07 PM CDT) Glucose, POC 345(H) 70 - 199 mg/dL Glucose comment 1 RN/MD Notified [facility] Blood 03/28/2025 12:0 7 PM CDT 03/28/2025 12:07 PM CDT Saroj Pastrana MD LAB POCT ORDERABLES - ROLY CE Final Result Performing Organization Address [facility] Co de Phone Number [address] [place] [address] * ECG 12 lead (03/28/2025 11:46 AM CDT) Ventricular Rate EKG/Min 104 BPM [facility] Atrial Rate 104 BPM [facility] AL-Interval (MSEC) 116 ms [facility] QRS-Interval (MSEC) 80 ms [facility] QT-Interval (MSEC) 346 ms [facility] QTc 454 ms [facility] P [place] 58 degrees [facility] R [place] 44 degrees [facility] T [place] 50 degrees [facility] Diagnosis Sinus tachycardia Septal infarct , age undetermined Abnormal ECG No previous ECGs available Confirmed by ZIA SUN M.D. ([id number]) on 03/28/2025 5:07:12 PM [facility] 03/28/2025 11:4 6 AM CDT 03/28/2025 5:07 PM CDT Saroj Pastrana MD ECG ORDERABLES Final Resu lt Performing Organization Address [facility]/ZIP Co de Phone Number [facility] * (ABNORMAL) POC Blood Gas and Chemistries, Venous - (03/28/2025 11:38 AM CDT) Pathologist [facility] pH,nidia POC 7.39 7.32 - 7.43 pCO2, nidia POC 46 40 - 50 mmHg [facility] pO2,nidia POC 57 mmHg [facility] Comment: Interpretive Data No reference range established. Current interpretive data was last revised 2020. HCO3, nidia (Calc) POC 28 20 - 30 mmol/L [facility] Base excess, nidia POC 2 mmol/L [facility] Comment: Interpretive Data No reference range established. Current interpretive data was last revised 2020. Oxy Hgb, nidia POC 83.9(L) 90.0 - 95.0 % [facility] Met Hgb, nidia POC 0.7 0.0 - 1.9 % [facility] Carboxy Hgb, nidia POC 3.7(H) 0.0 - 2.9 % [facility] Hemoglobin, nidia POC 14.8 13.0 - 17.5 g/dL [facility] Lactate, nidia POC 1.8 0.7 - 2.0 mmol/L [facility] Blood 03/28/2025 11:3 8 AM CDT 03/28/2025 11:38 AM CDT Saroj Pastrana MD LAB POCT ORDERABLES - ROLY CE Final Result Performing Organization Address City/[facility]/ZIP Co de Phone Number [facility] [address] [facility] Department [place] [address] * Drugs of Abuse Screen, Urine without [...] 2023. Barbiturates, ur Not Detected CutOff 200ng/mL [facility] Comment: Interpretive Data - Barbiturates: Samples containing greater than 200 ng/mL secobarbital or other cross-reacting barbiturate compounds are reported as positive. False positive and false negative results are possible. Confirmatory testing required for definitive results. Current Interpretive Data was last reviewed 2023. Benzodiazepines, ur Not Detected CutOff 100ng/mL [facility] Comment: Interpretive Data - Benzodiazepines: Samples containing greater than 100 ng/mL nordiazepam or other cross-reacting compounds are reported as positive. False positive and false negative results are possible. Confirmatory testing required for definitive results. Current Interpretive Data was last reviewed 2023. Cannabinoids, ur Not Detected CutOff 50 ng/mL [facility] Comment: Interpretive Data - Cannabinoids: Samples containing greater than 50 ng/mL delta-9 THC -COOH or other cross- reacting compounds are reported as positive. False positive and false negative results are possible. Confirmatory testing required for definitive results. Current Interpretive Data was last reviewed 2023. Cocaine, ur Not Detected CutOff 150ng/mL [facility] Comment: Interpretive Data - Cocaine: Samples containing greater than 150 ng/mL benzoylecgonine or other cross- reacting compounds are reported as positive. False positive and false negative results are possible. Confirmatory testing required for definitive results. Current Interpretive Data was last reviewed 2023. Fentanyl, Ur Not Detected CutOff 5 ng/mL [facility] Comment: Interpretive Data - Fentanyl: Samples containing greater than 5 ng/mL norfentanyl, fentanyl, or other cross-reacting fentanyl compounds are reported as positive. False positive and false negative results are possible. Confirmatory testing required for definitive results. Current Interpretive Data was last reviewed 2024. Methadone, ur Not Detected CutOff 300ng/mL [facility] Comment: Interpretive Data - Methadone: Samples containing greater than 300 ng/mL d,l-methadone or other cross-reacting compounds are reported as positive. False positive and false negative results are possible. Confirmatory testing required for definitive results. Current Interpretive Data was last reviewed 2023. Opiates, ur Not Detected CutOff 300ng/mL MAX Comment: Interpretive Data - Opiates: Samples containing greater than 300 ng/mL morphine or other cross-reacting compounds are reported as positive. False positive and false negative results are possible. Confirmatory testing required for definitive results. Current Interpretive Data was last reviewed 2023. Oxycodone, ur Not Detected CutOff 100ng/mL [facility] Comment: Interpretive Data - Oxycodone: Samples containing greater than 100 ng/mL oxycodone or other cross-reacting compounds are reported as positive. False positive and false negative results are possible. Confirmatory testing required for definitive results. Current Interpretive Data was last reviewed 2023. Phencyclidine, ur Not Detected CutOff 25 ng/mL MAX Comment: Interpretive Data - Phencyclidine: Samples containing [...] AM CDT 03/28/2025 11:31 AM CDT Narrative [facility] - 03/28/2025 11:59 AM CDT Drug of Abuse screening is performed by immunoassay for medical purposes only. This is not to be used for Pain Management purposes. us Saroj Pastrana MD LAB URINE ORDERABLES Final Result [facility] [address] [facility] Department [place] [address] * Sepsis Lactate w/ Reflex (03/28/2025 11:23 AM CDT) Sepsis Lactate 1.8 0.7 - 2.0 mmol/L Blood 03/28/2025 11:2 3 AM CDT 03/28/2025 11:31 AM CDT Saroj Pastrana MD LAB BLOOD ORDERABLES Final Result Performing Organization Address [facility] de Phone Number [address] [address] * Beta-hydroxybutyrate (03/28/2025 11:21 AM CDT) Pathologist [facility] Beta-Hydroxybut yrate 0.1 <=0.5 mmol/L Blood 03/28/2025 11:2 1 AM CDT 03/28/2025 11:31 AM CDT Saroj Pastrana MD LAB BLOOD ORDERABLES Final Result Performing Organization Address [facility] de Phone Number [address] [address] * (ABNORMAL) Urinalysis reflex to microscopic and culture Urine (03/28/2025 11:21 AM CDT) Pathologist [facility] Color, ur Yellow Yellow Clarity, ur Clear Clear [facility] Specific gravity, ur 1.018 1.003 - 1.030 [facility] pH, urine 7.0 [facility] Comment: Interpretive Data U rine pH is affected by diet, medications, systemic acid-base disturbances, and renal tubular function. pH may affect urinary stone formation. For example, urine pH below 6.0 may help reduce the tendency for calcium phosphate stones and pH greater than 6.0 may reduce the tendency for uric acid stone formation. Source: [facility] [employer] Current Interpretive Data was last revised on 2017 Protein, ur ql Negative Negative [facility] Glucose, ur ql 4+(A) Negative [facility] Ketones, ur Negative Negative [facility] Bilirubin, ur Negative Negative [facility] Blood, ur Negative Negative [facility] Urobilinogen, ur <2.0 <2.0 mg/dL [facility] Nitrite, ur Negative Negative [facility] Leukocyte esterase, ur Negative Negative [facility] UA reflex comment Reflex conditions for microscopic UA and culture not met. MAX Urine 03/28/2025 11:2 1 AM CDT 03/28/2025 11:31 AM CDT Saroj Pastrana MD LAB MICROBIOLOGY - GENERAL ORDERABLES Final Result Performing Organization Address [facility] de Phone Number [address] [place] [address] * Phosphorus (03/28/2025 11:21 AM CDT) Pathologist [facility] Phosphorus, pl 2.9 2.3 - 4.5 mg/dL Blood 03/28/2025 11:2 1 AM CDT 03/28/2025 11:31 AM CDT Saroj Pastraan MD LAB BLOOD ORDERABLES Final Result Performing Organization Address [facility] de Phone Number [address] [address] * Magnesium (03/28/2025 11:21 AM CDT) [facility] Magnesium 1.9 1.4 - 2.5 mg/dL Blood 03/28/2025 11:2 1 AM CDT 03/28/2025 11:31 AM CDT Saroj Pastrana MD LAB BLOOD ORDERABLES Final Result Performing Organization Address [facility] de Phone Number [address] [place] [address] * (ABNORMAL) Hemoglobin A1c (03/28/2025 11:21 AM CDT) [facility] Hgb A1C 12.0(H) 4.0 - 5.6 % Estimated Average Glucose 298 mg/dL MAX Comment: The ADA recommends reporting an estimated Average Glucose (eAG) with all Hemoglobin A1c results using the equation derived from a study of 507 normal and diabetic adults. Minority populations were underrepresented and children were not included. (Diabetes Care 31:8612-8032, 2008). The eAG is not equivalent to a fasting glucose. Blood 03/28/2025 11:2 1 AM CDT 03/28/2025 11:31 AM CDT Saroj Pastrana MD LAB BLOOD ORDERABLES Final Result Performing Organization Address [facility] Co de Phone Number MAX [address] [place] [address] * Ethanol (03/28/2025 11:21 AM CDT) Ethanol <10 <=10 mg/dL Comment: Interpretive Data Legal limit of intoxication > or = 80 mg/dL Levels > or = 400 mg/dL are potentially TOXIC. Current interpretive data was last revised on 2019. Blood 03/28/2025 11:2 1 AM CDT 03/28/2025 11:31 AM CDT Saroj Pastrana MD LAB BLOOD ORDERABLES Final Result Performing Organization Address [facility] de Phone Number MAX [address] [address] * eGFR (03/28/2025 11:19 AM CDT) eGFR >90 >=60 mL/min/1. 73 m2 Comment: [...] Pastrana MD LAB BLOOD ORDERABLES Final Result [facility] [address] [facility] Department [place] [address] * (ABNORMAL) Comprehensive metabolic panel (03/28/2025 11:19 AM CDT) Sodium 134(L) 135 - 145 mmol/L Potassium, pl 4.6 3.3 - 4.9 mmol/L [facility] Chloride 97 97 - 110 mmol/L [facility] CO2 27 22 - 32 mmol/L [facility] Anion gap 10 2 - 15 mmol/L [facility] BUN 18 6 - 25 mg/dL [facility] Creatinine 0.68(L) 0.80 - 1.30 mg/dL [facility] Glucose 442(H) 70 - 199 mg/dL [facility] Comment: Interpretive Data Fasting glucose >/= [...] 2022. Calcium 9.1 8.5 - 10.3 mg/dL [facility] Bilirubin, total 0.2 0.1 - 1.2 mg/dL [facility] Protein, pl 6.4(L) 6.5 - 8.5 g/dL [facility] Albumin 4.0 3.5 - 5.0 g/dL [facility] Alk phos 91 40 - 130 Units/L [facility] ALT 70(H) 7 - 55 Units/L [facility] AST 32 10 - 50 Units/L [facility] Blood 03/28/2025 11:1 9 AM CDT 03/28/2025 11:31 AM CDT Saroj Pastrana MD LAB BLOOD ORDERABLES Final Result Performing Organization Address City/[facility]/ZIP Co de Phone Number [address] [place] [address] * (ABNORMAL) POCT glucose (03/28/2025 10:58 AM CDT) Pathologist [facility] Glucose, POC 486(C) 70 - 199 mg/dL Glucose comment 1 Glu2: [facility] Blood 03/28/2025 10:5 8 AM CDT 03/28/2025 10:58 AM CDT Notinfile Unknown LAB POCT ORDERABLES - DEVICE F inal Result Performing Organization Address [facility] Co de Phone Number [address] [address] * eGFR (03/14/2025 5:03 PM CDT) [facility] eGFR >90 >=60 mL/min/1. 73 m2 [...] BARAJAS LAB BLOOD ORDERABL ES Final Result [facility] [address] [facility] Department [place] [address] * Differential, auto (03/14/2025 5:03 PM CDT) Pathologist [facility] Neutrophil abs 4.63 1.50 - 6.50 K/cumm Imm gran abs 0.02 0.00 - 0.10 K/cumm [facility] Lymphocyte abs 1.99 0.80 - 3.30 K/cumm [facility] Monocyte abs 0.48 0.20 - 0.80 K/cumm [facility] Eosinophil abs 0.42 0.00 - 0.50 K/cumm [facility] Basophil abs 0.02 0.00 - 0.10 K/cumm [facility] Neutrophil pct 61.2 % [facility] Comment: Interpretive Data Percent cell count reference ranges are not reported, since discordance with absolute values may lead to misinterpretation of CBC data. Current Interpretive Data was last revised on 2018. Imm gran pct 0.3 % [facility] Comment: Interpretive Data Percent cell count reference ranges are not reported, since discordance with absolute values may lead to misinterpretation of CBC data. Current Interpretive Data was last revised on 2018. Lymphocyte pct 26.3 % [facility] Comment: Interpretive Data Percent cell count reference ranges are not reported, since discordance with absolute values may lead to misinterpretation of CBC data. Current Interpretive Data was last revised on 2018. Monocyte pct 6.3 % [facility] Comment: Interpretive Data Percent cell count reference ranges are not reported, since discordance with absolute values may lead to misinterpretation of CBC data. Current Interpretive Data was last revised on 2018. Eosinophil pct 5.6 % [facility] Comment: Interpretive Data Percent cell count reference ranges are not reported, since discordance with absolute values may lead to misinterpretation of CBC data. Current Interpretive Data was last revised on 2018. Basophil pct 0.3 % [facility] Comment: Interpretive Data Percent cell count reference ranges are not reported, since discordance with absolute values may lead to misinterpretation of CBC data. Current Interpretive Data was last revised on 2018. Blood 03/14/2025 5:03 PM CDT 03/14/2025 5:17 PM CDT Adebowale Tolulade Adesida PA LAB BLOOD ORDERABL ES Final Result Performing Organization Address City/[facility]/ZIP Co de Phone Number [facility] [address] [place] [address] * CBC with auto differential (03/14/2025 5:03 PM CDT) WBC 7.56 3.80 - 9.90 K/cumm Hgb 14.5 13.0 - 17.5 g/dL [facility] Hct 41.0 38.9 - 50.3 % [facility] Plt 181 150 - 400 K/cumm [facility] MPV 11.8 9.1 - 12.3 fL [facility] RBC 4.72 4.30 - 5.80 M/cumm [facility] MCV 86.9 81.3 - 96.4 fL [facility] MCH 30.7 27.1 - 33.3 pg [facility] MCHC 35.4 32.3 - 35.7 g/dL [facility] RDW CV 12.7 11.1 - 14.9 % [facility] RDW SD 40.0 35.7 - 48.1 fL [facility] NRBC abs 0.00 0.00 - 0.01 K/cumm [facility] Blood 03/14/2025 5:03 PM CDT 03/14/2025 5:17 PM CDT Adebowale Tolulade Adesida PA LAB BLOOD ORDERABL ES Final Result Performing Organization Address City/[facility]/ZIP Co de Phone Number [address] [address] * Erythrocyte sedimentation rate (03/14/2025 5:03 PM CDT) [facility] Erythrocyte sedimentation rate 4 1 - 15 mm/hr Blood 03/14/2025 5:03 PM CDT 03/14/2025 5:17 PM CDT Adebowale Tolulade Adesida PA LAB BLOOD ORDERABL ES Final Result Performing Organization Address [facility] Co de Phone Number [address] [address] * CRP (acute phase) (03/14/2025 5:03 PM CDT) [facility] CRP <0.2 <=10.0 mg/L Blood 03/14/2025 5:03 PM CDT 03/14/2025 5:17 PM CDT [facility] Ad[facility] LAB BLOOD ORDERABL ES Final Result Performing Organization Address [facility] de Phone Number [address] [address] * (ABNORMAL) Comprehensive metabolic panel (03/14/2025 5:03 PM CDT) [facility] Sodium 134(L) 135 - 145 mmol/L Potassium, pl 4.8 3.3 - 4.9 mmol/L [facility] Comment:Hemolyzed; Potassium value may be falsely elevated by as much as 1.0 mmol/L. Suggest redraw and reanalysis. Chloride 98 97 - 110 mmol/L [facility] CO2 26 22 - 32 mmol/L [facility] Anion gap 10 2 - 15 mmol/L [facility] BUN 15 6 - 25 mg/dL [facility] Creatinine 0.71(L) 0.80 - 1.30 mg/dL [facility] Glucose 376(H) 70 - 199 mg/dL [facility] Comment: Interpretive Data Fasting glucose >/= [...] 2022. Calcium 9.3 8.5 - 10.3 mg/dL [facility] Bilirubin, total <0.2 0.1 - 1.2 mg/dL [facility] Protein, pl 6.4(L) 6.5 - 8.5 g/dL [facility] Albumin 3.8 3.5 - 5.0 g/dL [facility] Alk phos 80 40 - 130 Units/L [facility] ALT 43 7 - 55 Units/L [facility] AST See Comment 10 - 50 [facility] Comment:Credited; Hemolyzed Specimen Blood 03/14/2025 5:03 PM CDT 03/14/2025 5:17 PM CDT Miguel BARAJAS LAB BLOOD ORDERABL ES Final Result [facility] [address] [facility] Department [place] [address] * XR Hand Right 3 or More [...] down yesterday. Pt states no longer have heading repairer strength to R hand. Pt notes getting a steroid injection to R wrist x2 weeks ago. No new injury. Pt was sent from [facility]. Pt a/o x4. NAD. VSS. Pt [...] Meri Lee M.D. TW T: Report ID: [id number] Reading Location: [place] [address] Procedure Note Meri Lee MD - 03/14/2025 EXAM DESCRIPTION: XR HAND RIGHT 3 OR MORE VIEWS REASON FOR STUDY: Pain, Upper Extremity Injury or Trauma Pt is c/o pain to R hand due to the knuckle just sunk down yesterday.Pt states no longer have heading repairer strength to R hand. Pt notes getting asteroid injection to R wrist x2 weeks ago. No new injury[facility] a/o x4. NAD. VSS. Pt [...] Meri Lee M.D. TW T: Report ID: [id number] Reading Location: [place] [address] Lyndsey BARAJAS IMG XR PROCEDURES Final Resul t from Last 3 Months Insurance [facility] MEDICARE ADVANTAGE Care Teams [employer] Relationship Specialty Start Date End Date Tomeka Fair NP [address] [place] [phone] PCP - General Nurse Practitioner 03/14/25
--- NOTE | 2025-04-25 16:39 | ED.EAR ---
HPI - Ear Problem General Chief complaint: Ear Stated complaint: right ear pain Time Seen by Provider: 04/25/25 16:38 Source: patient Mode of arrival: ambulatory Limitations: no limitations History of Present Illness HPI Narrative: patient is a 40-year-old male with right ear pain for the past 2 days. Patient has significant ear pain causing him to have radiating pain down his right neck below the ear in the eustachian tube region. Associated sore throat. MD Complaint: ear pain Location: right ear Duration: constant Severity: moderate Relieving factors: nothing Exacerbating factors: palpation Context: Reports other ( Patient having worsening right ear pain over the past few days.) Discharge from ear: Reports no Associated symptoms ear: external ear tenderness Treatment prior to arrival: eardrops Related Data Home Medications ?Medication ?Instructions ?Recorded ?Confirmed ?Last Taken ?Type insulin lispro 100 unit/mL See Rx Instructions .Route .COMPLEX 10/16/23 10/16/23 Unknown History subcutaneous solution (Admelog U-100 Insulin lispro) Allergies Allergy/AdvReac Type Severity Reaction Status Date / Time No Known Allergies Allergy Verified 04/25/25 16:40 Review of Systems Review of Systems: All systems reviewed & are unremarkable except as noted in HPI and below Constitutional: Constitutional: Reports no additional constitutional complaints Eyes: Eyes: Reports no additional eye complaints ENT: Reports system reviewed and no additional complaints, except as documented Cardiovascular: Cardiovascular: Reports no additional cardiovascular complaints Respiratory: Respiratory: Reports no additional respiratory complaints Gastrointestinal: Gastrointestinal: Reports no additional gastrointestinal complaints Genitourinary: Genitourinary: Reports no additional male genitourinary complaints Musculoskeletal: Musculoskeletal: Reports no additional musculoskeletal complaints Integumentary/Breasts: Skin/Breast: Reports system reviewed and no additional complaints, except as docu Neurologic: Reports system reviewed and no additional complaints, except as documented Psychiatric: Psychiatric: Reports no additional psychiatric complaints Endocrine: Endocrine: Reports no additional endocrine complaints Hematologic/Lymphatic: Hematologic/Lymphatic: Reports no additional hematologic/lymphatic complaints Allergic/Immunologic: Allergic/Immunologic: Reports no additional allergic/immunologic complaints PMFSH Past Medical History Medical History Diabetic gastroparesis Cannabinoid hyperemesis syndrome Bipolar 1 disorder Nausea and vomiting in adult Gastritis Diabetes mellitus Family History Family History Other Unknown family medical history Social History Social History Social History: smoker, uses marijuana Smoking status: Current every day smoker Tobacco type: cigarettes Second hand tobacco smoke exposure: Yes Alcohol intake: never Drinks per week: 5 Substance use: current Substance use type: marijuana Last use: 10/13/23 Lack of Transportation: No Lack of Food: Never True Current Housing: I Have Housing Concerned About Future Housing: No Difficulty Paying Gas/Electric Bills: No Difficulty Paying for Meds: No Currently Unemployed: No Education: Decline to Answer Difficulty w/ Childcare or Family Care: No Spiritual care concerns: No Exam Const: General: healthy appearing; No no acute distress ( Acute discomfort for right ear) Nutritional Appearance: well nourished Orientation/consciousness: patient oriented x3 HENMT: Head: normal to inspection Ears: external ears abnormal, TM's normal bilaterally and Abnormal EAC present ( right ear) erythema, edema and EAC tenderness Face/Nose/Sinus: Normal external nose present Mouth: Yes Normal oral and palatal mucosa present Throat: posterior oropharynx normal Eyes: Conjunctivae: conjunctivae normal Pupils: Equal, round and reactive pupils present EOM: EOMs intact bilaterally Neck: Neck: normal visual inspection Chest: Chest palpation & inspection: normal inspection of the chest Resp: Effort & Inspection: normal respiratory effort and not labored Auscultation: clear to auscultation bilaterally and no crackles Cardio: Rate: regular rate Rhythm: regular rhythm Heart sounds: no murmurs GI: Inspection: non-distended GI Palp: Yes Soft to palpation and No Tenderness to palpation present (GI) Auscultation: normal bowel sounds : General: Yes bladder normal to palpation Back/Spine/Pelvis: Back: no CVA tenderness Skin: General skin exam: normal color Rashes: no rashes Wounds: no wounds Neuro: General: patient oriented x3 Cranial nerves: Yes Nystagmus not present Speech: normal speech Extrem: General: normal to inspection Psych: Mental Status: mental status grossly normal Affect: normal affect Attitude: cooperative Course Vital Signs Vital signs: Vital Signs Temperature 36.4 C 04/25/25 16:33 Pulse Rate 99 04/25/25 16:33 Respiratory Rate 18 04/25/25 16:33 Blood Pressure 148/94 H 04/25/25 16:33 Pulse Oximetry 97 04/25/25 16:33 Oxygen Delivery Room Air 04/25/25 16:33 Temperature 36.4 C 04/25/25 16:33 Pulse Rate 99 04/25/25 16:33 Respiratory Rate 18 04/25/25 16:33 Blood Pressure 148/94 H 04/25/25 16:33 Pulse Oximetry 97 04/25/25 16:33 Oxygen Delivery Room Air 04/25/25 16:33 Medical Decision Making MDM Narrative Medical decision making narrative: patient is a 40-year-old male with right ear pain. We will go ahead and proceed with Cortisporin otic at this time. He does not need oral antibiotics at this time. TM is normal on the right and oropharynx is clear. Vital Signs Vital Signs: Vital Signs Temperature 36.4 C 04/25/25 16:33 Pulse Rate 99 04/25/25 16:33 Respiratory Rate 18 04/25/25 16:33 Blood Pressure 148/94 H 04/25/25 16:33 Pulse Oximetry 97 04/25/25 16:33 Oxygen Delivery Room Air 04/25/25 16:33 Temperature 36.4 C 04/25/25 16:33 Pulse Rate 99 04/25/25 16:33 Respiratory Rate 18 04/25/25 16:33 Blood Pressure 148/94 H 04/25/25 16:33 Pulse Oximetry 97 04/25/25 16:33 Oxygen Delivery Room Air 04/25/25 16:33 Discharge Plan Discharge Clinical Impression: Otitis externa Qualifiers: Otitis externa type: unspecified type Chronicity: acute Laterality: right Qualified Code(s): H60.501 - Unspecified acute noninfective otitis externa, right ear Patient Disposition: Home Condition: Stable Instructions: Antibiotic Form, Swimmer's Ear (ED) Patient Language: Georgian Prescriptions: New [id number] 3.5-10,000-1 mg/mL-unit/mL-% solution 3 drp RIGHT EAR TID 7 Days Qty: 10 0RF No Action clindamycin HCl 300 mg capsule 300 mg PO TID 10 Days Qty: 30 0RF hydrocodone-acetaminophen 5-325 mg tablet 1 tablet PO Q8H PRN (Reason: pain) Qty: 20 0RF insulin lispro [Admelog U-100 Insulin lispro] 100 unit/mL solution See Rx Instructions .ROUTE .COMPLEX Rx Instructions: pt unaware of his sliding scale protocol buspirone 5 mg tablet 5 mg PO TID PRN (Reason: Anxiety) Qty: 30 0RF insulin glargine [Lantus U-100 Insulin] 100 unit/mL solution 40 unit SUBCUT DAILY Qty: 10 0RF sertraline 100 mg tablet 100 mg PO DAILY Qty: 30 0RF pantoprazole [Protonix] 40 mg tablet,delayed release (DR/EC) 40 mg PO BID Qty: 60 0RF (DME) insulin syringe-needle U-100 [BD Insulin Syringe Ultra-Fine] 1 mL 31 gauge x 5/16 syringe MISCELLANEOUS Qty: 60 0RF Rx Instructions: As Directed ondansetron 4 mg tablet,disintegrating 4 mg PO Q6H PRN (Reason: nausea and vomiting) Qty: 20 0RF metoclopramide HCl 10 mg tablet 10 mg PO TID PRN (Reason: Nausea/Vomiting) Qty: 30 0RF Follow-up/Referrals: Manjula,Tomeka Rodriguez, LAMINATING MACHINE OPERATOR HELPER [Primary Care Provider] - Time of Disposition: 17:01
--- OUTSIDE RECORDS SUMMARY | 2025-04-25 17:19 | XMS_ITS | Clinical Summary ---
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 Corneal ulcer 10/30/2017 Encounters Date Type Department Care Team Description 03/28/2025 10:53 AM CDT - 03/28/2025 1:28 PM CDT Emergency [address] [address] Saroj Pastrana MD Syncope and collapse (Primary Dx); Type 1 diabetes mellitus with hyperglycemia (HCC); Sinus tachycardia Discharge Disposition: Discharge to home or self care 03/14/2025 2:45 PM CDT - 03/14/2025 7:58 PM CDT Emergency [address] [address] Pain of finger of right hand (Primary [...] on file Legal Sex 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 Gender Identity Not on file Sexual Orientation [...] ROLY CE Final Result Performing Organization Address [facility] Co de Phone Number [address] [place] [address] * (ABNORMAL) POCT glucose (03/28/2025 12:07 PM CDT) Glucose, POC 345(H) 70 - 199 mg/dL Glucose comment 1 RN/MD Notified [facility] Blood 03/28/2025 12:0 7 PM CDT 03/28/2025 12:07 PM CDT Saroj Pastrana MD LAB POCT ORDERABLES - ROLY CE Final Result Performing Organization Address [facility] Co de Phone Number [address] [place] [address] * ECG 12 lead (03/28/2025 11:46 AM CDT) Ventricular Rate EKG/Min 104 BPM [facility] Atrial Rate [address] [facility] MT-Interval (MSEC) [address] [facility] QRS-Interval (MSEC) [address] [facility] QT-Interval (MSEC) [address] [facility] QTc [address] [facility] P [place] [address] [facility] R [place] [address] [facility] T [place] [address] [facility] Diagnosis Sinus tachycardia Septal infarct , age undetermined Abnormal ECG No previous ECGs available Confirmed by ZIA SUN M.D. ([id number]) on 03/28/2025 5:07:12 PM [facility] 03/28/2025 11:4 6 AM CDT 03/28/2025 5:07 PM CDT Saroj Pastrana MD ECG ORDERABLES Final Resu lt Performing Organization Address [facility]/ZIP Co de Phone Number [facility] * (ABNORMAL) POC Blood Gas and Chemistries, Venous - (03/28/2025 11:38 AM CDT) Pathologist [facility] pH,nidia POC 7.39 7.32 - 7.43 pCO2, nidia POC 46 40 - 50 mmHg [facility] pO2,nidia POC 57 mmHg [facility] Comment: Interpretive Data No reference range established. Current interpretive data was last revised 2020. HCO3, nidia (Calc) POC 28 20 - 30 mmol/L [facility] Base excess, nidia POC 2 mmol/L [facility] Comment: Interpretive Data No reference range established. Current interpretive data was last revised 2020. Oxy Hgb, nidia POC 83.9(L) 90.0 - 95.0 % [facility] Met Hgb, nidia POC 0.7 0.0 - 1.9 % [facility] Carboxy Hgb, nidia POC 3.7(H) 0.0 - 2.9 % [facility] Hemoglobin, nidia POC 14.8 13.0 - 17.5 g/dL [facility] Lactate, nidia POC 1.8 0.7 - 2.0 mmol/L [facility] Blood 03/28/2025 11:3 8 AM CDT 03/28/2025 11:38 AM CDT Saroj Pastrana MD LAB POCT ORDERABLES - ROLY CE Final Result Performing Organization Address City/[facility]/ZIP Co de Phone Number [facility] [address] [facility] Department [place] [address] * Drugs of Abuse Screen, Urine without [...] 2023. Barbiturates, ur Not Detected CutOff 200ng/mL [facility] Comment: Interpretive Data - Barbiturates: Samples containing greater than 200 ng/mL secobarbital or other cross-reacting barbiturate compounds are reported as positive. False positive and false negative results are possible. Confirmatory testing required for definitive results. Current Interpretive Data was last reviewed 2023. Benzodiazepines, ur Not Detected CutOff 100ng/mL [facility] Comment: Interpretive Data - Benzodiazepines: Samples containing greater than 100 ng/mL nordiazepam or other cross-reacting compounds are reported as positive. False positive and false negative results are possible. Confirmatory testing required for definitive results. Current Interpretive Data was last reviewed 2023. Cannabinoids, ur Not Detected CutOff 50 ng/mL [facility] Comment: Interpretive Data - Cannabinoids: Samples containing greater than 50 ng/mL delta-9 THC -COOH or other cross- reacting compounds are reported as positive. False positive and false negative results are possible. Confirmatory testing required for definitive results. Current Interpretive Data was last reviewed 2023. Cocaine, ur Not Detected CutOff 150ng/mL [facility] Comment: Interpretive Data - Cocaine: Samples containing greater than 150 ng/mL benzoylecgonine or other cross- reacting compounds are reported as positive. False positive and false negative results are possible. Confirmatory testing required for definitive results. Current Interpretive Data was last reviewed 2023. Fentanyl, Ur Not Detected CutOff 5 ng/mL [facility] Comment: Interpretive Data - Fentanyl: Samples containing greater than 5 ng/mL norfentanyl, fentanyl, or other cross-reacting fentanyl compounds are reported as positive. False positive and false negative results are possible. Confirmatory testing required for definitive results. Current Interpretive Data was last reviewed 2024. Methadone, ur Not Detected CutOff 300ng/mL [facility] Comment: Interpretive Data - Methadone: Samples containing [...] 2023. Oxycodone, ur Not Detected CutOff 100ng/mL [facility] Comment: Interpretive Data - Oxycodone: Samples [...] AM CDT 03/28/2025 11:31 AM CDT Narrative [facility] - 03/28/2025 11:59 AM CDT Drug of Abuse screening is performed by immunoassay for medical purposes only. This is not to be used for Pain Management purposes. us Saroj Pastrana MD LAB URINE ORDERABLES Final Result MAX [address] [facility] Department [place] [address] * Sepsis Lactate w/ Reflex (03/28/2025 11:23 AM CDT) Sepsis Lactate 1.8 0.7 - 2.0 mmol/L Blood 03/28/2025 11:2 3 AM CDT 03/28/2025 11:31 AM CDT Saroj Pastrana MD LAB BLOOD ORDERABLES Final Result Performing Organization Address [facility] de Phone Number [address] [address] * Beta-hydroxybutyrate (03/28/2025 11:21 AM CDT) Pathologist [facility] Beta-Hydroxybut yrate 0.1 <=0.5 mmol/L Blood 03/28/2025 11:2 1 AM CDT 03/28/2025 11:31 AM CDT Saroj Pastrana MD LAB BLOOD ORDERABLES Final Result Performing Organization Address [facility] de Phone Number [address] [address] * (ABNORMAL) Urinalysis reflex to microscopic and culture Urine (03/28/2025 11:21 AM CDT) Pathologist [facility] Color, ur Yellow Yellow Clarity, ur Clear Clear [facility] Specific gravity, ur 1.018 1.003 - 1.030 [facility] pH, urine 7.0 [facility] Comment: Interpretive Data U rine pH is affected by diet, medications, systemic acid-base disturbances, and renal tubular function. pH may affect urinary stone formation. For example, urine pH below 6.0 may help reduce the tendency for calcium phosphate stones and pH greater than 6.0 may reduce the tendency for uric acid stone formation. Source: [facility] [employer] Current Interpretive Data was last revised on 2017 Protein, ur ql Negative Negative [facility] Glucose, ur ql 4+(A) Negative [facility] Ketones, ur Negative Negative [facility] Bilirubin, ur Negative Negative [facility] Blood, ur Negative Negative [facility] Urobilinogen, ur <2.0 <2.0 mg/dL [facility] Nitrite, ur Negative Negative [facility] Leukocyte esterase, ur Negative Negative [facility] UA reflex comment Reflex conditions for microscopic UA and culture not met. MAX Urine 03/28/2025 11:2 1 AM CDT 03/28/2025 11:31 AM CDT Saroj Pastrana MD LAB MICROBIOLOGY - GENERAL ORDERABLES Final Result Performing Organization Address [facility] de Phone Number [address] [place] [address] * Phosphorus (03/28/2025 11:21 AM CDT) Pathologist [facility] Phosphorus, pl 2.9 2.3 - 4.5 mg/dL Blood 03/28/2025 11:2 1 AM CDT 03/28/2025 11:31 AM CDT Saroj Pastrana MD LAB BLOOD ORDERABLES Final Result Performing Organization Address [facility] de Phone Number [address] [address] * Magnesium (03/28/2025 11:21 AM CDT) [facility] Magnesium 1.9 1.4 - 2.5 mg/dL Blood 03/28/2025 11:2 1 AM CDT 03/28/2025 11:31 AM CDT Saroj Pastrana MD LAB BLOOD ORDERABLES Final Result Performing Organization Address [facility] de Phone Number [address] [place] [address] * (ABNORMAL) Hemoglobin A1c (03/28/2025 11:21 AM CDT) [facility] Hgb A1C 12.0(H) 4.0 - 5.6 % Estimated Average Glucose 298 mg/dL MAX Comment: The ADA recommends reporting an estimated Average Glucose (eAG) with all Hemoglobin A1c results using the equation derived from a study of 507 normal and diabetic adults. Minority populations were underrepresented and children were not included. (Diabetes Care 31:2781-5926, 2008). The eAG is not equivalent to a fasting glucose. Blood 03/28/2025 11:2 1 AM CDT 03/28/2025 11:31 AM CDT Saroj Pastrana MD LAB BLOOD ORDERABLES Final Result Performing Organization Address [facility] Co de Phone Number MAX [address] [place] [address] * Ethanol (03/28/2025 11:21 AM CDT) Ethanol <10 <=10 mg/dL Comment: Interpretive Data Legal limit of intoxication > or = 80 mg/dL Levels > or = 400 mg/dL are potentially TOXIC. Current interpretive data was last revised on 2019. Blood 03/28/2025 11:2 1 AM CDT 03/28/2025 11:31 AM CDT Saroj Pastrana MD LAB BLOOD ORDERABLES Final Result Performing Organization Address [facility] de Phone Number MAX [address] [address] * eGFR (03/28/2025 11:19 AM CDT) eGFR [...] Pastrana MD LAB BLOOD ORDERABLES Final Result [facility] [address] [facility] Department [place] [address] * (ABNORMAL) Comprehensive metabolic panel (03/28/2025 11:19 AM CDT) Sodium 134(L) 135 - 145 mmol/L Potassium, pl 4.6 3.3 - 4.9 mmol/L [facility] Chloride 97 97 - 110 mmol/L [facility] CO2 27 22 - 32 mmol/L [facility] Anion gap 10 2 - 15 mmol/L [facility] BUN 18 6 - 25 mg/dL [facility] Creatinine 0.68(L) 0.80 - 1.30 mg/dL [facility] Glucose 442(H) 70 - 199 mg/dL [facility] Comment: Interpretive Data Fasting glucose >/= 126 [...] 2022. Calcium 9.1 8.5 - 10.3 mg/dL [facility] Bilirubin, total 0.2 0.1 - 1.2 mg/dL [facility] Protein, pl 6.4(L) 6.5 - 8.5 g/dL [facility] Albumin 4.0 3.5 - 5.0 g/dL [facility] Alk phos 91 40 - 130 Units/L [facility] ALT 70(H) 7 - 55 Units/L [facility] AST 32 10 - 50 Units/L [facility] Blood 03/28/2025 11:1 9 AM CDT 03/28/2025 11:31 AM CDT Saroj Pastrana MD LAB BLOOD ORDERABLES Final Result Performing Organization Address City/[facility]/ZIP Co de Phone Number [address] [place] [address] * (ABNORMAL) POCT glucose (03/28/2025 10:58 AM CDT) Pathologist [facility] Glucose, POC 486(C) 70 - 199 mg/dL Glucose comment 1 Glu2: [facility] Blood 03/28/2025 10:5 8 AM CDT 03/28/2025 10:58 AM CDT Notinfile Unknown LAB POCT ORDERABLES - DEVICE F inal Result Performing Organization Address [facility] Co de Phone Number [address] [address] * eGFR (03/14/2025 5:03 PM CDT) [facility] eGFR >90 >=60 mL/min/1. 73 m2 Comment: [...] PM CDT 03/14/2025 5:17 PM CDT Miguel BARAJSA LAB BLOOD ORDERABL ES Final Result [facility] [address] [facility] Department [place] [address] * Differential, auto (03/14/2025 5:03 PM CDT) Pathologist [facility] Neutrophil abs 4.63 1.50 - 6.50 K/cumm Imm gran abs 0.02 0.00 - 0.10 K/cumm [facility] Lymphocyte abs 1.99 0.80 - 3.30 K/cumm [facility] Monocyte abs 0.48 0.20 - 0.80 K/cumm [facility] Eosinophil abs 0.42 0.00 - 0.50 K/cumm [facility] Basophil abs 0.02 0.00 - 0.10 K/cumm [facility] Neutrophil pct 61.2 % [facility] Comment: Interpretive Data Percent cell count reference ranges are not reported, since discordance with absolute values may lead to misinterpretation of CBC data. Current Interpretive Data was last revised on 2018. Imm gran pct 0.3 % [facility] Comment: Interpretive Data Percent cell count reference ranges are not reported, since discordance with absolute values may lead to misinterpretation of CBC data. Current Interpretive Data was last revised on 2018. Lymphocyte pct 26.3 % [facility] Comment: Interpretive Data Percent cell count reference ranges are not reported, since discordance with absolute values may lead to misinterpretation of CBC data. Current Interpretive Data was last revised on 2018. Monocyte pct 6.3 % [facility] Comment: Interpretive Data Percent cell count reference ranges are not reported, since discordance with absolute values may lead to misinterpretation of CBC data. Current Interpretive Data was last revised on 2018. Eosinophil pct 5.6 % [facility] Comment: Interpretive Data Percent cell count reference ranges are not reported, since discordance with absolute values may lead to misinterpretation of CBC data. Current Interpretive Data was last revised on 2018. Basophil pct 0.3 % [facility] Comment: Interpretive Data Percent cell count reference ranges are not reported, since discordance with absolute values may lead to misinterpretation of CBC data. Current Interpretive Data was last revised on 2018. Blood 03/14/2025 5:03 PM CDT 03/14/2025 5:17 PM CDT Adebowale Tolulade Adesida PA LAB BLOOD ORDERABL ES Final Result Performing Organization Address City/[facility]/ZIP Co de Phone Number [facility] [address] [place] [address] * CBC with auto differential (03/14/2025 5:03 PM CDT) WBC 7.56 3.80 - 9.90 K/cumm Hgb 14.5 13.0 - 17.5 g/dL [facility] Hct 41.0 38.9 - 50.3 % [facility] Plt 181 150 - 400 K/cumm [facility] MPV 11.8 9.1 - 12.3 fL [facility] RBC 4.72 4.30 - 5.80 M/cumm [facility] MCV 86.9 81.3 - 96.4 fL [facility] MCH 30.7 27.1 - 33.3 pg [facility] MCHC 35.4 32.3 - 35.7 g/dL [facility] RDW CV 12.7 11.1 - 14.9 % [facility] RDW SD 40.0 35.7 - 48.1 fL [facility] NRBC abs 0.00 0.00 - 0.01 K/cumm [facility] Blood 03/14/2025 5:03 PM CDT 03/14/2025 5:17 PM CDT Adebowale Tolulade Adesida PA LAB BLOOD ORDERABL ES Final Result Performing Organization Address City/[facility]/ZIP Co de Phone Number [facility] [address] * Erythrocyte sedimentation rate (03/14/2025 5:03 PM CDT) [facility] Erythrocyte sedimentation rate 4 1 - 15 mm/hr Blood 03/14/2025 5:03 PM CDT 03/14/2025 5:17 PM CDT Adebowale Tolulade Adesida PA LAB BLOOD ORDERABL ES Final Result Performing Organization Address [facility] Co de Phone Number [address] [address] * CRP (acute phase) (03/14/2025 5:03 PM CDT) [facility] CRP <0.2 <=10.0 mg/L Blood 03/14/2025 5:03 PM CDT 03/14/2025 5:17 PM CDT [facility] Tolulade Adesida PA LAB BLOOD ORDERABL ES Final Result Performing Organization Address [facility] de Phone Number [address] [address] * (ABNORMAL) Comprehensive metabolic panel (03/14/2025 5:03 PM CDT) [facility] Sodium 134(L) 135 - 145 mmol/L Potassium, pl 4.8 3.3 - 4.9 mmol/L [facility] Comment:Hemolyzed; Potassium value may be falsely elevated by as much as 1.0 mmol/L. Suggest redraw and reanalysis. Chloride 98 97 - 110 mmol/L [facility] CO2 26 22 - 32 mmol/L [facility] Anion gap 10 2 - 15 mmol/L [facility] BUN 15 6 - 25 mg/dL [facility] Creatinine 0.71(L) 0.80 - 1.30 mg/dL [facility] Glucose 376(H) 70 - 199 mg/dL [facility] Comment: Interpretive Data Fasting glucose >/= 126 [...] 2022. Calcium 9.3 8.5 - 10.3 mg/dL [facility] Bilirubin, total <0.2 0.1 - 1.2 mg/dL [facility] Protein, pl 6.4(L) 6.5 - 8.5 g/dL [facility] Albumin 3.8 3.5 - 5.0 g/dL [facility] Alk phos 80 40 - 130 Units/L [facility] ALT 43 7 - 55 Units/L [facility] AST See Comment 10 - 50 [facility] Comment:Credited; Hemolyzed Specimen Blood 03/14/2025 5:03 PM CDT 03/14/2025 5:17 PM CDT Miguel BARAJAS LAB BLOOD ORDERABL ES Final Result [facility] [address] [facility] Department [place] [address] * XR Hand Right 3 or More [...] down yesterday. 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 Pt notes getting a steroid injection to R wrist x2 weeks ago. No new injury. Pt was sent from [facility]. Pt a/o x4. NAD. VSS. Pt [...] Meri Lee M.D. TW T: Report ID: [id number] Reading Location: [place] [address] Procedure Note Meri Lee MD - 03/14/2025 EXAM DESCRIPTION: XR HAND RIGHT 3 OR MORE VIEWS REASON FOR STUDY: Pain, Upper Extremity Injury or Trauma Pt is c/o pain to R hand due to the knuckle just sunk down yesterday.Pt states no longer have specialty sales consultant strength to R hand. Pt notes getting asteroid injection to R wrist x2 weeks ago. No new injury. [facility] Pt a/o x4. NAD. VSS. Pt [...] Meri Lee M.D. TW T: Report ID: [id number] Reading Location: [place] [address] Lyndsey BARAJAS IMG XR PROCEDURES Final Resul t from Last 3 [place] [id number] [facility] MEDICARE ADVANTAGE Care Teams Scrap Crane Operator Relationship Specialty Start Date End Date Tomeka Fair NP [address] [place] [id number] PCP - General Nurse Practitioner 03/14/25
--- OUTSIDE RECORDS SUMMARY | 2025-04-25 17:19 | XMS_ITS | Clinical Summary ---
Author Organization [facility] [employer] Address [address] [place] [address] Care Team Providers Care Back Tender Pulp Drier Name Role Phone Mitchel Broussard MD Primary Care Provider [phone] Source Comments [facility] [employer],non-owned Affiliates and Associated Physician Practices is amultiple site organization consisting of ambulatory clinics and hospital sitesin [place], [place], [place] and [place]. This disclosure is being madepursuant to the Care Everywhere program and may not contain all information available regarding this patient. 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 Gender Identity Not on file Sexual Orientation [...] - 125 mg/dL 05/24/2021 6:05 AM T [facility] Sodium 138 136 - 145 mmol/L 05/24/2021 6:05 AM [facility] Potassium 4.0 3.4 - 4.5 mmol/L 05/24/2021 6:05 AM [facility] Chloride 102 98 - 107 mmol/L 05/24/2021 6:05 AM [facility] CO2 22 22 - 29 mmol/L 05/24/2021 6:05 AM [facility] Calcium 9.6 8.4 - 10.2 mg/dL 05/24/2021 6:05 AM [facility] Anion Gap 18 10 - 20 mmol/L 05/24/2021 6:05 AM [facility] BUN 16.6 8.4 - 25.7 mg/dL 05/24/2021 6:05 AM [facility] Creatinine 0.88 0.72 - 1.25 mg/dL 05/24/2021 6:05 AM [facility] eGFR by MDRD >60 >60 mL/min/1.7 3m2 05/24/2021 6:05 AM [facility] eGFR by MDRD >60 >60 mL/min/1.7 3m2 05/24/2021 6:05 AM [facility] Alkaline Phosphatase 64 40 - 150 U/L 05/24/2021 6:05 AM [facility] ALT 15 5 - 55 U/L 05/24/2021 6:05 AM [facility] AST 13 5 - 34 U/L 05/24/2021 6:05 AM [facility] Protein Total 7.3 6.4 - 8.3 gm/dL 05/24/2021 6:05 AM [facility] Albumin 4.5 3.5 - 5.0 gm/dL 05/24/2021 6:05 AM CDT [facility] Globulin Total 2.8 2.6 - 4.0 gm/dL 05/24/2021 6:05 AM CDT [facility] Albumin/Globulin Ratio 1.6 0.9 - 1.6 05/24/2021 6:05 AM CDT [facility] Bilirubin Total 0.9 0.2 - 1.2 mg/dL 05/24/2021 6:05 AM CDT [facility] Blood BLOOD SPECIMEN / Unknown Venipuncture / Unknown 05/24/2021 5:30 AM CDT 05/24/2021 5:46 AM CDT Mars Huber MD LAB - CHEMISTRY ORDERABLES Final Result Performing Organization Address City/State/[facility] Co de Phone Number [facility] [address] from Last 3 Months or Most Recently Relevant to Health Maintenance Insurance [facility] Advance Directives * Full Code (Latest Code Status on File) Date Activated Date Inactivated Comments 05/24/2021 9:38 AM 05/24/2021 9:39 PM Care Teams Back Tender Pulp Drier Relationship Specialty Start Date End Date Mitchel Broussard MD [facility] [place] [address] PCP - General Family Medicine 05/23/21
--- OUTSIDE RECORDS SUMMARY | 2025-04-25 17:19 | XMS_ITS | Referral Summary ---
Author Organization [facility] Address [address] [place] [id number] Care Team Providers Care Marker Shipments Name Role Phone Tomeka Fair NP Primary Care Provider [phone] Encounters Date Type Department Care Team Description 03/28/2025 10:53 AM CDT - 03/28/2025 1:28 PM CDT Emergency [address] [address] Saroj Pastrana MD Syncope and collapse (Primary Dx); Type 1 diabetes mellitus with hyperglycemia (HCC); Sinus tachycardia Discharge Disposition: Discharge to home or self care 03/14/2025 2:45 PM CDT - 03/14/2025 7:58 PM CDT Emergency [address] [address] Pain of finger of right hand (Primary [...] on file 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 Gender Identity Not on file Sexual Orientation [...] ORDERABLES - ROLY CE Final Result MAX [address] [facility] Department [place] [address] * (ABNORMAL) POCT glucose (03/28/2025 12:07 PM CDT) Glucose, POC 345(H) 70 - 199 mg/dL Glucose comment 1 RN/MD Notified MAX Blood 03/28/2025 12:0 7 PM CDT 03/28/2025 12:07 PM CDT Saroj Pastrana MD LAB POCT ORDERABLES - ROLY CE Final Result Performing Organization Address [facility] Co de Phone Number MAX [address] [facility] Department [place] [address] * ECG 12 lead (03/28/2025 11:46 AM CDT) Ventricular Rate EKG/Min 104 BPM [facility] Atrial Rate 104 BPM [facility] [place]-Interval (MSEC) 116 ms [facility] QRS-Interval (MSEC) 80 ms [facility] QT-Interval (MSEC) 346 ms [facility] QTc 454 ms [facility] P [place] 58 degrees [facility] R [place] 44 degrees [facility] T [place] 50 degrees [facility] Diagnosis Sinus tachycardia Septal infarct , age undetermined Abnormal ECG No previous ECGs available Confirmed by ZIA SUN M.D. ([id number]) on 03/28/2025 5:07:12 PM [facility] 03/28/2025 11:4 6 AM CDT 03/28/2025 5:07 PM CDT Saroj Pastrana MD ECG ORDERABLES Final Resu lt Performing Organization Address [facility] de Phone Number [facility] * (ABNORMAL) POC Blood Gas and Chemistries, [...] nidia POC 83.9(L) 90.0 - 95.0 % [facility] Met Hgb, nidia POC 0.7 0.0 - 1.9 % [facility] Carboxy Hgb, nidia POC 3.7(H) 0.0 - 2.9 % [facility] Hemoglobin, nidia POC 14.8 13.0 - 17.5 g/dL [facility] Lactate, nidia POC 1.8 0.7 - 2.0 mmol/L [facility] Blood 03/28/2025 11:3 8 AM CDT 03/28/2025 11:38 AM CDT Saroj Pastrana MD LAB POCT ORDERABLES - ROLY CE Final Result [facility] [address] [facility] Department [place] [address] * Drugs of Abuse Screen, Urine without [...] 2023. Barbiturates, ur Not Detected CutOff 200ng/mL [facility] Comment: Interpretive Data - Barbiturates: Samples containing [...] Cannabinoids, ur Not Detected CutOff 50 ng/mL [facility] Comment: Interpretive Data - Cannabinoids: Samples containing greater than 50 ng/mL delta-9 THC -COOH or other cross- reacting compounds are reported as positive. False positive and false negative results are possible. Confirmatory testing required for definitive results. Current Interpretive Data was last reviewed 2023. Cocaine, ur Not Detected CutOff 150ng/mL [facility] Comment: Interpretive Data - Cocaine: Samples containing greater than 150 ng/mL benzoylecgonine or other cross- reacting compounds are reported as positive. False positive and false negative results are possible. Confirmatory testing required for definitive results. Current Interpretive Data was last reviewed 2023. Fentanyl, Ur Not Detected CutOff 5 ng/mL [facility] Comment: Interpretive Data - Fentanyl: Samples containing greater than 5 ng/mL norfentanyl, fentanyl, or other cross-reacting fentanyl compounds are reported as positive. False positive and false negative results are possible. Confirmatory testing required for definitive results. Current Interpretive Data was last reviewed 2024. Methadone, ur Not Detected CutOff 300ng/mL [facility] Comment: Interpretive Data - Methadone: Samples containing greater than 300 ng/mL d,l-methadone or other cross-reacting compounds are reported as positive. False positive and false negative results are possible. Confirmatory testing required for definitive results. Current Interpretive Data was last reviewed 2023. Opiates, ur Not Detected CutOff 300ng/mL [facility] Comment: Interpretive Data - Opiates: Samples containing greater than 300 ng/mL morphine or other cross-reacting compounds are reported as positive. False positive and false negative results are possible. Confirmatory testing required for definitive results. Current Interpretive Data was last reviewed 2023. Oxycodone, ur Not Detected CutOff 100ng/mL [facility] Comment: Interpretive Data - Oxycodone: Samples containing greater than 100 ng/mL oxycodone or other cross-reacting compounds are reported as positive. False positive and false negative results are possible. Confirmatory testing required for definitive results. Current Interpretive Data was last reviewed 2023. Phencyclidine, ur Not Detected CutOff 25 ng/mL [facility] Comment: Interpretive Data - Phencyclidine: Samples containing [...] URINE ORDERABLES Final Result Performing Organization Address [facility] Co de Phone Number [address] [place] [address] * Sepsis Lactate w/ Reflex (03/28/2025 11:23 AM CDT) Sepsis Lactate 1.8 0.7 - 2.0 mmol/L Blood 03/28/2025 11:2 3 AM CDT 03/28/2025 11:31 AM CDT Saroj Pastrana MD LAB BLOOD ORDERABLES Final Result Performing Organization Address [facility] Co de Phone Number [address] [place] [place] [address] * Beta-hydroxybutyrate (03/28/2025 11:21 AM CDT) Beta-Hydroxybut yrate 0.1 <=0.5 mmol/L Blood 03/28/2025 11:2 1 AM CDT 03/28/2025 11:31 AM CDT Saroj Pastrana MD LAB BLOOD ORDERABLES Final Result Performing Organization Address [facility] Co de Phone Number [facility] [address] [place] [address] [place] [place] [address] * (ABNORMAL) Urinalysis reflex to microscopic and culture Urine (03/28/2025 11:21 AM CDT) Color, ur Yellow Yellow Clarity, ur Clear Clear [facility] Specific gravity, ur 1.018 1.003 - 1.030 [facility] pH, urine 7.0 [facility] Comment: Interpretive Data U rine pH is affected by diet, medications, systemic acid-base disturbances, and renal tubular function. pH may affect urinary stone formation. For example, urine pH below 6.0 may help reduce the tendency for calcium phosphate stones and pH greater than 6.0 may reduce the tendency for uric acid stone formation. Source: [facility] Current Interpretive Data was last revised on 2017 Protein, ur ql Negative Negative [facility] Glucose, ur ql 4+(A) Negative [facility] Ketones, ur Negative Negative [facility] Bilirubin, ur Negative Negative [facility] Blood, ur Negative Negative [facility] Urobilinogen, ur <2.0 <2.0 mg/dL [facility] Nitrite, ur Negative Negative [facility] Leukocyte esterase, ur Negative Negative [facility] UA reflex comment Reflex conditions for microscopic UA and culture not met. [facility] Urine 03/28/2025 11:2 1 AM CDT 03/28/2025 11:31 AM CDT Saroj Pastrana MD LAB MICROBIOLOGY - GENERAL ORDERABLES Final Result Performing Organization Address City/[facility] Co de Phone Number [address] [address] * Phosphorus (03/28/2025 11:21 AM CDT) Phosphorus, pl 2.9 2.3 - 4.5 mg/dL Blood 03/28/2025 11:2 1 AM CDT 03/28/2025 11:31 AM CDT Saroj Pastrana MD LAB BLOOD ORDERABLES Final Result Performing Organization Address [facility] Co de Phone Number [facility] [address] [place] [address] * Magnesium (03/28/2025 11:21 AM CDT) Magnesium 1.9 1.4 - 2.5 mg/dL Blood 03/28/2025 11:2 1 AM CDT 03/28/2025 11:31 AM CDT Saroj Pastrana MD LAB BLOOD ORDERABLES Final Result Performing Organization Address [facility] Co de Phone Number [address] [address] * (ABNORMAL) Hemoglobin A1c (03/28/2025 11:21 AM CDT) Hgb A1C 12.0(H) 4.0 - 5.6 % Estimated Average Glucose 298 mg/dL [facility] Comment: The ADA recommends reporting an estimated Average Glucose (eAG) with all Hemoglobin A1c results using the equation derived from a study of 507 normal and diabetic adults. Minority populations were underrepresented and children were not included. (Diabetes Care 31:8515-3607, 2008). The eAG is not equivalent to a fasting glucose. Blood 03/28/2025 11:2 1 AM CDT 03/28/2025 11:31 AM CDT Saroj Pastrana MD LAB BLOOD ORDERABLES Final Result Performing Organization Address City/[facility] Co de Phone Number [address] [address] * Ethanol (03/28/2025 11:21 AM CDT) Ethanol <10 <=10 mg/dL Comment: Interpretive Data Legal limit of intoxication > or = 80 mg/dL Levels > or = 400 mg/dL are potentially TOXIC. Current interpretive data was last revised on 2019. Blood 03/28/2025 11:2 1 AM CDT 03/28/2025 11:31 AM CDT Saroj Pastrana MD LAB BLOOD ORDERABLES Final Result Performing Organization Address [facility] de Phone Number MAX [address] [place] [address] * eGFR (03/28/2025 11:19 AM CDT) Pathologist [facility] eGFR >90 >=60 mL/min/1. 73 m2 Comment: [...] BLOOD ORDERABLES Final Result Performing Organization Address [facility] Co de Phone Number MAX [address] [place] [address] * (ABNORMAL) Comprehensive metabolic panel (03/28/2025 11:19 AM CDT) [facility] Sodium 134(L) 135 - 145 mmol/L Potassium, pl 4.6 3.3 - 4.9 mmol/L [facility] Chloride 97 97 - 110 mmol/L [facility] CO2 27 22 - 32 mmol/L [facility] Anion gap 10 2 - 15 mmol/L [facility] BUN 18 6 - 25 mg/dL [facility] Creatinine 0.68(L) 0.80 - 1.30 mg/dL [facility] Glucose 442(H) 70 - 199 mg/dL [facility] Comment: Interpretive Data Fasting glucose >/= 126 [...] 2022. Calcium 9.1 8.5 - 10.3 mg/dL [facility] Bilirubin, total 0.2 0.1 - 1.2 mg/dL [facility] Protein, pl 6.4(L) 6.5 - 8.5 g/dL [facility] Albumin 4.0 3.5 - 5.0 g/dL [facility] Alk phos 91 40 - 130 Units/L [facility] ALT 70(H) 7 - 55 Units/L [facility] AST 32 10 - 50 Units/L [facility] Blood 03/28/2025 11:1 9 AM CDT 03/28/2025 11:31 AM CDT us Saroj Pastrana MD LAB BLOOD ORDERABLES Final Result Performing Organization Address City/State/[facility] Co de Phone Number [facility] [address] [facility] Department [place] [address] * (ABNORMAL) POCT glucose (03/28/2025 10:58 AM CDT) [facility] Glucose, POC 486(C) 70 - 199 mg/dL Glucose comment 1 Glu2: [facility] Blood 03/28/2025 10:5 8 AM CDT 03/28/2025 10:58 AM CDT us Notinfile Unknown LAB POCT ORDERABLES - DEVICE F inal Result Performing Organization Address [facility] Co de Phone Number MAX [address] [place] [address] * eGFR (03/14/2025 5:03 PM CDT) [facility] eGFR >90 >=60 mL/min/1. 73 m2 [...] ORDERABL ES Final Result Performing Organization Address [facility] Co de Phone Number MAX [address] Department [place] [address] * Differential, auto (03/14/2025 5:03 PM CDT) Pathologist [facility] Neutrophil abs 4.63 1.50 - 6.50 K/cumm Imm gran abs 0.02 0.00 - 0.10 K/cumm [facility] Lymphocyte abs 1.99 0.80 - 3.30 K/cumm [facility] Monocyte abs 0.48 0.20 - 0.80 K/cumm [facility] Eosinophil abs 0.42 0.00 - 0.50 K/cumm [facility] Basophil abs 0.02 0.00 - 0.10 K/cumm [facility] Neutrophil pct 61.2 % [facility] Comment: Interpretive Data Percent cell count reference ranges are not reported, since discordance with absolute values may lead to misinterpretation of CBC data. Current Interpretive Data was last revised on 2018. Imm gran pct 0.3 % [facility] Comment: Interpretive Data Percent cell count reference ranges are not reported, since discordance with absolute values may lead to misinterpretation of CBC data. Current Interpretive Data was last revised on 2018. Lymphocyte pct 26.3 % [facility] Comment: Interpretive Data Percent cell count reference ranges are not reported, since discordance with absolute values may lead to misinterpretation of CBC data. Current Interpretive Data was last revised on 2018. Monocyte pct 6.3 % [facility] Comment: Interpretive Data Percent cell count reference ranges are not reported, since discordance with absolute values may lead to misinterpretation of CBC data. Current Interpretive Data was last revised on 2018. Eosinophil pct 5.6 % [facility] Comment: Interpretive Data Percent cell count reference ranges are not reported, since discordance with absolute values may lead to misinterpretation of CBC data. Current Interpretive Data was last revised on 2018. Basophil pct 0.3 % [facility] Comment: Interpretive Data Percent cell count reference ranges are not reported, since discordance with absolute values may lead to misinterpretation of CBC data. Current Interpretive Data was last revised on 2018. Blood 03/14/2025 5:03 PM CDT 03/14/2025 5:17 PM CDT us Miguel BARAJAS LAB BLOOD ORDERABL ES Final Result [facility] [address] [facility] Department [place] [address] * CBC with auto differential (03/14/2025 5:03 PM CDT) WBC 7.56 3.80 - 9.90 K/cumm Hgb 14.5 13.0 - 17.5 g/dL [facility] Hct 41.0 38.9 - 50.3 % [facility] Plt 181 150 - 400 K/cumm [facility] MPV 11.8 9.1 - 12.3 fL [facility] RBC 4.72 4.30 - 5.80 M/cumm [facility] MCV 86.9 81.3 - 96.4 fL [facility] MCH 30.7 27.1 - 33.3 pg [facility] MCHC 35.4 32.3 - 35.7 g/dL [facility] RDW CV 12.7 11.1 - 14.9 % [facility] RDW SD 40.0 35.7 - 48.1 fL [facility] NRBC abs 0.00 0.00 - 0.01 K/cumm [facility] Blood 03/14/2025 5:03 PM CDT 03/14/2025 5:17 PM CDT Adebowale Tolulade Adesida PA LAB BLOOD ORDERABL ES Final Result Performing Organization Address City/[facility] Co de Phone Number [address] [place] [employer] [address] * Erythrocyte sedimentation rate (03/14/2025 5:03 PM CDT) [facility] Erythrocyte sedimentation rate 4 1 - 15 mm/hr Blood 03/14/2025 5:03 PM CDT 03/14/2025 5:17 PM CDT [facility] Tolulade Adesida PA LAB BLOOD ORDERABL ES Final Result Performing Organization Address City/[facility] Co de Phone Number [address] [place] [address] * CRP (acute phase) (03/14/2025 5:03 PM CDT) Pathologist [facility] CRP <0.2 <=10.0 mg/L Blood 03/14/2025 5:03 PM CDT 03/14/2025 5:17 PM CDT us Miguel BARAJAS LAB BLOOD ORDERABL ES Final Result [facility] [address] [facility] Department [place] [address] * (ABNORMAL) Comprehensive metabolic panel (03/14/2025 5:03 PM CDT) Sodium 134(L) 135 - 145 mmol/L Potassium, pl 4.8 3.3 - 4.9 mmol/L [facility] Comment:Hemolyzed; Potassium value may be falsely elevated by as much as 1.0 mmol/L. Suggest redraw and reanalysis. Chloride 98 97 - 110 mmol/L [facility] CO2 26 22 - 32 mmol/L [facility] Anion gap 10 2 - 15 mmol/L [facility] BUN 15 6 - 25 mg/dL [facility] Creatinine 0.71(L) 0.80 - 1.30 mg/dL [facility] Glucose 376(H) 70 - 199 mg/dL [facility] Comment: Interpretive Data Fasting glucose >/= 126 [...] 2022. Calcium 9.3 8.5 - 10.3 mg/dL [facility] Bilirubin, total <0.2 0.1 - 1.2 mg/dL [facility] Protein, pl 6.4(L) 6.5 - 8.5 g/dL [facility] Albumin 3.8 3.5 - 5.0 g/dL [facility] Alk phos 80 40 - 130 Units/L [facility] ALT 43 7 - 55 Units/L [facility] AST See Comment 10 - 50 [facility] Comment:Credited; Hemolyzed Specimen Blood 03/14/2025 5:03 PM CDT 03/14/2025 5:17 PM CDT us Miguel BARAJAS LAB BLOOD ORDERABL ES Final Result [facility] [address] [facility] Department [place] [address] * XR Hand Right 3 or More [...] down yesterday. 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 Pt notes getting a steroid injection to R wrist x2 weeks ago. No new injury. Pt was sent from [facility]. Pt a/o x4. NAD. VSS. Pt [...] Meri Lee M.D. 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 Pt notes getting asteroid injection to R wrist x2 weeks ago. No new injury. [facility] a/o x4. NAD. VSS. Pt [...] Meri Lee M.D. TW T: Report ID: [id number] Reading Location: [place] [address] Lyndsey BARAJAS IMG XR PROCEDURES Final Resul t from Last 3 Months Insurance [facility] MEDICARE ADVANTAGE Care Teams Marker Shipments Relationship Specialty Start Date End Date Tomeka Fair NP [address] [place], [place] [id number] PCP - General Nurse Practitioner 03/14/25
== END 2025-04-25 17:10 | disposition home or self-care (01) ==
LOC: CHSED 17:17
PROVIDERS: Emergency Provider Emergency Medicine; PCP Nurse Practitioner Family
DX: H60.501 Unspecified acute noninfective otitis externa, right ear (principal); E11.43 Type 2 diabetes mellitus with diabetic autonomic (poly)neuropathy; K31.84 Gastroparesis; F31.9 Bipolar disorder, unspecified; Z79.4 Long term (current) use of insulin; F17.210 Nicotine dependence, cigarettes, uncomplicated; F12.90 Cannabis use, unspecified, uncomplicated
CPT/HCPCS: 99283

== ENCOUNTER 2025-05-19 13:39 | Emergency (ER) | payer OTHER, MEDICARE, MEDICAID, SELFPAY ==
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
[2025-05-19 13:39] VITALS: BP 127/88; PULSE 110; RESP 16; TEMP 36.8; O2SAT 98
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
[2025-05-19] MEDS: HYDROcodone/acetaminophen (*CRX) 10-325 MG TABLET 1 TAB PO (14:20)
[2025-05-19 14:40] VITALS: BP 127/88; PULSE 80; RESP 16; TEMP 36.8; O2SAT 98
== END 2025-05-19 14:40 | disposition home or self-care (01) ==
PROVIDERS: Emergency Provider Emergency Medicine; PCP Nurse Practitioner Family
DX: S16.1XXA Strain of muscle, fascia and tendon at neck level, initial encounter (principal); E11.9 Type 2 diabetes mellitus without complications; F17.210 Nicotine dependence, cigarettes, uncomplicated; V89.2XXA Person injured in unspecified motor-vehicle accident, traffic, initial encounter
CPT/HCPCS: 72125; 99284; A9270